=== PATIENT | male | born 1945 | race Caucasian/White ===

== ENCOUNTER 2016-07-01 12:56 | Inpatient (IN) | payer OTHER, MEDICARE ==
[2016-07-01] VITALS (10 sets, daily range): BP systolic 123–161; BP diastolic 77–101; PULSE 88–126; RESP 12–28; TEMP 97.7–98.9; O2SAT 90–98
[~2016-07-01] VITALS: Ht 188 cm; Wt 87.1 kg
[~2016-07-01 12:56] MED LIST: LORTA5 PO; MACR100C PO; Z.0.COMMODE-3:1; Z.0.CPM; Z.0.WALKERFRONT
[2016-07-01] MEDS ORDERED: ASPIRIN 81 MG CHEW TAB PO ONE (13:45)
[2016-07-01] MEDS ORDERED: PRED5TAB PO (13:51)
[2016-07-01 14:10] LABS: BASOPHIL # 0.1 TH/MM3 (0-0.2); BASOPHIL % 0.8 % (0.0-2.0); EOSINOPHIL # 0.4 TH/MM3 (0-0.4); EOSINOPHIL % 3.2 % (0.0-4.0); HEMATOCRIT 48.5 % (39.0-51.0); HEMO FLAGS DIFF FINAL; LYMPH % 9.8 % (9.0-44.0); LYMPHOCYTE # 1.4 TH/MM3 (1.0-4.8); MEAN CELL VOLUME 82.5 FL (80.0-100.0); MEAN CORPUSCULAR HEMOGLOBIN 26.3 PG (27.0-34.0); MEAN CORPUSCULAR HGB CONC 31.9 % (32.0-36.0); MONO % 7.6 % (0.0-8.0); NEUT % 78.6 % (16.0-70.0); PLATELET COUNT 235 TH/MM3 (150-450); RED BLOOD COUNT 5.87 MIL/MM3 (4.50-5.90); RED CELL DISTRIBUTION WIDTH 16.1 % (11.6-17.2)
[2016-07-01 14:21] LABS: APTT (PATIENT) 24.7 SEC (24.3-30.1); PROTHROMBIN TIME - PATIENT 11.1 SEC (9.8-11.6)
[2016-07-01 14:24] LABS: BICARBONATE 24.7 MEQ/L (21.0-32.0); MAGNESIUM 2.2 MG/DL (1.5-2.5); POTASSIUM 4.1 MEQ/L (3.5-5.1)
[2016-07-01] MEDS ORDERED: LEVOFLOXACIN 500 MG PREMIX INJ 100 ML IV ONE (14:45)
--- NOTE | 2016-07-01 14:50 | PD ---
HPI Chief Complaint: Chest Pain Time Seen by Provider: 13:39 Travel History International Travel<30 days: No Contact w/Intl Traveler<30days: No Traveled to known affect area: No History of Present Illness HPI 70-year-old male came to the emergency room brought by his with history of progressive shortness of breath and chest pressure for past 2-3 weeks. His says that he was given antibiotic for pneumonia/bronchitis couple weeks ago. However his respiratory symptoms continue along with chest tightness. Today it was the worse when she decided to bring him to the her primary care. There was an EKG done at the primary care's office and because it looked different patient was sent to the ER. Vital signs are stable otherwise. No history of past stents. Patient is on steroid. Patient has history of type 2 diabetes but is on diet control which keeps his sugar under control. FORMERLY [facility] Past Medical History Narrative Medical List of his past medical history is reviewed from the nursing note. Arthritis: Yes (R.A) Cancer: Yes (MELANOMA FACE) Cardiovascular Problems: No Diabetes: Yes (diet controlled) Patient Takes Glucophage: No Diminished Hearing: No Endocrine: No Gastrointestinal Disorders: No Genitourinary: No Hepatitis: No Hiatal Hernia: No Immune Disorder: No Musculoskeletal: Yes (RHEUMATOID ARTHRITIS) Neurologic: Yes (NEUROPATHY) Psychiatric: No Reproductive: No Respiratory: No Thyroid Disease: No Past Surgical History AICD: No Joint Replacement: Yes (R KNEE) Other Surgery: Yes (GANGLION CYST LEFT HAND, bilat great toes, melanoma removed left face) Social History Alcohol Use: Yes (mon and thur) Tobacco Use: Yes (CIGARS) Substance Use: No Allergies-Medications (Allergen,Severity, Reaction): Coded Allergies: Azithromycin (Unverified Allergy, Severe, SWELLING, 07/01/16) Comments List of his allergies reviewed from the nursing note. Reported Meds & Prescriptions Reported Meds & Active Scripts Active Reported Prednisone 5 Mg Tab 5 Mg PO DAILY Narrative Medication List of his home medications reviewed from the nursing note. Review of Systems Except as stated in HPI: all other systems reviewed are Neg Physical Exam Narrative GENERAL: Awake, alert, anxious mild distress SKIN: Warm and dry. HEAD: Atraumatic. Normocephalic. EYES: Pupils equal and round. No scleral icterus. No injection or drainage. ENT: No nasal bleeding or discharge. Mucous membranes pink and moist. NECK: Trachea midline. No JVD. CARDIOVASCULAR: Regular rate and rhythm. No murmur appreciated. RESPIRATORY: No accessory muscle use. Clear to auscultation. Breath sounds equal bilaterally. GASTROINTESTINAL: Abdomen soft, non-tender, nondistended. Hepatic and splenic margins not palpable. MUSCULOSKELETAL: No obvious deformities. No clubbing. No cyanosis. 2+ bilateral pedal edema NEUROLOGICAL: Awake and alert. No obvious cranial nerve deficits. Motor grossly within normal limits. Normal speech. PSYCHIATRIC: Appropriate mood and affect; insight and judgment normal. Data Data Last Documented VS Vital Signs Date Time Temp Pulse Resp B/P Pulse Ox O2 Delivery O2 Flow Rate FiO2 07/01/16 13:54 96 Nasal Cannula 2 07/01/16 13:45 107 20 161/101 07/01/16 12:57 97.7 Orders Electrocardiogram (07/01/16 ) Basic Metabolic Panel (Bmp) (07/01/16 13:45) B-Type Natriuretic Peptide (07/01/16 13:45) Ckmb (Isoenzyme) Profile (07/01/16 13:45) Complete Blood Count With Diff (07/01/16 13:45) Magnesium (Mg) (07/01/16 13:45) Prothrombin Time / Inr (Pt) (07/01/16 13:45) Act Partial Throm Time (Ptt) (07/01/16 13:45) Troponin I (07/01/16 13:45) Chest, Single Ap (07/01/16 13:45) Ecg Monitoring (07/01/16 13:45) Bilateral Bp Monitoring (07/01/16 13:45) Iv Access Insert/Monitor (07/01/16 13:45) Oximetry (07/01/16 13:45) Oxygen Administration (07/01/16 13:45) Aspirin Chew (Aspirin Chew) (07/01/16 13:45) Sodium Chloride 0.9% Flush (Ns Flush) (07/01/16 13:45) Blood Culture (07/01/16 14:42) Lactic Acid (07/01/16 14:42) Levofloxacin 500 Mg Premix Inj (Levaquin (07/01/16 14:45) Furosemide Inj (Lasix Inj) (07/01/16 15:00) Admit To Inpatient (07/01/16 ) Inpatient Certification (07/01/16 ) Diet Heart Healthy (07/01/16 Dinner) Echo 2d Comp W/Dopp(Routine) (07/01/16 ) Admit Order (Ed Use Only) (07/01/16 15:22) Labs Laboratory Tests Test 07/01/16 13:50 White Blood Count 14.0 TH/MM3 Red Blood Count 5.87 MIL/MM3 Hemoglobin 15.4 GM/DL Hematocrit 48.5 % Mean Corpuscular Volume 82.5 FL Mean Corpuscular Hemoglobin 26.3 PG Mean Corpuscular Hemoglobin 31.9 % Concent Red Cell Distribution Width 16.1 % Platelet Count 235 TH/MM3 Mean Platelet Volume 8.2 FL Neutrophils (%) (Auto) 78.6 % Lymphocytes (%) (Auto) 9.8 % Monocytes (%) (Auto) 7.6 % Eosinophils (%) (Auto) 3.2 % Basophils (%) (Auto) 0.8 % Neutrophils # (Auto) 11.0 TH/MM3 Lymphocytes # (Auto) 1.4 TH/MM3 Monocytes # (Auto) 1.1 TH/MM3 Eosinophils # (Auto) 0.4 TH/MM3 Basophils # (Auto) 0.1 TH/MM3 CBC Comment DIFF FINAL Differential Comment Prothrombin Time 11.1 SEC Prothromb Time International 1.0 RATIO Ratio Activated Partial 24.7 SEC Thromboplast Time Sodium Level 136 MEQ/L Potassium Level 4.1 MEQ/L Chloride Level 102 MEQ/L Carbon Dioxide Level 24.7 MEQ/L Anion Gap 9 MEQ/L Blood Urea Nitrogen 14 MG/DL Creatinine 0.82 MG/DL Estimat Glomerular Filtration 93 ML/MIN Rate Random Glucose 159 MG/DL Calcium Level 8.2 MG/DL Magnesium Level 2.2 MG/DL Total Creatine Kinase 48 U/L Troponin I 0.02 NG/ML B-Type Natriuretic Peptide 977 PG/ML MDM Medical Decision Making Medical Screen Exam Complete: Yes Emergency Medical Condition: Yes Medical Record Reviewed: Yes Interpretation(s) Twelve-lead EKG was reviewed by me. Normal sinus rhythm, left axis deviation, left bundle branch block. Heart rate of 99 bpm. Differential Diagnosis ACS, non-STEMI, CHF, pneumonia Narrative Course 2:48 PM blood test results of back and patient has leukocytosis with some left shift. However chemistry appears to be within normal limit including troponin. His BNP is almost 1000. Chest x-ray has not been officially read but I noticed a density in the right lower lobe. I have ordered blood cultures and lactic acid and given him IV Levaquin. I'll give him 40 mg of IV Lasix as well. Patient will need to be admitted. Awaiting for the hospitalist to call back. Procedures EKG Prior to Arrival: Yes Diagnosis Primary Impression: Congestive heart failure Qualified Code: I50.9 - Acute congestive heart failure, unspecified congestive heart failure type Additional Impressions: Chest pain Qualified Code: R07.9 - Chest pain, unspecified type Pneumonia Qualified Code: J18.1 - Pneumonia of right lower lobe due to infectious organism Admitting Information Admitting Physician Requests: Admit Zuleyka Franz MD Jul 01, 2016 14:50
[2016-07-01] MEDS ORDERED: FUROSEMIDE 40 MG/4 ML VIAL IV PUSH ONE (15:00)
--- NOTE | 2016-07-01 15:08 | RADRPT ---
EXAM DATE/TIME: 07/01/2016 13:55 [facility] COMPARISON: No previous studies available for comparison. INDICATIONS: Pain in middle of chest and shortness of breath for 5 to 6 weeks. MEDICAL HISTORY: None. SURGICAL HISTORY: None. ENCOUNTER: Initial ACUITY: 1 month PAIN SCORE: 8/10 LOCATION: Left chest FINDINGS: The heart size within normal limits. There is diffuse increased interstitial markings. There is fur ther increased density at the bases being worse on the right. CONCLUSION: 1. Diffuse increased interstitial markings likely representing edema. 2. Further increased density at the bases being much more prominent on the right. On the right this likely represents some degree of effusion, consolidation or atelectasis. On the left side there are some superimposed atelectasis or consolidation at the left base. Jadiel Hughes MD on July 01, 2016 at 15:04 Board Certified Radiologist. This report was verified electronically.
[2016-07-01] MEDS ORDERED: MORPHINE SULFATE 4 MG/ML INJ IV PUSH PRN (17:00)
--- NOTE | 2016-07-01 17:23 | HHI.HP ---
[facility] Service [facility] [facility] Primary Care Physician Non-Staff Admission Diagnosis shortness of breath, CHF, pneumonia, elevated troponin Diagnoses: Chief Complaint: Chest pain shortness of breath Travel History International Travel<30 Days: No Contact w/Intl Traveler <30 Da: No Traveled to Known Affected Are: No History of Present Illness Patient is a very pleasant 70-year-old male with history of rheumatoid arthritis on prednisone 5 mg daily. for the past 4 months now who has been experiencing chest pain for the past 6-8 weeks now described as "like a gorilla " to sitting in his chest lasting all day and night. Patient for the past 4 weeks now hasn't been unable to lay flat in bed and has to lay on his side. Wakes up in the middle of the night short of breath. Noted bilateral leg swelling more on the left side. Denies any fever or chills occasional dry cough. Patient baseline is very active and plays golf. He noted this change in his exercise tolerance as described above. No recent travel On evaluation the ER was noted to have heart rate of the 100s sinus with occasional PACs Patient was given 40 mg IV of Lasix with improvement of shortness of breath Review of Systems Constitutional: DENIES: Diaphoretic episodes, Fatigue, Fever, Weight gain, Weight loss, Chills, Dizziness, Change in appetite, Night Sweats Endocrine: DENIES: Heat/cold intolerance, Polydipsia, Polyuria, Polyphagia Eyes: DENIES: Blurred vision, Diplopia, Eye inflammation, Eye pain, Vision loss , Photosensitivity, Double Vision Ears, nose, mouth, throat: DENIES: Tinnitus, Hearing loss, Vertigo, Nasal discharge, Oral lesions, Throat pain, Hoarseness, Ear Pain, Running Nose, Epistaxis, Sinus Pain, Toothache, Odynophagia Respiratory: DENIES: Apneas, Cough, Snoring, Wheezing, Hemoptysis, Sputum production, Shortness of breath Cardiovascular: COMPLAINS OF: Chest pain, Dyspnea on Exertion, Lower Extremity Edema, Orthopnea, DENIES: Palpitations, Syncope, PND, Claudication Gastrointestinal: DENIES: Abdominal pain, Black stools, Bloody stools, Constipation, Diarrhea, Nausea, Vomiting, Difficulty Swallowing, Anorexia Genitourinary: DENIES: Sexual dysfunction, Urinary frequency, Urinary incontinence, Urgency, Hematuria, Dysuria, Nocturia, Penile Discharge, Testicular Pain, Testicular Swelling Musculoskeletal: COMPLAINS OF: Joint pain, DENIES: Muscle aches, Stiffness, Joint Swelling, Back pain, Neck pain Integumentary: DENIES: Abnormal pigmentation, Nail changes, Pruritus, Rash Hematologic/lymphatic: DENIES: Bruising, Lymphadenopathy Immunologic/allergic: DENIES: Eczema, Urticaria Neurologic: DENIES: Abnormal gait, Headache, Localized weakness, Paresthesias, Seizures, Speech Problems, Tremor, Poor Balance Psychiatric: DENIES: Anxiety, Confusion, Mood changes, Depression, Hallucinations, Agitation, Suicidal Ideation, Homicidal Ideation, Delusions Past Family Social History Past Medical History Rheumatoid arthritis Past Surgical History Lipoma left eye surgery Right knee surgery Bilateral foot surgery years ago Reported Medications Prednisone 5 mg daily for the past 4 months Allergies: Coded Allergies: Azithromycin (Unverified Allergy, Severe, SWELLING, 07/01/16) Family History Nonremarkable Social History Smokes 3-4 cigars per day occasionally Drinks beer occasionally Mondays Denies any substance abuse Physical Exam Vital Signs Vital Signs Date Time Temp Pulse Resp B/P Pulse Ox O2 Delivery O2 Flow Rate FiO2 07/01/16 16:14 88 22 136/97 98 Nasal Cannula 2 07/01/16 13:54 96 Nasal Cannula 2 07/01/16 13:54 96 Nasal Cannula 2 07/01/16 13:45 107 20 161/101 96 Room Air 07/01/16 13:38 22 95 Room Air 07/01/16 12:57 97.7 94 12 161/93 97 Room Air Physical Exam GENERAL: This is a well-nourished, well-developed patient, tachypneic, SKIN: No rashes, ecchymoses or lesions. Cool and dry. HEAD: Atraumatic. Normocephalic. No temporal or scalp tenderness. EYES: Pupils equal round and reactive. Extraocular motions intact. No scleral icterus. No injection or drainage. ENT: Nose without bleeding, purulent drainage or septal hematoma. Throat without erythema, tonsillar hypertrophy or exudate. Uvula midline. Airway patent. NECK: Trachea midline Positive JVD. . Supple, nontender, no meningeal signs. CARDIOVASCULAR: Regular rate and rhythm occasional PACs, no gallops, or rubs. RESPIRATORY: Clear to auscultation. Breath sounds equal bilaterally. No wheezes , rales, or rhonchi. GASTROINTESTINAL: Abdomen soft, non-tender, nondistended. No hepato-splenomegaly , or palpable masses. No guarding. MUSCULOSKELETAL: Extremities without clubbing, cyanosis, +1 pretibial and pedal edema . No calf tenderness. Negative Homans sign bilaterally. NEUROLOGICAL: Awake and alert. Cranial nerves II through XII intact. Motor and sensory grossly within normal limits. Five out of 5 muscle strength in all muscle groups. Normal speech. Laboratory Laboratory Tests Test 07/01/16 07/01/16 13:50 16:00 White Blood Count 14.0 Red Blood Count 5.87 Hemoglobin 15.4 Hematocrit 48.5 Mean Corpuscular Volume 82.5 Mean Corpuscular Hemoglobin 26.3 Mean Corpuscular Hemoglobin 31.9 Concent Red Cell Distribution Width 16.1 Platelet Count 235 Mean Platelet Volume 8.2 Neutrophils (%) (Auto) 78.6 Lymphocytes (%) (Auto) 9.8 Monocytes (%) (Auto) 7.6 Eosinophils (%) (Auto) 3.2 Basophils (%) (Auto) 0.8 Neutrophils # (Auto) 11.0 Lymphocytes # (Auto) 1.4 Monocytes # (Auto) 1.1 Eosinophils # (Auto) 0.4 Basophils # (Auto) 0.1 CBC Comment DIFF FINAL Differential Comment Prothrombin Time 11.1 Prothromb Time International 1.0 Ratio Activated Partial 24.7 Thromboplast Time Sodium Level 136 Potassium Level 4.1 Chloride Level 102 Carbon Dioxide Level 24.7 Anion Gap 9 Blood Urea Nitrogen 14 Creatinine 0.82 Estimat Glomerular Filtration 93 Rate Random Glucose 159 Calcium Level 8.2 Magnesium Level 2.2 Total Creatine Kinase 48 Troponin I 0.02 B-Type Natriuretic Peptide 977 Lactic Acid Level 1.9 Date/Time Procedure Status Source Growth 07/01/16 16:00 Aerobic Blood Culture Received Blood Peripheral Pending 07/01/16 16:00 Anaerobic Blood Culture Received Blood Peripheral Pending Result Diagram: 07/01/16 1350 07/01/16 1350 Assessment and Plan Assessment and Plan 70-year-old male presenting with increasing shortness of breath, orthopnea, leg swelling for the past 4-6 weeks Acute new onset congestive heart failure r/o ischemia in etio Unstable Angina - r/o underlying CAD/ischemia Tachycardia- frequent PACs vs intermittent a fib Accelerated hypertension EKG LAD. LAHB and nonspecific STTW flattening - LVH strain vs ischemia pattern Lasix 40 mg IV every 12. start BB Lopressor 25 mg by mouth every 8 for heart rate control and for chest pain Nitrol paste 1 inch anterior chest wall.q 6 ASA daily. Start Lovenox 1 mg/kg subcutaneous every 12 eventually start JAYESH if confirms low EF and or for additional BP control Check second set troponin. Check lipid panel. Get a 2-D echo check D dimer- if + get CTA R/O PE. check TSH 02 2 L/NC Cardiology consult will defer if they would proceed with cardiac catheterization versus non invasive stress testing to rule out CAD/ischemia for new onset CHF Left base consolidation Start on Levaquin History of rheumatoid arthritis will continue on maintenance prednisone 5 mg daily Leukocytosis= secondary to consolidation + chronic steroids Hyperglycemia- patient on chronic steroids. check hemoglobin a1C tobacco abuse- counselled "quitting" discussed with patient at length Physician Certification 2 Midnight Certification Type: Admission for Inpatient Services Order for Inpatient Services The services are ordered in accordance with Medicare regulations or non- Medicare payer requirements, as applicable. In the case of services not specified as inpatient-only, they are appropriately provided as inpatient services in accordance with the 2-midnight benchmark. Estimated LOS (days): 3 days is the estimated time the patient will need to remain in the hospital, assuming treatment plan goals are met and no additional complications. Post-Hospital Plan: Not yet determined Zoey Fung MD Jul 01, 2016 17:23 Blayne Watson MD Jul 01, 2016 22:39
[2016-07-01] MEDS: METOPROLOL TARTRATE 25 MG TAB PO SCH ×2 (17:24→22:37)
[2016-07-01] MEDS: NITROGLYCERIN 2% OINT 1 GM PACKET TOPICAL SCH ×3 (17:25→23:00)
[2016-07-01] MEDS: ENOXAPARIN SODIUM 100 MG/ML SYRINGE SQ SCH (17:25)
[2016-07-01] MEDS ORDERED: FUROSEMIDE 40 MG/4 ML VIAL IV PUSH SCH (18:00)
[2016-07-01] MEDS: FUROSEMIDE 40 MG/4 ML VIAL IV PUSH SCH (22:43)
[2016-07-02] VITALS (28 sets, daily range): BP systolic 120–140; BP diastolic 65–82; PULSE 81–144; RESP 18–22; TEMP 97.8–98; O2SAT 90–96
[2016-07-02] MEDS ORDERED: diphenhydrAMINE HCL 25 MG CAP PO ONE (01:30)
[2016-07-02] MEDS ORDERED: DILTIAZEM HCL 25 MG/5 ML VIAL IV ONE ×2 (04:45→09:45)
[2016-07-02] MEDS: NITROGLYCERIN 2% OINT 1 GM PACKET TOPICAL SCH ×3 (05:03→17:35)
[2016-07-02] MEDS: METOPROLOL TARTRATE 25 MG TAB PO SCH ×3 (05:03→21:04)
[2016-07-02] MEDS: ENOXAPARIN SODIUM 100 MG/ML SYRINGE SQ SCH ×2 (05:04→17:35)
[2016-07-02 06:56] LABS: ALT (GPT) 19 U/L (12-78); ANION GAP 12 MEQ/L (5-15); AST (GOT) 7 U/L (15-37); BICARBONATE 26.6 MEQ/L (21.0-32.0); BLOOD UREA NITROGEN 14 MG/DL (7-18); CHLORIDE 101 MEQ/L (98-107); GLOMERULAR FILTRATION RATE 106 ML/MIN (>89); POTASSIUM 3.4 MEQ/L (3.5-5.1); SODIUM (NA) 140 MEQ/L (136-145)
[2016-07-02 07:06] LABS: ALKALINE PHOSPHATASE 50 U/L (45-117); HDL CHOLESTEROL 61.5 MG/DL (40.0-60.0); LDL CHOLESTEROL 67 MG/DL (0-99); TOTAL BILIRUBIN ADULT 1.9 MG/DL (0.2-1.0)
[2016-07-02] MEDS: LEVOFLOXACIN 500 MG TAB PO SCH (08:27)
[2016-07-02] MEDS: ASPIRIN 325 MG TAB PO SCH (08:27)
[2016-07-02] MEDS: predniSONE 5 MG TAB PO SCH (08:27)
[2016-07-02] MEDS: FUROSEMIDE 40 MG/4 ML VIAL IV PUSH SCH (08:27)
[2016-07-02] MEDS ORDERED: DILTIAZEM INJ 125 MG in SODIUM CHLORIDE 0.9% INJ 100 ML IV SCH (09:45)
[2016-07-02] MEDS: POTASSIUM CHLORIDE 10 MEQ CONTROLLED RELEASE TAB PO SCH (10:00)
--- NOTE | 2016-07-02 12:15 | HHI.PR ---
Subjective Remarks chest pain minimal breathing much better leg swelling improved telemetry - in a. fib - rate 120s- 150s Objective Vitals Vital Signs Date Time Temp Pulse Resp B/P Pulse Ox O2 Delivery O2 Flow Rate FiO2 07/02/16 11:24 94 07/02/16 10:24 98.0 130 18 128/78 96 07/02/16 10:00 136 07/02/16 09:30 98.0 144 20 140/70 96 07/02/16 09:18 144 07/02/16 08:02 81 07/02/16 06:00 97 07/02/16 05:00 131 07/02/16 04:00 129 07/02/16 03:00 97.8 100 22 120/65 90 07/02/16 03:00 96 07/02/16 02:00 118 07/02/16 01:00 90 07/02/16 00:00 90 07/01/16 23:00 117 07/01/16 23:00 98.4 126 22 123/77 90 07/01/16 22:00 90 07/01/16 21:00 98.5 91 22 134/96 92 07/01/16 21:00 126 07/01/16 20:09 97 07/01/16 19:49 98.9 92 16 144/79 94 07/01/16 17:00 109 28 150/95 98 Nasal Cannula 2 07/01/16 16:14 88 22 136/97 98 Nasal Cannula 2 07/01/16 13:54 96 Nasal Cannula 2 07/01/16 13:54 96 Nasal Cannula 2 07/01/16 13:45 107 20 161/101 96 Room Air 07/01/16 13:38 22 95 Room Air 07/01/16 12:57 97.7 94 12 161/93 97 Room Air I/O 07/01/16 07/01/16 07/01/16 07/02/16 07/02/16 07/02/16 07:00 15:00 23:00 07:00 15:00 23:00 Intake Total 240 ml 0 ml Output Total 975 ml Balance -735 ml 0 ml Intake Oral 240 ml IV Total 0 ml Output Urine Total 975 ml Result Diagram: 07/01/16 1350 07/02/16 0515 Imaging Last Impressions Chest X-Ray 07/01/16 1345 Signed Impressions: Service Date/Time: Friday, July 01, 2016 13:55 - CONCLUSION: 1. Diffuse increased interstitial markings likely representing edema. 2. Further increased density at the bases being much more prominent on the right. On the right this likely represents some degree of effusion, consolidation or atelectasis. On the left side there are some superimposed atelectasis or consolidation at the left base. Jadiel Hughes MD Objective Remarks GENERAL: awake and alert, oriented x 3 SKIN: Warm and dry. HEAD: Normocephalic. EYES: No scleral icterus. No injection or drainage. NECK: Supple, trachea midline. No JVD or lymphadenopathy. CARDIOVASCULAR: irregular rhythm RESPIRATORY: Breath sounds equal bilaterally. No accessory muscle use. GASTROINTESTINAL: Abdomen soft, non-tender, nondistended. MUSCULOSKELETAL: No cyanosis, or edema. BACK: Nontender without obvious deformity. No CVA tenderness. A/P Assessment and Plan 70-year-old male presenting with increasing shortness of breath, orthopnea, leg swelling for the past 4-6 weeks Acute new onset congestive heart failure r/o ischemia in etio Unstable Angina - r/o underlying CAD/ischemia Accelerated hypertension EKG unremarkable except for LAD. LAHB and nonspecific STTW flattening - LVH strain vs ischemia pattern Lasix 20 mg IV q 12 BB Lopressor 25 mg by mouth every 8 Nitrol paste 1 inch anterior chest wall.q 6 ASA daily. Lovenox 1 mg/kg subcutaneous every 12 eventually start JAYESH if confirms low EF troponins negative. Get a 2-D echo 02 2 L/NC Cardiology consult will defer if they would proceed with cardiac catheter versus non invasive stress testing to rule out CAD/ischemia for new onset CHF Recurrent A. fib - now in RVR Cardizem bolus and start drip at 5 mg/hr- titrate to keep HR less than 100 continue on Lopressor Left base consolidation Levaquin History of rheumatoid arthritis will continue on maintenance prednisone 5 mg daily Hyperglycemia- patient on chronic steroids A1C pending. Leukocytosis- secondary to consolidation + chronic steroids tobacco abuse- counselled "quitting" discussed with patient at length Zoey Fung MD Jul 02, 2016 12:15
[2016-07-02 15:45] LABS: HEMOGLOBIN A1a 1.2 %; HEMOGLOBIN A1b 1.8 %; HEMOGLOBIN Ao 82.1 %; HEMOGLOBIN LA1C 2.7 %; HEMOGLOBIN P3 4.5 %
[2016-07-02] MEDS: FUROSEMIDE 20 MG/2 ML VIAL IV PUSH SCH (17:35)
--- NOTE | 2016-07-02 20:41 | EKG ---
Date Performed: 07/01/2016 Time Performed: 13:42:35 PTAGE: 70 years EKG: Sinus rhythm WITH OCCASIONAL SUPRAVENTRICULAR PREMATURE COMPLEXES MARKED LEFT AXIS DEVIATION LEFT VENTRICULAR HYP ERTROPHY AND ST-T CHANGE ABNORMAL ECG Compared to the PREVIOUS TRACING , rate slower DOCTOR: Antoine Gonsales Interpretating Date/Time 07/02/2016 20:40:28
[2016-07-02] MEDS: SODIUM CHLORIDE 0.9% FLUSH 5 ML FLUSH IVF PRN (21:05)
[2016-07-03] VITALS (16 sets, daily range): BP systolic 115–145; BP diastolic 76–89; PULSE 80–108; RESP 18; TEMP 97.7–98.6; O2SAT 93–96
[2016-07-03] MEDS: NITROGLYCERIN 2% OINT 1 GM PACKET TOPICAL SCH ×5 (00:24→23:50)
[2016-07-03] MEDS: METOPROLOL TARTRATE 25 MG TAB PO SCH ×3 (05:38→17:35)
[2016-07-03] MEDS: ENOXAPARIN SODIUM 100 MG/ML SYRINGE SQ SCH ×2 (05:38→17:27)
[2016-07-03 06:50] LABS: AUTOMATED NEUTROPHIL # 6.5 TH/MM3 (1.8-7.7); BASOPHIL % 0.4 % (0.0-2.0); EOSINOPHIL # 0.3 TH/MM3 (0-0.4); EOSINOPHIL % 3.4 % (0.0-4.0); HEMATOCRIT 41.4 % (39.0-51.0); HEMO FLAGS DIFF FINAL; LYMPH % 15.8 % (9.0-44.0); LYMPHOCYTE # 1.4 TH/MM3 (1.0-4.8); MEAN CORPUSCULAR HEMOGLOBIN 26.8 PG (27.0-34.0); MEAN CORPUSCULAR HGB CONC 32.7 % (32.0-36.0); MONO % 8.3 % (0.0-8.0); NEUT % 72.1 % (16.0-70.0); PLATELET COUNT 178 TH/MM3 (150-450); RED BLOOD COUNT 5.05 MIL/MM3 (4.50-5.90); RED CELL DISTRIBUTION WIDTH 16.5 % (11.6-17.2); WHITE BLOOD COUNT 9.1 TH/MM3 (4.0-11.0)
[2016-07-03 07:13] LABS: ANION GAP 11 MEQ/L (5-15); AST (GOT) 5 U/L (15-37); BICARBONATE 27.2 MEQ/L (21.0-32.0); BLOOD UREA NITROGEN 15 MG/DL (7-18); CHLORIDE 101 MEQ/L (98-107); GLOMERULAR FILTRATION RATE 133 ML/MIN (>89); POTASSIUM 3.8 MEQ/L (3.5-5.1); SODIUM (NA) 139 MEQ/L (136-145)
[2016-07-03 07:16] LABS: ALKALINE PHOSPHATASE 44 U/L (45-117); ALT (GPT) 13 U/L (12-78); TOTAL BILIRUBIN ADULT 1.2 MG/DL (0.2-1.0)
[2016-07-03] MEDS: ASPIRIN 325 MG TAB PO SCH (09:00)
--- NOTE | 2016-07-03 09:26 | HHI.PR ---
Subjective Remarks patient feeling better, no chest pain able to lay flat telemetry- rate controlled on BB + cardizem drip at 5 mg/hr Objective Vitals Vital Signs Date Time Temp Pulse Resp B/P Pulse Ox O2 Delivery O2 Flow Rate FiO2 07/03/16 06:00 83 07/03/16 05:00 86 07/03/16 04:00 93 07/03/16 04:00 Room Air 07/03/16 04:00 98.5 96 18 121/80 94 07/03/16 03:00 86 07/03/16 02:00 82 07/03/16 01:00 87 07/03/16 00:00 Room Air 07/03/16 00:00 87 07/03/16 00:00 97.8 88 18 115/76 93 07/02/16 23:00 83 07/02/16 22:00 81 07/02/16 21:00 88 07/02/16 20:00 Room Air 07/02/16 20:00 98.0 102 18 120/82 96 07/02/16 20:00 87 07/02/16 19:00 98 07/02/16 18:26 90 07/02/16 17:18 84 07/02/16 16:27 98.0 84 18 96 07/02/16 16:27 84 07/02/16 15:09 98 07/02/16 15:08 95 07/02/16 15:06 108 07/02/16 14:53 108 07/02/16 13:25 108 07/02/16 12:41 98.0 110 18 128/74 96 07/02/16 12:34 118 07/02/16 11:24 94 07/02/16 10:24 98.0 130 18 128/78 96 07/02/16 10:00 136 07/02/16 09:30 98.0 144 20 140/70 96 I/O 07/02/16 07/02/16 07/02/16 07/03/16 07/03/16 07/03/16 07:00 15:00 23:00 07:00 15:00 23:00 Intake Total 240 ml 0 ml 635 ml 300 ml Output Total 975 ml 3 ml Balance -735 ml 0 ml 635 ml 297 ml Intake Oral 240 ml 600 ml 300 ml IV Total 0 ml 35 ml Output Urine Total 975 ml 3 ml # Voids 3 # Bowel Movements 1 Result Diagram: 07/03/16 0450 07/03/16 0450 Imaging Last Impressions Chest X-Ray 07/01/16 1345 Signed Impressions: Service Date/Time: Friday, July 01, 2016 13:55 - CONCLUSION: 1. Diffuse increased interstitial markings likely representing edema. 2. Further increased density at the bases being much more prominent on the right. On the right this likely represents some degree of effusion, consolidation or atelectasis. On the left side there are some superimposed atelectasis or consolidation at the left base. Jadiel Hughes MD Objective Remarks GENERAL: awake and alert, oriented x 3 SKIN: Warm and dry. HEAD: Normocephalic. EYES: No scleral icterus. No injection or drainage. NECK: Supple, trachea midline. No JVD or lymphadenopathy. CARDIOVASCULAR: irregular rhythm RESPIRATORY: Breath sounds equal bilaterally. No accessory muscle use., no rales or wheezes GASTROINTESTINAL: Abdomen soft, non-tender, nondistended. MUSCULOSKELETAL: No cyanosis, or edema. left leg-/calf slight calf swelling, superfical wound left lateral aspect of the lower leg - BACK: Nontender without obvious deformity. No CVA tenderness. A/P Assessment and Plan 70-year-old male presenting with increasing shortness of breath, orthopnea, leg swelling for the past 4-6 weeks Cardiomyopathy - Acute new onset congestive heart failure r/o ischemia in etio Unstable Angina - r/o underlying CAD/ischemia Accelerated hypertension- better readings EKG unremarkable except for LAD. LAHB and nonspecific STTW flattening - LVH strain vs ischemia pattern Lasix 20 mg IV q 12 BB Lopressor 25 mg by mouth every 8 Nitrol paste 1 inch anterior chest wall.q 6 ASA daily. Lovenox 1 mg/kg subcutaneous every 12 eventually start JAYESH - Echo with low EF- ff official report troponins negative. 02 NC. good lipid panel Cardiology will take him to cath today. Recurrent A. fib - rate controlled continue Cardizem drip at 5 mg/hr- titrate to keep HR less than 100 continue on Lopressor Left base consolidation Levaquin History of rheumatoid arthritis will continue on maintenance prednisone 5 mg daily DM- type 2 - steroid induced A1C 7.2,. ADA diet. dietitian counselling Leukocytosis- secondary to consolidation + chronic steroids tobacco abuse- counselled "quitting" discussed with patient at length Zoey Fung MD Jul 03, 2016 09:26
[2016-07-03] MEDS: FUROSEMIDE 20 MG/2 ML VIAL IV PUSH SCH ×2 (10:05→17:27)
[2016-07-03] MEDS: predniSONE 5 MG TAB PO SCH (10:06)
[2016-07-03] MEDS: LEVOFLOXACIN 500 MG TAB PO SCH (10:06)
[2016-07-03] MEDS: POTASSIUM CHLORIDE 10 MEQ CONTROLLED RELEASE TAB PO SCH (10:06)
--- NOTE | 2016-07-03 10:25 | EC ---
Study Study Date:07/03/2016 STUDY CONCLUSIONS SUMMARY - Procedure narrative: Transthoracic echocardiography. Image quality was fair. Scanning was performed from the parasternal, apical, and subcostal acoustic windows. - Left ventricle: The cavity size was mildly dilated. Wall thickness was normal. Systolic function was severely reduced. The estimated ejection fraction 20%. Diffuse hypokinesis. - Mitral valve: Moderately calcified annulus. Mild regurgitation. - Tricuspid valve: Trace regurgitation. - Pulmonary arteries: PA peak pressure: 47mm Hg (S). If LV function is below 40, please consider prescribing an ACEI or ARB or document rationale for non-use. PROCEDURE DATA STUDY STATUS: Elective. Procedure: Transthoracic echocardiography. Image quality was fair. Scanning was performed from the parasternal, apical, and subcostal acoustic windows. Study completion: The patient tolerated the procedure well. Transthoracic echocardiography. M-mode, complete 2D, complete spectral Doppler, and color Doppler. Patient status: Inpatient. CARDIAC ANATOMY LEFT VENTRICLE: The cavity size was mildly dilated. Wall thickness was normal. Systolic function was severely reduced. The estimated ejection fraction 20%. Diffuse hypokinesis. AORTIC VALVE: Trileaflet; normal thickness leaflets. Doppler: Transvalvular velocity was within the normal range. There was no stenosis. No regurgitation. AORTA: Aortic root: The aortic root was normal in size. MITRAL VALVE: Moderately calcified annulus. Doppler: Transvalvular velocity was within the normal range. There was no evidence for stenosis. Mild regurgitation. Peak gradient: 4mm Hg (D). LEFT ATRIUM: The atrium was normal in size. RIGHT VENTRICLE: The cavity size was normal. Wall thickness was normal. PULMONIC VALVE: Doppler: Transvalvular velocity was within the normal range. There was no evidence for stenosis. No regurgitation. TRICUSPID VALVE: Structurally normal valve. Doppler: Transvalvular velocity was within the normal range. Trace regurgitation. PULMONARY ARTERY: The main pulmonary artery was normal-sized. Systolic pressure was within the normal range. RIGHT ATRIUM: The atrium was normal in size. PERICARDIUM: There was no pericardial effusion. SYSTEMIC VEINS: Inferior vena cava: The vessel was normal in size. BASIC MEASUREMENTS ADULT Normal Left ventricle LV internal dimension, ED, chordal level, *56.6 mm 43-52 PLAX LV internal dimension, ES, chordal level, *51 mm 23-38 PLAX Fractional shortening, chordal level, PLAX *10 % >29 LV posterior wall thickness, ED 8.9 mm IVS/LVPW ratio, ED 1.12 <1.3 Ventricular septum Septal thickness, ED 10 mm Aortic valve Leaflet separation 20 mm 15-26 Left atrium Anterior-posterior dimension 33 mm Right ventricle RV internal dimension, ED, PLAX 24.8 mm 19-38 BASIC MEASUREMENTS ADULT Normal Aortic valve Leaflet separation 20 mm 15-26 Aorta Root diameter, ED *39 mm 20-37 DOPPLER MEASUREMENTS ADULT Normal Main pulmonary artery Pressure, S *47 mm Hg =30 Mitral valve Peak E-wave velocity 104 cm/s Peak gradient, D 4 mm Hg Tricuspid valve Regurgitant peak velocity 304 cm/s Peak RV-RA gradient, S 37 mm Hg Maximal regurgitant velocity 304 cm/s Systemic veins Estimated CVP 10 mm Hg Right ventricle RV pressure, S *47 mm Hg <30 LEGEND: Mean values are shown as u=mean value. Asterisk (*) avendano values outside specified normal range. Prepared and signed by Juan M Penny [id number]
--- NOTE | 2016-07-03 10:53 | RADRPT ---
EXAM DATE/TIME: 07/03/2016 10:01 [place] COMPARISON: No previous studies available for comparison. INDICATIONS : Left leg swelling. MEDICAL HISTORY : Neuropathy. Diabetes. Melanoma. SURGICAL HISTORY : Total knee replacement, right. Ganglion cyst removal. ENCOUNTER: Initial ACUITY: 1 day PAIN SCORE: 1/10 LOCATION: Left leg. TECHNIQUE: Venous ultrasound of the leg was performed from the inguinal ligament to the proximal calf. Real-elvira e, color Doppler and spectral tracing, compression and augmentation techniques were used. FINDINGS: There is normal compressibility of the deep venous system from the inguinal region to the proximal ca lf. No echogenic clot is seen in the lumen of the common femoral, femoral, popliteal, and posterior tibial veins. There is a normal response of the venous system to proximal and distal augmentation an d respiration. CONCLUSION: Negative study with no evidence of deep venous thrombosis. Bryce Elam MD on July 03, 2016 at 10:51 Board Certified Radiologist. This report was verified electronically.
--- NOTE | 2016-07-03 11:05 | MB ---
cc: BECKA ANSARI DATE OF CONSULTATION 07/03/2016 DATE OF 1945 REASON FOR CONSULTATION Chest pain HISTORY OF PRESENT ILLNESS 70-year-old male smoker with past medical history significant for rheumatoid arthritis, and right total knee replacement who presented to the emergency department with complaint of chest pressure all day yesterday and during today during the night. He reports that for the last four months, he has been experiencing this on and off pressure sensation in the chest that is described like a "gorilla sitting on my chest". This was associated with orthopnea, PND and the leg swelling. He denies chest trauma, fevers, chills, nausea, vomiting , diarrhea recent travel, bleeding, dizziness, light headedness, palpitations or syncope. He did note some fatigue while playing golf and energy loss. In the emergency department, he was found to be in atrial fibrillation with RVR which was successfully rate controlled with IV Cardizem. Cardiology has been consulted for further evaluation and management of chest pressure. REVIEW OF SYSTEMS Negative except for what is mentioned in the HPI. PAST MEDICAL HISTORY Rheumatoid arthritis. PAST SURGICAL HISTORY 1. Lipoma 2. Left eye surgery 3. Right knee surgery 4. Bilateral foot surgery HOME MEDICATIONS Prednisone 5 mg p.o. daily ALLERGIES AZITHROMYCIN FAMILY HISTORY Noncontributory SOCIAL HISTORY He is a smoker. Social drinker and denies illicit drug use. PHYSICAL EXAM VITAL SIGNS: Temperature 98.5, respiratory rate 18, heart rate 83, blood pressure 121/80, O2 sats 94% on room air. GENERAL: He is awake, alert, and oriented x3 in no acute distress lying in bed , at bedside. NECK: No JVD, no carotid bruits. HEART: Irregularly irregularly, no murmurs, rubs or gallops appreciated. LUNGS: Clear to auscultation bilaterally. No wheezes, rhonchi so rales. ABDOMEN: Soft, nontender, nondistended with positive bowel sounds. EXTREMITIES: No cyanosis or edema and pulses throughout. LABORATORY DATA CBC hemoglobin 13, hematocrit 41, platelet count of 178, INR 1. Electrolytes sodium 139, potassium 3.8, chloride 101, BUN 15, creatinine 0.6, hemoglobin A1c 7.2. BNP 977, troponin 0.02 and 0.04, cholesterol 147, LDL 67, HDL 61, TSH 1.5. Chest x-ray shows edema. EKG shows normal sinus rhythm with interventricular conduction delay, LVH and non-specific ST changes. Echocardiogram done at bedside, the preliminary read shows depressed LV systolic function with an estimated ejection fraction of about 30-35% which with diffuse hypokineses. ASSESSMENT/PLAN This is a 70-year-old male with a past medical history as mentioned presenting with Unstable Angina. Troponins are unremarkable, however risk factors include tobacco abuse and age. Atrial fibrillation has been successfully controlled with medications, however there is new LV systolic dysfunction seen in Echo. At this time, I think that a cardiac ischemic workup is warranted for new-onset LV dysfunction. Thus, we should pursue a left heart catheterization to better assess his CAD. The risks and benefits of left heart cath/intervention including , but not limited to infection, bleeding, renal failure, neurovascular trauma, RI, emergent CABG, stroke and have been explained to the patient and he is willing to proceed. 1. Schedule the left heart cath for this morning. 2. Keep NPO 3. Continue aggressive medical management for CAD, as well as heart failure. Further therapy to be determined. MD TODD Evans/LOULOU /10:09 AM /10:46 AM MISAEL
[2016-07-03] MEDS ORDERED: MIDAZOLAM HCL 2 MG/2 ML VIAL ONE ×2 (13:04→13:25)
[2016-07-03] MEDS ORDERED: HEPARIN-NS/PF INJ 500 ML ONE ×2 (13:04→13:16)
[2016-07-03] MEDS ORDERED: HEPARIN SODIUM - IV 10,000 UNITS/10 ML VIAL ONE (13:08)
[2016-07-03] MEDS ORDERED: VERAPAMIL HCL 5 MG/2 ML VIAL ONE (13:08)
[2016-07-03] MEDS ORDERED: NITROGLYCERIN INJ 5 ML ONE (13:08)
[2016-07-03] MEDS ORDERED: PRASUGREL 10 MG TAB ONE (14:03)
[2016-07-03] MEDS ORDERED: IOHEXOL 350 MG/ML 100 ML BTL (for Cath Lab) OTHER ONE (16:28)
[2016-07-03] MEDS ORDERED: IOHEXOL 350 MG/ML 50 ML BTL (for Cath Lab) OTHER ONE (16:28)
[2016-07-03] MEDS ORDERED: TEMAZEPAM 15 MG CAP PO PRN (17:45)
[2016-07-03] MEDS ORDERED: DEXTROSE 50% IN WATER 50 ML VIAL(D50) IV PUSH PRN (18:00)
[2016-07-03] MEDS ORDERED: ACETAMINOPHEN/HYDROcodone 325 MG/5 MG TAB PO PRN (18:00)
[2016-07-03] MEDS ORDERED: GLUCAGON 1 MG/ML VIAL OTHER PRN (18:00)
[2016-07-03] MEDS: INSULIN ASPART SUPPLEMENTAL SCALE SQ SCH (20:25)
[2016-07-03] MEDS ORDERED: ATORVASTATIN 10 MG TAB PO SCH (21:00)
[2016-07-04] VITALS (26 sets, daily range): BP systolic 118–147; BP diastolic 78–95; PULSE 86–124; RESP 18; TEMP 97.4–98; O2SAT 94–98
[2016-07-04] MEDS: METOPROLOL TARTRATE 25 MG TAB PO SCH ×3 (05:10→21:11)
[2016-07-04] MEDS: NITROGLYCERIN 2% OINT 1 GM PACKET TOPICAL SCH (05:10)
[2016-07-04] MEDS: INSULIN ASPART SUPPLEMENTAL SCALE SQ SCH ×4 (06:00→21:00)
[2016-07-04 07:19] LABS: BICARBONATE 29.5 MEQ/L (21.0-32.0)
[2016-07-04] MEDS ORDERED: DIGOXIN 0.5 MG/2 ML VIAL IV PUSH ONE (07:45)
--- NOTE | 2016-07-04 07:59 | HHI.PR ---
Subjective Remarks patient no further chest pains, no leg swelling, shortness of breath improved telemetry- in a fib rhythm- rates 90s to low 110s Objective Vitals Vital Signs Date Time Temp Pulse Resp B/P Pulse Ox O2 Delivery O2 Flow Rate FiO2 07/04/16 06:05 94 07/04/16 05:58 106 07/04/16 04:16 99 07/04/16 03:45 97.4 94 18 118/78 94 07/04/16 03:25 98 07/04/16 01:22 88 07/04/16 00:06 86 07/03/16 23:06 91 07/03/16 23:06 98.4 86 18 135/79 96 07/03/16 22:49 86 07/03/16 22:40 86 07/03/16 22:40 98.4 86 18 135/79 96 07/03/16 21:45 18 07/03/16 21:01 85 07/03/16 20:01 96 Room Air 07/03/16 20:01 104 07/03/16 20:01 98.6 108 18 133/79 96 07/03/16 18:00 88 07/03/16 15:00 97.7 92 18 145/89 95 07/03/16 11:00 98.0 80 18 120/80 95 I/O 07/03/16 07/03/16 07/03/16 07/04/16 07/04/16 07/04/16 07:00 15:00 23:00 07:00 15:00 23:00 Intake Total 300 ml 979 ml 120 ml Output Total 3 ml 1050 ml 400 ml Balance 297 ml -71 ml -280 ml Intake Oral 300 ml 240 ml 120 ml IV Total 739 ml Output Urine Total 3 ml 1050 ml 400 ml # Voids 2 # Bowel Movements 1 0 Result Diagram: 07/03/16 0450 07/04/16 0642 Imaging Last Impressions Lower Extremity Ultrasound 07/03/16 0000 Signed Impressions: Service Date/Time: June 10:01 - CONCLUSION: Negative study with no evidence of deep venous thrombosis. Bryce Elam MD Chest X-Ray 07/01/16 1345 Signed Impressions: Service Date/Time: Friday, July 01, 2016 13:55 - CONCLUSION: 1. Diffuse increased interstitial markings likely representing edema. 2. Further increased density at the bases being much more prominent on the right. On the right this likely represents some degree of effusion, consolidation or atelectasis. On the left side there are some superimposed atelectasis or consolidation at the left base. Jadiel Hughes MD Objective Remarks GENERAL: awake and alert, oriented x 3 SKIN: Warm and dry. HEAD: Normocephalic. EYES: No scleral icterus. No injection or drainage. NECK: Supple, trachea midline. No JVD or lymphadenopathy. CARDIOVASCULAR: irregular rhythm HR 102 RESPIRATORY: Breath sounds equal bilaterally. No accessory muscle use., no rales or wheezes GASTROINTESTINAL: Abdomen soft, non-tender, nondistended. MUSCULOSKELETAL: no edema, no calf swelling,, superfical wound left lateral aspect of the lower leg - BACK: Nontender without obvious deformity. No CVA tenderness. Procedures cardiac cath- 07/03- cadiac catheterization A/P Assessment and Plan 70-year-old male presenting with increasing shortness of breath, orthopnea, leg swelling for the past 4-6 weeks Ischemic Cardiomyopathy - ACS -Unstable Angina - S/P cath - stent 07/03 Accelerated hypertension- better readings ? AICD candidate Lasix 20 mg IV q 12- change to po q12 BB Lopressor 25 mg by mouth every 8 Nitrol paste 1 inch anterior chest wall.q 6-- change to po Imdur 30 mg daily- ASA daily. + Effiant. start JAYESH - Enalapril 2.5 mg po daily- adjust as BP tolerates statins Cardiology ff Recurrent A. fib - rate variable 90-110s continue on Lopressor. off Cardizem drip Give IV 0.25 mg IV q 4 x 3. start Digoxin 0.125 mg po. daily.. ? 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 ADA diet. dietitian counselling ff readings Leukocytosis- secondary to consolidation + chronic steroids tobacco abuse- counselled "quitting" discussed with patient at length Zoey Fung MD Jul 04, 2016 07:58 Zoey Fung MD Jul 04, 2016 07:58
[2016-07-04] MEDS: APIXABAN 5 MG TABLET PO SCH ×2 (09:10→21:11)
[2016-07-04] MEDS: FUROSEMIDE 20 MG TAB PO SCH ×2 (09:11→17:58)
[2016-07-04] MEDS: DIGOXIN 0.125 MG TAB PO SCH (09:11)
[2016-07-04] MEDS: ASPIRIN 325 MG TAB PO SCH (09:11)
[2016-07-04] MEDS: predniSONE 5 MG TAB PO SCH (09:12)
[2016-07-04] MEDS: POTASSIUM CHLORIDE 10 MEQ CONTROLLED RELEASE TAB PO SCH (09:12)
[2016-07-04] MEDS: LEVOFLOXACIN 500 MG TAB PO SCH (09:12)
[2016-07-04] MEDS: ISOSORBIDE MONONITRATE 30 MG TAB PO SCH (09:12)
--- NOTE | 2016-07-04 10:17 | PD.CARD.PN ---
Subjective Subjective Remarks no overnight events no complaints afib in the low 100's s/p PCI/KIKE to RAMUS Objective Medications Current Medications Medications (Trade) Dose Ordered Sig/Gus Route Start Time Stop Time Status Last Admin (NS Flush) 2 ml UNSCH PRN IVF 07/01/16 13:45 07/02/16 21:05 (Lopressor) 25 mg Q8HR PO 07/01/16 17:00 07/04/16 05:10 (Aspirin) 325 mg DAILY PO 07/02/16 09:00 07/04/16 09:11 (Morphine Inj) 2 mg Q6HR PRN IV PUSH 07/01/16 17:00 (Deltasone) 5 mg DAILY PO 07/02/16 09:00 07/04/16 09:12 Levofloxacin 500 mg 500 mg DAILY PO 07/02/16 09:00 07/04/16 09:12 (Cardizem Inj/NS Inj) 125 ml @ 0 mls/hr TITRATE IV 07/02/16 09:45 (KCl) 30 meq DAILY PO 07/02/16 10:00 07/04/16 09:12 (Lipitor) 10 mg HS PO 07/03/16 21:00 07/03/16 20:25 (Restoril) 15 mg HS PRN PO 07/03/16 17:45 (D50w (Vial) Inj) 25 ml UNSCH PRN IV PUSH 07/03/16 18:00 (Glucagon Inj) 1 mg UNSCH PRN OTHER 07/03/16 18:00 ([place] 5-325 Mg) 1 tab Q6H PRN PO 07/03/16 18:00 07/03/16 20:26 (Lasix) 20 mg BID@09,18 PO 07/04/16 09:00 07/04/16 09:11 (Lanoxin) 0.125 mg DAILY PO 07/04/16 09:00 07/04/16 09:11 (Eliquis) 5 mg BID PO 07/04/16 09:00 07/04/16 09:10 (Imdur) 30 mg DAILY PO 07/04/16 09:00 07/04/16 09:12 (Vasotec) 2.5 mg DAILY PO 07/04/16 09:00 Vital Signs / I&O Vital Signs Date Time Temp Pulse Resp B/P Pulse Ox O2 Delivery O2 Flow Rate FiO2 07/04/16 06:05 94 07/04/16 05:58 106 07/04/16 04:16 99 07/04/16 03:45 97.4 94 18 118/78 94 07/04/16 03:25 98 07/04/16 01:22 88 07/04/16 00:06 86 07/03/16 23:06 91 07/03/16 23:06 98.4 86 18 135/79 96 07/03/16 22:49 86 07/03/16 22:40 86 07/03/16 22:40 98.4 86 18 135/79 96 07/03/16 21:45 18 07/03/16 21:01 85 07/03/16 20:01 96 Room Air 07/03/16 20:01 104 07/03/16 20:01 98.6 108 18 133/79 96 07/03/16 18:00 88 07/03/16 15:00 97.7 92 18 145/89 95 07/03/16 11:00 98.0 80 18 120/80 95 I/O 07/03/16 07/03/16 07/03/16 07/04/16 07/04/16 07/04/16 07:00 15:00 23:00 07:00 15:00 23:00 Intake Total 300 ml 979 ml 120 ml Output Total 3 ml 1050 ml 400 ml Balance 297 ml -71 ml -280 ml Intake Oral 300 ml 240 ml 120 ml IV Total 739 ml Output Urine Total 3 ml 1050 ml 400 ml # Voids 2 # Bowel Movements 1 0 Physical Exam GENERAL: Well-nourished, well-developed patient. SKIN: Warm and dry. HEAD: Normocephalic. EYES: No scleral icterus. No injection or drainage. NECK: Supple, trachea midline. No JVD or lymphadenopathy. CARDIOVASCULAR: Irr Irr without murmurs, gallops, or rubs. RESPIRATORY: Breath sounds equal bilaterally. No accessory muscle use. GASTROINTESTINAL: Abdomen soft, non-tender, nondistended. EXTREMITIES: No cyanosis, or edema. NEUROLOGICAL: Awake, alert, and oriented x 3. Non-focal. Laboratory Laboratory Tests Test 07/04/16 06:42 Sodium Level 138 MEQ/L Potassium Level 4.0 MEQ/L Chloride Level 101 MEQ/L Carbon Dioxide Level 29.5 MEQ/L Anion Gap 8 MEQ/L Blood Urea Nitrogen 16 MG/DL Creatinine 0.77 MG/DL Estimat Glomerular Filtration 100 ML/MIN Rate Random Glucose 121 MG/DL Calcium Level 8.3 MG/DL Assessment and Plan Problem List: (1) Chest pain Assessment and Plan: s/p PCI/KIKE to Ramus Chest pain free In afib Cont DAPT with ASA and Effient Cont OAC for Afib Cont aggressive medical management for CAD/HF including BB, ACEi, Statin and nitrates Life Vest upon d/c (2) Congestive heart failure (3) HBP (high blood pressure) (4) Supraventricular tachycardia Problem Qualifiers (1) Chest pain: Qualified Code: R07.9 - Chest pain, unspecified type (2) Congestive heart failure: Qualified Code: I50.9 - Acute congestive heart failure, unspecified congestive heart failure type Amol Sheppard MD Jul 04, 2016 10:17
[2016-07-04] MEDS ORDERED: ENALAPRIL MALEATE 2.5 MG TAB PO ONE (10:30)
[2016-07-04] MEDS: ENALAPRIL MALEATE 2.5 MG TAB PO SCH (12:02)
[2016-07-04] MEDS: ATORVASTATIN 40 MG TAB PO SCH (12:05)
[2016-07-04] MEDS ORDERED: DIGOXIN 0.5 MG/2 ML VIAL IV PUSH PRN (15:00)
[2016-07-05] VITALS (18 sets, daily range): BP systolic 118–122; BP diastolic 68–88; PULSE 81–103; RESP 18; TEMP 97–98; O2SAT 96–97
[2016-07-05] MEDS: METOPROLOL TARTRATE 25 MG TAB PO SCH ×2 (05:47→13:28)
[2016-07-05] MEDS: INSULIN ASPART SUPPLEMENTAL SCALE SQ SCH ×2 (05:48→11:34)
[2016-07-05] MEDS ORDERED: ISOSORBIDE MONONITRATE 30 MG TAB PO SCH ×2 (07:00→09:00)
[2016-07-05] MEDS: ISOSORBIDE MONONITRATE 30 MG TAB PO SCH (08:57)
[2016-07-05] MEDS: LEVOFLOXACIN 500 MG TAB PO SCH (08:57)
[2016-07-05] MEDS: DIGOXIN 0.125 MG TAB PO SCH (08:58)
[2016-07-05] MEDS: APIXABAN 5 MG TABLET PO SCH (08:58)
[2016-07-05] MEDS: ENALAPRIL MALEATE 2.5 MG TAB PO SCH (08:58)
[2016-07-05] MEDS: predniSONE 5 MG TAB PO SCH (08:59)
[2016-07-05] MEDS: SODIUM CHLORIDE 0.9% FLUSH 5 ML FLUSH IVF PRN (08:59)
[2016-07-05] MEDS: POTASSIUM CHLORIDE 10 MEQ CONTROLLED RELEASE TAB PO SCH (08:59)
[2016-07-05] MEDS: ATORVASTATIN 40 MG TAB PO SCH (08:59)
[2016-07-05] MEDS: FUROSEMIDE 20 MG TAB PO SCH (09:00)
[2016-07-05] MEDS ORDERED: PRASUGREL 10 MG TAB PO SCH (09:00)
[2016-07-05] MEDS ORDERED: ASPIRIN EC 81 MG TABEC PO SCH (09:00)
--- NOTE | 2016-07-05 10:28 | PD.CARD.PN ---
Subjective Subjective Remarks No chest pain, no shortness of breath Objective Medications Current Medications Medications (Trade) Dose Ordered Sig/Gus Route Start Time Stop Time Status Last Admin (Lopressor) 25 mg Q8HR PO 07/01/16 17:00 07/05/16 05:47 (Morphine Inj) 2 mg Q6HR PRN IV PUSH 07/01/16 17:00 (Deltasone) 5 mg DAILY PO 07/02/16 09:00 07/05/16 08:59 Levofloxacin 500 mg 500 mg DAILY PO 07/02/16 09:00 07/05/16 08:57 (Cardizem Inj/NS Inj) 125 ml @ 0 mls/hr TITRATE IV 07/02/16 09:45 (KCl) 30 meq DAILY PO 07/02/16 10:00 07/05/16 08:59 (Restoril) 15 mg HS PRN PO 07/03/16 17:45 (D50w (Vial) Inj) 25 ml UNSCH PRN IV PUSH 07/03/16 18:00 (Glucagon Inj) 1 mg UNSCH PRN OTHER 07/03/16 18:00 ([place] 5-325 Mg) 1 tab Q6H PRN PO 07/03/16 18:00 07/03/16 20:26 (Lasix) 20 mg BID@09,18 PO 07/04/16 09:00 07/04/16 17:58 (Lanoxin) 0.125 mg DAILY PO 07/04/16 09:00 07/05/16 08:58 (Eliquis) 5 mg BID PO 07/04/16 09:00 07/05/16 08:58 (Imdur) 30 mg DAILY PO 07/04/16 09:00 07/05/16 08:57 (Vasotec) 2.5 mg DAILY PO 07/04/16 09:00 07/05/16 08:58 (Effient) 10 mg DAILY PO 07/05/16 09:00 07/05/16 08:58 (Ecotrin Ec) 81 mg DAILY PO 07/05/16 09:00 07/05/16 08:58 (Lipitor) 40 mg DAILY PO 07/04/16 11:00 07/05/16 08:59 Vital Signs / I&O Vital Signs Date Time Temp Pulse Resp B/P Pulse Ox O2 Delivery O2 Flow Rate FiO2 07/05/16 10:05 92 07/05/16 09:34 97.0 81 18 122/78 96 07/05/16 09:32 85 07/05/16 07:40 89 07/05/16 07:40 Room Air 07/05/16 06:00 94 07/05/16 05:00 94 07/05/16 04:00 103 07/05/16 03:15 93 18 119/88 97 07/05/16 03:00 93 07/05/16 02:00 94 07/05/16 01:00 92 07/05/16 00:00 91 07/04/16 23:30 94 18 132/85 98 07/04/16 23:00 92 07/04/16 22:38 95 Room Air 07/04/16 22:00 91 07/04/16 21:00 94 07/04/16 20:00 96 07/04/16 19:44 97.7 98 18 147/95 97 07/04/16 19:00 91 07/04/16 18:00 95 07/04/16 17:00 93 07/04/16 16:00 92 07/04/16 15:00 103 07/04/16 15:00 97.8 98 18 134/92 95 07/04/16 14:00 100 07/04/16 13:00 106 07/04/16 12:00 102 07/04/16 11:00 124 07/04/16 11:00 98.0 102 18 124/78 96 I/O 07/04/16 07/04/16 07/04/16 07/05/16 07/05/16 07/05/16 07:00 15:00 23:00 07:00 15:00 23:00 Intake Total 120 ml 600 ml 240 ml Output Total 400 ml 600 ml 1100 ml Balance -280 ml 0 ml -860 ml Intake Oral 120 ml 600 ml 240 ml Output Urine Total 400 ml 600 ml 1100 ml # Bowel Movements 2 0 Physical Exam GENERAL: NAD SKIN: Warm and dry. HEAD: Atraumatic. Normocephalic. EYES: Pupils equal and round. No scleral icterus. No injection or drainage. ENT: No nasal bleeding or discharge. Mucous membranes pink and moist. NECK: Trachea midline. No JVD. CARDIOVASCULAR: Regular rate and rhythm. RESPIRATORY: Decreased breath sounds bilaterally GASTROINTESTINAL: Abdomen soft, non-tender, nondistended. Hepatic and splenic margins not palpable. MUSCULOSKELETAL: Extremities without clubbing, cyanosis, or edema. No obvious deformities. NEUROLOGICAL: Awake and alert. No obvious cranial nerve deficits. Motor grossly within normal limits. Five out of 5 muscle strength in the arms and legs. Normal speech. PSYCHIATRIC: Appropriate mood and affect; insight and judgment normal. Assessment and Plan Problem List: (1) Chest pain (2) Congestive heart failure (3) HBP (high blood pressure) (4) Supraventricular tachycardia Assessment and Plan 1) ASA/Effient/BB/Statin/JAYESH-I 2) Con't Apixaban per Dr. Greer 3) Follow up with Dr. Greer on discharge 4) LifeVest hopefully fit today due to Cardiomyopathy, EF 20% Problem Qualifiers (1) Chest pain: Qualified Code: R07.9 - Chest pain, unspecified type (2) Congestive heart failure: Qualified Code: I50.9 - Acute congestive heart failure, unspecified congestive heart failure type Gregory Arce DO Jul 05, 2016 10:28
--- NOTE | 2016-07-05 12:05 | HHI.PR ---
Subjective Remarks no complains up and ambulating no chest pains or shortness of breath no leg swelling HR ranging from 90s- low 100s telemetry reviewed - a fib rhythm, rate variable Objective Vitals Vital Signs Date Time Temp Pulse Resp B/P Pulse Ox O2 Delivery O2 Flow Rate FiO2 07/05/16 11:44 97.0 87 18 122/68 97 07/05/16 11:08 81 07/05/16 10:05 92 07/05/16 09:34 97.0 81 18 122/78 96 07/05/16 09:32 85 07/05/16 07:40 89 07/05/16 07:40 Room Air 07/05/16 06:00 94 07/05/16 05:00 94 07/05/16 04:00 103 07/05/16 03:15 93 18 119/88 97 07/05/16 03:00 93 07/05/16 02:00 94 07/05/16 01:00 92 07/05/16 00:00 91 07/04/16 23:30 94 18 132/85 98 07/04/16 23:00 92 07/04/16 22:38 95 Room Air 07/04/16 22:00 91 07/04/16 21:00 94 07/04/16 20:00 96 07/04/16 19:44 97.7 98 18 147/95 97 07/04/16 19:00 91 07/04/16 18:00 95 07/04/16 17:00 93 07/04/16 16:00 92 07/04/16 15:00 103 07/04/16 15:00 97.8 98 18 134/92 95 07/04/16 14:00 100 07/04/16 13:00 106 I/O 07/04/16 07/04/16 07/04/16 07/05/16 07/05/16 07/05/16 07:00 15:00 23:00 07:00 15:00 23:00 Intake Total 120 ml 600 ml 240 ml Output Total 400 ml 600 ml 1100 ml Balance -280 ml 0 ml -860 ml Intake Oral 120 ml 600 ml 240 ml Output Urine Total 400 ml 600 ml 1100 ml # Bowel Movements 2 0 Result Diagram: 07/03/16 0450 07/04/16 0642 Imaging Last Impressions Lower Extremity Ultrasound 07/03/16 0000 Signed Impressions: Service Date/Time: June 10:01 - CONCLUSION: Negative study with no evidence of deep venous thrombosis. Bryce Elam MD Chest X-Ray 07/01/16 1345 Signed Impressions: Service Date/Time: Friday, July 01, 2016 13:55 - CONCLUSION: 1. Diffuse increased interstitial markings likely representing edema. 2. Further increased density at the bases being much more prominent on the right. On the right this likely represents some degree of effusion, consolidation or atelectasis. On the left side there are some superimposed atelectasis or consolidation at the left base. Jadiel Hughes MD Objective Remarks GENERAL: awake and alert, oriented x 3 SKIN: Warm and dry. HEAD: Normocephalic. EYES: No scleral icterus. No injection or drainage. NECK: Supple, trachea midline. No JVD or lymphadenopathy. CARDIOVASCULAR: irregular rhythm HR 102 RESPIRATORY: Breath sounds equal bilaterally. No accessory muscle use., no rales or wheezes GASTROINTESTINAL: Abdomen soft, non-tender, nondistended. MUSCULOSKELETAL: no edema, no calf swelling,, superficial wound left lateral aspect of the lower leg - BACK: Nontender without obvious deformity. No CVA tenderness. Procedures cardiac cath- 07/03- cadia catheterization A/P Assessment and Plan 70-year-old male presenting with increasing shortness of breath, orthopnea, leg swelling for the past 4-6 weeks Ischemic Cardiomyopathy - ACS -Unstable Angina - S/P cath - stent 07/03 Accelerated hypertension- Improved Lasix 20 mg po daily BB Lopressor 25 mg by mouth every 8 Imdur 30 mg daily- ASA daily. + Effiant. Enalapril 2.5 mg po daily- adjust as BP tolerates statins Cardiology ff- OP ff up with Dr. Zoey Carmichael fib - rate controlled continue on Lopressor. digoxin po daily- 0.25 mg daily Eliquis Left base consolidation Levaquin History of rheumatoid arthritis will continue on maintenance prednisone 5 mg daily DM- type 2 - steroid induced A1C 7.2,. ADA diet. dietitian counselling ff readings- good readings in am- pm readings elevated due to steroid ff up with PCP- start Actos 15 mg po daily. instruct patient to monitor BS bid and record. instructions on hypoglcyemic symptoms Leukocytosis- secondary to consolidation + chronic steroids tobacco abuse- counselled "quitting" discussed with patient at length Zoey Fung MD Jul 05, 2016 12:05
[2016-07-05] MEDS ORDERED: LIPI40TA PO (12:26)
[2016-07-05] MEDS ORDERED: FURO20TA PO (12:26)
[2016-07-05] MEDS ORDERED: METO25TA3 PO (12:26)
[2016-07-05] MEDS ORDERED: ISOS30TA3 PO (12:26)
[2016-07-05] MEDS ORDERED: ASPI81TA11 PO (12:26)
[2016-07-05] MEDS ORDERED: DIGO0.12 PO (12:26)
[2016-07-05] MEDS ORDERED: ENAL2.5T PO (12:26)
[2016-07-05] MEDS ORDERED: APIX5TAB PO (12:26)
[2016-07-05] MEDS ORDERED: ACTO15TA11 PO (12:26)
[2016-07-05] MEDS ORDERED: POTA-243 PO (12:28)
--- NOTE | 2016-07-05 12:34 | HHI.DS ---
Discharge Summary Admission Date Jul 01, 2016 at 15:23 Discharge Date: Jul 05, 2016 Admitting Diagnosis shortness of breath, CHF, pneumonia, elevated troponin (1) ischemic CMP Diagnosis: Principal (2) Afib ICD Code: I48.91 Diagnosis: Principal (3) DM type 2 (diabetes mellitus, type 2) ICD Code: E11.9 Diagnosis: Secondary Procedures cardiac cath- 07/03- cadiac catheterization Brief History - From Admission Patient is a very pleasant 70-year-old male with history of rheumatoid arthritis on prednisone 5 mg daily. for the past 4 months now who has been experiencing chest pain for the past 6-8 weeks now described as "like a gorilla " to sitting in his chest lasting all day and night. Patient for the past 4 weeks now hasn't been unable to lay flat in bed and has to lay on his side. Wakes up in the middle of the night short of breath. Noted bilateral leg swelling more on the left side. Denies any fever or chills occasional dry cough. Patient baseline is very active and plays golf. He noted this change in his exercise tolerance as described above. No recent travel On evaluation the ER was noted to have heart rate of the 100s sinus with occasional PACs Patient was given 40 mg IV of Lasix with improvement of shortness of breath CBC/BMP: 07/03/16 0450 07/04/16 0642 Significant Findings Laboratory Tests Test 07/03/16 07/04/16 04:50 06:42 Mean Corpuscular Hemoglobin 26.8 PG (27.0-34.0) Neutrophils (%) (Auto) 72.1 % (16.0-70.0) Monocytes (%) (Auto) 8.3 % (0.0-8.0) Random Glucose 145 MG/DL 121 MG/DL (74-106) (74-106) Calcium Level 8.1 MG/DL 8.3 MG/DL (8.5-10.1) (8.5-10.1) Total Bilirubin 1.2 MG/DL (0.2-1.0) Aspartate Amino Transf 5 U/L (15-37) (AST/SGOT) Alkaline Phosphatase 44 U/L (45-117) Total Protein 6.2 GM/DL (6.4-8.2) Albumin 2.7 GM/DL (3.4-5.0) Imaging Last Impressions Lower Extremity Ultrasound 07/03/16 0000 Signed Impressions: Service Date/Time: June 10:01 - CONCLUSION: Negative study with no evidence of deep venous thrombosis. Bryce Elam MD Chest X-Ray 07/01/16 1345 Signed Impressions: Service Date/Time: Friday, July 01, 2016 13:55 - CONCLUSION: 1. Diffuse increased interstitial markings likely representing edema. 2. Further increased density at the bases being much more prominent on the right. On the right this likely represents some degree of effusion, consolidation or atelectasis. On the left side there are some superimposed atelectasis or consolidation at the left base. Jadiel Hughes MD PE at Discharge GENERAL: awake and alert, oriented x 3 SKIN: Warm and dry. HEAD: Normocephalic. EYES: No scleral icterus. No injection or drainage. NECK: Supple, trachea midline. No JVD or lymphadenopathy. CARDIOVASCULAR: irregular rhythm HR 102 RESPIRATORY: Breath sounds equal bilaterally. No accessory muscle use., no rales or wheezes GASTROINTESTINAL: Abdomen soft, non-tender, nondistended. MUSCULOSKELETAL: no edema, no calf swelling,, superficial wound left lateral aspect of the lower leg - BACK: Nontender without obvious deformity. No CVA tenderness. Pt update on day of discharge afebrile no rales, no leg swelling telemetry- a fib- rate 80s Hospital Course 70-year-old male presenting with increasing shortness of breath, orthopnea, leg swelling for the past 4-6 weeks Ischemic Cardiomyopathy - ACS -Unstable Angina - S/P cath - stent 07/03 Accelerated hypertension- Improved Lasix 20 mg po daily BB Lopressor 25 mg by mouth every 8 Imdur 30 mg daily- ASA daily. + Effiant. Enalapril 2.5 mg po daily- adjust as BP tolerates statins Cardiology ff- OP ff up with Dr. Zoey Cruz. fib - rate controlled continue on Lopressor. digoxin po daily start Eliquis Left base consolidation Levaquin History of rheumatoid arthritis will continue on maintenance prednisone 5 mg daily DM- type 2 - steroid induced A1C 7.2,. ADA diet. dietitian counselling ff readings- good readings in am- pm readings elevated due to steroid ff up with PCP- start Actos 15 mg po daily. instruct patient to monitor BS bid and record. instructions on hypoglcyemic symptoms Leukocytosis- secondary to consolidation + chronic steroids tobacco abuse- counselled "quitting" discussed with patient at length DC today- awaiting life vest to be delivered Pt Condition on Discharge: Stable Discharge Disposition: Discharge Home Discharge Time: <= 30 minutes Discharge Instructions DIET: Follow Instructions for: Heart Healthy Diet, Diabetic Diet Speech Therapy-Diet Recommends: Regular Activities you can perform: Weight Bearing as Mikki Activities to Avoid: Contact Sports, Lifting/Bending, Prolonged Standing, Strenuous Activity Follow up Referrals: Cardiology - 07/14/16 with COTY give patient office # to call for appt PCP Follow-up - 07/07/16 with PCP New Orders: BASIC METABOLIC PROF - 07/08/16 New Medications: Apixaban (Eliquis) 5 Mg Tab 5 MG PO BID OAC Days [address] (Aspirin EC) 81 Mg Tabdr 81 MG PO DAILY CAD Days 30 TAB Atorvastatin (Lipitor) 40 Mg Tab 40 MG PO DAILY CAD Days 30 TAB Digoxin (Digoxin) 0.125 Mg Tab 0.125 MG PO DAILY AFIB Days 30 TAB Enalapril (Enalapril) 2.5 Mg Tab 2.5 MG PO DAILY CMP Days 30 TAB Furosemide (Furosemide) 20 Mg Tab 20 MG PO DAILY CMP Days 30 TAB Isosorbide Mononitrate ER (Isosorbide Mononitrate ER) 30 Mg Nilda 30 MG PO DAILY CAD Days 30 TAB Metoprolol Tartrate (Metoprolol Tartrate) 25 Mg Tab 25 MG PO Q8HR CAD/FIB Days 30 TAB Pioglitazone (Actos) 15 Mg Tab 15 MG PO DAILYAC DM Days 30 TAB Potassium Chloride ER (Klor-Con 10) 10 Meq Tab 20 MEQ PO DAILY elec Days 5 TAB Continued Medications: Prednisone (Prednisone) 5 Mg Tab 5 MG PO DAILY Ref 0 TAB Zoey Fung MD Jul 05, 2016 12:34
[2016-07-05] MEDS ORDERED: POTA1TAB4 PO (12:37)
[2016-07-05] MEDS ORDERED: DIGO0.25 PO (12:40)
[2016-07-05] MEDS ORDERED: LEVA500T PO (12:49)
[2016-07-05] MEDS ORDERED: PIOGLITAZONE HCL 15 MG TAB PO SCH (13:00)
[2016-07-05] MEDS ORDERED: DIGOXIN 0.125 MG TAB PO ONE (13:00)
[2016-07-05] MEDS ORDERED: PRAS10TA PO (13:56)
[2016-07-06] MEDS ORDERED: DIGOXIN 0.25 MG TAB PO SCH (09:00)
[2016-07-06] MEDS ORDERED: FUROSEMIDE 20 MG TAB PO SCH (09:00)
--- NOTE | 2016-07-07 16:57 | MA ---
cc: BECKA ANSARI DATE 07/03/2016 Cardiology procedure The previous dictation apparently was erased or incomplete. DATE OF 1945 PROCEDURE PERFORMED Left heart catheterization, selective right and left coronary angiography. Successful PCI to ramus x2. INDICATION Unstable angina. Newly diagnosed severe LV systolic dysfunction. APPROACH Right transradial. DESCRIPTION Consent signed. The patient was brought into the cardiac laboratory animal caretaker in fasting state. The right wrist was prepped and draped in sterile fashion. Using 1% lidocaine for local anesthesia and a micropuncture kit a 6-Yi sheath was inserted into the right radial artery. Antispasmodic cocktail given. Then selective right and left coronary angiography was performed with a JR-4 and a JL -4. We identified a significant ramus vessel which bifurcates that has two severe lesions and BERTA II flow. Thus we proceeded to intervene in this lesion. For this the left main was engaged for an EBU 3.5 guide. Heparin IV was given for anticoagulation. The ramus vessels were wired separately with two BMW wires. The lower branch was predilated further with a 2.0 balloon followed by insertion and deployment of a 2.25 x 22 drug-eluting stent. The lesion in the top branch of the ramus was direct stented with 2.25 x 15 drug-eluting stent. Post dilation of both vessels were done simultaneously with two 2.25 x 8 noncompliant balloon inflated to high atmospheres. Final angiographic views revealed good stent apposition and expansion with BERTA III flow. The patient tolerated the procedure well without complications. Estimated blood loss less than 50 mL. The right radial access site was closed with a TR band. The patient was loaded with Effient after the procedure. ANGIOGRAPHIC RESULTS 1. The right coronary artery is a dominant vessel giving off the PDA as well as two PLB branches, posterior lateral branches. The right coronary artery also has a mid segment 40% lesion. 2. The left main is patent. 3. The LAD is a transapical vessel with minimal luminal irregularities. There is a mid 30% lesion. D1, D2, D3 are patent with minimal luminal irregularities. 4. The left circumflex artery is patent with nonobstructive CAD. OM-1 and OM-2 are patent. The ramus vessel is a big ramus that bifurcates right after takeoff. The lower branch has a 99% long lesion and has BERTA I flow. The upper branch has a concentric 80% lesion and has BERTA III flow. CONCLUSION Successful PCI / KIKE to the ramus vessel. RECOMMENDATIONS Continue dual antiplatelet therapy with aspirin and Effient, as well as aggressive medical management for CAD including beta-blockers, JAYESH inhibitors, statins. Also rate control for afib and OAC is recommended. The patient should be fitted with a vest before discharge. Post cath care and post cath IV hydration. MD TODD Evans/KK /12:12 PM /4:34 PM MTDAnh
== END 2016-07-05 16:27 | disposition home or self-care (01) | DRG 246 ==
LOC: NEPA 12:56 → NEDA 15:23 → HCIS 20:02
PROVIDERS: ADMIT Internal Medicine; ATTEND Internal Medicine
PROC: 4A023N7 Measurement of Cardiac Sampling and Pressure, Left Heart, Percutaneous Approach (ICD-10-PCS; 2016-07-03)
PROC: B2111ZZ Fluoroscopy of Multiple Coronary Arteries using Low Osmolar Contrast (ICD-10-PCS; 2016-07-03)
PROC: 3E073GC Introduction of Other Therapeutic Substance into Coronary Artery, Percutaneous Approach (ICD-10-PCS; 2016-07-03)
PROC: 027135Z Dilation of Coronary Artery, Two Arteries with Two Drug-eluting Intraluminal Devices, Percutaneous Approach (ICD-10-PCS; principal; 2016-07-03 11:15)
DX: I50.9 Heart failure, unspecified (principal); J18.1 Lobar pneumonia, unspecified organism; G62.9 Polyneuropathy, unspecified; E09.9 Drug or chemical induced diabetes mellitus without complications; I48.91 Unspecified atrial fibrillation; I25.5 Ischemic cardiomyopathy; I25.110 Atherosclerotic heart disease of native coronary artery with unstable angina pectoris; I47.1 Supraventricular tachycardia; F17.290 Nicotine dependence, other tobacco product, uncomplicated; I10 Essential (primary) hypertension; I44.7 Left bundle-branch block, unspecified; M06.9 Rheumatoid arthritis, unspecified; Z85.820 Personal history of malignant melanoma of skin; R74.8 Abnormal levels of other serum enzymes; Z96.651 Presence of right artificial knee joint; T38.0X5A Adverse effect of glucocorticoids and synthetic analogues, initial encounter; Z79.52 Long term (current) use of systemic steroids
CPT/HCPCS: 71010; 80048; 80053; 80061; 82550; 82948; 83036; 83605; 83735; 83880; 84443; 84484; 85025; 85379; 85610; 85730; 87040; 92928; 93005; 93306; 93454; 93971; C1725; C1769; C1874; C1887; C1893; J1160; J1644; J1650; J1815; J1940; J1956; J2250; J3010; J7512; Q9967

== ENCOUNTER 2016-07-10 10:38 | Emergency (ER) | payer MEDICARE, OTHER ==
[~2016-07-10] VITALS: Ht 188 cm; Wt 85.0 kg
[~2016-07-10 10:38] MED LIST changes: +ACTO15TA11 PO; +APIX5TAB PO; +ASPI81TA11 PO; +DIGO0.25 PO; +ENAL2.5T PO; +FURO20TA PO; +ISOS30TA3 PO; +LEVA500T PO; +LIPI40TA PO; -LORTA5 PO; -MACR100C PO; +METO25TA3 PO; +POTA1TAB4 PO; +PRAS10TA PO; +PRED5TAB PO; -Z.0.COMMODE-3:1; -Z.0.CPM; -Z.0.WALKERFRONT
[2016-07-10 10:41] VITALS: BP 118/58; PULSE 70; RESP 12; TEMP 98.4; O2SAT 94
[2016-07-10] MEDS ORDERED: ACETAMINOPHEN 325 MG TAB PO ONE (12:15)
--- NOTE | 2016-07-10 12:34 | PD ---
HPI . Myalgias Chief Complaint: Pain: Acute or Chronic Time Seen by Provider: 12:05 Travel History International Travel<30 days: No Contact w/Intl Traveler<30days: No Traveled to known affect area: No History of Present Illness HPI Patient presents with diffuse myalgias which awakened him from sleep at about 1: 30 AM. He has no other associated symptoms. Specifically, no fever, no upper respiratory symptoms, no cough or difficulty breathing, no GI symptoms, no symptoms and no rash. He has not taken anything for the pain. Pain is exacerbated by movement and relieved by being still. PFSH Past Medical History Hx Anticoagulant Therapy: Yes Arthritis: Yes (R.A) Cancer: Yes (MELANOMA FACE) Cardiovascular Problems: Yes Congestive Heart Failure: Yes Diabetes: Yes (diet controlled) Patient Takes Glucophage: No Diminished Hearing: No Endocrine: No Gastrointestinal Disorders: No Genitourinary: No Hepatitis: No Hiatal Hernia: No Immune Disorder: No Medical other: Yes (external defibrillator) Musculoskeletal: Yes (RHEUMATOID ARTHRITIS) Neurologic: Yes (NEUROPATHY) Psychiatric: No Reproductive: No Respiratory: Yes Thyroid Disease: No Past Surgical History AICD: No Joint Replacement: Yes (R KNEE) Other Surgery: Yes (GANGLION CYST LEFT HAND, bilat great toes, melanoma removed left face) Social History Alcohol Use: Yes (mon and thur) Tobacco Use: Yes (CIGARS) Substance Use: No Allergies-Medications (Allergen,Severity, Reaction): Coded Allergies: Azithromycin (Unverified Allergy, Severe, SWELLING, 07/10/16) Reported Meds & Prescriptions Reported Meds & Active Scripts Active Effient (Prasugrel) 10 Mg Tab 10 Mg PO DAILY Metoprolol Tartrate 25 Mg Tab 25 Mg PO Q8HR 30 Days Isosorbide Mononitrate ER (Isosorbide Mononitrate) 30 Mg Nilda 30 Mg PO DAILY 30 Days Enalapril (Enalapril Maleate) 2.5 Mg Tab 2.5 Mg PO DAILY 30 Days Aspirin EC (Aspirin) 81 Mg Tabdr 81 Mg PO DAILY 30 Days Reported Prednisone 5 Mg Tab 5 Mg PO DAILY Review of Systems Except as stated in HPI: all other systems reviewed are Neg General / Constitutional: Positive: Other (fatigue), No: Fever, Chills HENT: No: Sore Throat, Rhinitis, Rhinorrhea, Congestion Cardiovascular: No: Chest Pain or Discomfort Respiratory: No: Cough, Shortness of Breath Gastrointestinal: No: Nausea, Vomiting, Diarrhea, Abdominal Pain Genitourinary: No: Urgency, Frequency, Dysuria Musculoskeletal: Positive: Myalgias, Arthralgias, Limited ROM Hematologic/Lymphatic: Positive: Easy Bruising Physical Exam Narrative GENERAL: Healthy-appearing older gentleman who is in no acute distress. SKIN: Warm and dry. He does have multiple lower extremity bruises. HEAD: Atraumatic. Normocephalic. EYES: Pupils equal and round. ENT: No nasal bleeding or discharge. Mucous membranes pink and moist. NECK: Trachea midline. Neck is supple. CARDIOVASCULAR: Regular rate and rhythm. Heart sounds are normal. RESPIRATORY: No accessory muscle use. Lungs are clear with full air movement throughout. GASTROINTESTINAL: Abdomen soft, non-tender, nondistended. MUSCULOSKELETAL: No obvious deformities. No edema. Diffuse muscular tenderness. NEUROLOGICAL: Awake and alert. No obvious cranial nerve deficits. Motor grossly within normal limits. Normal speech. PSYCHIATRIC: Appropriate mood and affect; insight and judgment normal. Data Data Last Documented VS Vital Signs Date Time Temp Pulse Resp B/P Pulse Ox O2 Delivery O2 Flow Rate FiO2 07/10/16 10:41 98.4 70 12 118/58 94 Room Air Orders Electrocardiogram (07/10/16 10:45) Complete Blood Count With Diff (07/10/16 12:14) Comprehensive Metabolic Panel (07/10/16 12:14) Lactic Acid Sepsis Protocol (07/10/16 12:14) Urinalysis - C+S If Indicated (07/10/16 12:14) Influenzae A/B Antigen (07/10/16 12:14) Blood Culture (07/10/16 12:14) Chest, Single Ap (07/10/16 12:14) Blood Glucose (07/10/16 12:14) Ecg Monitoring (07/10/16 12:14) Iv Access Insert/Monitor (07/10/16 12:14) Oximetry (07/10/16 12:14) Oxygen Administration (07/10/16 12:14) Acetaminophen (Tylenol) (07/10/16 12:15) Creatine Kinase (Cpk) (07/10/16 12:26) Ast (Sgot) (07/10/16 15:22) Alt (Sgpt) (07/10/16 15:22) Labs Laboratory Tests Test 07/10/16 07/10/16 12:50 13:30 White Blood Count 10.3 TH/MM3 Red Blood Count 5.53 MIL/MM3 Hemoglobin 14.8 GM/DL Hematocrit 46.1 % Mean Corpuscular Volume 83.5 FL Mean Corpuscular Hemoglobin 26.8 PG Mean Corpuscular Hemoglobin 32.1 % Concent Red Cell Distribution Width 16.4 % Platelet Count 208 TH/MM3 Mean Platelet Volume 8.3 FL Neutrophils (%) (Auto) 83.5 % Lymphocytes (%) (Auto) 7.7 % Monocytes (%) (Auto) 6.7 % Eosinophils (%) (Auto) 1.5 % Basophils (%) (Auto) 0.6 % Neutrophils # (Auto) 8.6 TH/MM3 Lymphocytes # (Auto) 0.8 TH/MM3 Monocytes # (Auto) 0.7 TH/MM3 Eosinophils # (Auto) 0.2 TH/MM3 Basophils # (Auto) 0.1 TH/MM3 CBC Comment DIFF FINAL Differential Comment Sodium Level 137 MEQ/L Potassium Level 4.7 MEQ/L Chloride Level 101 MEQ/L Carbon Dioxide Level 28.9 MEQ/L Anion Gap 7 MEQ/L Blood Urea Nitrogen 10 MG/DL Creatinine 0.72 MG/DL Estimat Glomerular Filtration 108 ML/MIN Rate Random Glucose 137 MG/DL Lactic Acid Level 1.0 mmol/L Calcium Level 9.0 MG/DL Total Bilirubin 1.6 MG/DL Aspartate Amino Transf 16 U/L (AST/SGOT) Alanine Aminotransferase 24 U/L (ALT/SGPT) Alkaline Phosphatase 48 U/L Total Creatine Kinase 28 U/L Total Protein 7.8 GM/DL Albumin 3.6 GM/DL Urine Color YELLOW Urine Turbidity CLEAR Urine pH 5.5 Urine Specific [place] 1.018 Urine Protein NEG mg/dL Urine Glucose (UA) TRACE mg/dL Urine Ketones NEG mg/dL Urine Occult Blood NEG Urine Nitrite NEG Urine Bilirubin NEG Urine Urobilinogen LESS THAN 2.0 MG/DL Urine Leukocyte Esterase NEG Urine RBC LESS THAN 1 /hpf Urine WBC LESS THAN 1 /hpf Urine Squamous Epithelial 1 /hpf Cells Urine Mucus FEW /lpf Microscopic Urinalysis Comment CATH-CULT NOT IND MDM Medical Decision Making Medical Screen Exam Complete: Yes Emergency Medical Condition: Yes Medical Record Reviewed: Yes (patient had a recent hospitalization for CHF. He underwent a PTCA with stent placement. He also was diagnosed with a left lower lobe pneumonia treated with Levaquin.) Interpretation(s) EKG shows a sinus rhythm with LVH and lateral T-wave inversion. EKG is unchanged from previous. Differential Diagnosis Differential diagnosis includes but is not limited to viral syndrome, rhabdomyolysis, sepsis, overuse syndrome Narrative Course Patient presents for evaluation and treatment of myalgias. My initial impression was that he had rhabdomyolysis secondary to statin. His consult from the pan cleaner during his recent hospitalization suggested a statin. However, there is no statin on his medication list. CBC is normal. Chemistries are also normal. Total CK is 28. UA is negative. Flu screen is neg. CXR report: CONCLUSION: 1. Small right bibasilar opacity representing pleural effusion with associated volume loss and/or airspace consolidation. 2. Left lower lobe/retrocardiac opacity could represent atelectasis, consolidation, or effusion. The chest x-ray was independently viewed by me. Patient continues to have significant myalgias although they are improved. He is very concerned that he is having a reaction to one or all of his new medications. I will consult with his pan cleaner, Dr. Greer. 3:23 PM I spoke with Dr. Greer. The patient is supposed to be on a statin but listed it as a discontinued medication today. He reported that he took the medication last today. So, his myalgias are more than likely related to his statin. Dr. Greer requested that I check an AST and ALT. He would like for the patient to simply decrease his dose of Lipitor but not discontinue it if at all possible. 3:58 PM It seems that the patient has already had an AST and ALT and they are normal. Therefore, I will discharge the patient with instructions to halve his dose of Lipitor, continue other medications. See Dr. Greer for any further problems. Physician Communication Physician Communication Dr. Greer asked that the patient continue current meds but halve the dose of Lipitor. Diagnosis Primary Impression: Myalgia Additional Instructions: Halve your dose of Lipitor. See Dr. Greer for any further questions or concerns. Disposition: 01 DISCHARGE HOME Condition: Stable Shelby Horn MD Jul 10, 2016 12:34
--- NOTE | 2016-07-10 12:55 | RADRPT ---
EXAM DATE/TIME: 07/10/2016 12:33 [facility] COMPARISON: CHEST SINGLE AP, July 01, 2016, 13:55. INDICATIONS : Cough. MEDICAL HISTORY : Diabetes mellitus type II. Congestive heart failure. SURGICAL HISTORY : Carotid stent. ENCOUNTER: Initial ACUITY: 3 days PAIN SCORE: 0/10 LOCATION: Bilateral chest FINDINGS: Portable AP view of the chest demonstrates cardiac silhouette size at the upper limits for normal. Zoey ngs are underinflated. There is a stable small right basilar pleural-parenchymal opacity. Left hemidi aphragm is partially obscured medially and there is retrocardiac opacity. No pneumothorax is visualiz ed. Bones and soft tissues demonstrate no acute finding. Multiple lines and devices overlie the patie nt. CONCLUSION: 1. Small right bibasilar opacity representing pleural effusion with associated volume loss and/or air space consolidation. 2. Left lower lobe/retrocardiac opacity could represent atelectasis, consolidation, or effusion. Jadiel Donohue MD on July 10, 2016 at 12:50 Board Certified Radiologist. This report was verified electronically.
[2016-07-10 13:10] LABS: AUTOMATED NEUTROPHIL # 8.6 TH/MM3 (1.8-7.7); BASOPHIL # 0.1 TH/MM3 (0-0.2); BASOPHIL % 0.6 % (0.0-2.0); EOSINOPHIL # 0.2 TH/MM3 (0-0.4); EOSINOPHIL % 1.5 % (0.0-4.0); HEMATOCRIT 46.1 % (39.0-51.0); HEMO FLAGS DIFF FINAL; LYMPH % 7.7 % (9.0-44.0); LYMPHOCYTE # 0.8 TH/MM3 (1.0-4.8); MEAN CELL VOLUME 83.5 FL (80.0-100.0); MEAN CORPUSCULAR HEMOGLOBIN 26.8 PG (27.0-34.0); MEAN CORPUSCULAR HGB CONC 32.1 % (32.0-36.0); MONO % 6.7 % (0.0-8.0); NEUT % 83.5 % (16.0-70.0); PLATELET COUNT 208 TH/MM3 (150-450); RED BLOOD COUNT 5.53 MIL/MM3 (4.50-5.90); RED CELL DISTRIBUTION WIDTH 16.4 % (11.6-17.2); WHITE BLOOD COUNT 10.3 TH/MM3 (4.0-11.0)
[2016-07-10 13:34] LABS: ALT (GPT) 24 U/L (12-78); ANION GAP 7 MEQ/L (5-15); AST (GOT) 16 U/L (15-37); BICARBONATE 28.9 MEQ/L (21.0-32.0); BLOOD UREA NITROGEN 10 MG/DL (7-18); CHLORIDE 101 MEQ/L (98-107); GLOMERULAR FILTRATION RATE 108 ML/MIN (>89); POTASSIUM 4.7 MEQ/L (3.5-5.1); SODIUM (NA) 137 MEQ/L (136-145)
[2016-07-10 13:37] LABS: ALKALINE PHOSPHATASE 48 U/L (45-117); TOTAL BILIRUBIN ADULT 1.6 MG/DL (0.2-1.0)
[2016-07-10 13:51] LABS: BLOOD, URINE NEG (NEG); COMMENT (UR) CATH-CULT NOT IND; CULTURE IF INDICATED CATH CULTURE NOT IND; GLUCOSE,URINE TRACE mg/dL (NEG); KETONE, URINE NEG (NEG); MUCUS URINE FEW /lpf (OCC); NITRITE,URINE NEG (NEG); PH, URINE 5.5 (5.0-8.5); SQUAMOUS EPITHELIAL CELL URINE 1 /hpf (0-5); URINE COLOR YELLOW (YELLW/STRAW)
--- NOTE | 2016-07-10 16:18 | EKG ---
Date Performed: 07/10/2016 Time Performed: 11:00:39 PTAGE: 70 years EKG: Sinus rhythm LEFT ANTERIOR FASCICULAR BLOCK LEFT VENTRICULAR HYPERTROPHY AND ST-T CHANGE Compared to prior tracin g no significant change ABNORMAL ECG PREVIOUS TRACING : 07/01/2016 13.42 DOCTOR: Boni Blanco Interpretating Date/Time 07/10/2016 16:17:10
== END 2016-07-10 16:56 | disposition home or self-care (01) ==
LOC: NEPA 10:38
DX: M79.1 Myalgia (principal); R94.31 Abnormal electrocardiogram [ECG] [EKG]; E11.9 Type 2 diabetes mellitus without complications; Z79.01 Long term (current) use of anticoagulants; Z72.0 Tobacco use; Z87.39 Personal history of other diseases of the musculoskeletal system and connective tissue; Z85.828 Personal history of other malignant neoplasm of skin; Z86.79 Personal history of other diseases of the circulatory system; Z86.69 Personal history of other diseases of the nervous system and sense organs; Z87.09 Personal history of other diseases of the respiratory system
CPT/HCPCS: 71010; 80053; 81001; 82550; 83605; 85025; 87040; 87804; 93005

== ENCOUNTER 2016-07-18 10:00 | Inpatient (IN) | payer OTHER, MEDICARE ==
[2016-07-18] VITALS (7 sets, daily range): BP systolic 127–142; BP diastolic 86–89; PULSE 104–120; RESP 16–18; TEMP 97.6–98.3; O2SAT 97–99
[~2016-07-18 10:00] MED LIST changes: -ACTO15TA11 PO; -APIX5TAB PO; -DIGO0.25 PO; -FURO20TA PO; -LEVA500T PO; -LIPI40TA PO; -POTA1TAB4 PO
[2016-07-18] MEDS ORDERED: METO50TA PO (15:34)
[2016-07-18 20:45] LABS: HEMATOCRIT 37.6 % (39.0-51.0); MEAN CELL VOLUME 81.7 FL (80.0-100.0); MEAN CORPUSCULAR HEMOGLOBIN 27.2 PG (27.0-34.0); MEAN CORPUSCULAR HGB CONC 33.3 % (32.0-36.0); PLATELET COUNT 193 TH/MM3 (150-450); RED BLOOD COUNT 4.61 MIL/MM3 (4.50-5.90); REVIEW FLAG FINAL; WHITE BLOOD COUNT 6.8 TH/MM3 (4.0-11.0)
[2016-07-18] MEDS: METOPROLOL TARTRATE 50 MG TAB PO SCH (20:52)
[2016-07-18 21:07] LABS: BICARBONATE 27.3 MEQ/L (21.0-32.0)
[2016-07-18 21:17] LABS: THYROXINE (T4) 7.3 MCG/DL (4.5-12.1)
[2016-07-19] VITALS (24 sets, daily range): BP systolic 113–146; BP diastolic 67–96; PULSE 86–124; RESP 16–20; TEMP 97.9–98.5; O2SAT 95–96
[2016-07-19] MEDS ORDERED: OXYC-392 PO (00:10)
[2016-07-19 05:18] LABS: BLOOD, URINE NEG (NEG); COMMENT (UR) CULT NOT INDICATED; CULTURE IF INDICATED CULT NOT INDICATED; GLUCOSE,URINE TRACE mg/dL (NEG); HYALINE CAST, URINE 1 /lpf (RARE); KETONE, URINE NEG (NEG); MUCUS URINE FEW /lpf (OCC); NITRITE,URINE NEG (NEG); SQUAMOUS EPITHELIAL CELL URINE <1 /hpf (0-5); URINE COLOR YELLOW (YELLW/STRAW)
[2016-07-19] MEDS: METOPROLOL TARTRATE 50 MG TAB PO SCH ×2 (07:52→21:00)
[2016-07-19] MEDS: DIGOXIN 0.125 MG TAB PO SCH (08:00)
[2016-07-19] MEDS: predniSONE 5 MG TAB PO SCH (08:00)
[2016-07-19] MEDS: LEFLUNOMIDE 20 MG TAB PO SCH (09:44)
[2016-07-19] MEDS: PRASUGREL 10 MG TAB PO SCH (11:46)
[2016-07-19] MEDS: ASPIRIN EC 81 MG TABEC PO SCH (11:47)
--- NOTE | 2016-07-19 11:55 | PD.CARD.PN ---
Subjective Subjective Remarks I have reviewed outside and hospital records. Dr. Greer's note is in the chart. The patient is unpleasant clearly being noncompliant and cursing a fair amount. He does not want to take blood thinners, cholesterol medication or other medications. He denies any cardiac symptoms, bleeding or GI symptoms. Telemetry reveals mildly rapid atrial fibrillation. Objective Medications Reviewed Vital Signs / I&O Vital Signs Date Time Temp Pulse Resp B/P Pulse Ox O2 Delivery O2 Flow Rate FiO2 07/19/16 11:00 114 07/19/16 11:00 98.2 103 18 113/67 95 07/19/16 10:00 102 07/19/16 09:00 124 07/19/16 08:00 111 07/19/16 07:30 98.4 119 18 125/84 95 07/19/16 07:00 109 07/19/16 06:00 124 07/19/16 05:00 120 07/19/16 04:00 97.9 120 18 126/87 96 07/19/16 04:00 120 07/19/16 03:00 122 07/19/16 02:00 118 07/19/16 01:00 124 07/19/16 00:00 98.1 110 16 143/96 95 07/19/16 00:00 110 07/18/16 23:00 114 07/18/16 22:00 104 07/18/16 21:00 120 07/18/16 20:00 98.3 115 16 142/89 97 07/18/16 20:00 115 07/18/16 15:08 97.6 118 18 127/86 99 07/18/16 15:06 118 07/18/16 14:50 108 I/O 07/18/16 07/18/16 07/18/16 07/19/16 07/19/16 07/19/16 07:00 15:00 23:00 07:00 15:00 23:00 Intake Total 360 ml 240 ml Output Total 400 ml Balance -40 ml 240 ml Intake Oral 360 ml 240 ml Output Urine Total 400 ml # Voids 2 # Bowel Movements 0 Physical Exam GENERAL: Well-nourished, well-developed patient in no apparent distress. SKIN: Warm and dry. NECK: JVD normal - less than or equal to 5 cm H20. CARDIOVASCULAR: Irregular rate and rhythm without murmurs, gallops, or rubs. RESPIRATORY: Normal breath sounds - equal bilaterally. No accessory muscle use. No wheezes, rales or rubs. PERIPHERY: No cyanosis, or edema. Laboratory Laboratory Tests Test 07/18/16 07/19/16 19:59 04:45 White Blood Count 6.8 TH/MM3 Red Blood Count 4.61 MIL/MM3 Hemoglobin 12.5 GM/DL Hematocrit 37.6 % Mean Corpuscular Volume 81.7 FL Mean Corpuscular Hemoglobin 27.2 PG Mean Corpuscular Hemoglobin 33.3 % Concent Red Cell Distribution Width 16.0 % Platelet Count 193 TH/MM3 Mean Platelet Volume 8.0 FL Sodium Level 140 MEQ/L Potassium Level 4.0 MEQ/L Chloride Level 105 MEQ/L Carbon Dioxide Level 27.3 MEQ/L Anion Gap 8 MEQ/L Blood Urea Nitrogen 14 MG/DL Creatinine 0.77 MG/DL Estimat Glomerular Filtration 100 ML/MIN Rate Random Glucose 153 MG/DL Calcium Level 8.3 MG/DL Thyroxine (T4) 7.3 MCG/DL Total Triiodothyronine 116 NG/DL Thyroid Stimulating Hormone 1.490 uIU/ML 3rd Gen Urine Color YELLOW Urine Turbidity CLEAR Urine pH 5.0 Urine Specific [place] 1.022 Urine Protein NEG mg/dL Urine Glucose (UA) TRACE mg/dL Urine Ketones NEG mg/dL Urine Occult Blood NEG Urine Nitrite NEG Urine Bilirubin NEG Urine Urobilinogen LESS THAN 2.0 MG/DL Urine Leukocyte Esterase NEG Urine RBC 1 /hpf Urine WBC 1 /hpf Urine Squamous Epithelial <1 /hpf Cells Urine Hyaline Casts 1 /lpf Urine Mucus FEW /lpf Microscopic Urinalysis Comment CULT NOT INDICATED Assessment and Plan Assessment and Plan Problems: Atrial fibrillation with rapid response PCI of the intermediate ramus last month with significant left ventricular dysfunction Hypertension Major noncompliance and aggressive behavior Recommendations: Continue baby aspirin and Effient given his prior stent. He understands the need to take these to prevent stent thrombosis and heart attack. Ideally should be on statin therapy and JAYESH inhibitor along with beta-blockade. We will concentrate on rate control. I will avoid adding anticoagulants given his noncompliance. He does does not want any further blood thinners because of risk of bleeding and understands the risk of stroke. Aurelio Canela MD Jul 19, 2016 11:55
[2016-07-19] MEDS: ATORVASTATIN 20 MG TAB PO SCH (12:00)
--- NOTE | 2016-07-19 14:30 | HHI.HP ---
[facility] Primary Care Physician Dejan Tony MD Admission Diagnosis Diagnoses: Chief Complaint: Atrial fibrillation with RVR Travel History International Travel<30 Days: No Contact w/Intl Traveler <30 Da: No Traveled to Known Affected Are: No History of Present Illness This is a 70-year-old male with history of hypertension, and diabetes mellitus, with recently diagnosed coronary artery disease with cardiomyopathy and atrial fibrillation. He was in the hospital July 01- for unstable angina, status post cardiac catheterization with stenting in July 03. He was discharged on Lopressor, Lasix, Imdur, aspirin and statins. 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 Lopressor was continued, Cardizem was titrated and digoxin was continued. Presently, patient is doing fine, no chest pain, palpitation or shortness of breath. Patient was also treated back in for pneumonia which improved. Review of Systems ROS Limitations: Other (All other pertinent systems were reviewed and are negative.) Past Family Social History Past Medical History Rheumatoid arthritis Ischemic cardiomyopathy Unstable angina Hypertension Atrial fibrillation Diabetes mellitus Tobacco abuse Past Surgical History Lipoma left eye surgery Right knee surgery Bilateral foot surgery years ago Reported Medications Effient (Prasugrel) 10 Mg Tab 10 Mg PO DAILY Isosorbide Mononitrate ER (Isosorbide Mononitrate) 30 Mg Nilda 30 Mg PO DAILY 30 Days Enalapril (Enalapril Maleate) 2.5 Mg Tab 2.5 Mg PO DAILY 30 Days Aspirin EC (Aspirin) 81 Mg Tabdr 81 Mg PO DAILY 30 Days Oxycodone (Oxycodone HCl) 5 Mg Tab 5 Mg PO Q6H PRN Metoprolol Tartrate 50 Mg Tab 50 Mg PO BID Prednisone 5 Mg Tab 5 Mg PO DAILY Allergies: Coded Allergies: Azithromycin (Unverified Allergy, Severe, SWELLING, 07/18/16) Family History No cardiac history in the family Social History Smokes 3-4 cigars per day occasionally Drinks beer occasionally Mondays Thursdays Denies any substance abuse Physical Exam Vital Signs Vital Signs Date Time Temp Pulse Resp B/P Pulse Ox O2 Delivery O2 Flow Rate FiO2 07/19/16 12:00 106 07/19/16 11:00 114 07/19/16 11:00 98.2 103 18 113/67 95 07/19/16 10:00 102 07/19/16 09:00 124 07/19/16 08:00 111 07/19/16 07:30 98.4 119 18 125/84 95 07/19/16 07:00 109 07/19/16 06:00 124 07/19/16 05:00 120 07/19/16 04:00 97.9 120 18 126/87 96 07/19/16 04:00 120 07/19/16 03:00 122 07/19/16 02:00 118 07/19/16 01:00 124 07/19/16 00:00 98.1 110 16 143/96 95 07/19/16 00:00 110 07/18/16 23:00 114 07/18/16 22:00 104 07/18/16 21:00 120 07/18/16 20:00 98.3 115 16 142/89 97 07/18/16 20:00 115 07/18/16 15:08 97.6 118 18 127/86 99 07/18/16 15:06 118 07/18/16 14:50 108 Physical Exam GENERAL: Not in acute distress, well-nourished. HEAD: Atraumatic. Normocephalic. No temporal or scalp tenderness. EYES: PERRL, full EOMs, no jaundice, nonicteric, pink conjunctivae without injection, moist mucosa ENT: Nose without bleeding, purulent drainage. Throat without erythema, tonsillar hypertrophy or exudate. Uvula midline. Airway patent. NECK: Trachea midline, no mass, no obvious thyromegaly. No JVD or lymphadenopathy. CARDIOVASCULAR: Regular rate and irregular rhythm without murmurs, gallops, or rubs. RESPIRATORY: Clear to auscultation with normal respiratory effort. Breath sounds equal bilaterally. No use of accessory muscles of respiration. GASTROINTESTINAL: Abdomen soft, normal bowel sounds, non-tender, nondistended. No hepato-splenomegaly or palpable mass. No guarding. DYLAN and exam deferred. MUSCULOSKELETAL: Extremities without clubbing, cyanosis, or edema. No joint tendernes. No calf tenderness. Distal pulses intact, 2+ bilaterally. INTEGUMENTARY: Warm and dry, no rash of generalized distribution. NEUROLOGICAL: Awake, alert, oriented 3. No obvious cranial nerve deficits. Moves all 4 extremities, muscle strength testing 5 over 5. Motor and sensory grossly within normal limits. .Supple neck, no meningeal signs. Grossly negative cerebellar examination. No focal neurologic deficits. PSYCHIATRIC: Normal mood, appropriate affect. Laboratory Laboratory Tests Test 07/18/16 07/19/16 19:59 04:45 White Blood Count 6.8 Red Blood Count 4.61 Hemoglobin 12.5 Hematocrit 37.6 Mean Corpuscular Volume 81.7 Mean Corpuscular Hemoglobin 27.2 Mean Corpuscular Hemoglobin 33.3 Concent Red Cell Distribution Width 16.0 Platelet Count 193 Mean Platelet Volume 8.0 Sodium Level 140 Potassium Level 4.0 Chloride Level 105 Carbon Dioxide Level 27.3 Anion Gap 8 Blood Urea Nitrogen 14 Creatinine 0.77 Estimat Glomerular Filtration 100 Rate Random Glucose 153 Calcium Level 8.3 Thyroxine (T4) 7.3 Total Triiodothyronine 116 Thyroid Stimulating Hormone 1.490 3rd Gen Urine Color YELLOW Urine Turbidity CLEAR Urine pH 5.0 Urine Specific [place] 1.022 Urine Protein NEG Urine Glucose (UA) TRACE Urine Ketones NEG Urine Occult Blood NEG Urine Nitrite NEG Urine Bilirubin NEG Urine Urobilinogen LESS THAN 2.0 Urine Leukocyte Esterase NEG Urine RBC 1 Urine WBC 1 Urine Squamous Epithelial <1 Cells Urine Hyaline Casts 1 Urine Mucus FEW Microscopic Urinalysis Comment CULT NOT INDICATED Result Diagram: 07/18/16195807/18/161958 Assessment and Plan Assessment and Plan This is a 70-year-old male with history of hypertension, recently diagnosed coronary artery disease with ischemic cardiomyopathy and atrial fibrillation Atrial fibrillation, RVR-continue metoprolol at a higher dose, continue digoxin , check levels tomorrow. Restart eliquis. Cardiology consulted. Coronary artery disease-continue aspirin and statin, patient noncompliant with statin though. Ischemic cardiomyopathy-continue cardiac meds including metoprolol, Effient. History of rheumatoid arthritis-continue prednisone DVT prophylaxis: On eliquis. Physician Certification 2 Midnight Certification Type: Admission for Inpatient Services Order for Inpatient Services The services are ordered in accordance with Medicare regulations or non- Medicare payer requirements, as applicable. In the case of services not specified as inpatient-only, they are appropriately provided as inpatient services in accordance with the 2-midnight benchmark. Estimated LOS (days): 2 days is the estimated time the patient will need to remain in the hospital, assuming treatment plan goals are met and no additional complications. Post-Hospital Plan: Home Nu Conti MD Jul 19, 2016 14:30
[2016-07-20] VITALS (26 sets, daily range): BP systolic 118–143; BP diastolic 77–106; PULSE 83–146; RESP 16–20; TEMP 97.9–99.1; O2SAT 94–96
[2016-07-20 05:44] LABS: BICARBONATE 25.1 MEQ/L (21.0-32.0); POTASSIUM 3.9 MEQ/L (3.5-5.1)
[2016-07-20 05:59] LABS: DIGOXIN 0.3 NG/ML (0.8-2.0)
[2016-07-20] MEDS: ASPIRIN EC 81 MG TABEC PO SCH (08:15)
[2016-07-20] MEDS: METOPROLOL TARTRATE 50 MG TAB PO SCH ×2 (08:16→21:57)
[2016-07-20] MEDS: PRASUGREL 10 MG TAB PO SCH (08:16)
[2016-07-20] MEDS: predniSONE 5 MG TAB PO SCH (08:16)
[2016-07-20] MEDS: LEFLUNOMIDE 20 MG TAB PO SCH (08:17)
[2016-07-20] MEDS: DIGOXIN 0.125 MG TAB PO SCH (08:17)
[2016-07-20] MEDS: ATORVASTATIN 20 MG TAB PO SCH (08:17)
[2016-07-20] MEDS ORDERED: DILTIAZEM HCL 30 MG TAB PO SCH (09:00)
--- NOTE | 2016-07-20 09:23 | PD.CARD.PN ---
Subjective Subjective Remarks The patient denies chest pain, shortness of breath, palpitations or GI symptoms. He has had no bleeding. He does complaint of joint aches which I will leave to the hospitalist service. Telemetry reveals rapid atrial fibrillation. Objective Medications Reviewed Vital Signs / I&O Vital Signs Date Time Temp Pulse Resp B/P Pulse Ox O2 Delivery O2 Flow Rate FiO2 07/20/16 07:00 126 07/20/16 06:00 122 07/20/16 05:00 124 07/20/16 04:00 98.4 119 20 118/83 96 07/20/16 04:00 114 07/20/16 03:00 114 07/20/16 02:00 110 07/20/16 01:00 134 07/20/16 00:00 97.9 107 20 125/82 95 07/20/16 00:00 108 07/19/16 23:00 108 07/19/16 22:00 104 07/19/16 21:00 100 07/19/16 20:00 102 07/19/16 20:00 97.9 86 20 146/76 96 07/19/16 18:01 90 07/19/16 17:10 101 07/19/16 16:00 106 07/19/16 15:00 101 07/19/16 15:00 98.5 99 17 129/82 95 07/19/16 14:00 102 07/19/16 13:00 98 07/19/16 12:00 106 07/19/16 11:00 114 07/19/16 11:00 98.2 103 18 113/67 95 07/19/16 10:00 102 I/O 07/19/16 07/19/16 07/19/16 07/20/16 07/20/16 07/20/16 07:00 15:00 23:00 07:00 15:00 23:00 Intake Total 240 ml 480 ml Output Total 500 ml 550 ml Balance 240 ml -500 ml -70 ml Intake Oral 240 ml 480 ml Output Urine Total 500 ml 550 ml # Voids 2 # Bowel Movements 0 Physical Exam GENERAL: Well-nourished, well-developed patient in no apparent distress. SKIN: Warm and dry. NECK: JVD normal - less than or equal to 5 cm H20. CARDIOVASCULAR: Irregular rate and rhythm without murmurs, gallops, or rubs. RESPIRATORY: Normal breath sounds - equal bilaterally. No accessory muscle use. No wheezes, rales or rubs. PERIPHERY: No cyanosis, or edema. Laboratory Laboratory Tests Test 07/20/16 04:27 Sodium Level 137 MEQ/L Potassium Level 3.9 MEQ/L Chloride Level 102 MEQ/L Carbon Dioxide Level 25.1 MEQ/L Anion Gap 10 MEQ/L Blood Urea Nitrogen 14 MG/DL Creatinine 0.63 MG/DL Estimat Glomerular Filtration 126 ML/MIN Rate Random Glucose 110 MG/DL Calcium Level 8.2 MG/DL Digoxin Level 0.3 NG/ML Assessment and Plan Assessment and Plan Problems: Atrial fibrillation with rapid response PCI of the intermediate ramus last month with significant left ventricular dysfunction Hypertension Major noncompliance and aggressive behavior Recommendations: Continue baby aspirin and Effient given his prior stent. He understands the need to take these to prevent stent thrombosis and heart attack. Ideally should be on statin therapy and JAYESH inhibitor along with beta-blockade. Statins have been started but we will hold JAYESH inhibitors until we see how his blood pressure response to adding diltiazem for rate control. We will concentrate on rate control. I will avoid adding anticoagulants given his noncompliance. He does does not want any further blood thinners because of risk of bleeding and understands the risk of stroke. Dr. Greer to return tomorrow. All questions answered. The patient does want to go home but I have recommended he stay till at least tomorrow. Aurelio Canela MD Jul 20, 2016 09:22
[2016-07-20] MEDS ORDERED: DIGO0.12 PO (10:52)
[2016-07-20] MEDS ORDERED: CARD120C4 PO (10:52)
[2016-07-20] MEDS ORDERED: LIPI20TA PO (10:52)
--- NOTE | 2016-07-20 11:00 | HHI.PR ---
Subjective Remarks Follow-up for atrial fibrillation Patient still in A. fib, RVR, no palpitations or shortness of breath. No chest pain. Agreed with increasing Cardizem and being on Effient and statin. Complaining of joint pains all over, oxycodone is not working. Objective Vitals Vital Signs Date Time Temp Pulse Resp B/P Pulse Ox O2 Delivery O2 Flow Rate FiO2 07/20/16 07:00 98.3 140 16 143/106 94 07/20/16 07:00 126 07/20/16 06:00 122 07/20/16 05:00 124 07/20/16 04:00 98.4 119 20 118/83 96 07/20/16 04:00 114 07/20/16 03:00 114 07/20/16 02:00 110 07/20/16 01:00 134 07/20/16 00:00 97.9 107 20 125/82 95 07/20/16 00:00 108 07/19/16 23:00 108 07/19/16 22:00 104 07/19/16 21:00 100 07/19/16 20:00 102 07/19/16 20:00 97.9 86 20 146/76 96 07/19/16 18:01 90 07/19/16 17:10 101 07/19/16 16:00 106 07/19/16 15:00 101 07/19/16 15:00 98.5 99 17 129/82 95 07/19/16 14:00 102 07/19/16 13:00 98 07/19/16 12:00 106 07/19/16 11:00 114 07/19/16 11:00 98.2 103 18 113/67 95 I/O 07/19/16 07/19/16 07/19/16 07/20/16 07/20/16 07/20/16 07:00 15:00 23:00 07:00 15:00 23:00 Intake Total 240 ml 480 ml Output Total 500 ml 550 ml Balance 240 ml -500 ml -70 ml Intake Oral 240 ml 480 ml Output Urine Total 500 ml 550 ml # Voids 2 # Bowel Movements 0 Result Diagram: 07/18/16195807/20/16 0427 Objective Remarks Not in distress, well-nourished, looks stated age PERRL, pink conjunctiva without injection, anicteric Nose without bleeding, airway patent, oropharynx clear Supple neck, no masses or thyromegaly, trachea midline Tachycardic, irregular rhythm, no murmurs. Clear to auscultation and symmetric bilaterally, normal respiratory effort. Normal bowel sounds, soft, non-tender, nondistended, no guarding. Extremities without clubbing, cyanosis, or edema. No rash of generalized distribution. Skin is warm and dry. AAO x3, no cranial nerve deficits, moves all 4 extremities, no focal neurologic deficits Normal mood, appropriate affect A/P Assessment and Plan This is a 70-year-old male with history of hypertension, recently diagnosed coronary artery disease with ischemic cardiomyopathy and atrial fibrillation Atrial fibrillation, RVR- still not controlled, continue metoprolol, continue digoxin, start Cardizem, switch to oral long-acting. Continue eliquis. Patient agrees. Coronary artery disease-continue aspirin and statin, patient now agrees with statins. Ischemic cardiomyopathy-continue cardiac meds including metoprolol, Effient. History of rheumatoid arthritis-continue prednisone, increase oxycodone to every 4 hours as needed. DVT prophylaxis: On eliquis. Discharge Planning Discharge tomorrow after cleared by cardiology. Nu Conti MD Jul 20, 2016 11:00
[2016-07-20] MEDS: DILTIAZEM-CD 120 MG CAP ER PO SCH (12:45)
[2016-07-21] VITALS (14 sets, daily range): BP systolic 119–135; BP diastolic 57–91; PULSE 79–112; RESP 16–20; TEMP 97–98.7; O2SAT 94–97
[2016-07-21] MEDS: LEFLUNOMIDE 20 MG TAB PO SCH (09:00)
[2016-07-21] MEDS: PRASUGREL 10 MG TAB PO SCH (09:13)
[2016-07-21] MEDS: METOPROLOL TARTRATE 50 MG TAB PO SCH (09:13)
[2016-07-21] MEDS: ATORVASTATIN 20 MG TAB PO SCH (09:14)
[2016-07-21] MEDS: ASPIRIN EC 81 MG TABEC PO SCH (09:14)
[2016-07-21] MEDS: DILTIAZEM-CD 120 MG CAP ER PO SCH (09:14)
[2016-07-21] MEDS: DIGOXIN 0.125 MG TAB PO SCH (09:14)
[2016-07-21] MEDS: predniSONE 5 MG TAB PO SCH (09:15)
[2016-07-21] MEDS ORDERED: APIXABAN 5 MG TABLET PO SCH (11:00)
--- NOTE | 2016-07-21 11:00 | PD.CARD.PN ---
Subjective Subjective Remarks over the weekend events noted Telemetry afib low 100's at rest asymptomatic Objective Medications Current Medications Medications (Trade) Dose Ordered Sig/Gus Route Start Time Stop Time Status Last Admin (Ecotrin Ec) 81 mg DAILY PO 07/19/16 09:00 07/21/16 09:14 (Effient) 10 mg DAILY PO 07/19/16 09:00 07/21/16 09:13 (Lopressor) 50 mg BID PO 07/18/16 21:00 07/21/16 09:13 (Deltasone) 5 mg DAILY PO 07/19/16 09:00 07/21/16 09:15 (Lanoxin) 0.125 mg DAILY PO 07/19/16 09:00 07/21/16 09:14 (Arava) 20 mg DAILY PO 07/19/16 09:00 07/21/16 09:00 (Lipitor) 20 mg DAILY PO 07/19/16 12:00 07/21/16 09:14 (Cardizem Cd) 120 mg DAILY PO 07/20/16 13:00 07/21/16 09:14 (Roxicodone) 10 mg Q4H PRN PO 07/20/16 14:30 07/21/16 09:57 Vital Signs / I&O Vital Signs Date Time Temp Pulse Resp B/P Pulse Ox O2 Delivery O2 Flow Rate FiO2 07/21/16 10:00 110 07/21/16 09:00 92 07/21/16 08:00 92 07/21/16 07:00 100 07/21/16 07:00 97.0 112 18 119/57 96 07/21/16 06:00 80 07/21/16 05:00 82 07/21/16 04:00 98.7 87 16 123/91 97 07/21/16 04:00 79 07/21/16 03:00 82 07/21/16 02:00 92 07/21/16 01:00 88 07/21/16 00:00 92 07/21/16 00:00 98.6 88 16 135/80 97 07/20/16 23:00 96 07/20/16 22:00 96 07/20/16 21:00 88 07/20/16 20:00 98.7 91 16 135/84 95 07/20/16 20:00 90 07/20/16 19:00 92 07/20/16 18:04 96 07/20/16 17:14 111 07/20/16 16:33 106 07/20/16 15:40 99.1 108 120/79 95 07/20/16 15:00 103 07/20/16 14:00 96 07/20/16 13:00 98 07/20/16 12:00 108 07/20/16 11:45 98.3 83 17 133/77 95 07/20/16 11:00 126 I/O 07/20/16 07/20/16 07/20/16 07/21/16 07/21/16 07/21/16 07:00 15:00 23:00 07:00 15:00 23:00 Intake Total 480 ml 800 ml 240 ml Output Total 550 ml 450 ml 300 ml Balance -70 ml 350 ml -60 ml Intake Oral 480 ml 800 ml 240 ml Output Urine Total 550 ml 450 ml 300 ml Physical Exam GENERAL: Well-nourished, well-developed patient. SKIN: Warm and dry. HEAD: Normocephalic. EYES: No scleral icterus. No injection or drainage. NECK: Supple, trachea midline. No JVD or lymphadenopathy. CARDIOVASCULAR: Regular rate and rhythm without murmurs, gallops, or rubs. RESPIRATORY: Breath sounds equal bilaterally. No accessory muscle use. GASTROINTESTINAL: Abdomen soft, non-tender, nondistended. EXTREMITIES: No cyanosis, or edema. NEUROLOGICAL: Awake, alert, and oriented x 3. Non-focal. Assessment and Plan Problem List: (1) Afib Assessment and Plan: Continue rate control OAC with Eliquis (2) ischemic CMP Problem Qualifiers (1) Afib: Qualified Code: I48.2 - Chronic atrial fibrillation Amol Sheppard MD Jul 21, 2016 10:59
[2016-07-21] MEDS ORDERED: PERC7.5T13 PO (13:24)
[2016-07-21] MEDS ORDERED: CARD180C5 PO (13:24)
[2016-07-21] MEDS ORDERED: APIX5TAB PO (13:24)
--- NOTE | 2016-07-21 13:27 | HHI.DS ---
Discharge Summary Admission Date Jul 18, 2016 at 10:00 am Discharge Date: Jul 21, 2016 Admitting Diagnosis Atrial fibrillation (1) Afib ICD Code: I48.91 Diagnosis: Principal (2) ischemic CMP Procedures None. Brief History - From Admission This is a 70-year-old male with history of hypertension, and diabetes mellitus, with recently diagnosed coronary artery disease with cardiomyopathy and atrial fibrillation. He was in the hospital July 01- for unstable angina, status post cardiac catheterization with stenting in July 03. He was discharged on Lopressor, Lasix, Imdur, aspirin and statins. 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 Lopressor was continued, Cardizem was titrated and digoxin was continued. Presently, patient is doing fine, no chest pain, palpitation or shortness of breath. Patient was also treated back in for pneumonia which improved. CBC/BMP: 07/18/16195807/20/16 0427 Significant Findings Laboratory Tests Test 07/18/16 07/19/16 07/20/16 19:59 04:45 04:27 Hemoglobin 12.5 GM/DL (13.0-17.0) Hematocrit 37.6 % (39.0-51.0) Random Glucose 153 MG/DL 110 MG/DL (74-106) (74-106) Calcium Level 8.3 MG/DL 8.2 MG/DL (8.5-10.1) (8.5-10.1) Urine Mucus FEW /lpf (OCC) Digoxin Level 0.3 NG/ML (0.8-2.0) PE at Discharge Not in distress, well-nourished, looks stated age PERRL, pink conjunctiva without injection, anicteric Nose without bleeding, airway patent, oropharynx clear Supple neck, no masses or thyromegaly, trachea midline Tachycardic, irregular rhythm, no murmurs. Clear to auscultation and symmetric bilaterally, normal respiratory effort. Normal bowel sounds, soft, non-tender, nondistended, no guarding. Extremities without clubbing, cyanosis, or edema. No rash of generalized distribution. Skin is warm and dry. AAO x3, no cranial nerve deficits, moves all 4 extremities, no focal neurologic deficits Normal mood, appropriate affect Pt update on day of discharge Mr. Hines is doing well. No CP, SOB, fever, chills. HR is well controlled. Cardiology adjusted meds and started on Apixaban for Afib anticoagulation. Patient is advised to wear Lifevest. Hospital Course Mr. Hines is a pleasant 70 year old male with a history of hypertension, and diabetes mellitus, with recently diagnosed coronary artery disease with cardiomyopathy and atrial fibrillation on 07/19/2016. Patient underwent a stent placement on 07/03/2016 after being evaluated for unstable angina. Cardiology followed this patient closely. Rate control medications were adjusted. Patient was continued on aspirin and Effient. Cardiology also started patient on Apixaban for Afib anti-coagulation. Patient was subsequently discharged home. I encouraged patient and to discuss with his cardiology regarding Enalapril. If patient's blood pressure tolerates it, he should be on JAYESH inhibitor which will prevent cardiac remodeling. Patient and his plan to discuss this on his outpatient cardiology appointment. Pt Condition on Discharge: Good Discharge Disposition: Discharge Home Discharge Time: > 30 minutes Discharge Instructions DIET: Follow Instructions for: Heart Healthy Diet Activities you can perform: Regular-No Restrictions Follow up Referrals: Cardiology - 2 Weeks with Amol Sheppard MD PCP Follow-up - 1 Week New Medications: Oxycodone-Acetaminophen (Percocet) 7.5-325 mg Tab 1 TAB PO Q6H PRN PAIN #28 Ref 0 TAB Apixaban (Eliquis) 5 Mg Tab 5 MG PO BID Atrial fibrillation #30 Ref 2 TAB Atorvastatin (Lipitor) 20 Mg Tab 20 MG PO DAILY CAD #30 TAB Digoxin (Digoxin) 0.125 Mg Tab 0.125 MG PO DAILY afib #30 TAB Diltiazem CD 24 HR (Cardizem CD 24 HR) 180 Mg Caper 180 MG PO DAILY Atrial fibrillation #30 Ref 2 CAP Continued Medications: Aspirin DR (Aspirin EC) 81 Mg Tabdr 81 MG PO DAILY CAD Days 30 TAB Isosorbide Mononitrate ER (Isosorbide Mononitrate ER) 30 Mg Nilda 30 MG PO DAILY CAD Days 30 TAB Metoprolol Tartrate (Metoprolol Tartrate) 50 Mg Tab 50 MG PO BID #60 Ref 0 TAB Prasugrel (Effient) 10 Mg Tab 10 MG PO DAILY CAD #30 TAB Prednisone (Prednisone) 5 Mg Tab 5 MG PO DAILY Ref 0 TAB Discontinued Medications: Enalapril (Enalapril) 2.5 Mg Tab 2.5 MG PO DAILY CMP Days 30 TAB Oxycodone (Oxycodone) 5 Mg Tab 5 MG PO Q6H PRN PAIN Ref 0 TAB Sosa Mckinney DO Jul 21, 2016 13:27
[2016-07-22] MEDS ORDERED: DILTIAZEM-CD 180 MG CAP ER PO SCH (09:00)
== END 2016-07-21 14:20 | disposition home or self-care (01) | DRG 310 ==
LOC: HCIN 10:00
PROVIDERS: ADMIT Hospitalist; ATTEND Hospitalist
DX: I48.91 Unspecified atrial fibrillation (principal); E11.9 Type 2 diabetes mellitus without complications; I25.5 Ischemic cardiomyopathy; M06.9 Rheumatoid arthritis, unspecified; I25.10 Atherosclerotic heart disease of native coronary artery without angina pectoris; Z95.5 Presence of coronary angioplasty implant and graft; I10 Essential (primary) hypertension; Z79.02 Long term (current) use of antithrombotics/antiplatelets; Z79.82 Long term (current) use of aspirin; Z79.52 Long term (current) use of systemic steroids; Z91.14 Patient's other noncompliance with medication regimen; Z91.19 Patient's noncompliance with other medical treatment and regimen; F17.290 Nicotine dependence, other tobacco product, uncomplicated; Z87.01 Personal history of pneumonia (recurrent)
CPT/HCPCS: 80048; 80162; 81001; 84436; 84443; 84480; 85027; J7512

== ENCOUNTER 2016-08-22 12:43 | Emergency (ER) | payer MEDICARE, OTHER ==
[~2016-08-22] VITALS: Ht 188 cm; Wt 81.0 kg
[~2016-08-22 12:43] MED LIST changes: +APIX5TAB PO; +CARD180C5 PO; +DIGO0.12 PO; -ENAL2.5T PO; +LIPI20TA PO; -METO25TA3 PO; +METO50TA PO; +PERC7.5T13 PO
[2016-08-22 13:01] VITALS: BP 158/90; PULSE 104; RESP 16; TEMP 97.9; O2SAT 97
[2016-08-22 13:53] LABS: BLOOD, URINE NEG (NEG); GLUCOSE,URINE NEG (NEG); KETONE, URINE TRACE mg/dL (NEG)
[2016-08-22 13:55] LABS: METHOD OF COLLECTION CLEAN CATCH; NITRITE,URINE POS (NEG); URINE COLOR YELLOW (YELLW/STRAW)
[2016-08-22 13:57] LABS: MUCUS URINE MOD /lpf (OCC); RBC, URINE 0-3 /hpf (0-3); SQUAMOUS EPITHELIAL CELL URINE 0-5 /hpf (0-5)
[2016-08-22 13:58] LABS: BACTERIA, URINE MANY /hpf; COMMENT (UR) CULTURE INDICATED; CULTURE IF INDICATED CULTURE INDICATED
[2016-08-22] MEDS ORDERED: LEFL1TAB3 PO (14:16)
[2016-08-22] MEDS ORDERED: METO25TA3 PO (14:16)
[2016-08-22] MEDS ORDERED: SODIUM CHLOR 0.9% 1000 ML INJ 1,000 ML IV SCH (14:24)
[2016-08-22] MEDS ORDERED: LEVOFLOXACIN 750 MG PREMIX INJ 150 ML IV ONE (14:30)
[2016-08-22] MEDS ORDERED: SODIUM CHLORIDE 0.9% FLUSH 5 ML FLUSH IVF PRN (14:30)
[2016-08-22] MEDS ORDERED: ONDANSETRON HCL 4 MG/2 ML VIAL IVP ONE (14:30)
[2016-08-22] MEDS ORDERED: MORPHINE SULFATE 4 MG/ML INJ IV PUSH ONE (14:30)
--- NOTE | 2016-08-22 14:33 | PD ---
HPI Chief Complaint: Complaint Time Seen by Provider: 14:18 Travel History International Travel<30 days: No Contact w/Intl Traveler<30days: No Traveled to known affect area: No History of Present Illness HPI Patient is a 70-year-old male who presents to emergency room for evaluation of left-sided flank pain, urinary urgency frequency and dysuria. Patient reports that he woke up this morning and had not comfortable feeling to his left side of his back and abdomen. Patient reports that he has been noticing increased dysuria as well as urinary frequency with this symptoms, denies hematuria. Reports that pain to his left flank has been constant in nature, intermittent. Denies history of kidney stones in the past. He reports that the pain does radiate from his back to his abdomen to his left leg. Patient with no fevers or chills, no nausea or vomiting at this time. Denies any diarrhea or constipation PFSH Past Medical History Hx Anticoagulant Therapy: Yes Arthritis: Yes (R.A) Atrial Fibrillation: Yes Cancer: Yes (MELANOMA FACE) Cardiac Catheterization: Yes Cardiovascular Problems: Yes (htn on meds, stents x 2 placed ) High Cholesterol: Yes Congestive Heart Failure: Yes Coronary Artery Disease: Yes Diabetes: Yes (diet controlled) Patient Takes Glucophage: No Diminished Hearing: No Endocrine: No Gastrointestinal Disorders: No Genitourinary: No Hepatitis: No Hiatal Hernia: No Hypertension: Yes Immune Disorder: No Musculoskeletal: Yes (RHEUMATOID ARTHRITIS) Neurologic: Yes (NEUROPATHY) Psychiatric: No Reproductive: No Respiratory: Yes Thyroid Disease: No Tetanus Vaccination: > 5 Years Influenza Vaccination: No Past Surgical History AICD: No Joint Replacement: Yes (R KNEE) Other Surgery: Yes (GANGLION CYST LEFT HAND, bilat great toes, melanoma removed left face) Social History Alcohol Use: Yes (thu and ) Tobacco Use: Yes (3 DAILY CIGARS) Substance Use: No Allergies-Medications (Allergen,Severity, Reaction): Coded Allergies: Azithromycin (Unverified Allergy, Severe, SWELLING, 08/22/16) Reported Meds & Prescriptions Reported Meds & Active Scripts Active Tylenol-Codeine #3 (Acetaminophen-Codeine) 300-30 mg Tab 1 Tab PO Q4H PRN Levaquin (Levofloxacin) 750 Mg Tab 750 Mg PO DAILY 7 Days Percocet (Oxycodone-Acetaminophen) 7.5-325 mg Tab 1 Tab PO Q6H PRN Cardizem CD 24 HR (Diltiazem CD 24 HR) 180 Mg Caper 180 Mg PO DAILY Eliquis (Apixaban) 5 Mg Tab 5 Mg PO BID Digoxin 0.125 Mg Tab 0.125 Mg PO DAILY Effient (Prasugrel) 10 Mg Tab 10 Mg PO DAILY Reported Metoprolol Tartrate 25 Mg Tab 25 Mg PO Q8HR Leflunomide 20 Mg Tab 20 Mg PO DAILY Prednisone 5 Mg Tab 5 Mg PO DAILY Review of Systems General / Constitutional: No: Fever Eyes: No: Visual changes HENT: No: Headaches Cardiovascular: No: Chest Pain or Discomfort Respiratory: No: Shortness of Breath Gastrointestinal: Positive: Nausea, Abdominal Pain, No: Diarrhea Genitourinary: Positive: Urgency, Dysuria, No: Hematuria Musculoskeletal: No: Pain Skin: No Rash Neurologic: No: Weakness Psychiatric: No: Depression Endocrine: No: Polydipsia Hematologic/Lymphatic: No: Easy Bruising Physical Exam Narrative GENERAL: No acute distress, nontoxic SKIN: Warm and dry. HEAD: Atraumatic. Normocephalic. EYES: Pupils equal and round. No scleral icterus. No injection or drainage. ENT: No nasal bleeding or discharge. Mucous membranes pink and moist. NECK: Trachea midline. No JVD. CARDIOVASCULAR: Regular rate and rhythm. No murmur appreciated. RESPIRATORY: No accessory muscle use. Clear to auscultation. Breath sounds equal bilaterally. GASTROINTESTINAL: Abdomen soft, non-tender, nondistended. Patient with left- sided flank pain. MUSCULOSKELETAL: No obvious deformities. No clubbing. No cyanosis. No edema. No calf tenderness, no knee swelling NEUROLOGICAL: Awake and alert. No obvious cranial nerve deficits. Motor grossly within normal limits. Normal speech. PSYCHIATRIC: Appropriate mood and affect; insight and judgment normal. Data Data Last Documented VS Vital Signs Date Time Temp Pulse Resp B/P Pulse Ox O2 Delivery O2 Flow Rate FiO2 08/22/16 13:01 97.9 104 16 158/90 97 Orders Urinalysis - C+S If Indicated (08/22/16 13:32) Urine Culture (08/22/16 13:35) Complete Blood Count With Diff (08/22/16 14:24) Comprehensive Metabolic Panel (08/22/16 14:24) Lipase (08/22/16 14:24) Prothrombin Time / Inr (Pt) (08/22/16 14:24) Act Partial Throm Time (Ptt) (08/22/16 14:24) Ct Abd/Pel W/O Iv Contrast (08/22/16 14:24) Iv Access Insert/Monitor (08/22/16 14:24) Morphine Inj (Morphine Inj) (08/22/16 14:30) Ondansetron Inj (Zofran Inj) (08/22/16 14:30) Sodium Chlor 0.9% 1000 Ml Inj (Ns 1000 M (08/22/16 14:24) Sodium Chloride 0.9% Flush (Ns Flush) (08/22/16 14:30) Levofloxacin 750 Mg Premix Inj (Levaquin (08/22/16 14:30) Labs Laboratory Tests Test 08/22/16 08/22/16 13:35 14:50 Urine Collection Type CLEAN CATCH Urine Color YELLOW Urine Turbidity SLIGHTY CLOUDY Urine pH 6.0 Urine Specific [place] 1.020 Urine Protein TRACE mg/dL Urine Glucose (UA) NEG mg/dL Urine Ketones TRACE mg/dL Urine Occult Blood NEG Urine Nitrite POS Urine Bilirubin NEG Urine Leukocyte Esterase NEG Urine RBC 0-3 /hpf Urine WBC 9-14 /hpf Urine Squamous Epithelial 0-5 /hpf Cells Urine Bacteria MANY /hpf Urine Mucus MOD /lpf Microscopic Urinalysis Comment CULTURE INDICATED White Blood Count 8.4 TH/MM3 Red Blood Count 5.20 MIL/MM3 Hemoglobin 13.5 GM/DL Hematocrit 41.0 % Mean Corpuscular Volume 78.9 FL Mean Corpuscular Hemoglobin 25.9 PG Mean Corpuscular Hemoglobin 32.8 % Concent Red Cell Distribution Width 15.2 % Platelet Count 235 TH/MM3 Mean Platelet Volume 7.1 FL Neutrophils (%) (Auto) 79.9 % Lymphocytes (%) (Auto) 10.8 % Monocytes (%) (Auto) 7.3 % Eosinophils (%) (Auto) 0.5 % Basophils (%) (Auto) 1.5 % Neutrophils # (Auto) 6.8 TH/MM3 Lymphocytes # (Auto) 0.9 TH/MM3 Monocytes # (Auto) 0.6 TH/MM3 Eosinophils # (Auto) 0.0 TH/MM3 Basophils # (Auto) 0.1 TH/MM3 CBC Comment DIFF FINAL Differential Comment Prothrombin Time 11.4 SEC Prothromb Time International 1.0 RATIO Ratio Activated Partial 27.7 SEC Thromboplast Time Sodium Level 136 MEQ/L Potassium Level 4.2 MEQ/L Chloride Level 100 MEQ/L Carbon Dioxide Level 26.0 MEQ/L Anion Gap 10 MEQ/L Blood Urea Nitrogen 11 MG/DL Creatinine 0.73 MG/DL Estimat Glomerular Filtration 106 ML/MIN Rate Random Glucose 168 MG/DL Calcium Level 8.6 MG/DL Total Bilirubin 1.0 MG/DL Aspartate Amino Transf 14 U/L (AST/SGOT) Alanine Aminotransferase 21 U/L (ALT/SGPT) Alkaline Phosphatase 53 U/L Total Protein 7.7 GM/DL Albumin 3.1 GM/DL Lipase 55 U/L MDM Medical Decision Making Medical Screen Exam Complete: Yes Emergency Medical Condition: Yes Interpretation(s) Vital Signs Date Time Temp Pulse Resp B/P Pulse Ox O2 Delivery O2 Flow Rate FiO2 08/22/16 13:01 97.9 104 16 158/90 97 Differential Diagnosis Pyelonephritis, kidney stone, cystitis, muscle strain Narrative Course Patient is a 70-year-old male who presents to emergency room with complaints of pains to his left flank which radiates to his lower abdomen and left lower extremity, reports that symptoms began this morning when he woke up. Patient reports increased concerns as he had noticed dysuria with urinary urgency and frequency this morning. Reports no hematuria, denies any history of kidney stones in the past, reports that he can handle a lot of pain, but today pain is unbearable. Vital signs stable at this time. UA was obtained while in triage, patient does appear to have a urinary tract infection. UA with trace ketones, 9-14 white blood cells, many bacteria, positive nitrites , urine culture sent. Labs obtained to evaluate for infection and kidney function. CAT scan of abdomen and pelvis ordered to evaluate for possible kidney stone cbc; wbc: 8.4 hgb: 13.5 hct: 41.0 platelets: 235 sodium 136 chloride 100 potassium 4.2 carbon dioxide 26 bun 11 cr 0.73 I reviewed CAT scan report with patient in detail. A all incidental findings were reviewed with patient. A copy of patient's CAT scan report was given to him. Will start patient on antibiotics, will have him follow-up with his primary care doctor and return to emergency room as needed. Signs and symptoms of when to return to emergency room was reviewed with patient in detail. Discussed concerns for sclerosis of his right femoral heads just of avascular necrosis as well. Patient will follow-up with his primary care doctor as well as orthopedic surgery for this. Patient with no right-sided hip this time, patient will follow-up as outpatient. Diagnosis Primary Impression: Pyelonephritis Patient Instructions: General Instructions, Narcotic given in the ED Additional Instructions: Please provide patient with a copy of his lab work and studies at discharge Please follow-up with your primary care doctor in 2-3 days Return to the emergency room if symptoms progress or worsen or if you develop any fevers or chills Please follow-up with all cultures today Med/Other Pt SpecificInfo: Prescription(s) given Scripts Acetaminophen-Codeine (Tylenol-Codeine #3)300-30 mg Tab1 Tab PO Q4H PRN (PAIN) # 10 TAB Ref 0 Prov:Iliana Beckman DO 08/22/16 Levofloxacin (Levaquin)750 Mg Pym974 Mg PO DAILY 7 Days Ref 0 Prov:Iliana Beckman DO 08/22/16 Disposition: 01 DISCHARGE HOME Condition: Stable Iliana Beckman DO Aug 22, 2016 14:32
[2016-08-22 15:04] LABS: AUTOMATED NEUTROPHIL # 6.8 TH/MM3 (1.8-7.7); BASOPHIL # 0.1 TH/MM3 (0-0.2); BASOPHIL % 1.5 % (0.0-2.0); EOSINOPHIL % 0.5 % (0.0-4.0); LYMPH % 10.8 % (9.0-44.0); LYMPHOCYTE # 0.9 TH/MM3 (1.0-4.8); MEAN CELL VOLUME 78.9 FL (80.0-100.0); MEAN CORPUSCULAR HEMOGLOBIN 25.9 PG (27.0-34.0); MEAN CORPUSCULAR HGB CONC 32.8 % (32.0-36.0); MONO % 7.3 % (0.0-8.0); NEUT % 79.9 % (16.0-70.0); PLATELET COUNT 235 TH/MM3 (150-450); RED CELL DISTRIBUTION WIDTH 15.2 % (11.6-17.2); WHITE BLOOD COUNT 8.4 TH/MM3 (4.0-11.0)
[2016-08-22 15:05] LABS: HEMO FLAGS DIFF FINAL
[2016-08-22 15:08] LABS: CHLORIDE 100 MEQ/L (98-107); POTASSIUM 4.2 MEQ/L (3.5-5.1); SODIUM (NA) 136 MEQ/L (136-145)
[2016-08-22 15:12] LABS: ANION GAP 10 MEQ/L (5-15); APTT (PATIENT) 27.7 SEC (24.3-30.1); PROTHROMBIN TIME - PATIENT 11.4 SEC (9.8-11.6)
[2016-08-22 15:13] LABS: BLOOD UREA NITROGEN 11 MG/DL (7-18)
[2016-08-22 15:15] LABS: ALT (GPT) 21 U/L (12-78); AST (GOT) 14 U/L (15-37)
[2016-08-22 15:16] LABS: GLOMERULAR FILTRATION RATE 106 ML/MIN (>89)
[2016-08-22 15:18] LABS: ALKALINE PHOSPHATASE 53 U/L (45-117)
[2016-08-22] MEDS ORDERED: TYLETAB34 PO (15:25)
[2016-08-22] MEDS ORDERED: LEVA750T PO (15:25)
--- NOTE | 2016-08-22 15:49 | RADHPO ---
EXAM DATE/TIME: 08/22/2016 15:15 [facility] COMPARISON: No previous studies available for comparison. INDICATIONS : Left lower back pain with painful urination. ORAL CONTRAST: No oral contrast ingested. RADIATION DOSE: 16.2 CTDIvol (mGy) MEDICAL HISTORY : Hypertension. Congestive heart failure. SURGICAL HISTORY : Coronary artery stent. ENCOUNTER: Initial ACUITY: 1 day PAIN SCALE: 9/10 LOCATION: Left lower back. TECHNIQUE: Volumetric scanning of the abdomen and pelvis was performed. Using automated exposure control and ad justment of the mA and/or kV according to patient size, radiation dose was kept as low as reasonably achievable to obtain optimal diagnostic quality images. FINDINGS: LOWER LUNGS: The visualized lower lungs are clear. LIVER: Homogeneous density without lesion. There is no dilation of the biliary tree. There are calcified s tones layering within the gallbladder. No gallbladder wall thickening or inflammatory change is prese nt. SPLEEN: Mildly enlarged measuring 14.4 cm in length. No focal lesion is seen. PANCREAS: Within normal limits. KIDNEYS: Normal in size and shape. There is no mass, stone, or hydronephrosis. ADRENAL GLANDS: Within normal limits. VASCULAR: There is no aortic aneurysm. There is mild atherosclerotic disease. BOWEL/MESENTERY: The stomach, small bowel, and colon demonstrate no acute abnormality. There is no free intraperitone al air or fluid. There is severe sigmoid diverticulosis. A small hiatal hernia is present. ABDOMINAL WALL: There is a fat-containing umbilical hernia. RETROPERITONEUM: There is no lymphadenopathy. BLADDER: There is a diverticulum along the left lateral bladder wall. REPRODUCTIVE: Prostate gland is enlarged and impresses upon the urinary bladder base. INGUINAL: There is no lymphadenopathy or hernia. MUSCULOSKELETAL: There are degenerative changes of the lumbar spine. Bilateral hip joints demonstrate moderate degener ative change. There is sclerosis in the right femoral head suggestive of avascular necrosis. CONCLUSION: 1. No acute finding is identified to explain the clinical symptoms. No renal stones or signs of urina ry obstruction are present. 2. There is severe sigmoid diverticulosis but no inflammatory changes are seen. 3. Nonacute findings include cholelithiasis, small hiatal hernia, prostatomegaly, mild splenomegaly, and small fat-containing umbilical hernia. Jadiel Donoheu MD on August 22, 2016 at 15:42 Board Certified Radiologist. This report was verified electronically.
[2016-08-22 16:46] VITALS: BP 133/83; PULSE 93; RESP 17; O2SAT 98
== END 2016-08-22 17:07 | disposition home or self-care (01) ==
LOC: PHED 12:43 → PHEFT 17:07
DX: N12 Tubulo-interstitial nephritis, not specified as acute or chronic (principal); I48.91 Unspecified atrial fibrillation; I10 Essential (primary) hypertension; E78.00 Pure hypercholesterolemia, unspecified; I50.9 Heart failure, unspecified; I25.10 Atherosclerotic heart disease of native coronary artery without angina pectoris; E11.9 Type 2 diabetes mellitus without complications; Z72.0 Tobacco use; B95.2 Enterococcus as the cause of diseases classified elsewhere
CPT/HCPCS: 74176; 80053; 81001; 83690; 85025; 85610; 85730; 86403; 87077; 87086; 87186; 96365; 96366; 96375; 99284; J1956; J2270; J2405; J7030

== ENCOUNTER 2016-10-15 11:20 | Inpatient (IN) | payer OTHER, MEDICARE ==
[2016-10-15] VITALS (14 sets, daily range): BP systolic 95–143; BP diastolic 66–90; PULSE 92–142; RESP 15–26; TEMP 97.7–98; O2SAT 92–98
[~2016-10-15] VITALS: Ht 188 cm; Wt 80.1 kg
[~2016-10-15 11:20] MED LIST changes: -ASPI81TA11 PO; -ISOS30TA3 PO; +LEFL1TAB3 PO; +LEVA750T PO; -LIPI20TA PO; +METO25TA3 PO; -METO50TA PO; +TYLETAB34 PO
[2016-10-15] MEDS ORDERED: TAMS0.4C4 PO (11:37)
[2016-10-15] MEDS ORDERED: OXYC1TAB63 PO (11:37)
[2016-10-15] MEDS ORDERED: SULF500T3 PO (11:37)
[2016-10-15] MEDS ORDERED: FURO40TA PO (11:38)
[2016-10-15] MEDS ORDERED: DILTIAZEM HCL 25 MG/5 ML VIAL IV ONE (12:00)
[2016-10-15] MEDS ORDERED: FUROSEMIDE 40 MG/4 ML VIAL IVP ONE (12:00)
--- NOTE | 2016-10-15 12:15 | PD ---
HPI Chief Complaint: Respiratory Symptoms Time Seen by Provider: 11:26 Travel History International Travel<30 days: No Contact w/Intl Traveler<30days: No Traveled to known affect area: No History of Present Illness HPI The patient is a 70-year-old male who presents to the emergency department for shortness of breath. The patient notes a one-week history of increasing shortness of breath with orthopnea, paroxysmal nocturnal dyspnea, and exertional shortness of breath. The patient also notes increased lower extremity edema, is unsure of exact total weight gain over the last week. The patient does have a history congestive heart failure and previous CAD with stent placement. The patient had a stent placed in June 2016, is currently on Effient. The patient does have a history of atrial fibrillation with RVR, however, was taken off of his medications during his last hospitalization and has not been taking his diltiazem, metoprolol, or digitoxin. The patient was followed by a aquatics lifeguard, Dr. Greer, but recently changed aquatics lifeguard Dr. Obrien. The patient's primary physician is Dr. Jadiel Tony. The patient does complain of mild chest pressure with shortness of breath as well as elevated heart rate. The patient denies any fever, chills, sweats, nausea, vomiting, diarrhea, or abdominal pain. PFSH Past Medical History Hx Anticoagulant Therapy: Yes Arthritis: Yes (R.A) Atrial Fibrillation: Yes Cancer: Yes (MELANOMA FACE) Cardiac Catheterization: Yes Cardiovascular Problems: Yes (htn on meds, stents x 2 placed ) High Cholesterol: Yes Congestive Heart Failure: Yes Cerebrovascular Accident: Yes (CHF) Coronary Artery Disease: Yes Diabetes: Yes (diet controlled) Patient Takes Glucophage: Yes Diminished Hearing: No Endocrine: No Gastrointestinal Disorders: No Genitourinary: No Hepatitis: No Hiatal Hernia: No Hypertension: Yes Immune Disorder: No Musculoskeletal: Yes (RHEUMATOID ARTHRITIS) Neurologic: Yes (NEUROPATHY) Psychiatric: No Reproductive: No Respiratory: Yes Thyroid Disease: No Past Surgical History AICD: No Joint Replacement: Yes (R KNEE) Other Surgery: Yes (GANGLION CYST LEFT HAND, bilat great toes, melanoma removed left face) Social History Alcohol Use: Yes (mon and thur) Tobacco Use: Yes (3 DAILY CIGARS) Substance Use: No Allergies-Medications (Allergen,Severity, Reaction): Coded Allergies: Azithromycin (Unverified Allergy, Severe, SWELLING, 3/10/17) Reported Meds & Prescriptions Reported Meds & Active Scripts Active Effient (Prasugrel) 10 Mg Tab 10 Mg PO DAILY Reported Furosemide 40 Mg Tab 40 Mg PO BID Oxycodone-Acetaminophen 5-325 mg Tab 1 Tab PO Q4H PRN Tamsulosin (Tamsulosin HCl) 0.4 Mg Cap 0.4 Mg PO HS Sulfasalazine 500 Mg Tab 500 Mg PO BID Leflunomide 20 Mg Tab 20 Mg PO DAILY Review of Systems Except as stated in HPI: all other systems reviewed are Neg General / Constitutional: No: Fever Cardiovascular: Positive: Chest Pain or Discomfort, Palpitations, Irregular Rhythm, Tachycardia, Dyspnea on exertion Respiratory: Positive: Shortness of Breath, Orthopnea Gastrointestinal: No: Nausea, Vomiting, Abdominal Pain Musculoskeletal: Positive: Weakness, Edema Neurologic: Positive: Weakness Physical Exam Narrative GENERAL: Awake, alert, pleasant 70-year-old male who appears his stated age and is in mild respiratory distress. SKIN: Focused skin assessment warm/dry. HEAD: Atraumatic. Normocephalic. EYES: Pupils equal and round. No scleral icterus. No injection or drainage. ENT: No nasal bleeding or discharge. Mucous membranes pink and moist. NECK: Trachea midline. No JVD. CARDIOVASCULAR: Irregularly irregular, tachycardic with a heart rate of 150. RESPIRATORY: No accessory muscle use, diminished breath sounds in the bases bilateral with rhonchi and Rales. GASTROINTESTINAL: Abdomen soft, non-tender, nondistended. Small, reducible umbilical hernia. MUSCULOSKELETAL: No obvious deformities. No clubbing. No cyanosis. Bilateral lower extremity pitting edema. NEUROLOGICAL: Awake and alert. No obvious cranial nerve deficits. Motor grossly within normal limits. Normal speech. PSYCHIATRIC: Appropriate mood and affect; insight and judgment normal. Data Data Last Documented VS Vital Signs Date Time Temp Pulse Resp B/P Pulse Ox O2 Delivery O2 Flow Rate FiO2 10/15/16 13:00 138 26 95/75 92 Room Air 10/15/16 11:24 97.9 Orders Electrocardiogram (10/15/16 ) Complete Blood Count With Diff (10/15/16 11:55) Comprehensive Metabolic Panel (10/15/16 11:55) B-Type Natriuretic Peptide (10/15/16 11:55) Act Partial Throm Time (Ptt) (10/15/16 11:55) Prothrombin Time / Inr (Pt) (10/15/16 11:55) Magnesium (Mg) (10/15/16 11:55) Ckmb (Isoenzyme) Profile (10/15/16 11:55) Troponin I (10/15/16 11:55) Iv Access Insert/Monitor (10/15/16 11:55) Ecg Monitoring (10/15/16 11:55) Oximetry (10/15/16 11:55) Oxygen Administration (10/15/16 11:55) Chest, Single Ap (10/15/16 11:55) Furosemide Inj (Lasix Inj) (10/15/16 12:00) Diltiazem Inj (Cardizem Inj) (10/15/16 12:00) Diltiazem Inj (Cardizem Inj) (10/15/16 12:00) Digoxin Inj (Lanoxin Inj) (10/15/16 13:30) Admit Order (Ed Use Only) (10/15/16 13:23) Labs Laboratory Tests Test 10/15/16 12:00 White Blood Count 7.5 TH/MM3 Red Blood Count 5.09 MIL/MM3 Hemoglobin 13.5 GM/DL Hematocrit 41.4 % Mean Corpuscular Volume 81.4 FL Mean Corpuscular Hemoglobin 26.6 PG Mean Corpuscular Hemoglobin 32.7 % Concent Red Cell Distribution Width 18.7 % Platelet Count 248 TH/MM3 Mean Platelet Volume 8.5 FL Neutrophils (%) (Auto) 80.0 % Lymphocytes (%) (Auto) 11.9 % Monocytes (%) (Auto) 5.8 % Eosinophils (%) (Auto) 1.5 % Basophils (%) (Auto) 0.8 % Neutrophils # (Auto) 6.0 TH/MM3 Lymphocytes # (Auto) 0.9 TH/MM3 Monocytes # (Auto) 0.4 TH/MM3 Eosinophils # (Auto) 0.1 TH/MM3 Basophils # (Auto) 0.1 TH/MM3 CBC Comment DIFF FINAL Differential Comment Erythrocyte Sedimentation Rate 29 mm/hr Prothrombin Time 12.4 SEC Prothromb Time International 1.1 RATIO Ratio Activated Partial 26.1 SEC Thromboplast Time Sodium Level 137 MEQ/L Potassium Level 3.3 MEQ/L Chloride Level 102 MEQ/L Carbon Dioxide Level 23.6 MEQ/L Anion Gap 11 MEQ/L Blood Urea Nitrogen 12 MG/DL Creatinine 0.87 MG/DL Estimat Glomerular Filtration 87 ML/MIN Rate Random Glucose 230 MG/DL Calcium Level 8.4 MG/DL Magnesium Level 2.0 MG/DL Total Bilirubin 0.8 MG/DL Aspartate Amino Transf 14 U/L (AST/SGOT) Alanine Aminotransferase 15 U/L (ALT/SGPT) Alkaline Phosphatase 80 U/L Total Creatine Kinase 31 U/L Troponin I 0.02 NG/ML B-Type Natriuretic Peptide 1472 PG/ML Total Protein 7.2 GM/DL Albumin 2.8 GM/DL Digoxin Level 0.1 NG/ML MDM Medical Decision Making Medical Screen Exam Complete: Yes Emergency Medical Condition: Yes Medical Record Reviewed: Yes Interpretation(s) EKG reveals atrial fibrillation with a rate of 142. Left anterior fascicular block. Nonspecific T wave changes. Last Impressions Chest X-Ray 10/15/16 9595 Signed Impressions: Service Date/Time: Saturday, October 15, 2016 12:46 - CONCLUSION: 1. Bilateral effusions and interstitial prominence suggesting mild CHF. Ross Clemente MD Laboratory Tests Test 10/15/16 12:00 White Blood Count 7.5 TH/MM3 Red Blood Count 5.09 MIL/MM3 Hemoglobin 13.5 GM/DL Hematocrit 41.4 % Mean Corpuscular Volume 81.4 FL Mean Corpuscular Hemoglobin 26.6 PG Mean Corpuscular Hemoglobin 32.7 % Concent Red Cell Distribution Width 18.7 % Platelet Count 248 TH/MM3 Mean Platelet Volume 8.5 FL Neutrophils (%) (Auto) 80.0 % Lymphocytes (%) (Auto) 11.9 % Monocytes (%) (Auto) 5.8 % Eosinophils (%) (Auto) 1.5 % Basophils (%) (Auto) 0.8 % Neutrophils # (Auto) 6.0 TH/MM3 Lymphocytes # (Auto) 0.9 TH/MM3 Monocytes # (Auto) 0.4 TH/MM3 Eosinophils # (Auto) 0.1 TH/MM3 Basophils # (Auto) 0.1 TH/MM3 CBC Comment DIFF FINAL Differential Comment Erythrocyte Sedimentation Rate 29 mm/hr Prothrombin Time 12.4 SEC Prothromb Time International 1.1 RATIO Ratio Activated Partial 26.1 SEC Thromboplast Time Sodium Level 137 MEQ/L Potassium Level 3.3 MEQ/L Chloride Level 102 MEQ/L Carbon Dioxide Level 23.6 MEQ/L Anion Gap 11 MEQ/L Blood Urea Nitrogen 12 MG/DL Creatinine 0.87 MG/DL Estimat Glomerular Filtration 87 ML/MIN Rate Random Glucose 230 MG/DL Calcium Level 8.4 MG/DL Magnesium Level 2.0 MG/DL Total Bilirubin 0.8 MG/DL Aspartate Amino Transf 14 U/L (AST/SGOT) Alanine Aminotransferase 15 U/L (ALT/SGPT) Alkaline Phosphatase 80 U/L Total Creatine Kinase 31 U/L Troponin I 0.02 NG/ML B-Type Natriuretic Peptide 1472 PG/ML Total Protein 7.2 GM/DL Albumin 2.8 GM/DL Digoxin Level 0.1 NG/ML Differential Diagnosis Differential diagnosis includes congestive heart failure, myocardial infarction , pleural effusion, cardiomyopathy, atrial fibrillation with RVR, volume overload, pulmonary edema. Narrative Course IV was established, labs are drawn and sent, and the patient was placed on cardiac telemetry monitoring and continuous pulse oximetry monitoring. EKG was ordered and interpreted. The patient was administered Lasix 40 mg intravenously and Cardizem 15 g intravenously. The patient was then placed on a Cardizem drip. Chest x-ray was obtained. The patient was administered aspirin 162 mg orally. X-ray reveals pulmonary edema. BNP was elevated, troponin was normal. The patient continued be tachycardic on a Cardizem drip, therefore, was administered digoxin 0.5 mg intravenously which brought his heart rate down to 100. I discussed the patient with the on-call hospitalist who agrees with admission to [facility]. Critical Care Narrative Aggregate critical care time was 40 minutes. Time to perform other separately billable procedures was not included in the critical care time. My time did not include minutes spent treating any other patients simultaneously or on activities that did not directly contribute to the patient's treatment. The services I provided to this patient were to treat and/or prevent clinically significant deterioration that could result in: Anoxia, hypoxia, arrhythmia, pulmonary edema, cardiopulmonary arrest, . I provided critical care services requiring my management, as noted below: Chart data review, documentation time, medication orders and management, vital sign assessments/reviewing monitor data, ordering and reviewing lab tests, ordering and interpreting/reviewing x-rays and diagnostic studies, care of the patient and discussion of the patient with the admitting physicians. Physician Communication Physician Communication I discussed the patient with Dr. Roque who agrees with admission. Diagnosis Primary Impression: Acute exacerbation of CHF (congestive heart failure) Qualified Code: I50.23 - Acute on chronic systolic congestive heart failure Additional Impression: Atrial fibrillation with RVR Admitting Information Admitting Physician Requests: Admit Condition: Stable Feliciano Delgado MD October 15, 2016 12:15
[2016-10-15 12:16] LABS: BASOPHIL # 0.1 TH/MM3 (0-0.2); BASOPHIL % 0.8 % (0.0-2.0); EOSINOPHIL # 0.1 TH/MM3 (0-0.4); EOSINOPHIL % 1.5 % (0.0-4.0); HEMATOCRIT 41.4 % (39.0-51.0); HEMO FLAGS DIFF FINAL; LYMPH % 11.9 % (9.0-44.0); LYMPHOCYTE # 0.9 TH/MM3 (1.0-4.8); MEAN CELL VOLUME 81.4 FL (80.0-100.0); MEAN CORPUSCULAR HEMOGLOBIN 26.6 PG (27.0-34.0); MEAN CORPUSCULAR HGB CONC 32.7 % (32.0-36.0); MONO % 5.8 % (0.0-8.0); PLATELET COUNT 248 TH/MM3 (150-450); RED BLOOD COUNT 5.09 MIL/MM3 (4.50-5.90); RED CELL DISTRIBUTION WIDTH 18.7 % (11.6-17.2); WHITE BLOOD COUNT 7.5 TH/MM3 (4.0-11.0)
[2016-10-15] MEDS: DILTIAZEM INJ 125 MG in SODIUM CHLORIDE 0.9% INJ 100 ML IV SCH ×2 (12:16→20:32)
[2016-10-15 12:26] LABS: APTT (PATIENT) 26.1 SEC (24.3-30.1); INTERNATIONAL NORMALIZED RATIO 1.1 RATIO; PROTHROMBIN TIME - PATIENT 12.4 SEC (9.8-11.6)
[2016-10-15 12:40] LABS: ALKALINE PHOSPHATASE 80 U/L (45-117); ALT (GPT) 15 U/L (12-78); ANION GAP 11 MEQ/L (5-15); AST (GOT) 14 U/L (15-37); BICARBONATE 23.6 MEQ/L (21.0-32.0); BLOOD UREA NITROGEN 12 MG/DL (7-18); CHLORIDE 102 MEQ/L (98-107); GLOMERULAR FILTRATION RATE 87 ML/MIN (>89); POTASSIUM 3.3 MEQ/L (3.5-5.1); SODIUM (NA) 137 MEQ/L (136-145); TOTAL BILIRUBIN ADULT 0.8 MG/DL (0.2-1.0)
[2016-10-15 12:41] LABS: CREATINE KINASE 31 U/L (39-308)
[2016-10-15] MEDS ORDERED: DIGOXIN 0.5 MG/2 ML VIAL IV PUSH ONE (13:30)
--- NOTE | 2016-10-15 13:34 | RADRPT ---
EXAM DATE/TIME: 10/15/2016 12:46 [facility] COMPARISON: CHEST SINGLE AP, July 10, 2016, 12:33. INDICATIONS : Short of breath and lower extremity swelling for a few weeks. MEDICAL HISTORY : Congestive heart failure. Atrial fibrillation. SURGICAL HISTORY : Coronary artery stent. ENCOUNTER: Initial ACUITY: 2 weeks PAIN SCORE: 0/10 LOCATION: Bilateral chest FINDINGS: There are small bilateral pleural effusions and atelectatic changes bilaterally. This is more signifi cant on the right than the left. There is mild interstitial prominence suggesting mild congestive renan lure. The heart is mildly enlarged. The bony structures are intact. CONCLUSION: 1. Bilateral effusions and interstitial prominence suggesting mild CHF. Ross Clemente MD on October 15, 2016 at 13:31 Board Certified Radiologist. This report was verified electronically.
[2016-10-15] MEDS ORDERED: MAGNESIUM HYDROXIDE SUSP 30 ML CUP PO PRN (14:00)
[2016-10-15] MEDS ORDERED: SODIUM CHLORIDE 0.9% FLUSH 10 ML FLUSH IV FLUSH PRN (14:00)
[2016-10-15] MEDS ORDERED: oxyCODONE/ACETAMINOPHEN 5 MG/325 MG TAB PO PRN (14:00)
[2016-10-15] MEDS ORDERED: NALOXONE HCL 0.4 MG/ML AMP IV PRN (14:00)
[2016-10-15] MEDS ORDERED: BISACODYL 10 MG SUPP RECTAL PRN (14:00)
[2016-10-15] MEDS ORDERED: POTASSIUM CHLORIDE 10 MEQ CONTROLLED RELEASE TAB PO ONE (14:15)
--- NOTE | 2016-10-15 14:26 | HHI.HP ---
[facility] Dejan Tony MD Admission Diagnosis atrial fibrillation with RVR, congestive heart failure, pulmonary ed Diagnoses: Chief Complaint: shortness of breath, fatigue, leg swelling Travel History International Travel<30 Days: No Contact w/Intl Traveler <30 Da: No Traveled to Known Affected Are: No History of Present Illness 70 y/o male with a history of RA, Ischemic cardiomyopathy, Unstable angina, Hypertension, Atrial fibrillation, Diabetes mellitus (diet controlled) ,Tobacco abuse and CHF (EF 20%) presented to the ED with complaints of increased fatigue , chest pressure, shortness of breath and leg swelling for the last 1 week. He states 1 week ago he noticed his Lasix was not working, and his legs were swelling and he was having sob. SOB was worse with laying down. He states today he felt increase pressure in his chest as if he had a heavy object on top of him. He has not been on his heart medications (Dig) for at least 3 weeks because he has not felt well enough to take them. He states he has not felt himself since June of this year. He denies any fever, chills, nausea or vomiting. He also stopped his prednisone 5mg daily 3 weeks ago, and was changed to sulfasalazine for his RA. Other new medications include Terazosin for his enlarged prostate. He complains of chronic RA pain in his shoulders, DIP, MCV and PIP joints, and his elbows. He sees Dr Mcknight for Knee arthritis, and gets cortisone injections, last injection was 2 months ago. He was seen by Dr. Greer last admission, and was going to switch to Dr. Obrien but has not as of yet. Review of Systems Constitutional: COMPLAINS OF: Fatigue, DENIES: Fever, Chills Respiratory: COMPLAINS OF: Cough, Shortness of breath Cardiovascular: COMPLAINS OF: Chest pain, Dyspnea on Exertion, Lower Extremity Edema Gastrointestinal: DENIES: Constipation, Diarrhea, Nausea, Vomiting Genitourinary: DENIES: Hematuria, Dysuria Musculoskeletal: COMPLAINS OF: Joint pain, Muscle aches, Joint Swelling, DENIES: Back pain, Neck pain Integumentary: DENIES: Rash Hematologic/lymphatic: DENIES: Lymphadenopathy Neurologic: COMPLAINS OF: Localized weakness Past Family Social History Past Medical History Rheumatoid arthritis Ischemic cardiomyopathy Unstable angina Hypertension Atrial fibrillation Diabetes mellitus Tobacco abuse CHF, Echo 06/2016 EF 20% Past Surgical History Stent placement 06/2016 [place] left eye surgery Right knee surgery Bilateral foot surgery years ago Reported Medications Reported Meds & Active Scripts Active Effient (Prasugrel) 10 Mg Tab 10 Mg PO DAILY Reported Furosemide 40 Mg Tab 40 Mg PO BID Oxycodone-Acetaminophen 5-325 mg Tab 1 Tab PO Q4H PRN Tamsulosin (Tamsulosin HCl) 0.4 Mg Cap 0.4 Mg PO HS Sulfasalazine 500 Mg Tab 500 Mg PO BID Leflunomide 20 Mg Tab 20 Mg PO DAILY Allergies: Coded Allergies: Azithromycin (Unverified Allergy, Severe, SWELLING, 08/22/16) Active Ordered Medications Current Medications Medications (Trade) Dose Ordered Sig/Gus Route Start Time Stop Time Status Last Admin (Cardizem Inj/NS Inj) 125 ml @ 0 mls/hr TITRATE IV 10/15/16 12:00 10/15/16 12:16 (NS Flush) 2 ml UNSCH PRN IV FLUSH 10/15/16 14:00 (NS Flush) 2 ml BID IV FLUSH 10/15/16 21:00 (Dulcolax Supp) 10 mg DAILY PRN RECTAL 10/15/16 14:00 (Milk Of Magnesia Liq) 30 ml Q12H PRN PO 10/15/16 14:00 (Heparin Inj) 5,000 units Q12H SQ 10/15/16 15:00 (Narcan Inj) 0.4 mg UNSCH PRN IV 10/15/16 14:00 (Lasix) 40 mg BID PO 10/15/16 21:00 (Percocet 5-325 Mg) 1 tab Q4H PRN PO 10/15/16 14:00 (Effient) 10 mg DAILY PO 10/16/16 09:00 (Azulfidine) 500 mg BID PO 10/15/16 21:00 (Flomax) 0.4 mg HS PO 10/15/16 21:00 (Arava) 20 mg DAILY PO 10/16/16 09:00 (Lanoxin Inj) 0.25 mg Q6H IVS 10/15/16 20:15 10/16/16 02:16 UNV (Lanoxin) 0.125 mg DAILY PO 10/16/16 09:00 (D50w (Vial) Inj) 25 ml UNSCH PRN IV PUSH 10/15/16 14:30 UNV (Glucagon Inj) 1 mg UNSCH PRN OTHER 10/15/16 14:30 UNV Family History Dad: etoh abuse Mom: osteoarthritis Brother and sister: diabetes Social History Tobacco use: Cigars, quit 2 weeks ago Alcohol use: Quit many years ago, heavy drinker prior Illicit drug use: Denies Physical Exam Vital Signs Vital Signs Date Time Temp Pulse Resp B/P Pulse Ox O2 Delivery O2 Flow Rate FiO2 10/15/16 13:00 138 26 95/75 92 Room Air 10/15/16 12:29 132 25 105/78 92 Room Air 10/15/16 12:14 126 15 121/66 92 Room Air 10/15/16 11:30 97 Room Air 10/15/16 11:30 97 Room Air 10/15/16 11:30 17 Room Air 10/15/16 11:24 97.9 126 17 142/84 98 Physical Exam GENERAL: This is a well-nourished, well-developed patient, in no apparent distress. SKIN: Ulcer on ball of right foot with no erythema, pale wound bed, with decreased sensation. HEAD: Atraumatic. Normocephalic. No temporal or scalp tenderness. EYES: Pupils equal round and reactive. Extraocular motions intact. No scleral icterus. No injection or drainage. ENT: Nose without bleeding, purulent drainage or septal hematoma. Throat without erythema, tonsillar hypertrophy or exudate. Airway patent. NECK: Trachea midline. No JVD. CARDIOVASCULAR: Afib and Tachycardia, HR 115-122, No murmurs, gallops, or rubs. RESPIRATORY: Bilateral crackles at bases. No accessory muscle use. GASTROINTESTINAL: Abdomen soft, non-tender, nondistended. No hepato-splenomegaly , or palpable masses. No guarding. MUSCULOSKELETAL: Bilateral lower extremity +2 edema, Joint tenderness in bilateral hands, shoulders and elbows. No calf tenderness. NEUROLOGICAL: Awake and alert. Motor and sensory grossly within normal limits.Normal speech. Laboratory Laboratory Tests Test 10/15/16 12:00 White Blood Count 7.5 Red Blood Count 5.09 Hemoglobin 13.5 Hematocrit 41.4 Mean Corpuscular Volume 81.4 Mean Corpuscular Hemoglobin 26.6 Mean Corpuscular Hemoglobin 32.7 Concent Red Cell Distribution Width 18.7 Platelet Count 248 Mean Platelet Volume 8.5 Neutrophils (%) (Auto) 80.0 Lymphocytes (%) (Auto) 11.9 Monocytes (%) (Auto) 5.8 Eosinophils (%) (Auto) 1.5 Basophils (%) (Auto) 0.8 Neutrophils # (Auto) 6.0 Lymphocytes # (Auto) 0.9 Monocytes # (Auto) 0.4 Eosinophils # (Auto) 0.1 Basophils # (Auto) 0.1 CBC Comment DIFF FINAL Differential Comment Prothrombin Time 12.4 Prothromb Time International 1.1 Ratio Activated Partial 26.1 Thromboplast Time Sodium Level 137 Potassium Level 3.3 Chloride Level 102 Carbon Dioxide Level 23.6 Anion Gap 11 Blood Urea Nitrogen 12 Creatinine 0.87 Estimat Glomerular Filtration 87 Rate Random Glucose 230 Calcium Level 8.4 Magnesium Level 2.0 Total Bilirubin 0.8 Aspartate Amino Transf 14 (AST/SGOT) Alanine Aminotransferase 15 (ALT/SGPT) Alkaline Phosphatase 80 Total Creatine Kinase 31 Troponin I 0.02 B-Type Natriuretic Peptide 1472 Total Protein 7.2 Albumin 2.8 Result Diagram: 10/15/16 1200 10/15/16 1200 Imaging Last Impressions Chest X-Ray 10/15/16 1155 Signed Impressions: Service Date/Time: Saturday, October 15, 2016 12:46 - CONCLUSION: 1. Bilateral effusions and interstitial prominence suggesting mild CHF. Ross Clemente MD Assessment and Plan Problem List: (1) Acute exacerbation of CHF (congestive heart failure) ICD Code: I50.9 Status: Acute (2) Atrial fibrillation with RVR ICD Code: I48.91 Status: Acute (3) Adrenal insufficiency ICD Code: E27.40 Status: Acute (4) Diabetic foot ulcer ICD Code: E11.621 Status: Acute (5) Hypokalemia ICD Code: E87.6 Status: Acute (6) Rheumatoid arthritis ICD Code: M06.9 Status: Chronic (7) DM (diabetes mellitus) ICD Code: E11.9 Status: Chronic (8) CAD (coronary artery disease) ICD Code: I25.10 Status: Chronic Assessment and Plan 70 y/o male with a history of RA, Ischemic cardiomyopathy, Unstable angina, Hypertension, Atrial fibrillation, Diabetes mellitus (diet controlled) ,Tobacco abuse and CHF (EF 20%) presented to the ED with complaints of increased lethargy , chest pressure, shortness of breath and leg swelling for the last 1 week. He states 1 week ago he noticed his Lasix was not working, and his legs were swelling and he was having sob. SOB was worse with laying down. He states today he felt increase pressure in his chest as if he had a heavy object on top of him. He has not been on his heart medications for at least 3 weeks because he has not felt well enough to take them. He states he has not felt himself since June of this year. Acute Exacerbation of CHF, Chronic systolic CHF, EF 20% Images: Chest xray shows bilateral effusions and interstitial prominence suggesting CHF Labs: BNP 1472 -Lasix 40mg IV given in ED, then BID -Fluid restriction -BNP in AM -Strict I & Os Afib RVR EKG shows HR 142 Afib rvr Labs: Troponin .02 -Cardizem IV, due to hypotension wean off when digoxin takes effect and HR< 110 -Digoxin loading dose given, then .125 daily -Consult cardiology, patient know to DR Greer -Dig level pending: patient was on dig 3 weeks ago -Will admit to [facility] for closer monitoring -Continuous telemetry Adrenal insufficiency,patient with hypotension, possible due to discontinuation of prednisone 3 weeks ago -Prednisone 10mg x1 given -Monitor BP Foot ulcer, likely diabetic ulcer -Consult wound care -Keep dry, cover with gauze until wound care recommendations Hypokalemia, K 3.3, mag 2.2 -30 meq given -BMP in AM DM, chronic, patient states diet controlled BG 230 -Accu checks ACHS with SSI -A1C ordered Rheumatoid arthritis, chronic -Cont home medications sulfasalazine -Sed rate pending CAD, Chronic -Reorder home medication Effient -Heart healthy diet DVT prophylaxis: SCDs Written by SHAWNA Armstrong acting as scribe for [Jude] on 10/15/16 at 14: 10. This note was transcribed by scribe [SHAWNA Armstrong]. I, Dr. Nico Roque personally performed the history, physical exam, and medical decision making; and confirmed the accuracy of the information in the transcribed note. Authenticated by Dr. Nico Roque on 10/15/16 at 21:51. Code Status Full Discussed Condition With Patient, RN and ED physician Physician Certification 2 Midnight Certification Type: Admission for Inpatient Services Order for Inpatient Services The services are ordered in accordance with Medicare regulations or non- Medicare payer requirements, as applicable. In the case of services not specified as inpatient-only, they are appropriately provided as inpatient services in accordance with the 2-midnight benchmark. Estimated LOS (days): 3 days is the estimated time the patient will need to remain in the hospital, assuming treatment plan goals are met and no additional complications. Post-Hospital Plan: Home Problem Qualifiers (1) Acute exacerbation of CHF (congestive heart failure): Qualified Code: I50.23 - Acute on chronic systolic congestive heart failure (2) Diabetic foot ulcer: Qualified Code: E11.621 - Diabetic ulcer of other part of right foot associated with type 2 diabetes mellitus, with fat layer exposed (3) Rheumatoid arthritis: Qualified Code: M06.9 - Rheumatoid arthritis involving multiple sites, unspecified rheumatoid factor presence (4) DM (diabetes mellitus): Qualified Code: E11.9 - Type 2 diabetes mellitus without complication, without long-term current use of insulin (5) CAD (coronary artery disease): Qualified Code: I25.10 - Coronary artery disease due to lipid rich plaque Xochitl Carpenter October 15, 2016 14:26 Nico Roque MD October 15, 2016 21:50
[2016-10-15] MEDS ORDERED: GLUCAGON 1 MG/ML VIAL OTHER PRN (14:30)
[2016-10-15] MEDS ORDERED: predniSONE 10 MG TAB PO ONE (14:30)
[2016-10-15] MEDS ORDERED: DEXTROSE 50% IN WATER 50 ML VIAL(D50) IV PUSH PRN (14:30)
[2016-10-15] MEDS ORDERED: HEPARIN SODIUM - SQ 10,000 UNITS/ML VIAL SQ SCH (15:00)
[2016-10-15] MEDS: INSULIN ASPART SUPPLEMENTAL SCALE SQ SCH ×2 (16:21→21:21)
[2016-10-15 17:36] LABS: HEMOGLOBIN A1a 1.2 %; HEMOGLOBIN A1b 1.8 %; HEMOGLOBIN Ao 82.4 %; HEMOGLOBIN LA1C 2.9 %; HEMOGLOBIN P3 5.7 %
[2016-10-15] MEDS ORDERED: FUROSEMIDE 40 MG/4 ML VIAL IV PUSH SCH (18:00)
--- NOTE | 2016-10-15 18:42 | MB ---
cc: BRITTANY MARTIN MD, GLENN H. M.D. DATE OF CONSULTATION 10/15/16 REASON FOR CONSULTATION Congestive heart failure, atrial fibrillation. HISTORY OF PRESENT ILLNESS The patient is a 70-year-old white male, to be followed in the future in our office by Dr. Brittany Martin, with a history of multiple medical problems including coronary artery disease, severe dilated cardiomyopathy, paroxysmal atrial fibrillation, paroxysmal supraventricular tachycardia who presented to the hospital with a two week history of increasing dyspnea. Over the past 2 weeks his shortness of breath has worsened to the point where he is barely able to walk 50 yards without fairly severe shortness of breath. In addition, he has had paroxysmal nocturnal dyspnea, orthopnea, pedal edema over the last week. During the past few days he has had a constant substernal chest heaviness which is present most of the day and is relieved by sitting up or standing up. He denies syncope, near-syncope, palpitations. He reports compliance with a no added salt diet, although he has not been taking any medications except for Effient. Since coming into the hospital his dyspnea has markedly improved. PAST MEDICAL HISTORY 1. Rheumatoid arthritis. 2. Coronary artery disease status post stent x 2 of the ramus intermedius 07/03/[address] Amol Greer. At that time cardiac catheterization showed normal left main, 40% mid-right coronary stenosis, 30% mid LAD lesion, mild left circumflex disease, 99% and 80% lesions in two ramus intermedius branches which were stented with 2.25 mm drug-eluting stents. 3. Diabetes. 4. Hyperlipidemia. 5. Hypertension 6. Paroxysmal atrial fibrillation. 7. Possible paroxysmal supraventricular tachycardia September 2014. 8. Severe dilated cardiomyopathy with ejection fraction of 20% by echo 07/03/16 PAST SURGICAL HISTORY 1. Left wrist tenosynovectomy of the third and fourth compartments 2001. 2. Right total knee arthroplasty 10/04/2014. MEDICATIONS His cardiac medications at home: 1. Effient. ALLERGIES AZITHROMYCIN. FAMILY HISTORY Noncontributory. SOCIAL HISTORY The patient smokes about three cigars a day. He quit smoking cigarettes more than 20 years ago. He denies alcohol abuse. REVIEW OF SYSTEMS As in the history of present illness, otherwise, negative or noncontributory. He also denies headache, abdominal pain, melena, dyspepsia, fevers, bright red blood per rectum. PHYSICAL EXAMINATION VITAL SIGNS: On physical examination his blood pressure 143/90 with a pulse of 114, respirations 16. GENERAL: In general he is a well-developed, well-nourished white male in no acute distress HEENT: On examination jugular venous pressure is normal. Carotid pulses are 2+ bilaterally and without bruits. CHEST: Examination of the chest reveals clear lung beltran. CARDIAC EXAMINATION: He has an irregularly irregular rhythm without S3 or murmur. ABDOMEN: On abdominal examination he has a soft, nontender abdomen. Bowel sounds are present. There is no definite hepatosplenomegaly. EXTREMITIES: Examination of the extremities reveals no clubbing or cyanosis. There is 1 to 2+ pretibial edema bilaterally. LABORATORY DATA Laboratory data includes WBC 7.5, hemoglobin 13.5, platelets 248, potassium 3.3, BUN 12, creatinine 0.87, CK 31. Troponin 0.02. Brain nitrate peptide level 1472, INR 1.1. IMAGING STUDIES Chest x-ray shows small bilateral pleural effusions, right greater than left, mild interstitial prominence. CARDIOLOGY STUDIES EKG shows atrial fibrillation with a rapid ventricular response, nonspecific intraventricular conduction delay. IMPRESSION Congestive heart failure, recurrent atrial fibrillation with a rapid ventricular response in this 70-year-old white male with a history of coronary disease, diabetes, hypertension, rheumatoid arthritis, possible supraventricular tachycardia, severe dilated cardiomyopathy with ejection fraction of 20%. At this time he is symptomatically much improved after being given intravenous Lasix here in the emergency department and with control of his heart rate. Overall, there is no evidence for acute coronary syndrome. His constant chest heaviness for the past several days is likely due to the congestive heart failure. Cardiac enzymes are negative for myocardial infarction. The precipitating factor for his congestive heart failure also includes medication noncompliance. The only drug he has been taking lately is Effient. With respect to his atrial fibrillation, his heart rate is now under control. His thromboembolic risk is very high with his severe cardiomyopathy, diabetes, hypertension, age. RECOMMENDATIONS 1. Continued diuresis. 2. I would overall recommend treating him with both Effient and Eliquis. 3. Beta eduin and AJYESH inhibitor therapy; I have stressed to the patient the utter importance of taking medications for his cardiac conditions. 4. Should he demonstrate at least 90 days of compliance with maximal medical therapy and his ejection fraction remains less than 35% then he could be considered for AICD implantation. MD JOSE Acosta/MARK /5:06 PM /6:26 PM MISAEL
[2016-10-15] MEDS: DIGOXIN 0.5 MG/2 ML VIAL IVS SCH (20:29)
[2016-10-15] MEDS: ENALAPRIL MALEATE 5 MG TAB PO SCH (20:30)
[2016-10-15] MEDS: TAMSULOSIN HCL 0.4 MG CAP PO SCH (20:31)
[2016-10-15] MEDS: SODIUM CHLORIDE 0.9% FLUSH 10 ML FLUSH IV FLUSH SCH (20:32)
--- NOTE | 2016-10-15 20:45 | RADRPT ---
EXAM DATE/TIME: 10/15/2016 19:57 [facility] COMPARISON: No previous studies available for comparison. INDICATIONS : Right plantar sore. MEDICAL HISTORY : Hypertension. Congestive heart failure. SURGICAL HISTORY : Coronary artery stent. ENCOUNTER: Initial ACUITY: 2 weeks PAIN SCORE: 4/10 LOCATION: Right plantar foot. FINDINGS: AP, lateral and oblique views of the right foot were obtained and demonstrate extensive degenerative change involving the first metatarsal phalangeal joint with joint space loss, sclerosis and hypertrop hic change. There is no acute fracture or destructive change. There are mild degenerative changes in the metatarsal tarsal joints and intertarsal joints. There is mild soft tissue prominence over the do rsum of the foot. There is a small spur off the inferior calcaneus. No radiopaque foreign bodies iden tified. CONCLUSION: 1. Osteoarthritic change greatest involving the first metatarsal-phalangeal joint. 2. Mild soft tissue prominence with no destructive change. 3. No radiopaque foreign body. Bryce Elam MD on October 15, 2016 at 20:42 Board Certified Radiologist. This report was verified electronically.
[2016-10-15] MEDS ORDERED: FUROSEMIDE 40 MG TAB PO SCH (21:00)
[2016-10-15] MEDS ORDERED: CARVEDILOL 6.25 MG TAB PO SCH (21:00)
[2016-10-15] MEDS ORDERED: APIXABAN 5 MG TABLET PO SCH (21:00)
[2016-10-15] MEDS: sulfaSALAzine 500 MG TAB PO SCH (21:20)
[2016-10-16] VITALS (29 sets, daily range): BP systolic 112–131; BP diastolic 51–88; PULSE 66–102; RESP 18–20; TEMP 97.3–97.9; O2SAT 95–97
[2016-10-16] MEDS: DIGOXIN 0.5 MG/2 ML VIAL IVS SCH (02:36)
[2016-10-16 06:23] LABS: AUTOMATED NEUTROPHIL # 5.3 TH/MM3 (1.8-7.7); BASOPHIL % 0.4 % (0.0-2.0); EOSINOPHIL # 0.1 TH/MM3 (0-0.4); EOSINOPHIL % 1.3 % (0.0-4.0); HEMATOCRIT 38.3 % (39.0-51.0); HEMO FLAGS DIFF FINAL; LYMPH % 13.8 % (9.0-44.0); LYMPHOCYTE # 0.9 TH/MM3 (1.0-4.8); MEAN CELL VOLUME 80.1 FL (80.0-100.0); MEAN CORPUSCULAR HEMOGLOBIN 26.6 PG (27.0-34.0); MEAN CORPUSCULAR HGB CONC 33.2 % (32.0-36.0); MONO % 7.7 % (0.0-8.0); NEUT % 76.8 % (16.0-70.0); PLATELET COUNT 225 TH/MM3 (150-450); RED BLOOD COUNT 4.78 MIL/MM3 (4.50-5.90); RED CELL DISTRIBUTION WIDTH 18.3 % (11.6-17.2); WHITE BLOOD COUNT 6.9 TH/MM3 (4.0-11.0)
[2016-10-16] MEDS: INSULIN ASPART SUPPLEMENTAL SCALE SQ SCH ×4 (06:41→20:15)
[2016-10-16 06:55] LABS: BICARBONATE 26.8 MEQ/L (21.0-32.0); MAGNESIUM 1.9 MG/DL (1.5-2.5); POTASSIUM 3.2 MEQ/L (3.5-5.1)
--- NOTE | 2016-10-16 08:37 | PD.CARD.PN ---
Subjective Subjective Remarks Denies dyspnea, CP, palpitations, dizziness. Slept poorly. Objective Medications Item Value Date Time Prasugrel 10 mg 10/16/16 0900 (Effient) DAILY/PO Digoxin 0.125 mg 10/16/16 0900 (Lanoxin) DAILY/PO Apixaban 5 mg 10/15/162099 (Eliquis) BID/PO 10/15/162029 Carvedilol 6.25 mg 10/15/162099 (Coreg) Q12HR/PO 10/15/162029 Enalapril Maleate 5 mg 10/15/162099 (Vasotec) BID/PO 10/15/162029 Furosemide 40 mg 10/15/16 1800 (Lasix Inj) BID@09,18/IV PUSH 10/15/16 174 Diltiazem HCl 125 125 ml @ 0 mls/hr 10/15/16 1200 mg/Sodium Chloride TITRATE/IV 10/15/162031 Vital Signs / I&O Vital Signs Date Time Temp Pulse Resp B/P Pulse Ox O2 Delivery O2 Flow Rate FiO2 10/16/16 06:35 76 10/16/16 05:36 66 10/16/16 04:06 68 10/16/16 04:04 91 10/16/16 03:00 97.9 94 18 121/76 95 10/16/16 03:00 91 10/16/16 02:00 80 10/16/16 01:02 75 10/16/16 00:00 78 10/15/16 23:43 97.7 94 18 122/83 94 10/15/16 23:00 111 10/15/16 22:00 114 10/15/16 21:00 92 10/15/16 20:00 97.8 105 18 105/74 93 10/15/16 20:00 96 10/15/16 19:00 111 10/15/16 18:00 116 10/15/16 18:00 98.0 97 20 130/84 94 10/15/16 15:00 114 16 143/90 94 Room Air 10/15/16 14:00 142 16 104/76 92 Room Air 10/15/16 13:00 138 26 95/75 92 Room Air 10/15/16 12:29 132 25 105/78 92 Room Air 10/15/16 12:14 126 15 121/66 92 Room Air 10/15/16 11:30 97 Room Air 10/15/16 11:30 97 Room Air 10/15/16 11:30 17 Room Air 10/15/16 11:24 97.9 126 17 142/84 98 I/O 10/15/16 10/15/16 10/15/16 10/16/16 10/16/16 10/16/16 07:00 15:00 23:00 07:00 15:00 23:00 Intake Total 242 ml Output Total 4275 ml Balance -4033 ml Intake Oral 120 ml IV Total 122 ml Output Urine Total 4275 ml Physical Exam GENERAL: Well developed, well nourished. No acute distress. HEENT: Jugular venous pressure is normal. CHEST: Lungs clear to auscultation bilaterally. Unlabored respiratory effort. CARDIAC: Irregular rate and rhythm without S3, S4, or murmur. ABDOMEN: Soft, nontender, no hepatosplenomegaly. Bowel sounds present. EXTREMITIES: No clubbing, cyanosis. Trace edema. Laboratory Laboratory Tests Test 10/15/16 10/16/16 12:00 05:45 White Blood Count 7.5 TH/MM3 6.9 TH/MM3 Red Blood Count 5.09 MIL/MM3 4.78 MIL/MM3 Hemoglobin 13.5 GM/DL 12.7 GM/DL Hematocrit 41.4 % 38.3 % Mean Corpuscular Volume 81.4 FL 80.1 FL Mean Corpuscular Hemoglobin 26.6 PG 26.6 PG Mean Corpuscular Hemoglobin 32.7 % 33.2 % Concent Red Cell Distribution Width 18.7 % 18.3 % Platelet Count 248 TH/MM3 225 TH/MM3 Mean Platelet Volume 8.5 FL 8.2 FL Neutrophils (%) (Auto) 80.0 % 76.8 % Lymphocytes (%) (Auto) 11.9 % 13.8 % Monocytes (%) (Auto) 5.8 % 7.7 % Eosinophils (%) (Auto) 1.5 % 1.3 % Basophils (%) (Auto) 0.8 % 0.4 % Neutrophils # (Auto) 6.0 TH/MM3 5.3 TH/MM3 Lymphocytes # (Auto) 0.9 TH/MM3 0.9 TH/MM3 Monocytes # (Auto) 0.4 TH/MM3 0.5 TH/MM3 Eosinophils # (Auto) 0.1 TH/MM3 0.1 TH/MM3 Basophils # (Auto) 0.1 TH/MM3 0.0 TH/MM3 CBC Comment DIFF FINAL DIFF FINAL Differential Comment Erythrocyte Sedimentation Rate 29 mm/hr Prothrombin Time 12.4 SEC Prothromb Time International 1.1 RATIO Ratio Activated Partial 26.1 SEC Thromboplast Time Sodium Level 137 MEQ/L 140 MEQ/L Potassium Level 3.3 MEQ/L 3.2 MEQ/L Chloride Level 102 MEQ/L 104 MEQ/L Carbon Dioxide Level 23.6 MEQ/L 26.8 MEQ/L Anion Gap 11 MEQ/L 9 MEQ/L Blood Urea Nitrogen 12 MG/DL 10 MG/DL Creatinine 0.87 MG/DL 0.60 MG/DL Estimat Glomerular Filtration 87 ML/MIN 133 ML/MIN Rate Random Glucose 230 MG/DL 86 MG/DL Hemoglobin A1c 7.1 % Calcium Level 8.4 MG/DL 8.0 MG/DL Magnesium Level 2.0 MG/DL 1.9 MG/DL Total Bilirubin 0.8 MG/DL Aspartate Amino Transf 14 U/L (AST/SGOT) Alanine Aminotransferase 15 U/L (ALT/SGPT) Alkaline Phosphatase 80 U/L Total Creatine Kinase 31 U/L Troponin I 0.02 NG/ML B-Type Natriuretic Peptide 1472 PG/ML 2080 PG/ML Total Protein 7.2 GM/DL Albumin 2.8 GM/DL Digoxin Level 0.1 NG/ML Imaging Last 48 hours Impressions Chest X-Ray 10/15/16 1155 Signed Impressions: Service Date/Time: Saturday, October 15, 2016 12:46 - CONCLUSION: 1. Bilateral effusions and interstitial prominence suggesting mild CHF. Ross Clemente MD Foot X-Ray 10/15/16 0000 Signed Impressions: Service Date/Time: Saturday, October 15, 2016 19:57 - CONCLUSION: 1. Osteoarthritic change greatest involving the first metatarsal-phalangeal joint. 2. Mild soft tissue prominence with no destructive change. 3. No radiopaque foreign body. Bryce Elam MD Assessment and Plan Problem List: (1) Congestive heart failure (CHF) Assessment and Plan: Symptomatically much improved after vigorous diuresis since admission. Lungs clear, pedal edema nearly resolved. Suspect precipitating factor for CHF combination of medical noncompliance, recurrent atrial fib with rapid rates. (2) Paroxysmal atrial fibrillation Assessment and Plan: Remains in atrial fib. HR's better. Rec increase beta eduin dosing, stop Cardizem drip. Continue Eliquis. (3) Wide QRS ventricular tachycardia Assessment and Plan: Three very brief runs of wide complex tachycardia, morphology suggestive of aberrantly conducted atrial fibrillation. Rec increase beta eduin dosing. (4) CAD (coronary artery disease) Assessment and Plan: Stable. No definite recurrent angina. Suspect constant chest pressure few days prior to admission more related to orthopnea, CHF. Rec continue Effient. (5) Hypertension Assessment and Plan: Stable. Normotensive. Code Status full code Discussed Condition With patient Problem Qualifiers (1) Congestive heart failure (CHF): Qualified Code: I50.21 - Acute systolic congestive heart failure (2) CAD (coronary artery disease): Qualified Code: I25.10 - Coronary artery disease involving robinson coronary artery of robinson heart without angina pectoris (3) Hypertension: Qualified Code: I10 - Essential hypertension Juan M Penny MD October 16, 2016 08:37
[2016-10-16] MEDS: SODIUM CHLORIDE 0.9% FLUSH 10 ML FLUSH IV FLUSH SCH ×2 (09:00→21:00)
[2016-10-16] MEDS ORDERED: POTASSIUM CHLORIDE 10 MEQ CONTROLLED RELEASE TAB PO ONE (09:15)
[2016-10-16] MEDS: sulfaSALAzine 500 MG TAB PO SCH ×2 (09:31→20:16)
[2016-10-16] MEDS: ENALAPRIL MALEATE 5 MG TAB PO SCH ×2 (09:31→20:16)
[2016-10-16] MEDS: APIXABAN 5 MG TABLET PO SCH ×2 (09:32→20:16)
[2016-10-16] MEDS: LEFLUNOMIDE 20 MG TAB PO SCH (09:33)
[2016-10-16] MEDS: CARVEDILOL 12.5 MG TAB PO SCH ×2 (09:34→20:16)
[2016-10-16] MEDS: FUROSEMIDE 40 MG TAB PO SCH ×2 (09:34→18:00)
[2016-10-16] MEDS: DIGOXIN 0.125 MG TAB PO SCH (09:34)
[2016-10-16] MEDS: PRASUGREL 10 MG TAB PO SCH (09:39)
--- NOTE | 2016-10-16 10:29 | RADRPT ---
EXAM DATE/TIME: 10/16/2016 09:52 [place] COMPARISON: CHEST SINGLE AP, October 15, 2016, 12:46. INDICATIONS : Chest tightness. MEDICAL HISTORY : Hypertension. Diabetes mellitus type II. Coronary artery disease. Afib. Melanoma on face. SURGICAL HISTORY : Cardiac cath. ENCOUNTER: Initial ACUITY: 1 day PAIN SCORE: 0/10 LOCATION: Bilateral chest FINDINGS: Portable AP views of the chest demonstrate a normal-sized cardiac silhouette. Lungs are underinflated . There is mild airspace opacity left lung base and there is a stable small right basilar pleural-par enchymal opacity. No pneumothorax is visualized. The bones demonstrate no acute finding. CONCLUSION: 1. Underinflation with stable right basilar opacity that likely represents pleural effusion with asso ciated volume loss and/or airspace consolidation. 2. Stable left basilar opacity representing either atelectasis or consolidation. Jadiel Donohue MD on October 16, 2016 at 10:26 Board Certified Radiologist. This report was verified electronically.
--- NOTE | 2016-10-16 12:13 | ECHLIM ---
Study Study Date:10/16/2016 STUDY CONCLUSIONS SUMMARY - Left ventricle: The cavity size was dilated. Wall thickness was normal. Systolic function was severely reduced by visual assessment. The estimated ejection fraction was in the range of 20% to 25%. Diffuse hypokinesis. - Mitral valve: Moderate regurgitation. - Left atrium: The atrium was mildly dilated. - Tricuspid valve: Mild regurgitation. - Pulmonary arteries: PA peak pressure: 40mm Hg (S). - Pericardium, extracardiac: There was a left pleural effusion. If LV function is below 40, please consider prescribing an ACEI or ARB or document rationale for non-use. PROCEDURE DATA STUDY STATUS: Elective. Procedure: Transthoracic echocardiography. Image quality was good. Scanning was performed from the parasternal, apical, and subcostal acoustic windows. Study completion: The patient tolerated the procedure well. Transthoracic echocardiography. M-mode, complete 2D, complete spectral Doppler, and color Doppler. Height: Height: 74in. Weight: Weight: 175.6lb. Body mass index: BMI: 22.6kg/m^2. Body surface area: BSA: 2.06m^2. Patient status: Inpatient. CARDIAC ANATOMY LEFT VENTRICLE: The cavity size was dilated. Wall thickness was normal. Systolic function was severely reduced by visual assessment. The estimated ejection fraction was in the range of 20% to 25%. Diffuse hypokinesis. AORTIC VALVE: Trileaflet; normal thickness leaflets. Doppler: Transvalvular velocity was within the normal range. There was no stenosis. No regurgitation. AORTA: Aortic root: The aortic root was normal in size. MITRAL VALVE: Structurally normal valve. Doppler: Transvalvular velocity was within the normal range. There was no evidence for stenosis. Moderate regurgitation. Peak gradient: 4mm Hg (D). LEFT ATRIUM: The atrium was mildly dilated. RIGHT VENTRICLE: The cavity size was normal. Wall thickness was normal. PULMONIC VALVE: Doppler: Transvalvular velocity was within the normal range. There was no evidence for stenosis. No regurgitation. TRICUSPID VALVE: Structurally normal valve. Doppler: Transvalvular velocity was within the normal range. Mild regurgitation. PULMONARY ARTERY: The main pulmonary artery was normal-sized. Systolic pressure was within the normal range. RIGHT ATRIUM: The atrium was normal in size. PERICARDIUM: There was no pericardial effusion. SYSTEMIC VEINS: Inferior vena cava: The vessel was normal in size. Pleura: There was a left pleural effusion. Patient weight: 175.6lb _Ejection fraction:_ 65-75% _Fractional shortening:_ 32% up to 5Kg 5-11.5Kg 11.6-22.9Kg 23-45Kg 45-57Kg Aortic Root 7-13 <17 13-22 17-27 17-27 LA diam 6-13 <23 24-38 33-47 37-40 RVID 10-17 7-15 7-15 7-18 8-17 LVIDd 12-22 <32 24-38 33-47 37-40 LVPW 2-4 3-6 5-7 6-8 7-8 IVS 2-4 3-6 5-7 6-8 7-8 BASIC MEASUREMENTS ADULT Normal Left ventricle LV internal dimension, ED, chordal level, *60.2 mm 43-52 PLAX LV internal dimension, ES, chordal level, *53.8 mm 23-38 PLAX Fractional shortening, chordal level, PLAX *11 % >29 LV posterior wall thickness, ED 9.88 mm IVS/LVPW ratio, ED 0.96 <1.3 Ventricular septum Septal thickness, ED 9.44 mm Aortic valve Leaflet separation 20 mm 15-26 Aorta Root diameter, ED 27 mm Left atrium Anterior-posterior dimension 38 mm Anterior-posterior dimension index 1.84 cm/m^2 <2.2 BASIC MEASUREMENTS ADULT Normal Aortic valve Leaflet separation 20 mm 15-26 DOPPLER MEASUREMENTS ADULT Normal Main pulmonary artery Pressure, S *40 mm Hg =30 Mitral valve Peak E-wave velocity 98.7 cm/s Peak A-wave velocity 59.2 cm/s Deceleration time *148 ms 150-230 Peak gradient, D 4 mm Hg Peak E/A ratio 1.7 Tricuspid valve Regurgitant peak velocity 285 cm/s Peak RV-RA gradient, S 32 mm Hg Maximal regurgitant velocity 285 cm/s Systemic veins Estimated CVP 10 mm Hg Right ventricle RV pressure, S *42 mm Hg <30 Pulmonic valve Peak velocity, S 63.9 cm/s LEGEND: Mean values are shown as u=mean value. Asterisk (*) avendano values outside specified normal range. Prepared and signed by Gilberto Saldivar [id number]
--- NOTE | 2016-10-16 17:09 | PD.POD.CON ---
Patient Intake Chief Complaint Diabetic ulceration plantar right foot Consult Requested by Dr. Roque Reason for Consult Treatment of ulceration right foot Primary Care Physician Dejan Tony MD History of Present Illness Patient is a 70-year-old male with diet-controlled diabetes and rheumatoid arthritis. During the course of this operation was noted that he has an ulceration on the plantar aspect of the second toe right foot. I was consulted for treatment and evaluation Coded Allergies: Azithromycin (Unverified Allergy, Severe, SWELLING, 08/22/16) Preferred Language to Discuss: Romanian Barriers to Learning: None Teaching Method: Discussion Vital Signs Date Time Temp Pulse Resp B/P Pulse Ox O2 Delivery O2 Flow Rate FiO2 10/16/16 17:01 90 10/16/16 16:58 81 10/16/16 15:25 97.9 79 19 114/63 96 10/16/16 15:00 91 10/16/16 14:00 74 10/16/16 13:00 70 10/16/16 12:35 69 10/16/16 12:00 80 10/16/16 11:40 97.3 77 19 112/73 97 10/16/16 11:00 91 10/16/16 10:00 78 10/16/16 09:00 90 10/16/16 08:00 78 10/16/16 07:00 97 10/16/16 07:00 97.7 78 20 118/74 95 10/16/16 06:35 76 10/16/16 05:36 66 10/16/16 04:06 68 10/16/16 04:04 91 10/16/16 03:00 97.9 94 18 121/76 95 10/16/16 03:00 91 10/16/16 02:00 80 10/16/16 01:02 75 10/16/16 00:00 78 10/15/16 23:43 97.7 94 18 122/83 94 10/15/16 23:00 111 10/15/16 22:00 114 10/15/16 21:00 92 10/15/16 20:00 97.8 105 18 105/74 93 10/15/16 20:00 96 10/15/16 19:00 111 10/15/16 18:00 116 10/15/16 18:00 98.0 97 20 130/84 94 Pain scale used: 0-10 numeric scale Pain score: 1 Medications Current Medications Furosemide 40 mg 40 mg ONCE ONCE IVP Last administered on 10/15/16 12:11; Start 10/15/16 at 12:00; Stop 10/15/16 at 12:01; Status DC Diltiazem HCl/ Sodium Chloride (Cardizem Inj/NS Inj) 125 ml @ 0 mls/hr TITRATE IV Last administered on 10/15/16 20:32; Start 10/15/16 at 12:00; Stop 10/16/16 at 08:39; Status DC Diltiazem HCl (Cardizem Inj) 15 mg ONCE ONCE IV Last administered on 10/15/16 12:10; Start 10/15/16 at 12:00; Stop 10/15/16 at 12:01; Status DC Digoxin (Lanoxin Inj) 0.5 mg ONCE ONCE IV PUSH Last administered on 10/15/16 14:10; Start 10/15/16 at 13:30; Stop 10/15/16 at 13:40; Status DC Sodium Chloride (NS Flush) 2 ml UNSCH PRN IV FLUSH FLUSH AFTER USING IV ACCESS ; Start 10/15/16 at 14:00 Sodium Chloride (NS Flush) 2 ml BID IV FLUSH Last administered on 10/16/16 09: 00; Start 10/15/16 at 21:00 Bisacodyl (Dulcolax Supp) 10 mg DAILY PRN RECTAL CONSTIPATION; Start 10/15/16 at 14:00 Magnesium Hydroxide (Milk Of Magnesia Liq) 30 ml Q12H PRN PO CONSTIPATION; Start 10/15/16 at 14:00 Heparin Sodium (Porcine) (Heparin Inj) 5,000 units Q12H SQ ; Start 10/15/16 at 15 :00; Stop 10/15/16 at 15:00; Status DC Naloxone HCl (Narcan Inj) 0.4 mg UNSCH PRN IV SEE LABEL COMMENTS; Start at 14:00 Furosemide (Lasix) 40 mg BID PO ; Start 10/15/16 at 21:00; Stop 10/15/16 at 21:00 ; Status DC Oxycodone/ Acetaminophen (Percocet 5-325 Mg) 1 tab Q4H PRN PO PAIN SCALE 1 TO 10; Start 10/15/16 at 14:00 Prasugrel (Effient) 10 mg DAILY PO Last administered on 10/16/16 09:39; Start 10/16/16 at 09:00 Sulfasalazine (Azulfidine) 500 mg BID PO Last administered on 10/16/16 09:31; Start 10/15/16 at 21:00 Tamsulosin HCl (Flomax) 0.4 mg HS PO Last administered on 10/15/16 20:31; Start 10/15/16 at 21:00 Leflunomide (Arava) 20 mg DAILY PO Last administered on 10/16/16 09:33; Start 10/16/16 at 09:00 Potassium Chloride (KCl) 30 meq ONCE ONCE PO Last administered on 10/15/16 14: 49; Start 10/15/16 at 14:15; Stop 10/15/16 at 14:27; Status DC Digoxin (Lanoxin Inj) 0.25 mg Q6H IVS Last administered on 10/16/16 02:36; Start 10/15/16 at 20:15; Stop 10/16/16 at 02:16; Status DC Digoxin (Lanoxin) 0.125 mg DAILY PO Last administered on 10/16/16 09:34; Start 10/16/16 at 09:00 Prednisone (Deltasone) 10 mg ONCE ONCE PO Last administered on 10/15/16 14:49 ; Start 10/15/16 at 14:30; Stop 10/15/16 at 14:31; Status DC Dextrose (D50w (Vial) Inj) 25 ml UNSCH PRN IV PUSH HYPOGLYCEMIA-SEE COMMENTS; Start 10/15/16 at 14:30 Glucagon (Glucagon Inj) 1 mg UNSCH PRN OTHER HYPOGLYCEMIA-SEE COMMENTS; Start 10/15/16 at 14:30 Insulin Aspart (NovoLOG SUPPLEMENTAL SCALE) 1 ACHS SLIDING SCALE SQ Last administered on 10/16/16 11:00; Start 10/15/16 at 16:00 Apixaban (Eliquis) 5 mg BID PO Last administered on 10/15/16 20:30; Start at 21:00; Stop 10/16/16 at 08:40; Status DC Carvedilol (Coreg) 6.25 mg Q12HR PO Last administered on 10/15/16 20:30; Start 10/15/16 at 21:00; Stop 10/16/16 at 08:40; Status DC Enalapril Maleate (Vasotec) 5 mg BID PO Last administered on 10/16/16 09:31; Start 10/15/16 at 21:00 Furosemide (Lasix Inj) 40 mg BID@09,18 IV PUSH Last administered on 10/15/16 17 :49; Start 10/15/16 at 18:00; Stop 10/16/16 at 08:40; Status DC Apixaban (Eliquis) 2.5 mg BID PO Last administered on 10/16/16 09:32; Start 10/16/16 at 09:00 Carvedilol (Coreg) 12.5 mg Q12HR PO Last administered on 10/16/16 09:34; Start 10/16/16 at 09:00 Furosemide (Lasix) 40 mg BID@09,18 PO Last administered on 10/16/16 09:34; Start 10/16/16 at 09:00 Potassium Chloride (KCl) 30 meq ONCE ONCE PO Last administered on 10/16/16 09: 39; Start 10/16/16 at 09:15; Stop 10/16/16 at 09:16; Status DC Past, Family & Social History Past Medical History Endocrine: REPORTS HX OF: Diabetes mellitus Cardiovascular: REPORTS HX OF: Angina, Atrial fibrillation, Coronary artery disease, Heart failure, Hypertension Musculoskeletal: REPORTS HX OF: Rheumatoid arthritis Past Surgical History Cardiovascular: REPORTS HX OF: Coronary stent Musculoskeletal: REPORTS HX OF: Other musculoskeletal srg Review of Systems Neurological: COMPLAINS OF: Numbness/tingling, Changes in sensation Exam-Podiatry Constitutional General appearance: comfortable Nutritional status: normal Orientation: alert and oriented x3 Dermatological Exam Skin Temp - Right: Within Normal Limits Skin Texture - Right: Within Normal Limits Skin Elasticity - Right: Within Normal Limits Skin Tugor - Right: Within Normal Limits Hair Growth - Right: Within Normal Limits Pigmentation - Right: Within Normal Limits Skin Temp - Left: Within Normal Limits Skin Texture - Left: Within Normal Limits Skin Elasticity - Left: Within Normal Limits Skin Tugor - Left: Within Normal Limits Hair Growth - Left: Within Normal Limits Pigmentation - Left: Within Normal Limits Ulcers: Location/Measurements Ulceration subsecond metatarsal head right foot with surrounding hyperkeratotic tissue. Full thickness ulceration without signs of infection or purulence. Minimal fibrin formation. Right granulation tissue present Vascular/Lymphatic Exam R Dorsails Pedis: Palpable L Dorsails Pedis: Palpable R Posterior Tibial: Palpable L Posterior Tibial: Palpable Neurologic Exam Present on right: Tingling, Paraesthesia Present on left: Tingling, Paraesthesia Muscle Strength Dorsiflexion (Right): Normal Plantarflexion (Right): Normal Inversion (Right): Normal Eversion (Right): Normal Digital (Right): Normal Dorsiflexion (Left): Normal Plantarflexion (Left): Normal Inversion (Left): Normal Eversion (Left): Normal Digital (Left): Normal Foot Range of Motion Dorsiflexion (Right): Normal Plantarflexion (Right): Normal Inversion (Right): Normal Eversion (Right): Normal Digital (Right): Normal Dorsiflexion (Left): Normal Plantarflexion (Left): Normal Inversion (Left): Normal Eversion (Left): Normal Digital (Left): Normal Joint Instability Hammer Toe: Toe #2 (R) Lab and Radiology Results Laboratory Laboratory Tests Test 10/15/16 10/16/16 12:00 05:45 White Blood Count 7.5 TH/MM3 6.9 TH/MM3 Red Blood Count 5.09 MIL/MM3 4.78 MIL/MM3 Hemoglobin 13.5 GM/DL 12.7 GM/DL Hematocrit 41.4 % 38.3 % Mean Corpuscular Volume 81.4 FL 80.1 FL Mean Corpuscular Hemoglobin 26.6 PG 26.6 PG Mean Corpuscular Hemoglobin 32.7 % 33.2 % Concent Red Cell Distribution Width 18.7 % 18.3 % Platelet Count 248 TH/MM3 225 TH/MM3 Mean Platelet Volume 8.5 FL 8.2 FL Neutrophils (%) (Auto) 80.0 % 76.8 % Lymphocytes (%) (Auto) 11.9 % 13.8 % Monocytes (%) (Auto) 5.8 % 7.7 % Eosinophils (%) (Auto) 1.5 % 1.3 % Basophils (%) (Auto) 0.8 % 0.4 % Neutrophils # (Auto) 6.0 TH/MM3 5.3 TH/MM3 Lymphocytes # (Auto) 0.9 TH/MM3 0.9 TH/MM3 Monocytes # (Auto) 0.4 TH/MM3 0.5 TH/MM3 Eosinophils # (Auto) 0.1 TH/MM3 0.1 TH/MM3 Basophils # (Auto) 0.1 TH/MM3 0.0 TH/MM3 CBC Comment DIFF FINAL DIFF FINAL Differential Comment Erythrocyte Sedimentation Rate 29 mm/hr Laboratory Tests Test 10/15/16 10/16/16 12:00 05:45 Sodium Level 137 MEQ/L 140 MEQ/L Potassium Level 3.3 MEQ/L 3.2 MEQ/L Chloride Level 102 MEQ/L 104 MEQ/L Carbon Dioxide Level 23.6 MEQ/L 26.8 MEQ/L Anion Gap 11 MEQ/L 9 MEQ/L Blood Urea Nitrogen 12 MG/DL 10 MG/DL Creatinine 0.87 MG/DL 0.60 MG/DL Estimat Glomerular Filtration 87 ML/MIN 133 ML/MIN Rate Random Glucose 230 MG/DL 86 MG/DL Hemoglobin A1c 7.1 % Calcium Level 8.4 MG/DL 8.0 MG/DL Magnesium Level 2.0 MG/DL 1.9 MG/DL Total Bilirubin 0.8 MG/DL Aspartate Amino Transf 14 U/L (AST/SGOT) Alanine Aminotransferase 15 U/L (ALT/SGPT) Alkaline Phosphatase 80 U/L Total Creatine Kinase 31 U/L Troponin I 0.02 NG/ML B-Type Natriuretic Peptide 1472 PG/ML 2080 PG/ML Total Protein 7.2 GM/DL Albumin 2.8 GM/DL Radiology Last Impressions Chest X-Ray 10/16/16 0000 Signed Impressions: Service Date/Time: October 09:52 - CONCLUSION: 1. Underinflation with stable right basilar opacity that likely represents pleural effusion with associated volume loss and/or airspace consolidation. 2. Stable left basilar opacity representing either atelectasis or consolidation. Jadiel Donohue MD Foot X-Ray 10/15/16 0000 Signed Impressions: Service Date/Time: Saturday, October 15, 2016 19:57 - CONCLUSION: 1. Osteoarthritic change greatest involving the first metatarsal-phalangeal joint. 2. Mild soft tissue prominence with no destructive change. 3. No radiopaque foreign body. Bryce Elam MD Assessment/Plan Problem List: (1) Diabetic foot ulcer Status: Acute (2) Hammertoe of right foot Status: Chronic (3) Diabetes mellitus with peripheral autonomic neuropathy Status: Chronic Additional Plans & Procedures PLAN: Ordered Maxorb AG dressings to the right foot wound. Postop shoe for offloading. Follow up with me in the wound center after discharge. Discussed that the patient needs to get his blood sugars under good control. Problem Qualifiers (1) Diabetic foot ulcer: Qualified Code: E11.621 - Diabetic ulcer of other part of right foot associated with type 2 diabetes mellitus, with fat layer exposed (2) Diabetes mellitus with peripheral autonomic neuropathy: Qualified Code: E11.43 - Type 2 diabetes mellitus with diabetic autonomic neuropathy, without long-term current use of insulin Urbano Castanon DPM October 16, 2016 17:09
--- NOTE | 2016-10-16 18:24 | EKG ---
Date Performed: 10/15/2016 Time Performed: 11:44:44 PTAGE: 70 years EKG: ATRIAL FIBRILLATION WITH RAPID VENTRICULAR RESPONSE LEFT ANTERIOR FASCICULAR BLOCK POSSIBLE ANTERIOR MYOCARDIAL INFARCTION MODERATE T-WAVE ABNORMALITY, CONSIDER LATERAL ISCHEMIA ABNORMAL ECG C ompared to prior tracing no significant change PREVIOUS TRACING on 07/10/2016 DOCTOR: Jose Cornell Interpretating Date/Time 10/16/2016 18:22:25
[2016-10-16] MEDS: TAMSULOSIN HCL 0.4 MG CAP PO SCH (20:16)
--- NOTE | 2016-10-16 23:49 | HHI.PR ---
Subjective Remarks patient seen this morning during echocardiogram. Says he is feeling better. He says he feels that he might be able to go home tomorrow. Denies any chest pain. Denies any shortness of breath while sitting in bed Objective Vital Signs Date Time Temp Pulse Resp B/P Pulse Ox O2 Delivery O2 Flow Rate FiO2 10/16/16 22:00 87 10/16/16 21:00 87 10/16/16 20:00 97.7 76 20 131/88 97 10/16/16 20:00 80 10/16/16 19:00 76 10/16/16 18:04 83 10/16/16 17:01 90 10/16/16 16:58 81 10/16/16 15:25 97.9 79 19 114/63 96 10/16/16 15:00 91 10/16/16 14:00 74 10/16/16 13:00 70 10/16/16 12:35 69 10/16/16 12:00 80 10/16/16 11:40 97.3 77 19 112/73 97 10/16/16 11:00 91 10/16/16 10:00 78 10/16/16 09:00 90 10/16/16 08:00 78 10/16/16 07:00 97 10/16/16 07:00 97.7 78 20 118/74 95 10/16/16 06:35 76 10/16/16 05:36 66 10/16/16 04:06 68 10/16/16 04:04 91 10/16/16 03:00 97.9 94 18 121/76 95 10/16/16 03:00 91 10/16/16 02:00 80 10/16/16 01:02 75 10/16/16 00:00 78 I/O 10/15/16 10/15/16 10/15/16 10/16/16 10/16/16 10/16/16 07:00 15:00 23:00 07:00 15:00 23:00 Intake Total 242 ml 740 ml Output Total 4275 ml 525 ml Balance -4033 ml 215 ml Intake Oral 120 ml 720 ml IV Total 122 ml 20 ml Output Urine Total 4275 ml 525 ml # Voids 4 # Bowel Movements 4 Result Diagram: 10/16/16 0545 10/16/16 0545 Objective Remarks GENERAL: patient sitting up in bed. Appears comfortable. SKIN: Warm and dry. HEAD: Normocephalic. EYES: No scleral icterus. No injection or drainage. NECK: Supple, trachea midline. No JVD . CARDIOVASCULAR: Regular rate and rhythm without murmurs, gallops, or rubs. RESPIRATORY: Breath sounds equal bilaterally. No accessory muscle use. GASTROINTESTINAL: Abdomen soft, non-tender, nondistended. MUSCULOSKELETAL: No cyanosis, or edema. BACK: Nontender without obvious deformity. No CVA tenderness. A/P Assessment and Plan 70 y/o male with a history of RA, Ischemic cardiomyopathy, Unstable angina, Hypertension, Atrial fibrillation, Diabetes mellitus (diet controlled) ,Tobacco abuse and CHF (EF 20%) presented to the ED with complaints of increased lethargy , chest pressure, shortness of breath and leg swelling for the last 1 week. He states 1 week ago he noticed his Lasix was not working, and his legs were swelling and he was having sob. SOB was worse with laying down. He states today he felt increase pressure in his chest as if he had a heavy object on top of him. He has not been on his heart medications for at least 3 weeks because he has not felt well enough to take them. He states he has not felt himself since June of this year. //Acute Exacerbation of CHF, Chronic systolic CHF, EF 20% Images: Chest xray shows bilateral effusions and interstitial prominence suggesting CHF Labs: BNP 1472 -Continue Lasix, beta eduin. -Strict I & Os -Appreciate cardiology assistance. //Afib RVR EKG shows HR 142 Afib rvr Labs: Troponin .02 -Cardizem IV, due to hypotension wean off when digoxin takes effect and HR< 110 -Digoxin loading dose given, then .125 daily -Consult cardiology, patient know to DR Greer -Dig level low on admit: patient was on dig 3 weeks ago -Continuous telemetry = Heart rate improved on digoxin. Continue //Adrenal insufficiency,patient with hypotension, possible due to discontinuation of prednisone 3 weeks ago -Prednisone 10mg x1 given -Monitor BP //Foot ulcer, likely diabetic ulcer -Appreciate podiatry assistance. -Continue wound care, follow-up with wound care as outpatient. //Hypokalemia, -5/. Potassium low. Replaced //DM, chronic, patient states diet controlled BG 230 -Accu checks ACHS with SSI -A1C ordered 7.1 //Rheumatoid arthritis, chronic -Sed rate reviewed 29. -Cont home medications sulfasalazine //CAD, Chronic -cont home medication Effient -Heart healthy diet -Cardiology following. Appreciate assistance. DVT prophylaxis: Nico Pearce MD October 16, 2016 23:49
[2016-10-17] VITALS (21 sets, daily range): BP systolic 94–138; BP diastolic 49–84; PULSE 57–113; RESP 18; TEMP 97.5–98; O2SAT 95–100
[2016-10-17] MEDS: INSULIN ASPART SUPPLEMENTAL SCALE SQ SCH ×3 (05:29→16:00)
--- NOTE | 2016-10-17 08:29 | PD.CARD.PN ---
Subjective Subjective Remarks No dyspnea, CP, dizziness, palpitations. Slept poorly. Complains of diarrhea, onset weeks ago. Objective Medications Item Value Date Time Carvedilol 25 mg 10/17/16 0900 (Coreg) Q12HR/PO Prasugrel 10 mg 10/16/16 0900 (Effient) DAILY/PO 10/16/16 0939 Digoxin 0.125 mg 10/16/16 0900 (Lanoxin) DAILY/PO 10/16/16 0934 Apixaban 2.5 mg 10/16/16 0900 (Eliquis) BID/PO 10/16/162015 Furosemide 40 mg 10/16/16 0900 (Lasix) BID@,18/PO 10/16/16 1800 Enalapril Maleate 5 mg 10/15/162099 (Vasotec) BID/PO 10/16/162015 Vital Signs / I&O Vital Signs Date Time Temp Pulse Resp B/P Pulse Ox O2 Delivery O2 Flow Rate FiO2 10/17/16 07:00 70 10/17/16 06:00 110 10/17/16 05:00 87 10/17/16 04:30 98.0 77 18 125/84 97 10/17/16 04:00 100 10/17/16 03:09 86 10/17/16 02:00 95 10/17/16 01:00 103 10/17/16 00:00 101 10/16/16 23:59 97.9 85 20 113/51 97 10/16/16 23:00 102 10/16/16 22:00 87 10/16/16 21:00 87 10/16/16 20:00 97.7 76 20 131/88 97 10/16/16 20:00 80 10/16/16 19:00 76 10/16/16 18:04 83 10/16/16 17:01 90 10/16/16 16:58 81 10/16/16 15:25 97.9 79 19 114/63 96 10/16/16 15:00 91 10/16/16 14:00 74 10/16/16 13:00 70 10/16/16 12:35 69 10/16/16 12:00 80 10/16/16 11:40 97.3 77 19 112/73 97 10/16/16 11:00 91 10/16/16 10:00 78 10/16/16 09:00 90 I/O 10/16/16 10/16/16 10/16/16 10/17/16 10/17/16 10/17/16 07:00 15:00 23:00 07:00 15:00 23:00 Intake Total 242 ml 740 ml 240 ml Output Total 4275 ml 525 ml 400 ml Balance -4033 ml 215 ml -160 ml Intake Oral 120 ml 720 ml 240 ml IV Total 122 ml 20 ml Output Urine Total 4275 ml 525 ml 400 ml # Voids 4 # Bowel Movements 4 3 Physical Exam GENERAL: Well developed, well nourished. No acute distress. HEENT: Jugular venous pressure is normal. CHEST: Lungs clear to auscultation bilaterally. Unlabored respiratory effort. CARDIAC: Irregular rate and rhythm without S3, S4, or murmur. ABDOMEN: Soft, nontender, no hepatosplenomegaly. Bowel sounds present. EXTREMITIES: No clubbing, cyanosis. Trace edema. Assessment and Plan Problem List: (1) Congestive heart failure (CHF) Assessment and Plan: Stable overnight. Lungs clear, pedal edema nearly resolved. Suspect precipitating factor for CHF combination of medical noncompliance, recurrent atrial fib with rapid rates. Rec OK for discharge from a cardiac standpoint on present medications, f/u with Dr. Obrien. Recheck BMP before discharge. (2) Paroxysmal atrial fibrillation Assessment and Plan: Remains in atrial fib. HR's better. Rec further increase beta eduin dosing. Continue Eliquis, reduced dose while also on Effient. (3) Wide QRS ventricular tachycardia Assessment and Plan: Three very brief runs of wide complex tachycardia two days ago, morphology suggestive of aberrantly conducted atrial fibrillation. Rec increase beta eduin dosing further. (4) CAD (coronary artery disease) Assessment and Plan: Stable. No definite recurrent angina. Suspect constant chest pressure few days prior to admission more related to orthopnea, CHF. Rec continue Effient. (5) Hypertension Assessment and Plan: Stable. Normotensive. Code Status full code Discussed Condition With patient Problem Qualifiers (1) Congestive heart failure (CHF): Qualified Code: I50.21 - Acute systolic congestive heart failure (2) CAD (coronary artery disease): Qualified Code: I25.10 - Coronary artery disease involving [place] coronary artery of [place] heart without angina pectoris (3) Hypertension: Qualified Code: I10 - Essential hypertension Juan M Penny MD October 17, 2016 08:29
[2016-10-17] MEDS ORDERED: CARVEDILOL 12.5 MG TAB PO SCH (09:00)
[2016-10-17] MEDS: sulfaSALAzine 500 MG TAB PO SCH (09:16)
[2016-10-17] MEDS: DIGOXIN 0.125 MG TAB PO SCH (09:16)
[2016-10-17] MEDS: LEFLUNOMIDE 20 MG TAB PO SCH (09:16)
[2016-10-17] MEDS: APIXABAN 5 MG TABLET PO SCH (09:17)
[2016-10-17] MEDS: PRASUGREL 10 MG TAB PO SCH (09:17)
[2016-10-17] MEDS: FUROSEMIDE 40 MG TAB PO SCH ×2 (09:17→18:20)
[2016-10-17] MEDS: ENALAPRIL MALEATE 5 MG TAB PO SCH (09:18)
[2016-10-17] MEDS: SODIUM CHLORIDE 0.9% FLUSH 10 ML FLUSH IV FLUSH SCH (09:18)
[2016-10-17 11:59] LABS: AUTOMATED NEUTROPHIL # 4.6 TH/MM3 (1.8-7.7); BASOPHIL % 0.5 % (0.0-2.0); EOSINOPHIL # 0.1 TH/MM3 (0-0.4); HEMATOCRIT 42.8 % (39.0-51.0); HEMO FLAGS DIFF FINAL; LYMPH % 13.1 % (9.0-44.0); LYMPHOCYTE # 0.8 TH/MM3 (1.0-4.8); MEAN CELL VOLUME 80.2 FL (80.0-100.0); MEAN CORPUSCULAR HEMOGLOBIN 26.2 PG (27.0-34.0); MEAN CORPUSCULAR HGB CONC 32.6 % (32.0-36.0); MONO % 5.5 % (0.0-8.0); NEUT % 78.9 % (16.0-70.0); PLATELET COUNT 212 TH/MM3 (150-450); RED BLOOD COUNT 5.34 MIL/MM3 (4.50-5.90); RED CELL DISTRIBUTION WIDTH 18.5 % (11.6-17.2); WHITE BLOOD COUNT 5.8 TH/MM3 (4.0-11.0)
[2016-10-17] MEDS ORDERED: TAMSULOSIN HCL 0.4 MG CAP PO ONE (12:00)
[2016-10-17 12:22] LABS: BICARBONATE 28.1 MEQ/L (21.0-32.0)
[2016-10-17] MEDS ORDERED: POTASSIUM CHLORIDE 20 MEQ CONTROLLED RELEASE TAB PO ONE (12:45)
[2016-10-17 15:06] LABS: MAGNESIUM 1.9 MG/DL (1.5-2.5)
--- NOTE | 2016-10-17 18:02 | HHI.PR ---
Subjective Remarks Patient seen this morning. He reports difficulty urinating this morning. He says that he takes tamsulosin twice daily. He reports shortness of breath is better, denies any chest pain. He does report multiple bouts of loose nonbloody diarrhea, says he was up all night diarrhea. He denies any abdominal pain. Patient reports that diarrhea started overnight. Denies any issue with this before. Objective Vital Signs Date Time Temp Pulse Resp B/P Pulse Ox O2 Delivery O2 Flow Rate FiO2 10/17/16 17:00 82 10/17/16 16:00 80 10/17/16 15:00 97.5 57 18 138/68 95 10/17/16 15:00 80 10/17/16 14:00 96 10/17/16 13:00 68 10/17/16 12:00 70 10/17/16 11:00 97.5 74 18 94/49 95 10/17/16 11:00 66 10/17/16 10:00 105 10/17/16 09:00 113 10/17/16 08:18 84 10/17/16 08:18 97.6 84 18 127/69 95 10/17/16 07:00 70 10/17/16 06:00 110 10/17/16 05:00 87 10/17/16 04:30 98.0 77 18 125/84 97 10/17/16 04:00 100 10/17/16 03:09 86 10/17/16 02:00 95 10/17/16 01:00 103 10/17/16 00:00 101 10/16/16 23:59 97.9 85 20 113/51 97 10/16/16 23:00 102 10/16/16 22:00 87 10/16/16 21:00 87 10/16/16 20:00 97.7 76 20 131/88 97 10/16/16 20:00 80 10/16/16 19:00 76 10/16/16 18:04 83 I/O 10/16/16 10/16/16 10/16/16 10/17/16 10/17/16 10/17/16 07:00 15:00 23:00 07:00 15:00 23:00 Intake Total 242 ml 740 ml 240 ml 560 ml Output Total 4275 ml 525 ml 400 ml Balance -4033 ml 215 ml -160 ml 560 ml Intake Oral 120 ml 720 ml 240 ml 560 ml IV Total 122 ml 20 ml Output Urine Total 4275 ml 525 ml 400 ml # Voids 4 6 # Bowel Movements 4 3 0 Result Diagram: 10/17/16 1102 10/17/16 1102 Objective Remarks GENERAL: patient sitting up in bed. Appears comfortable. SKIN: Warm and dry. HEAD: Normocephalic. EYES: No scleral icterus. No injection or drainage. NECK: Supple, trachea midline. No JVD . CARDIOVASCULAR: irregular rhythm without murmurs, gallops, or rubs.rate controlled. RESPIRATORY: Breath sounds equal bilaterally. No accessory muscle use. GASTROINTESTINAL: Abdomen soft, non-tender, nondistended. no rebound or guarding. MUSCULOSKELETAL: No cyanosis, or edema. BACK: Nontender without obvious deformity. No CVA tenderness. A/P Assessment and Plan 70 y/o male with a history of RA, Ischemic cardiomyopathy, Unstable angina, Hypertension, Atrial fibrillation, Diabetes mellitus (diet controlled) ,Tobacco abuse and CHF (EF 20%) presented to the ED with complaints of increased lethargy , chest pressure, shortness of breath and leg swelling for the last 1 week. He states 1 week ago he noticed his Lasix was not working, and his legs were swelling and he was having sob. SOB was worse with laying down. He states today he felt increase pressure in his chest as if he had a heavy object on top of him. He has not been on his heart medications for at least 3 weeks because he has not felt well enough to take them. He states he has not felt himself since June of this year. //Acute Exacerbation of CHF, Chronic systolic CHF, EF 20% Images: Chest xray shows bilateral effusions and interstitial prominence suggesting CHF Labs: BNP 1472 -Continue IV Lasix, beta eduin. -Continue Strict I & Os -Improved, however chest x-ray still with bilateral airspace disease. Reviewed current imaging, as well as reviewed past CT pulmonary antigram from 2015 which shows similar process. -Appreciate cardiology assistance. //bilateral pulmonary airspace disease. Reviewed past CT angiogram for 2015, and appears to be similar process currently. This is chronic. He'll need follow-up with primary care, may need pulmonology consultation as outpatient. //Diarrhea. Acute. 7 episodes overnight. Abdomen benign. Order C. difficile. //Urinary retention. Worsened overnight. Place patient back on home dose of Flomax. Monitor //Afib RVR EKG shows HR 142 Afib rvr Labs: Troponin .02 -Cardizem IV, due to hypotension wean off when digoxin takes effect and HR< 110 -Digoxin loading dose given, then .125 daily -Consult cardiology, patient know to DR Greer -Dig level low on admit: patient was on dig 3 weeks ago -Continuous telemetry = Heart rate improved on digoxin. Continue //Adrenal insufficiency,patient with hypotension, possible due to discontinuation of prednisone 3 weeks ago -Prednisone 10mg x1 given -Monitor BP //Foot ulcer, likely diabetic ulcer -Appreciate podiatry assistance. -Continue wound care, follow-up with wound care as outpatient. //Hypokalemia, -10/17. Potassium again low. 3.0. Replaced //DM, chronic, patient states diet controlled BG 230 -Accu checks ACHS with SSI -A1C 7.1 -Blood sugars acceptable. Patient can benefit from metformin. //Rheumatoid arthritis, chronic -Sed rate reviewed 29. -Cont home medications sulfasalazine //CAD, Chronic -cont home medication Effient -Heart healthy diet -Cardiology following. Appreciate assistance. DVT prophylaxis: SCDs Nico Roque MD October 17, 2016 18:02
[2016-10-17] MEDS ORDERED: TAMS0.4C4 PO (18:07)
[2016-10-17] MEDS ORDERED: PRAS10TA PO (18:07)
[2016-10-17] MEDS ORDERED: DIGO0.12 PO (18:07)
[2016-10-17] MEDS ORDERED: POTA-163 PO (18:07)
[2016-10-17] MEDS ORDERED: CARV12.5 PO (18:07)
[2016-10-17] MEDS ORDERED: ENAL5TAB PO (18:07)
[2016-10-17] MEDS ORDERED: APIX5TAB PO (18:07)
[2016-10-17] MEDS ORDERED: FURO40TA PO (18:07)
[2016-10-17] MEDS ORDERED: TAMSULOSIN HCL 0.4 MG CAP PO SCH (21:00)
--- NOTE | 2016-10-22 10:14 | HHI.DS ---
Discharge Summary Admission Date October 15, 2016 at 13:24 Discharge Date: October 17, 2016 Admitting Diagnosis atrial fibrillation with RVR, congestive heart failure, pulmonary ed (1) Acute exacerbation of CHF (congestive heart failure) ICD Code: I50.9 (2) Atrial fibrillation with RVR ICD Code: I48.91 (3) Adrenal insufficiency ICD Code: E27.40 (4) Diabetic foot ulcer ICD Code: E11.621 (5) Hypokalemia ICD Code: E87.6 (6) Rheumatoid arthritis ICD Code: M06.9 (7) DM (diabetes mellitus) ICD Code: E11.9 (8) CAD (coronary artery disease) ICD Code: I25.10 Procedures no invasive procedures performed. Echocardiogram performed. Please see report. Brief History - From Admission 70 y/o male with a history of RA, Ischemic cardiomyopathy, Unstable angina, Hypertension, Atrial fibrillation, Diabetes mellitus (diet controlled) ,Tobacco abuse and CHF (EF 20%) presented to the ED with complaints of increased fatigue , chest pressure, shortness of breath and leg swelling for the last 1 week. He states 1 week ago he noticed his Lasix was not working, and his legs were swelling and he was having sob. SOB was worse with laying down. He states today he felt increase pressure in his chest as if he had a heavy object on top of him. He has not been on his heart medications (Dig) for at least 3 weeks because he has not felt well enough to take them. He states he has not felt himself since June of this year. He denies any fever, chills, nausea or vomiting. He also stopped his prednisone 5mg daily 3 weeks ago, and was changed to sulfasalazine for his RA. Other new medications include Terazosin for his enlarged prostate. He complains of chronic RA pain in his shoulders, DIP, MCV and PIP joints, and his elbows. He sees Dr Mcknight for Knee arthritis, and gets cortisone injections, last injection was 2 months ago. He was seen by Dr. Greer last admission, and was going to switch to Dr. Obrien but has not as of yet. Imaging Last Impressions Chest X-Ray 10/16/16 0000 Signed Impressions: Service Date/Time: October 09:52 - CONCLUSION: 1. Underinflation with stable right basilar opacity that likely represents pleural effusion with associated volume loss and/or airspace consolidation. 2. Stable left basilar opacity representing either atelectasis or consolidation. Jadiel Donohue MD Foot X-Ray 10/15/16 0000 Signed Impressions: Service Date/Time: Saturday, October 15, 2016 19:57 - CONCLUSION: 1. Osteoarthritic change greatest involving the first metatarsal-phalangeal joint. 2. Mild soft tissue prominence with no destructive change. 3. No radiopaque foreign body. Bryce Elam MD Hospital Course Patient's atrial fibrillation with RVR managed with Coreg, digoxin. Chest x- ray stable from previously. Medications were adjusted. Cardiology was consult to during admission, and patient will need to follow-up with reserve officer as outpatient. For problem-based summary from most recent progress note, please see below. 70 y/o male with a history of RA, Ischemic cardiomyopathy, Unstable angina, Hypertension, Atrial fibrillation, Diabetes mellitus (diet controlled) ,Tobacco abuse and CHF (EF 20%) presented to the ED with complaints of increased lethargy , chest pressure, shortness of breath and leg swelling for the last 1 week. He states 1 week ago he noticed his Lasix was not working, and his legs were swelling and he was having sob. SOB was worse with laying down. He states today he felt increase pressure in his chest as if he had a heavy object on top of him. He has not been on his heart medications for at least 3 weeks because he has not felt well enough to take them. He states he has not felt himself since June of this year. //Acute Exacerbation of CHF, Chronic systolic CHF, EF 20% Images: Chest xray shows bilateral effusions and interstitial prominence suggesting CHF Labs: BNP 1472 -Continue IV Lasix, beta eduin. -Continue Strict I & Os -Improved, however chest x-ray still with bilateral airspace disease. Reviewed current imaging, as well as reviewed past CT pulmonary antigram from 2014 which shows similar process. -Appreciate cardiology assistance. //bilateral pulmonary airspace disease. Reviewed past CT angiogram for 2015, and appears to be similar process currently. This is chronic. He'll need follow-up with primary care, may need pulmonology consultation as outpatient. //Diarrhea. Acute. 7 episodes overnight. Abdomen benign. Order C. difficile. //Urinary retention. Worsened overnight. Place patient back on home dose of Flomax. Monitor //Afib RVR EKG shows HR 142 Afib rvr Labs: Troponin .02 -Cardizem IV, due to hypotension wean off when digoxin takes effect and HR< 110 -Digoxin loading dose given, then .125 daily -Consult cardiology, patient know to DR Greer -Dig level low on admit: patient was on dig 3 weeks ago -Continuous telemetry = Heart rate improved on digoxin. Continue //Adrenal insufficiency,patient with hypotension, possible due to discontinuation of prednisone 3 weeks ago -Prednisone 10mg x1 given -Monitor BP //Foot ulcer, likely diabetic ulcer -Appreciate podiatry assistance. -Continue wound care, follow-up with wound care as outpatient. //Hypokalemia, -5/5. Potassium again low. 3.0. Replaced //DM, chronic, patient states diet controlled BG 230 -Accu checks ACHS with SSI -A1C 7.1 -Blood sugars acceptable. Patient can benefit from metformin. //Rheumatoid arthritis, chronic -Sed rate reviewed 29. -Cont home medications sulfasalazine //CAD, Chronic -cont home medication Effient -Heart healthy diet -Cardiology following. Appreciate assistance. DVT prophylaxis: SCDs Pt Condition on Discharge: Good Discharge Disposition: Discharge Home Discharge Time: <= 30 minutes Discharge Instructions DIET: Follow Instructions for: Diabetic Diet, Low Sodium Diet Activities you can perform: Regular-No Restrictions Follow up Referrals: Cardiology - 1 Week with Juan M Penny MD PCP Follow-up - 1 Week with Dejan Tony [facility] - 1 Week with Urbano Castanon DPM New Orders: BASIC METABOLIC PROF - 3-5 Days New Medications: Potassium Chloride ER (Potassium Chloride ER) 20 Meq Tab 20 MEQ PO BID Electrolyte Replacement #60 Ref 0 TAB Apixaban (Eliquis) 5 Mg Tab 2.5 MG PO BID prevent stroke #60 TAB Carvedilol (Coreg) 12.5 Mg Tab 25 MG PO Q12HR heart #60 TAB Digoxin (Digoxin) 0.125 Mg Tab 0.125 MG PO DAILY heart #30 TAB Enalapril (Enalapril) 5 Mg Tab 5 MG PO BID heart #60 TAB Changed Medications: Tamsulosin (Tamsulosin) 0.4 Mg Cap 0.4 MG PO BID Manage Prostate Problems #30 Ref 0 CAP (Changed from: HS) Continued Medications: Furosemide (Furosemide) 40 Mg Tab 40 MG PO BID heart #60 Ref 0 TAB (This prescription has been renewed) Leflunomide (Leflunomide) 20 Mg Tab 20 MG PO DAILY TAB Oxycodone-Acetaminophen (Oxycodone-Acetaminophen) 5-325 mg Tab 1 TAB PO Q4H PRN PAIN Ref 0 TAB Prasugrel (Effient) 10 Mg Tab 10 MG PO DAILY CAD #30 TAB (This prescription has been renewed) Sulfasalazine (Sulfasalazine) 500 Mg Tab 500 MG PO BID #90 Ref 0 TAB Nico Roque MD October 22, 2016 10:14
== END 2016-10-17 18:57 | disposition home or self-care (01) | DRG 292 ==
LOC: NEPE 11:20 → NEDA 13:24 → HCIN 17:19
PROVIDERS: ADMIT Family Medicine; ATTEND Family Medicine
DX: I50.23 Acute on chronic systolic (congestive) heart failure (principal); E27.40 Unspecified adrenocortical insufficiency; I47.2 Ventricular tachycardia; E11.621 Type 2 diabetes mellitus with foot ulcer; I48.0 Paroxysmal atrial fibrillation; G62.9 Polyneuropathy, unspecified; I42.0 Dilated cardiomyopathy; L97.519 Non-pressure chronic ulcer of other part of right foot with unspecified severity; I10 Essential (primary) hypertension; E78.00 Pure hypercholesterolemia, unspecified; E87.6 Hypokalemia; I25.5 Ischemic cardiomyopathy; I25.10 Atherosclerotic heart disease of native coronary artery without angina pectoris; I44.4 Left anterior fascicular block; K42.9 Umbilical hernia without obstruction or gangrene; Z85.820 Personal history of malignant melanoma of skin; M06.9 Rheumatoid arthritis, unspecified; Z96.651 Presence of right artificial knee joint; Z95.5 Presence of coronary angioplasty implant and graft; Z88.1 Allergy status to other antibiotic agents; E78.5 Hyperlipidemia, unspecified; F17.290 Nicotine dependence, other tobacco product, uncomplicated; Z91.14 Patient's other noncompliance with medication regimen; R19.7 Diarrhea, unspecified; R33.9 Retention of urine, unspecified; E11.43 Type 2 diabetes mellitus with diabetic autonomic (poly)neuropathy
CPT/HCPCS: 71010; 73630; 80048; 80053; 80162; 82040; 82550; 82948; 83036; 83735; 83880; 84100; 84484; 85025; 85610; 85652; 85730; 93005; 93308; 96365; 96375; 96376; J1160; J1815; J1940; J7512; L3260

== ENCOUNTER 2017-02-16 11:07 | Emergency (ER) | payer MEDICARE, OTHER ==
[~2017-02-16] VITALS: Ht 188 cm; Wt 78.4 kg
[~2017-02-16 11:07] MED LIST changes: -CARD180C5 PO; +CARV12.5 PO; +ENAL5TAB PO; +FURO40TA PO; -LEVA750T PO; -METO25TA3 PO; +OXYC1TAB63 PO; -PERC7.5T13 PO; +POTA-163 PO; -PRED5TAB PO; +SULF500T3 PO; +TAMS0.4C4 PO; -TYLETAB34 PO
[2017-02-16 11:11] VITALS: BP 149/87; PULSE 99; RESP 16; TEMP 98.5; O2SAT 99
[2017-02-16] MEDS ORDERED: AUGM875T3 PO (12:09)
[2017-02-16] MEDS ORDERED: PLAV75TA29 PO (12:09)
--- NOTE | 2017-02-16 12:13 | PD ---
HPI Chief Complaint: Nosebleed Time Seen by Provider: 12:10 Travel History International Travel<30 days: No Contact w/Intl Traveler<30days: No Traveled to known affect area: No History of Present Illness HPI 71-year-old male patient currently on Plavix for cardiac issues, presents to the ER today for several days history of intermittent left-sided epistaxis. He states it is happening with every time he urinates or has a bowel movement. He states it does stop on his own but there is quite a bit of bleeding according to him and his daughter. He states he is feeling tired of this whole thing. He denies any chest pains, shortness of breath, or any other symptoms. He denies any blood in the stools or urine. Modifying Factors: None Associated Signs & Symptoms: Epistaxis intermittently Risk Factors: On Plavix PFSH Past Medical History Hx Anticoagulant Therapy: Yes (plavix) Arthritis: Yes (R.A) Atrial Fibrillation: Yes Heart Rhythm Problems: Yes Cancer: Yes (MELANOMA FACE) Cardiac Catheterization: Yes Cardiovascular Problems: Yes (htn on meds, stents x 2 placed ) High Cholesterol: Yes Chest Pain: No Congestive Heart Failure: Yes Cerebrovascular Accident: Yes (CHF) Coronary Artery Disease: Yes Diabetes: Yes (diet controlled) Diminished Hearing: No Endocrine: No Gastrointestinal Disorders: No Genitourinary: No Hepatitis: No Hiatal Hernia: No Hypertension: Yes Immune Disorder: No Musculoskeletal: Yes (RHEUMATOID ARTHRITIS) Neurologic: No Psychiatric: No Reproductive: No Respiratory: Yes Thyroid Disease: No Past Surgical History AICD: No Joint Replacement: Yes (R KNEE) Other Surgery: Yes (GANGLION CYST LEFT HAND, bilat great toes, melanoma removed left face) Social History Alcohol Use: Yes (thu and ) Tobacco Use: Yes (3 DAILY CIGARS) Substance Use: No Allergies-Medications (Allergen,Severity, Reaction): Coded Allergies: atorvastatin (Verified Allergy, Severe, 02/16/17) azithromycin (Unverified Allergy, Severe, SWELLING, 01/27/17) levofloxacin (Verified Allergy, Severe, 02/16/17) Reported Meds & Prescriptions Reported Meds & Active Scripts Active Potassium Chloride ER (Potassium Chloride) 20 Meq Tab 20 Meq PO BID Furosemide 40 Mg Tab 40 Mg PO BID Tamsulosin (Tamsulosin HCl) 0.4 Mg Cap 0.4 Mg PO BID Reported Plavix (Clopidogrel Bisulfate) 75 Mg Tab 75 Mg PO DAILY Augmentin (Amoxicillin-Clavulanate) 875-125 Mg Tab 1 Tab PO BID Leflunomide 20 Mg Tab 20 Mg PO DAILY Review of Systems Except as stated in HPI: all other systems reviewed are Neg Physical Exam Narrative GENERAL: Well-developed elderly white male patient currently in mild distress. Awake and oriented 3. SKIN: Focused skin assessment warm/dry. HEAD: Atraumatic. Normocephalic. EYES: Pupils equal and round. No scleral icterus. No injection or drainage. ENT: Small amount of dried blood in the left nostril without active bleeding, I see a area of flesh-colored growth to the left medial nostril which is currently not bleeding. Mucous membranes pink and moist. NECK: Trachea midline. No JVD. CARDIOVASCULAR: Regular rate and rhythm. No murmur appreciated. RESPIRATORY: No accessory muscle use. Clear to auscultation. Breath sounds equal bilaterally. GASTROINTESTINAL: Abdomen soft, non-tender, nondistended. Hepatic and splenic margins not palpable. MUSCULOSKELETAL: No obvious deformities. No clubbing. No cyanosis. No edema. NEUROLOGICAL: Awake and alert. No obvious cranial nerve deficits. Motor grossly within normal limits. Normal speech. PSYCHIATRIC: Appropriate mood and affect; insight and judgment normal. Data Data Last Documented VS Vital Signs Date Time Temp Pulse Resp B/P (MAP) Pulse Ox O2 Delivery O2 Flow Rate FiO2 02/16/17 11:11 98.5 99 16 149/87 (107) 99 Orders Orders Complete Blood Count With Diff (02/16/17 12:10) Type And Screen (02/16/17 12:10) Benzocaine 20% Oral Spr (Hurricaine 20% (02/16/17 12:15) Labs Laboratory Tests Test 02/16/17 12:35 White Blood Count 8.1 TH/MM3 Red Blood Count 4.83 MIL/MM3 Hemoglobin 13.9 GM/DL Hematocrit 42.4 % Mean Corpuscular Volume 87.8 FL Mean Corpuscular Hemoglobin 28.8 PG Mean Corpuscular Hemoglobin Concent 32.8 % Red Cell Distribution Width 14.9 % Platelet Count 170 TH/MM3 Mean Platelet Volume 8.5 FL Neutrophils (%) (Auto) 77.5 % Lymphocytes (%) (Auto) 12.6 % Monocytes (%) (Auto) 6.3 % Eosinophils (%) (Auto) 2.5 % Basophils (%) (Auto) 1.1 % Neutrophils # (Auto) 6.3 TH/MM3 Lymphocytes # (Auto) 1.0 TH/MM3 Monocytes # (Auto) 0.5 TH/MM3 Eosinophils # (Auto) 0.2 TH/MM3 Basophils # (Auto) 0.1 TH/MM3 CBC Comment DIFF FINAL Differential Comment MDM Medical Decision Making Medical Screen Exam Complete: Yes Emergency Medical Condition: Yes Medical Record Reviewed: Yes Differential Diagnosis Epistaxis Narrative Course Blood count is normal. There is a area of growth to the left nostril which I can see but I do not see any active bleeding right now. Patient states he thinks the bleeding comes in the area. According to patient and his daughter, this abdomen area has been there for a long time. At this point, I have offered to do a Rhino Rocket but the patient is deferring at this time. My plan would be to release him with follow-up to ENT regarding this issue. Return for any new issues as needed. The plan has been discussed with him and he states understanding. Diagnosis Primary Impression: Epistaxis Additional Impression: Nasal cavity mass Disposition: 01 DISCHARGE HOME Condition: Stable Shaun Gibbs MD Feb 16, 2017 12:13
[2017-02-16] MEDS ORDERED: BENZOCAINE 20% ORAL SPR 60 ML CAN OTHER ONE (12:15)
[2017-02-16 12:50] LABS: AUTOMATED NEUTROPHIL # 6.3 TH/MM3 (1.8-7.7); BASOPHIL # 0.1 TH/MM3 (0-0.2); BASOPHIL % 1.1 % (0.0-2.0); EOSINOPHIL # 0.2 TH/MM3 (0-0.4); EOSINOPHIL % 2.5 % (0.0-4.0); HEMATOCRIT 42.4 % (39.0-51.0); HEMO FLAGS DIFF FINAL; LYMPH % 12.6 % (9.0-44.0); MEAN CELL VOLUME 87.8 FL (80.0-100.0); MEAN CORPUSCULAR HEMOGLOBIN 28.8 PG (27.0-34.0); MEAN CORPUSCULAR HGB CONC 32.8 % (32.0-36.0); MONO % 6.3 % (0.0-8.0); NEUT % 77.5 % (16.0-70.0); PLATELET COUNT 170 TH/MM3 (150-450); RED BLOOD COUNT 4.83 MIL/MM3 (4.50-5.90); RED CELL DISTRIBUTION WIDTH 14.9 % (11.6-17.2); WHITE BLOOD COUNT 8.1 TH/MM3 (4.0-11.0)
== END 2017-02-16 13:16 | disposition home or self-care (01) ==
LOC: PHED 11:07
DX: R04.0 Epistaxis (principal); R22.0 Localized swelling, mass and lump, head; E11.9 Type 2 diabetes mellitus without complications; I10 Essential (primary) hypertension; E78.00 Pure hypercholesterolemia, unspecified; Z72.0 Tobacco use; Z79.01 Long term (current) use of anticoagulants; Z87.39 Personal history of other diseases of the musculoskeletal system and connective tissue; Z86.79 Personal history of other diseases of the circulatory system; Z85.828 Personal history of other malignant neoplasm of skin
CPT/HCPCS: 85025; 86850; 86900; 86901; 99283

== ENCOUNTER 2017-03-25 08:39 | Day surgery (SDC) | payer OTHER ==
--- NOTE | 2017-03-23 08:32 | MB ---
cc: AUGUSTO SOSA M.D., R. STEVEN DATE OF CONSULTATION: 03/17/2017 REASON FOR CONSULTATION Mr. Hines is a 71-year-old white male referred for a large right pleural effusion. He is being scheduled for an outpatient diagnostic and therapeutic thoracentesis. HISTORY OF PRESENT ILLNESS He has a history of ischemic cardiomyopathy. He had two stents placed at [facility] in July 10, 2016 at which time he was in congestive heart failure and rapid atrial fibrillation. He has been followed by Dr. Obrien but he admits that he does not take his cardiac medicines regularly, says he has to take too much medicine. He has had persistent chronic lower extremity edema. He is currently taking 40 mg of Lasix twice a day along with potassium and he is also on Plavix since the stents were placed. I do not have a complete list of medicines he is not taking. His primary complaint is lethargy, weakness and shortness of breath with exertion. He used to play golf two days a week but has not done that since his hospitalization in June. His edema has improved considerably but it is persistent. He smoked cigars his entire adult life, currently smokes five a day, used to smoke more. Never smoked cigarettes. Never been diagnosed specifically with a pulmonary disease. PAST MEDICAL HISTORY He also has a longstanding history of rheumatoid arthritis. He had a total knee replacement last September and since then has really been in decline. He had a melanoma removed from his face in the . His sugars are up and down but he has not required consistent oral therapy for insulin. No history of stroke, pneumonia or thromboembolism. No known liver disease or chronic kidney disease. ALLERGIES 1. Z-ANDRZEJ. 2. LEVAQUIN. 3. STATINS. 4. METFORMIN. MEDICATIONS 1. Ventolin inhaler as needed. 2. Lasix. 3. Leflunomide. 4. Plavix. 5. Potassium. 6. Tamsulosin. FAMILY HISTORY Father unknown. Mother of natural causes in her 90s. Two children, a daughter with thyroid cancer. SOCIAL HISTORY and living with his of 42 years. Originally from [place]. 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 He has been retired since his 50s due to the rheumatoid disease. Smokes cigars as noted above. Drinks 6-8 beers on average twice a week. Two dogs at home. REVIEW OF SYSTEMS Weight is down 50 pounds over the last year and a half. No visual complaints. No current anginal chest pain. Chronic edema. No hemoptysis or chest pain. No GI complaints. Rheumatoid arthritis. PHYSICAL EXAMINATION VITAL SIGNS: Blood pressure 114/60, pulse 60, temperature 97, respiratory rate 18, sat 90% room air. HEENT: Sclera pale, anicteric. Pharynx is clear. NECK: Neck veins are flat. CHEST: Dullness to percussion and decreased breath sounds in the right base. No wheezes or congestion. No rales. HEART: Irregular rhythm. Soft systolic murmur. No audible S3. ABDOMEN: Soft. EXTREMITIES: 2+ peripheral pretibial edema. No cyanosis or clubbing. IMAGING Screening CT March 04 of this year: Moderate right pleural effusion, small left effusion, with nothing suspicious for malignancy such as masses or nodules. ASSESSMENT Mr. Hines presents with bilateral effusions, right greater than left, and a history of an ischemic cardiomyopathy with stents placed in the past and heart failure. He is also apparently noncompliant with his cardiac drugs, although he is taking his diuretics. He also has a longstanding smoking history and increased risk of malignancy. Rheumatoid arthritis can also cause effusions so there are multiple potential causes here. PLAN/RECOMMENDATIONS I have recommended proceeding with a diagnostic and therapeutic thoracentesis with radiology at [facility]. He is agreeable. They will contact him and he will also need to stop his Plavix prior to that when he is given those instructions. I will see him back with those results to see what further diagnostic and/or therapeutic interventions are appropriate. R. MD GUNNER Brody/RADHA /12:22 PM /8:27 AM
[~2017-03-25 08:39] MED LIST changes: -APIX5TAB PO; +AUGM875T3 PO; -CARV12.5 PO; -DIGO0.12 PO; -ENAL5TAB PO; -OXYC1TAB63 PO; +PLAV75TA29 PO; -PRAS10TA PO; -SULF500T3 PO
[2017-03-25 10:15] VITALS: BP 109/65; PULSE 68; RESP 18; TEMP 97.8; O2SAT 96
[2017-03-25] MEDS ORDERED: LIDOCAINE HCL 1% 20 ML VIAL ONE (10:54)
[2017-03-25 11:10] VITALS: BP 99/79; PULSE 52; RESP 20; TEMP 97.8; O2SAT 97
--- NOTE | 2017-03-25 11:21 | RADRPT ---
EXAM DATE/TIME: 03/25/2017 10:52 [facility] COMPARISON: CHEST SINGLE AP, October 16, 2016, 9:52. INDICATIONS : Post right side thoracentesis. MEDICAL HISTORY : Hypertension. Congestive heart failure SURGICAL HISTORY : Coronary artery stent. ENCOUNTER: Initial ACUITY: 1 day PAIN SCORE: 0/10 LOCATION: Right chest FINDINGS: A single portable frontal view the chest shows no pneumothorax following right thoracentesis. Left lo wer lobe consolidation. No residual effusions. Heart is at the upper limits of normal in terms of siz e. Bony structures are unremarkable. CONCLUSION: 1. No pneumothorax following thoracentesis. 2. Left lower lobe consolidation. This is unchanged from the prior exam. Mal Smith Jr., MD on March 25, 2017 at 11:18 Board Certified Radiologist. This report was verified electronically.
[2017-03-25 11:25] VITALS: BP 118/83; PULSE 65; RESP 20; O2SAT 96
--- NOTE | 2017-03-25 11:40 | RADRPT ---
EXAM DATE/TIME: 03/25/2017 10:25 [facility] COMPARISON: No previous studies available for comparison. EXTERNAL COMPARISON: [facility], XR CHEST PA & LAT , Jun 05 2016, September 05, 2014. INDICATIONS : Right pleural effusion. MEDICAL HISTORY : Congestive heart failure. Hypercholesterolemia. Rheumatoid arthritis. CVA. Angina. Coronary artery di sease. Afib. HTN. Diabetes. Melanoma. Anticoagulant therapy, Plavix. SURGICAL HISTORY : Coronary artery stent. Total knee replacement, right. Cardiac cath. Bilateral feet surgeries for fra ctures. Ganglion cyst left hand removed. Melanoma removed left face. ENCOUNTER: Initial ACUITY: 1 day PAIN SCORE: 0/10 LOCATION: Right chest FLUID: Total volume of 1800 cc of clear, yellow fluid was removed. Fluid was sent to lab for ordered studies. TECHNIQUE: 1. Ultrasound guidance for thoracentesis. 2. Thoracentesis. The risks, benefits, and alternatives to ultrasound guided thoracentesis were explained to the patien t in lay simple terms, including the risk of bleeding and infection. Written and verbal informed con sent was obtained. Appropriate area for thoracentesis was marked under ultrasound guidance with the patient in the uprig ht position. Overlying skin was prepped and draped in the usual sterile fashion and with local anest hetic, a dermatotomy was made with an 11 blade scalpel. A 6 Ukrainian thoracentesis catheter was placed in the pleural space and fluid was removed. Catheter was then removed and a sterile dressing applie d. There were no immediate complications. The patient tolerated the procedure well and the left the ultrasound suite in stable condition. Chest radiograph is to be obtained. CONCLUSION: Uncomplicated ultrasound guided right thoracentesis. Mal Smith Jr., MD on March 25, 2017 at 11:39 Board Certified Radiologist. This report was verified electronically.
[2017-03-25 13:08] LABS: PLEURAL FLUID LYMPHS 42 %
== END 2017-03-25 11:51 | disposition home or self-care (01) ==
LOC: HRAD 08:39 → HRIP 08:39 → HRAD 11:51
PROVIDERS: ATTEND Internal Medicine
DX: J90 Pleural effusion, not elsewhere classified (principal); I50.9 Heart failure, unspecified; E11.9 Type 2 diabetes mellitus without complications; I10 Essential (primary) hypertension; I48.91 Unspecified atrial fibrillation; I25.119 Atherosclerotic heart disease of native coronary artery with unspecified angina pectoris; E78.00 Pure hypercholesterolemia, unspecified; M06.9 Rheumatoid arthritis, unspecified; Z79.01 Long term (current) use of anticoagulants; Z95.5 Presence of coronary angioplasty implant and graft; Z96.651 Presence of right artificial knee joint
CPT/HCPCS: 32555; 36415; 71010; 82945; 82947; 83615; 84155; 84157; 87015; 87070; 87102; 87116; 87205; 87206; 89051; C1729; 88112; 88305

== ENCOUNTER 2017-05-03 14:13 | Inpatient (IN) | payer OTHER, MEDICARE ==
[~2017-05-03] VITALS: Ht 188 cm; Wt 83.2 kg
[2017-05-03] VITALS (11 sets, daily range): BP systolic 66–106; BP diastolic 39–77; PULSE 114–132; RESP 17–28; TEMP 98.2–98.6; O2SAT 8–99
[~2017-05-03 14:13] MED LIST changes: +DIGOXIN 0.5 MG/2 ML VIAL IV PUSH SCH
[2017-05-03] MEDS ORDERED: CARV3.125 PO (14:30)
[2017-05-03] MEDS ORDERED: LISI-519 PO (14:30)
[2017-05-03] MEDS ORDERED: SODIUM CHLORIDE 0.9% FLUSH 10 ML FLUSH IV FLUSH PRN ×2 (15:15→22:45)
[2017-05-03] MEDS ORDERED: ONDANSETRON HCL 4 MG/2 ML VIAL IVP ONE (15:15)
[2017-05-03] MEDS ORDERED: HYDROmorphone HCL PF 2 MG/ML VIAL IV ONE (15:15)
--- NOTE | 2017-05-03 15:18 | PD ---
HPI Chief Complaint: Abdominal Pain Time Seen by Provider: 15:09 Travel History International Travel<30 days: No Contact w/Intl Traveler<30days: No Traveled to known affect area: No History of Present Illness HPI Patient presents with acute severe abdominal pain associated with anterior wall hernia. Awoke from his nap this afternoon with severe pain. Reports chronic diarrhea with previous workup. Scheduled for GI for colonoscopy and endoscopy. Significant Bowel movement after arrival to the ER. Denies any nausea or vomiting. Previous workup negative. reports chronic stool incontinence. Last meal at noon. PFSH Past Medical History Hx Anticoagulant Therapy: Yes (plavix) Arthritis: Yes (R.A) Atrial Fibrillation: Yes Heart Rhythm Problems: Yes Cancer: Yes (MELANOMA FACE) Cardiac Catheterization: Yes Cardiovascular Problems: Yes (htn on meds, stents x 2 placed ) High Cholesterol: Yes Chest Pain: No Congestive Heart Failure: Yes Cerebrovascular Accident: Yes (CHF) Coronary Artery Disease: Yes Diabetes: Yes (diet controlled) Patient Takes Glucophage: No Diminished Hearing: No Endocrine: No Gastrointestinal Disorders: No Genitourinary: No Hepatitis: No Hiatal Hernia: No Hypertension: Yes Immune Disorder: No Musculoskeletal: Yes (RHEUMATOID ARTHRITIS) Neurologic: No Psychiatric: No Reproductive: No Respiratory: Yes Thyroid Disease: No Influenza Vaccination: No Past Surgical History AICD: No Joint Replacement: Yes (R KNEE) Other Surgery: Yes (GANGLION CYST LEFT HAND, bilat great toes, melanoma removed left face) Social History Alcohol Use: Yes (thu and ) Tobacco Use: Yes (3 DAILY CIGARS) Substance Use: No Allergies-Medications (Allergen,Severity, Reaction): Coded Allergies: atorvastatin (Verified Allergy, Severe, 05/03/17) azithromycin (Unverified Allergy, Severe, SWELLING, 05/03/17) levofloxacin (Verified Allergy, Severe, 05/03/17) Reported Meds & Prescriptions Reported Meds & Active Scripts Active Potassium Chloride ER (Potassium Chloride) 20 Meq Tab 20 Meq PO BID Furosemide 40 Mg Tab 40 Mg PO BID Tamsulosin (Tamsulosin HCl) 0.4 Mg Cap 0.4 Mg PO BID Reported Lisinopril 5 Mg Tab 5 Mg PO DAILY Coreg (Carvedilol) 3.125 Mg Tab 3.125 Mg PO BID Plavix (Clopidogrel Bisulfate) 75 Mg Tab 75 Mg PO DAILY Leflunomide 20 Mg Tab 20 Mg PO DAILY Review of Systems General / Constitutional: No: Fever Eyes: No: Visual changes HENT: No: Headaches Cardiovascular: No: Chest Pain or Discomfort Respiratory: No: Shortness of Breath Gastrointestinal: Positive: Diarrhea, Abdominal Pain Genitourinary: No: Dysuria Musculoskeletal: No: Pain Skin: No Rash Neurologic: No: Weakness Psychiatric: No: Depression Endocrine: No: Polydipsia Hematologic/Lymphatic: No: Easy Bruising Physical Exam Narrative GENERAL: Well-nourished, well-developed patient. SKIN: Focused skin assessment warm/dry. HEAD: Normocephalic. EYES: No scleral icterus. No injection or drainage. NECK: Supple, trachea midline. No JVD or lymphadenopathy. CARDIOVASCULAR: Regular rate and rhythm without murmurs, gallops, or rubs. RESPIRATORY: Breath sounds equal bilaterally. No accessory muscle use. GASTROINTESTINAL: Abdomen soft, abdominal wall hernia noted just above the umbilicus. This is reducible, nondistended. MUSCULOSKELETAL: No cyanosis, or edema. BACK: Nontender without obvious deformity. No CVA tenderness. Data Data Last Documented VS Vital Signs Date Time Temp Pulse Resp B/P (MAP) Pulse Ox O2 Delivery O2 Flow Rate FiO2 05/03/17 17:00 132 17 106/77 (87) 93 Room Air 05/03/17 14:26 98.2 Orders Orders Complete Blood Count With Diff (05/03/17 15:09) Comprehensive Metabolic Panel (05/03/17 15:09) Lactic Acid (05/03/17 15:09) Ct Abd/Pel W Iv Contrast(Rout) (05/03/17 15:09) Iv Access Insert/Monitor (05/03/17 15:09) Ecg Monitoring (05/03/17 15:09) Oximetry (05/03/17 15:09) Ondansetron Inj (Zofran Inj) (05/03/17 15:15) Sodium Chloride 0.9% Flush (Ns Flush) (05/03/17 15:15) Hydromorphone Pf Inj (Dilaudid Pf Inj) (05/03/17 15:15) Oral Contrast - Adult (05/03/17 15:19) Sodium Chlorid 0.9% 500 Ml Inj (Ns 500 M (05/03/17 15:30) Diatrizoate Liq ( Gastroview Liq) (05/03/17 15:35) Iohexol 350 Inj (Omnipaque 350 Inj) (05/03/17 16:53) Prothrombin Time / Inr (Pt) (05/03/17 17:19) Act Partial Throm Time (Ptt) (05/03/17 17:19) Lactic Acid (05/03/17 17:22) Hydromorphone Pf Inj (Dilaudid Pf Inj) (05/03/17 17:45) Consult General Surgery (05/03/17 ) Admit Order (Ed Use Only) (05/03/17 ) Vital Signs (Adult) Q4H (05/03/17 18:18) Diet Npo (05/03/17 Dinner) Activity Oob With Assistance (05/03/17 18:18) Notify Dr: Other (05/03/17 18:18) Labs Laboratory Tests Test 05/03/17 15:24 05/03/17 17:31 White Blood Count 5.0 TH/MM3 Red Blood Count 4.91 MIL/MM3 Hemoglobin 13.3 GM/DL Hematocrit 41.2 % Mean Corpuscular Volume 83.9 FL Mean Corpuscular Hemoglobin 27.0 PG Mean Corpuscular Hemoglobin Concent 32.2 % Red Cell Distribution Width 18.1 % Platelet Count 259 TH/MM3 Mean Platelet Volume 7.8 FL Neutrophils (%) (Auto) 72.2 % Lymphocytes (%) (Auto) 22.0 % Monocytes (%) (Auto) 3.6 % Eosinophils (%) (Auto) 0.6 % Basophils (%) (Auto) 1.6 % Neutrophils # (Auto) 3.6 TH/MM3 Lymphocytes # (Auto) 1.1 TH/MM3 Monocytes # (Auto) 0.2 TH/MM3 Eosinophils # (Auto) 0.0 TH/MM3 Basophils # (Auto) 0.1 TH/MM3 CBC Comment DIFF FINAL Differential Comment Blood Urea Nitrogen 12 MG/DL Creatinine 0.94 MG/DL Random Glucose 163 MG/DL Total Protein 7.1 GM/DL Albumin 2.7 GM/DL Calcium Level 8.3 MG/DL Alkaline Phosphatase 101 U/L Aspartate Amino Transf (AST/SGOT) 17 U/L Alanine Aminotransferase (ALT/SGPT) 11 U/L Total Bilirubin 2.4 MG/DL Sodium Level 135 MEQ/L Potassium Level 4.4 MEQ/L Chloride Level 101 MEQ/L Carbon Dioxide Level 23.0 MEQ/L Anion Gap 11 MEQ/L Estimat Glomerular Filtration Rate 79 ML/MIN Lactic Acid Level 5.5 mmol/L 3.0 mmol/L Prothrombin Time 13.3 SEC Prothromb Time International Ratio 1.2 RATIO Activated Partial Thromboplast Time 24.6 SEC MDM Medical Decision Making Medical Screen Exam Complete: Yes Emergency Medical Condition: Yes Differential Diagnosis Falls, bowel incarceration, ischemic bowel, SBO, bowel perforation Narrative Course Assessment and plan discussed with patient and at bedside. Elevated lactic acid. Last 72 hours Impressions Abdomen/Pelvis CT 05/03/17 1509 Signed Impressions: Service Date/Time: Wednesday, May 03, 2017 16:40 - CONCLUSION: 1. Abnormal inflamed sigmoid colon with severe diverticulosis and pericolonic stranding with 2 foci air/fluid collections measuring up to 2.9 cm consistent with perforation and abscess formation. There are a few tiny locules of free air seen anterior to this, moderate ascites and peritoneal enhancement which can be seen with peritonitis. 2. 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 3. Body wall edema, bilateral pleural effusions right greater than left, and right lower lobe partial atelectasis and consolidation Thai Leung MD Physician Communication Physician Communication Spoke with Dr. Jackson who was in agreement will admit to ICU asset card clerk Spoke with Dr. Zarco who is in agreement will admit Diagnosis Primary Impression: Perforation of sigmoid colon Marvin Cuellar MD May 03, 2017 15:18
[2017-05-03] MEDS ORDERED: SODIUM CHLORID 0.9% 500 ML INJ 500 ML IV ONE ×2 (15:30→19:15)
[2017-05-03 15:32] LABS: AUTOMATED NEUTROPHIL # 3.6 TH/MM3 (1.8-7.7); BASOPHIL # 0.1 TH/MM3 (0-0.2); BASOPHIL % 1.6 % (0.0-2.0); EOSINOPHIL % 0.6 % (0.0-4.0); HEMATOCRIT 41.2 % (39.0-51.0); HEMO FLAGS DIFF FINAL; LYMPHOCYTE # 1.1 TH/MM3 (1.0-4.8); MEAN CELL VOLUME 83.9 FL (80.0-100.0); MEAN CORPUSCULAR HGB CONC 32.2 % (32.0-36.0); MONO % 3.6 % (0.0-8.0); NEUT % 72.2 % (16.0-70.0); PLATELET COUNT 259 TH/MM3 (150-450); RED BLOOD COUNT 4.91 MIL/MM3 (4.50-5.90); RED CELL DISTRIBUTION WIDTH 18.1 % (11.6-17.2)
[2017-05-03] MEDS ORDERED: DIATRIZOATE MEGLUM/DIATRIZOATE SOD 9 ML CUP ONE (15:35)
[2017-05-03 15:43] LABS: CHLORIDE 101 MEQ/L (98-107); POTASSIUM 4.4 MEQ/L (3.5-5.1); SODIUM (NA) 135 MEQ/L (136-145)
[2017-05-03 15:46] LABS: ANION GAP 11 MEQ/L (5-15); BLOOD UREA NITROGEN 12 MG/DL (7-18)
[2017-05-03 15:49] LABS: ALT (GPT) 11 U/L (12-78); AST (GOT) 17 U/L (15-37); GLOMERULAR FILTRATION RATE 79 ML/MIN (>89)
[2017-05-03 15:51] LABS: TOTAL BILIRUBIN ADULT 2.4 MG/DL (0.2-1.0)
[2017-05-03 15:52] LABS: ALKALINE PHOSPHATASE 101 U/L (45-117)
[2017-05-03] MEDS ORDERED: IOHEXOL 350 MG/ML 10 ML VIAL (for RAD DIAG) IVCONTRAST ONE (16:53)
--- NOTE | 2017-05-03 17:07 | RADRPT ---
EXAM DATE/TIME: 05/03/2017 16:40 [facility] COMPARISON: CT ABDOMEN & PELVIS W/O CONTRAST, August 22, 2016, 15:15. INDICATIONS : Diffuse abdominal pain. IV CONTRAST: 95 cc Omnipaque 350 (iohexol) IV ORAL CONTRAST: Partial prescribed oral contrast ingested. RADIATION DOSE: 13.46 CTDIvol (mGy) MEDICAL HISTORY : Hypertension. Cardiovascular disease Melanoma. Anticoagulant therapy. SURGICAL HISTORY : Coronary artery stent. ENCOUNTER: Initial ACUITY: 1 day PAIN SCALE: 7/10 LOCATION: Bilateral abdomen TECHNIQUE: Volumetric scanning of the abdomen and pelvis was performed. Using automated exposure control and ad justment of the mA and/or kV according to patient size, radiation dose was kept as low as reasonably achievable to obtain optimal diagnostic quality images. DICOM format image data is available electro nically for review and comparison. FINDINGS: There are large bilateral effusions right greater than left. There is associated atelectasis at the b ases with partial collapse of the right lower lobe. There is a large amount of ascites within the abd omen and pelvis. Body wall edema is noted. Urinary bladder is thick walled and there is a diverticulu m seen on the left measuring 2.6 cm in maximal dimension. The prostate gland is enlarged. It measures 5 x 6.3 cm in AP and transverse dimension. There is diverticulosis of the sigmoid colon and descendi ng colon. Diverticuli are also seen in the transverse colon. There is abnormal circumferential bowel wall thickening involving the sigmoid colon, and this is concerning for diverticulitis. There is a fo param air and fluid collection along the sigmoid colon measuring 2.9 x 2.6 cm in AP and transverse dime nsion on axial image 72. A small diverticular abscess is suspected. Are there is also identified on c oronal image 47 and axial image 67 a small focus of air lucency and fluid along the anterior wall of the sigmoid colon possibly a small developing abscess or focal perforation. There is mild peritoneal enhancement. A fat containing umbilical hernia is identified. No adenopathy or aneurysm. Spleen, panc reas, adrenals, kidneys, liver unremarkable. Cholelithiasis is noted. Degenerative changes of the spi ne are seen, and patchy sclerosis and lucency of the femoral heads suspect for avascular necrosis wit h severe osteoarthritis. Atherosclerotic calcifications of the aorta and iliac vessels. CONCLUSION: 1. Abnormal inflamed sigmoid colon with severe diverticulosis and pericolonic stranding with 2 foci a ir/fluid collections measuring up to 2.9 cm consistent with perforation and abscess formation. There are a few tiny locules of free air seen anterior to this, moderate ascites and peritoneal enhancement which can be seen with peritonitis. 2. 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 3. Body wall edema, bilateral pleural effusions right greater than left, and right lower lobe partial atelectasis and consolidation Thai Leung MD on May 03, 2017 at 16:58 Board Certified Radiologist. This report was verified electronically.
[2017-05-03] MEDS ORDERED: HYDROmorphone HCL PF 0.5 MG/0.5 ML SYRINGE IV PUSH ONE (17:45)
[2017-05-03 17:50] LABS: APTT (PATIENT) 24.6 SEC (24.3-30.1); INTERNATIONAL NORMALIZED RATIO 1.2 RATIO; PROTHROMBIN TIME - PATIENT 13.3 SEC (9.8-11.6)
[2017-05-03] MEDS: SODIUM CHLOR 0.9% 1000 ML INJ 1,000 ML IV SCH (18:40)
[2017-05-03 18:42] LABS: BLOOD, URINE SMALL (NEG); GLUCOSE,URINE NEG (NEG); KETONE, URINE NEG (NEG); NITRITE,URINE NEG (NEG)
[2017-05-03] MEDS ORDERED: ONDANSETRON HCL 4 MG/2 ML VIAL IV PUSH PRN ×2 (18:45→22:45)
[2017-05-03 18:48] LABS: URINE COLOR AMBER (YELLW/STRAW)
[2017-05-03 18:49] LABS: RBC, URINE 0-3 /hpf (0-3); SQUAMOUS EPITHELIAL CELL URINE 0-5 /hpf (0-5); WBC, URINE 100-200 /hpf (0-5)
[2017-05-03 18:50] LABS: BACTERIA, URINE OCC /hpf; COMMENT (UR) CATH-CULTURE IND; CULTURE IF INDICATED CATH CULTURE IND
[2017-05-03] MEDS ORDERED: ACETAMINOPHEN 325 MG TAB PO PRN (19:00)
[2017-05-03] MEDS ORDERED: SODIUM CHLORID 0.9% 500 ML INJ 500 ML IV SCH (19:15)
[2017-05-03] MEDS ORDERED: TERBUTALINE INJ 1 MG/ML AMP SQ PRN (19:15)
[2017-05-03] MEDS ORDERED: HYDROmorphone HCL PF 0.5 MG/0.5 ML SYRINGE IV PUSH PRN (19:30)
[2017-05-03] MEDS: PHENYLEPHRINE INJ 40 MG in DEXTROSE 5% IN WATE 500 ML INJ 496 ML IV PRN ×2 (19:41)
[2017-05-03] MEDS ORDERED: PIPERACIL-TAZO 3.375 GM PREMIX 50 ML IV SCH (20:00)
[2017-05-03] MEDS: PIPERACIL-TAZO 4.5 GM PREMIX 100 ML IV SCH (20:03)
[2017-05-03 20:33] LABS: MAGNESIUM 2.4 MG/DL (1.5-2.5)
--- NOTE | 2017-05-03 20:45 | HHI.HP ---
HPI Service Critical Care Medicine Primary Care Physician Dejan Tony MD Admission Diagnosis Bowel perf Diagnosis: Travel History International Travel<30 Days: No Contact w/Intl Traveler <30 Da: No Traveled to Known Affected Are: No History of Present Illness 71-year-old male with past medical history of dilated cardiomyopathy with ejection fraction 20%, paroxysmal atrial fibrillation, hypercholesterolemia , coronary artery disease with KIKE 06/2016, prior stroke, hypertension, diabetes with diabetic foot ulcers, rheumatoid arthritis on disease modifying therapy with leflunomide, BPH who presented to [facility] with 2 days of abdominal pain. He states when he awoke from a nap this afternoon the pain was much more severe, 10/10 primary in right lower abdomen but also LLQ. Worse with cough or movement. No nausea or vomiting. No fever. He has been having chronic diarrhea and fecal incontinence. No BRBPR or melena. CT abd/ pelvis demonstrates inflamed sigmoid colon with diverticulitis. There are 2 foci of air fluid collections consistent with perforation and abscess formation. There is moderate ascites, peritoneal enhancement, bilateral pleural effusions right greater than left. WBC is 5. The ED physician consulted general surgery, Dr. Fox, who recommended transfer to [facility] and therefore administrator health care facility consult was placed. He is in septic shock with lactic acid 5.5. He is in A fib RVR in the 130s and initially normotensive with blood pressure 95/73 with map of 80. He received NS 500 bolus , Zofran 4 g IV, Dilaudid 0.2 mg IV in the emergency department. He became hypotensive with blood pressure 66/39 with mean arterial pressure of 48. I administered additional 1500 and 0.9 NaCL bolus and initiated Jayden-Synephrine to maintain MAP >65. I obtained blood and urine cultures and initiated Zosyn. Past Family Social History Allergies: Coded Allergies: atorvastatin (Verified Allergy, Severe, 05/03/17) azithromycin (Unverified Allergy, Severe, SWELLING, 05/03/17) levofloxacin (Verified Allergy, Severe, 05/03/17) Past Medical History His primary care physician is Dr. Jadiel Tony. Reportedly he was supposed to be referred to gastroenterology but no appointment had been set up yet. His vocational adviser is Frank burch He has seen Collin Burch before for his hernia His stove tender is Leah Obrien Dilated cardiomyopathy Paroxysmal atrial fibrillation - he is not chronically anticoagulated. He states he was previously on Eliquis but this was discontinued because he had multiple episodes of skin bleeding and epistaxis. Moderate mitral regurg Diabetes Hypercholesterolemia Coronary artery disease with prior stents Prior stroke Diabetes mellitus Diabetic foot ulcer Anterior abdominal wall hernia Melanoma Rheumatoid arthritis on disease modifying therapy with the fluid on my BPH Recurrent right pleural effusion Past Surgical History Removal of ganglion cyst from left hand Melanoma removal from left face ORIF bilateral feet Total right knee replacement Coronary artery disease with drug-eluting stents [address] Greer Right thoracentesis 03/25/17 with removal of 1800 cc of fluid Reported Medications Tamsulosin 0.4 mg by mouth twice a day Plavix 75 mill grams by mouth daily Coreg 3.125 mill grams by mouth twice a day Lisinopril 5 mill grams by mouth daily Potassium chloride 20 mEq by mouth twice a day Lasix 40 mg by mouth twice a day Leflunomide 20 mill grams by mouth daily Active Ordered Medications Current Medications Medications (Trade) Dose Ordered Sig/Gus Route Start Time Stop Time Status Last Admin (NS Flush) 2 ml UNSCH PRN IV FLUSH 05/03/17 15:15 05/03/17 17:40 Sodium Chloride 1,000 ml @ 84 mls/hr [id number] IV 05/03/17 18:30 05/03/17 18:40 Piperacillin Sod/ Tazobactam Sod 100 ml @ 200 mls/hr Q6H IV 05/03/17 20:00 05/03/17 20:03 (Zofran Inj) 4 mg Q6HR PRN IV PUSH 05/03/17 18:45 (Dilaudid Pf Inj) 0.2 mg Q4H PRN IV PUSH 05/03/17 19:30 (Dilaudid Pf Inj) 0.5 mg Q4H PRN IV PUSH 05/03/17 19:00 (Tylenol) 650 mg Q4H PRN PO 05/03/17 19:00 Phenylephrine HCl 40 mg/Dextrose 500 ml @ 30 mls/hr TITRATE PRN IV 05/03/17 19:15 05/03/17 19:41 (Brethine Inj) 1 mg UNSCH PRN SQ 05/03/17 19:15 Sodium Chloride 500 ml @ 50 mls/hr Q10H IV 05/03/17 19:15 05/04/17 05:14 05/03/17 20:04 Family History He was unable to provide any significant family medical history. All he stated was that his siblings have arthritis Social History He smokes cigarettes for 40 years. He quit "a long time ago" He he still smokes cigars He drinks 4-5 beers on night and Thursday night. Denies daily drinking. Physical Exam Vital Signs Vital Signs Date Time Temp Pulse Resp B/P (MAP) Pulse Ox O2 Delivery O2 Flow Rate FiO2 05/03/17 20:13 115 105/76 (86) 99 Nasal Cannula 2.00 05/03/17 20:02 82/56 (65) 05/03/17 19:50 73/55 (61) 05/03/17 19:41 114 72/50 05/03/17 19:30 72/45 (54) 05/03/17 19:00 125 18 66/39 (48) 97 Nasal Cannula 2.00 84/56 (65) 05/03/17 17:00 132 17 106/77 (87) 93 Room Air 05/03/17 15:58 128 17 103/68 (80) 92 Room Air 05/03/17 15:37 93 Room Air 05/03/17 14:26 98.2 114 18 95/73 (80) 91 Physical Exam GENERAL: Elderly male who is sitting up in ISC bed. SKIN: Warm and dry. HEAD: Atraumatic. Normocephalic. EYES: Pupils equal and round. No scleral icterus. No injection or drainage. ENT: No nasal bleeding or discharge. Mucous membranes dry. NECK: Trachea midline. CARDIOVASCULAR: irregularly irregular, 3/6 systolic murmur at apex. No S3 RESPIRATORY: Tachypneic with no accessory muscle use. There are Rales in the left base. Diminished by basilar. No wheeze GASTROINTESTINAL: MUSCULOSKELETAL: Extremities without clubbing, cyanosis. 2+ pitting edema bilateral lower extremities below the knee. NEUROLOGICAL: Awake and alert. No obvious cranial nerve deficits. Motor grossly within normal limits. Normal speech. He is oriented to hospital, year but he is confused, intermittently agitated, uncooperative. Laboratory Laboratory Tests Test 05/03/17 15:24 05/03/17 17:31 05/03/17 18:30 White Blood Count 5.0 Red Blood Count 4.91 Hemoglobin 13.3 Hematocrit 41.2 Mean Corpuscular Volume 83.9 Mean Corpuscular Hemoglobin 27.0 Mean Corpuscular Hemoglobin Concent 32.2 Red Cell Distribution Width 18.1 Platelet Count 259 Mean Platelet Volume 7.8 Neutrophils (%) (Auto) 72.2 Lymphocytes (%) (Auto) 22.0 Monocytes (%) (Auto) 3.6 Eosinophils (%) (Auto) 0.6 Basophils (%) (Auto) 1.6 Neutrophils # (Auto) 3.6 Lymphocytes # (Auto) 1.1 Monocytes # (Auto) 0.2 Eosinophils # (Auto) 0.0 Basophils # (Auto) 0.1 CBC Comment DIFF FINAL Differential Comment Blood Urea Nitrogen 12 Creatinine 0.94 Random Glucose 163 Total Protein 7.1 Albumin 2.7 Calcium Level 8.3 Alkaline Phosphatase 101 Aspartate Amino Transf (AST/SGOT) 17 Alanine Aminotransferase (ALT/SGPT) 11 Total Bilirubin 2.4 Sodium Level 135 Potassium Level 4.4 Chloride Level 101 Carbon Dioxide Level 23.0 Anion Gap 11 Estimat Glomerular Filtration Rate 79 Lactic Acid Level 5.5 3.0 Phosphorus Level 3.3 Magnesium Level 2.4 Lipase 46 Prothrombin Time 13.3 Prothromb Time International Ratio 1.2 Activated Partial Thromboplast Time 24.6 Urine Color DOMINICK Urine Turbidity CLOUDY Urine pH 5.0 Urine Specific Ruby 1.025 Urine Protein NEG Urine Glucose (UA) NEG Urine Ketones NEG Urine Occult Blood SMALL Urine Nitrite NEG Urine Bilirubin NEG Urine Leukocyte Esterase MOD Urine RBC 0-3 Urine WBC 100-200 Urine Squamous Epithelial Cells 0-5 Urine Amorphous Sediment SMALL Urine Bacteria OCC Microscopic Urinalysis Comment CATH-CULTURE IND Date/Time Source Procedure Growth Status 05/03/17 18:45 Blood Peripheral Aerobic Blood Culture Pending Received 05/03/17 18:45 Blood Peripheral Anaerobic Blood Culture Pending Received 05/03/17 18:30 Urine Catheterized Urine Urine Culture Pending Received Result Diagram: 05/03/17 1524 05/03/17 1524 Septic Shock Reassessment Heart: Irregular Lungs: Crackles Peripheral Pulses: Weak Right Radial Weak Left Radial Weak Right Dorsalis Pedis Weak Left Dorsalis Pedis Weak Left Posterior Tibial Capillary Refill: Sluggish Caprini VTE Risk Assessment Caprini VTE Risk Assessment: Mod/High Risk (score >= 2) Caprini Risk Assessment Model Point Value = 1 Point Value = 2 Point Value = 3 Point Value = 5 Age 41-60 Minor surgery BMI > 25 kg/m2 Swollen legs Varicose veins or History of unexplained or recurrent spontaneous Oral contraceptives or hormone replacement Sepsis (< 1 month) Serious lung disease, including pneumonia (< 1 month) Abnormal pulmonary function Acute myocardial infarction Congestive heart failure (< 1 month) History of inflammatory bowel disease Medical patient at bed rest Age 61-74 Arthroscopic surgery Major open surgery (> 45 min) Laparoscopic surgery (> 45 min) Malignancy Confined to bed (> 72 hours) Immobilizing plaster cast Central venous access Age >= 75 History of VTE Family history of VTE Factor V Leiden Prothrombin [id number] Lupus anticoagulant Anticardiolipin antibodies Elevated serum homocysteine Heparin-induced thrombocytopenia Other congenital or acquired thrombophilia Stroke (< 1 month) Elective arthroplasty Hip, pelvis, or leg fracture Acute spinal cord injury (< 1 month) Prophylaxis Regimen Total Risk Factor Score Risk Level Prophylaxis Regimen 0-1 Low Early ambulation 2 Moderate Order ONE of the following: *Sequential Compression Device (SCD) *Heparin 5000 units SQ BID 3-4 Higher Order ONE of the following medications: *Heparin 5000 units SQ TID *Enoxaparin/Lovenox 40 mg SQ daily (WT < 150 kg, CrCl > 30 mL/min) *Enoxaparin/Lovenox 30 mg SQ daily (WT < 150 kg, CrCl > 10-29 mL/min) *Enoxaparin/Lovenox 30 mg SQ BID (WT < 150 kg, CrCl > 30 mL/min) AND/OR *Sequential Compression Device (SCD) 5 or more Highest Order ONE of the following medications: *Heparin 5000 units SQ TID (Preferred with Epidurals) *Enoxaparin/Lovenox 40 mg SQ daily (WT < 150 kg, CrCl > 30 mL/min) *Enoxaparin/Lovenox 30 mg SQ daily (WT < 150 kg, CrCl > 10-29 mL/min) *Enoxaparin/Lovenox 30 mg SQ BID (WT < 150 kg, CrCl > 30 mL/min) AND *Sequential Compression Device (SCD) Assessment and Plan Assessment and Plan NEURO: Prior stroke Pain Tylenol as needed for mild pain or fever Dilaudid 0.2 - 0.5 mg IV every 4 hours as needed for pain. RESP: Right pleural effusion Nasal cannula to maintain sats greater than 92% Incentive spirometry every hour awake Has previously had right thoracentesis 03/25/17 with 1800 removed, pleural fluid studies c/w transudative. Cytology negative for malignant cells Will likely need R thoracentesis but it is not currently necessary. He is presently very uncooperative and has been on Plavix so will defer. Patient known to Dr. Frank Burch. CV: Dilated cardiomyopathy Moderate mitral regurgitation Paroxysmal atrial fibrillation, RVR Hypertension Hyperlipidemia Coronary artery disease with prior stents Septic shock Lactic acidemia Neosynephrine started initially maintain MAP greater than 65 in setting of A fib RVR in 130s. Rate control achieved with Digoxin. Will transition to Levophed for septic shock. If needed, will add vasopressin and stress dose steroids. Received total of 1500 fluid bolus. On 0.9 NaCl at 84 ml/hr. Trending serial lactic acid. Obtain VBG. CVP monitoring - 10 Hold home Coreg 3.125 mill grams by mouth twice a day due to hypotension. Hold lisinopril 5 mill grams by mouth daily due to hypotension. Hold Plavix GI: Diverticulitis with perforation and abscess x2 Nothing by mouth General surgery consult with recommendations to follow. Dr. Manuel shell will discuss with IR for possible perc drainage. FEN/RENAL: Hyponatremia BPH Insert Jackson to monitor intake and output as marker of organ perfusion in the setting of septic shock. Monitor electrolytes and replace as clinically indicated. Check magnesium and phos now. Hold tamsulosin due to hypotension. Hold home Lasix and supplemental potassium currently due to septic shock. ID: Septic shock Perforated diverticulitis with abscess Immunocompromised state Rheumatoid arthritis (on disease modifying therapy with Leflunomide) ?UTI Send blood cultures now. Send urinalysis and urine culture, sputum culture. Zosyn 4.5 g IV every 6 hours due to complicated diverticulitis. Hold leflunomide due to sepsis. (Long elimination half life of 19 days) He reports intolerance to statin, azithromycin and levaquin which have severely exacerbated his RA in the past requiring admission. HEME: Monitor CBC ENDO: Diabetes mellitus Monitor bedside glucose every 6 hours and administer low-dose insulin sliding scale as indicated. SKIN: Melanoma, removed from left face MSK: Avascular necrosis bilateral hips Osteoarthritis bilateral hips Status post right hip replacement PROPH: SCDs for DVT prophylaxis. Hold on pharmacologic DVT prophylaxis pending procedural decision. Famotidine 20 mg IV every 12 hours for stress ulcer prophylaxis. ACCESS: Right IJ CVL placed 05/03 #1 Patient is critically ill and hypotensive requiring initiation of pressors and assessed sedation with fluids. Required initiation of antibiotics for sepsis. He is at high risk for further decompensation with worsening shock or respiratory failure requiring intubation. He will need to remain in ISC Patient and updated at bedside. Full code Critical care time 55 minutes exclusive of separately billable procedures. Rubi Mccoy MD May 03, 2017 20:45
[2017-05-03] MEDS ORDERED: POTASSIUM PHOSPHATE MONOBASIC 500 MG TAB PO PRN (21:30)
[2017-05-03] MEDS ORDERED: POTASSIUM CHLORIDE 25 MEQ EFFERVESCENT TAB PO PRN (21:30)
[2017-05-03] MEDS ORDERED: MAGNESIUM OXIDE 400 MG TAB PO PRN (21:30)
[2017-05-03] MEDS ORDERED: POTASSIUM PHOSPHATE INJ 30 MMOL in SODIUM CHLOR 0.9% 250 ML INJ 250 ML IV PRN (21:30)
[2017-05-03] MEDS: INSULIN ASPART SUPPLEMENTAL SCALE SQ SCH (21:30)
[2017-05-03] MEDS ORDERED: POTASSIUM PHOSPHATE MONOBASIC 500 MG TAB PO/TUBE PRN (21:30)
[2017-05-03] MEDS ORDERED: POTASSIUM CHLOR 40 MEQ PREMIX 100 ML IV PRN (21:30)
[2017-05-03] MEDS ORDERED: GLUCAGON 1 MG/ML VIAL OTHER PRN (21:30)
[2017-05-03] MEDS ORDERED: MAGNESIUM SULFATE INJ 2 GM in SODIUM CHLORIDE 0.9% INJ 96 ML IV PRN (21:30)
[2017-05-03] MEDS ORDERED: POTASSIUM CHLOR 20 MEQ PREMIX 100 ML IV PRN ×2 (21:30)
[2017-05-03] MEDS ORDERED: MAGNESIUM SULFATE INJ 4 GM in SODIUM CHLORIDE 0.9% INJ 92 ML IV PRN (21:30)
[2017-05-03] MEDS ORDERED: SODIUM PHOSPHATE INJ 30 MMOL in SODIUM CHLOR 0.9% 250 ML INJ 240 ML IV PRN (21:30)
[2017-05-03] MEDS ORDERED: DEXTROSE 50% IN WATER 50 ML VIAL(D50) IV PUSH PRN (21:30)
--- NOTE | 2017-05-03 22:23 | PD.PROCEDR ---
Central Line Procedure DATE: 05/03/17 CENTRAL LINE PLACEMENT: Right internal jugular vein. INDICATION: Central venous access CONSENT Patient was Confused and not capacitated for medical decision-making. Informed consent for procedure was obtained from patient's after discussion of risks , benefits, alternatives. DESCRIPTION OF THE PROCEDURE The patient was placed in supine position, Trendelenburg. The skin was cleansed with Chloraprep 4. Additional barrier precautions included large sterile drape, sterile gloves, sterile gown, face mask, and hat. 1 % lidocaine was used for local anesthesia. Under direct ultrasound guidance and on single attempt, the vein was accessed with an introducer needle. The guide wire was advanced and the tract was dilated. Using Seldinger technique a 7 Bulgarian 20 cm antimicrobial coated triple-lumen catheter was advanced to a depth of 18 centimeters. The guide wire was removed. All ports had good return of dark venous blood and flushed easily with saline. The central line was secured with 2.0 silk. A sterile dressing with antibiotic disc was applied. ESTIMATED BLOOD LOSS: Minimal COMPLICATIONS: No apparent complications. STAT chest x-ray is pending Rubi Mccoy MD May 03, 2017 22:23
[2017-05-03] MEDS: HYDROmorphone HCL PF 0.5 MG/0.5 ML SYRINGE IV PUSH PRN (22:26)
[2017-05-03] MEDS ORDERED: DIGOXIN 0.5 MG/2 ML VIAL IV PUSH ONE (22:30)
[2017-05-03] MEDS ORDERED: SENNOSIDES 8.6 MG TAB PO PRN (22:45)
[2017-05-03] MEDS ORDERED: BISACODYL 10 MG SUPP RECTAL PRN (22:45)
[2017-05-03] MEDS ORDERED: MISCELLANEOUS NURSING INFORMATION XX SCH (22:45)
[2017-05-03] MEDS ORDERED: LACTULOSE SYRUP 20 GM/30 ML CUP PO PRN (22:45)
[2017-05-03] MEDS ORDERED: MAGNESIUM HYDROXIDE SUSP 30 ML CUP PO PRN (22:45)
[2017-05-03] MEDS ORDERED: RESP: ALBUTEROL 2.5 MG/3 ML NEB (PRN) INH (22:45)
[2017-05-03] MEDS ORDERED: CHLORHEXIDINE GLUCONATE 2 % 1 PACK (2 CLOTHS) TOP PRN (22:45)
--- NOTE | 2017-05-03 22:46 | RADRPT ---
EXAM DATE/TIME: 05/03/2017 22:26 [place] COMPARISON: CHEST EXPIRATION ONLY, March 25, 2017, 10:52. CHEST SINGLE AP, October 16, 2016, 9:52. INDICATIONS : Evaluate central line placement MEDICAL HISTORY : Hypertension. Cardiovascular disease Melanoma. Anticoagulant therapy. SURGICAL HISTORY : Coronary artery stent ENCOUNTER: Initial ACUITY: 1 day PAIN SCORE: 0/10 LOCATION: chest FINDINGS: Right-sided IJ central venous catheter is in place with the tip at cavoatrial junction. No evidence o f pneumothorax. Prominent diffuse confluent right-sided parenchymal opacity and likely moderate-sized right pleural effusion. Moderate cardiac silhouette enlargement. CONCLUSION: 1. Right IJ central venous catheter in place with tip at the cavoatrial junction. No evidence of pneu mothorax. 2. Prominent right lung consolidation and likely moderate-sized right pleural effusion. Tian Aranda MD on May 03, 2017 at 22:43 Board Certified Radiologist. This report was verified electronically.
[2017-05-03 22:50] LABS: BLOOD GAS VENOUS BASE EXCESS -0.1 mmol/L (-2-2); BLOOD GAS VENOUS HCO3 24 mmol/L (22-26); BLOOD GAS VENOUS O2 CONTENT 7.8 Vol % (9.0-17.0); BLOOD GAS VENOUS O2 HGB SAT 45 % (70-76); BLOOD GAS VENOUS PCO2 38 mmHg (44-48); BLOOD GAS VENOUS PO2 30 mmHg (35-40); BLOOD GAS VENOUS pH 7.41 (7.360-7.400); CRITICAL VALUE NO; LITER FLOW 6 L/M; OXYGEN DEVICE SM; TEMP CORR TO 98.6
[2017-05-03 22:51] LABS: DRAW SITE RN
[2017-05-03 23:30] LABS: LACTIC ACID GHOST NOT REPORTABLE
[2017-05-04] VITALS (13 sets, daily range): BP systolic 97–129; BP diastolic 58–89; PULSE 88–107; RESP 21–25; TEMP 98.4–98.8; O2SAT 95–100
[2017-05-04] MEDS: PHENYLEPHRINE INJ 40 MG in DEXTROSE 5% IN WATE 500 ML INJ 496 ML IV PRN ×4 (01:00→05:36)
[2017-05-04] MEDS: PIPERACIL-TAZO 4.5 GM PREMIX 100 ML IV SCH ×4 (01:17→19:53)
[2017-05-04] MEDS: INSULIN ASPART SUPPLEMENTAL SCALE SQ SCH ×4 (03:21→21:30)
[2017-05-04] MEDS: HYDROmorphone HCL PF 0.5 MG/0.5 ML SYRINGE IV PUSH PRN ×4 (03:24→18:20)
[2017-05-04] MEDS: CHLORHEXIDINE GLUCONATE 2 % 1 PACK (2 CLOTHS) TOP SCH (03:29)
[2017-05-04] MEDS ORDERED: TERBUTALINE INJ 1 MG/ML AMP SQ PRN (04:00)
[2017-05-04] MEDS: NOREPINEPHRINE-DEXTROSE DRIP 250 ML IV PRN ×3 (04:04→16:39)
[2017-05-04 05:15] LABS: AUTOMATED NEUTROPHIL # 9.2 TH/MM3 (1.8-7.7); BASOPHIL % 0.2 % (0.0-2.0); HEMO FLAGS DIFF FINAL; LYMPH % 7.8 % (9.0-44.0); LYMPHOCYTE # 0.8 TH/MM3 (1.0-4.8); MEAN CELL VOLUME 84.2 FL (80.0-100.0); MEAN CORPUSCULAR HGB CONC 33.3 % (32.0-36.0); PLATELET COUNT 227 TH/MM3 (150-450); RED BLOOD COUNT 4.28 MIL/MM3 (4.50-5.90); RED CELL DISTRIBUTION WIDTH 18.4 % (11.6-17.2); WHITE BLOOD COUNT 10.8 TH/MM3 (4.0-11.0)
[2017-05-04 05:28] LABS: BLOOD GAS VENOUS BASE EXCESS -0.6 mmol/L (-2-2); BLOOD GAS VENOUS HCO3 24 mmol/L (22-26); BLOOD GAS VENOUS O2 CONTENT 9.2 Vol % (9.0-17.0); BLOOD GAS VENOUS O2 HGB SAT 55 % (70-76); BLOOD GAS VENOUS PCO2 40 mmHg (44-48); BLOOD GAS VENOUS PO2 35 mmHg (35-40); TEMP CORR TO 98.6
[2017-05-04 05:29] LABS: CRITICAL VALUE NO; DRAW SITE RN; LITER FLOW 6 L/M; OXYGEN DEVICE SM
[2017-05-04 05:47] LABS: BICARBONATE 22.8 MEQ/L (21.0-32.0); CALCIUM-PROTEIN CORRECTED 8.1 MG/DL (8.5-10.1); MAGNESIUM 2.1 MG/DL (1.5-2.5); POTASSIUM 4.1 MEQ/L (3.5-5.1); TOTAL BILIRUBIN ADULT 2.9 MG/DL (0.2-1.0)
[2017-05-04] MEDS: SODIUM CHLOR 0.9% 1000 ML INJ 1,000 ML IV SCH ×2 (05:50→17:47)
[2017-05-04] MEDS: DIGOXIN 0.5 MG/2 ML VIAL IV PUSH SCH ×2 (05:50→12:09)
[2017-05-04] MEDS: DOCUSATE SODIUM 50 MG/SENNA 8.6 MG TAB PO SCH ×2 (07:55→19:54)
[2017-05-04] MEDS: FAMOTIDINE 20 MG/2 ML VIAL IV PUSH SCH ×2 (07:55→19:54)
--- NOTE | 2017-05-04 08:57 | HHI.CCPN ---
Subjective Remarks/Hospital Course Hospital Course: 71-year-old male with past medical history of dilated cardiomyopathy with ejection fraction 20%, paroxysmal atrial fibrillation, hypercholesterolemia , coronary artery disease with KIKE 06/2016, prior stroke, hypertension, diabetes with diabetic foot ulcers, rheumatoid arthritis on disease modifying therapy with leflunomide, BPH who presented to [facility] with 2 days of abdominal pain. He states when he awoke from a nap this afternoon the pain was much more severe, 10/10 primary in right lower abdomen but also LLQ. Worse with cough or movement. No nausea or vomiting. No fever. He has been having chronic diarrhea and fecal incontinence. No BRBPR or melena. CT abd/ pelvis demonstrates inflamed sigmoid colon with diverticulitis. There are 2 foci of air fluid collections consistent with perforation and abscess formation. There is moderate ascites, peritoneal enhancement, bilateral pleural effusions right greater than left. WBC is 5. The ED physician consulted general surgery, Dr. Fox, who recommended transfer to [facility] and therefore direct support worker consult was placed. He is in septic shock with lactic acid 5.5. He is in A fib RVR in the 130s and initially normotensive with blood pressure 95/73 with map of 80. He received NS 500 bolus , Zofran 4 g IV, Dilaudid 0.2 mg IV in the emergency department. He became hypotensive with blood pressure 66/39 with mean arterial pressure of 48. I administered additional 1500 and 0.9 NaCL bolus and initiated Jayden-Synephrine to maintain MAP >65. I obtained blood and urine cultures and initiated Zosyn. Subjective: 05/04: remains on levophed at 12 mcg/min. remains in shock. on facemask o2, but remarkably comfortable. cvp 8. endorses abdominal pain, otherwise ROS negative. Objective Vital Signs Date Time Temp Pulse Resp B/P (MAP) Pulse Ox O2 Delivery O2 Flow Rate FiO2 05/04/17 08:25 24 05/04/17 08:20 99 Simple Mask 6.00 05/04/17 05:36 105 102/66 05/04/17 04:00 98.7 Intake and Output 05/04/17 05/04/17 05/05/17 08:00 16:00 00:00 Intake Total 1100 ml Output Total 400 ml Balance 700 ml Result Diagram: 05/04/17 0455 05/04/17 0455 Other Results Laboratory Tests Test 05/03/17 22:36 05/04/17 05:19 Blood Gas Puncture Site RN RN Blood Gas Patient Temperature 98.6 98.6 Venous Blood pH 7.41 (7.360-7.400) 7.40 (7.360-7.400) Venous Blood Partial Pressure CO2 38 mmHg (44-48) 40 mmHg (44-48) Venous Blood Partial Pressure O2 30 mmHg (35-40) 35 mmHg (35-40) Venous Blood HCO3 24 mmol/L (22-26) 24 mmol/L (22-26) Venous Blood Oxygen Saturation 45 % (70-76) 55 % (70-76) Venous Blood Oxygen Content 7.8 Vol % (9.0-17.0) 9.2 Vol % (9.0-17.0) Venous Blood Base Excess -0.1 mmol/L (-2-2) -0.6 mmol/L (-2-2) Oxygen Delivery Device SM SM Blood Gas Liter Flow 6 L/M 6 L/M Objective Remarks GENERAL: Elderly male who is sitting up in ISC bed. SKIN: Warm and dry. HEAD: Atraumatic. Normocephalic. EYES: Pupils equal and round. No scleral icterus. No injection or drainage. ENT: No nasal bleeding or discharge. Mucous membranes dry. NECK: Trachea midline. CARDIOVASCULAR: irregularly irregular, 3/6 systolic murmur at apex. No S3 RESPIRATORY: Tachypneic with no accessory muscle use. There are Rales in the left base. Diminished by basilar. No wheeze GASTROINTESTINAL: abd mildly distended. moderately tender to palpation. + guarding. MUSCULOSKELETAL: Extremities without clubbing, cyanosis. 2+ pitting edema bilateral lower extremities below the knee. NEUROLOGICAL: Awake and alert. No obvious cranial nerve deficits. Motor grossly within normal limits. Normal speech. follows commands. A/P Assessment and Plan Assessment: 71yM with perforated diverticulitis, intra-abdominal sepsis, septic shock. unfortunately, IR not able to find drainable fluid collection. given medical comorbidities, prohibitively high risk for exploratory laparotomy. will manage conservatively unless decompensated shock. remains critically ill on vasopressors in shock. continue ivf resuscitation and levophed. close monitoring : CHF and depressed EF may compete with septic shock and may develop respiratory or cardiac failure. highly complex. NEURO: Prior stroke Abdominal Pain Tylenol as needed for mild pain or fever Dilaudid 0.2 - 0.5 mg IV every 4 hours as needed for pain. RESP: Right pleural effusion Acute hypoxemia face mask to maintain sats greater than 92% Incentive spirometry every hour awake Has previously had right thoracentesis 03/25/17 with 1800 removed, pleural fluid studies c/w transudative. Cytology negative for malignant cells Will likely need R thoracentesis but it is not currently necessary. He is presently very uncooperative and has been on Plavix so will defer. Patient known to Dr. Frank Burch. CV: Dilated cardiomyopathy Moderate mitral regurgitation Paroxysmal atrial fibrillation, RVR Hypertension Hyperlipidemia Coronary artery disease with prior stents Septic shock Lactic acidemia Levophed for map goal > 65 mmHg. continue mivf NS @ 84 cc/hr. Trending serial lactic acid. CVP monitoring Hold home Coreg 3.125 mill grams by mouth twice a day due to hypotension. Hold lisinopril 5 mill grams by mouth daily due to hypotension. Hold Plavix GI: Diverticulitis with perforation and abscess x2 Intra-abdominal sepsis Nothing by mouth General surgery consult: Dr. Manuel glass. FEN/RENAL: Hyponatremia BPH continue Jackson to monitor intake and output as marker of organ perfusion in the setting of septic shock. Monitor electrolytes and replace as clinically indicated. Check magnesium and phos now. Hold tamsulosin due to hypotension. Hold home Lasix and supplemental potassium currently due to septic shock. ID: Septic shock Perforated diverticulitis with abscess Immunocompromised state Rheumatoid arthritis (on disease modifying therapy with Leflunomide) ?UTI f/u culture data Zosyn 4.5 g IV every 6 hours due to complicated diverticulitis. Hold leflunomide due to sepsis. (Long elimination half life of 19 days) He reports intolerance to statin, azithromycin and levaquin which have severely exacerbated his RA in the past requiring admission. HEME: Monitor CBC ENDO: Diabetes mellitus Monitor bedside glucose every 6 hours and administer low-dose insulin sliding scale as indicated. SKIN: Melanoma, removed from left face MSK: Avascular necrosis bilateral hips Osteoarthritis bilateral hips Status post right hip replacement PROPH: SCDs for DVT prophylaxis. Hold on pharmacologic DVT prophylaxis pending procedural decision. Famotidine 20 mg IV every 12 hours for stress ulcer prophylaxis. ACCESS: Right IJ CVL placed 05/03 #2 Patient is critically ill and hypotensive requiring initiation of pressors. Remain in ISC. Patient and updated at bedside. Full code Critical care time 34 minutes exclusive of separately billable procedures. Ryan Rogel MD May 04, 2017 08:57
[2017-05-04] MEDS: SODIUM CHLORIDE 0.9% FLUSH 10 ML FLUSH IV FLUSH SCH ×2 (09:00→19:54)
--- NOTE | 2017-05-04 14:35 | PD.CAR.PN ---
CVT Progress Note Subjective/Hospital Course: 05/04/17 Unfortunate gentleman with multiple medical problems including low ejection fraction of about 20%. Now with acute diverticulitis with microperforation Every attempt should be made to manage this patient conservatively and avoid major surgery because risk of this is very high mortality in patient with multiple comorbidities and ejection fraction 20% range is very high as well. I discussed the care with the radiology and the small size contain microperforation of course is not amiable to any drainage Patient should be managed with antibiotics and we'll see how he does Will continue follow Objective: Vital Signs Date Time Temp Pulse Resp B/P (MAP) Pulse Ox O2 Delivery O2 Flow Rate FiO2 05/04/17 14:00 94 05/04/17 12:00 107 05/04/17 12:00 98.4 107 23 103/89 (94) 100 05/04/17 10:43 92 97/65 05/04/17 10:00 92 05/04/17 08:25 24 05/04/17 08:20 99 Simple Mask 6.00 05/04/17 08:00 96 05/04/17 08:00 98.7 96 23 113/58 (76) 100 05/04/17 07:00 100 Simple Mask 9.00 05/04/17 07:00 94 05/04/17 05:36 105 102/66 05/04/17 04:04 93 97/59 05/04/17 04:00 98.7 90 25 97/59 (72) 95 05/04/17 01:00 89 90/52 05/04/17 00:00 98.6 98 24 99/63 (75) 96 05/04/17 00:00 Simple Mask 9.00 05/03/17 23:24 97 Simple Mask 6.00 05/03/17 23:00 112 88/55 05/03/17 22:30 118 83/55 05/03/17 22:20 96 87/50 05/03/17 22:12 114 85/50 05/03/17 22:05 90 84/40 05/03/17 22:00 118 96/60 05/03/17 21:50 112 83/65 05/03/17 21:40 112 86/55 05/03/17 21:30 118 83/55 05/03/17 21:20 112 83/40 05/03/17 21:11 98.6 114 28 101/55 (70) 90 05/03/17 20:30 05/03/17 20:13 115 105/76 (86) 99 Nasal Cannula 2.00 05/03/17 20:02 82/56 (65) 05/03/17 19:50 73/55 (61) 05/03/17 19:41 114 72/50 05/03/17 19:30 72/45 (54) 05/03/17 19:00 125 18 66/39 (48) 97 Nasal Cannula 2.00 84/56 (65) 05/03/17 17:00 132 17 106/77 (87) 93 Room Air 05/03/17 15:58 128 17 103/68 (80) 92 Room Air 05/03/17 15:37 93 Room Air Labs: Laboratory Tests Test 05/04/17 04:55 05/04/17 05:19 05/04/17 07:10 05/04/17 13:10 White Blood Count 10.8 TH/MM3 (4.0-11.0) Red Blood Count 4.28 MIL/MM3 (4.50-5.90) Hemoglobin 12.0 GM/DL (13.0-17.0) Hematocrit 36.0 % (39.0-51.0) Mean Corpuscular Volume 84.2 FL (80.0-100.0) Mean Corpuscular Hemoglobin 28.0 PG (27.0-34.0) Mean Corpuscular Hemoglobin Concent 33.3 % (32.0-36.0) Red Cell Distribution Width 18.4 % (11.6-17.2) Platelet Count 227 TH/MM3 (150-450) Mean Platelet Volume 7.7 FL (7.0-11.0) Neutrophils (%) (Auto) 85.0 % (16.0-70.0) Lymphocytes (%) (Auto) 7.8 % (9.0-44.0) Monocytes (%) (Auto) 7.0 % (0.0-8.0) Eosinophils (%) (Auto) 0.0 % (0.0-4.0) Basophils (%) (Auto) 0.2 % (0.0-2.0) Neutrophils # (Auto) 9.2 TH/MM3 (1.8-7.7) Lymphocytes # (Auto) 0.8 TH/MM3 (1.0-4.8) Monocytes # (Auto) 0.8 TH/MM3 (0-0.9) Eosinophils # (Auto) 0.0 TH/MM3 (0-0.4) Basophils # (Auto) 0.0 TH/MM3 (0-0.2) CBC Comment DIFF FINAL Differential Comment Blood Urea Nitrogen 18 MG/DL (7-18) Creatinine 1.07 MG/DL (0.60-1.30) Random Glucose 162 MG/DL (74-106) Total Protein 5.8 GM/DL (6.4-8.2) Albumin 2.1 GM/DL (3.4-5.0) Calcium Level 7.4 MG/DL (8.5-10.1) Phosphorus Level 3.5 MG/DL (2.5-4.9) Magnesium Level 2.1 MG/DL (1.5-2.5) Alkaline Phosphatase 71 U/L (45-117) Aspartate Amino Transf (AST/SGOT) 11 U/L (15-37) Alanine Aminotransferase (ALT/SGPT) 13 U/L (12-78) Total Bilirubin 2.9 MG/DL (0.2-1.0) Sodium Level 134 MEQ/L (136-145) Potassium Level 4.1 MEQ/L (3.5-5.1) Chloride Level 101 MEQ/L (98-107) Carbon Dioxide Level 22.8 MEQ/L (21.0-32.0) Anion Gap 10 MEQ/L (5-15) Estimat Glomerular Filtration Rate 68 ML/MIN (>89) Lactic Acid Level 1.9 mmol/L (0.4-2.0) Protein Corrected Calcium 8.1 MG/DL (8.5-10.1) Blood Gas Puncture Site RN Blood Gas Patient Temperature 98.6 Venous Blood pH 7.40 (7.360-7.400) Venous Blood Partial Pressure CO2 40 mmHg (44-48) Venous Blood Partial Pressure O2 35 mmHg (35-40) Venous Blood HCO3 24 mmol/L (22-26) Venous Blood Oxygen Saturation 55 % (70-76) Venous Blood Oxygen Content 9.2 Vol % (9.0-17.0) Venous Blood Base Excess -0.6 mmol/L (-2-2) Oxygen Delivery Device SM Blood Gas Liter Flow 6 L/M Troponin I 0.10 NG/ML (0.02-0.05) 0.09 NG/ML (0.02-0.05) Result Diagram: 05/04/17 0455 05/04/17 0455 Geovanny Fox MD May 04, 2017 14:35
--- NOTE | 2017-05-04 14:58 | MB ---
cc: MATTHEW PITTS MD DATE OF CONSULTATION: 05/03/[address] Pitts. REASON FOR CONSULTATION Acute diverticulitis. Diverticular small abscess. Hypotension. Critical care time: 40 minutes. HISTORY OF PRESENT ILLNESS This 71-year-old male presented to [facility] with abdominal pain. The patient stated he had abdominal pain for about 2 weeks but now it became worse. No nausea or vomiting. No fever. The patient was worked up and found to have contained perforated sigmoid diverticulitis. Considering that the patient has a complex medical history I recommended he be transferred to the main hospital ICU for further care and possibly surgery in the future. The patient is currently in the ICU. PAST MEDICAL HISTORY Past medical history is very complex. 1. The patient has dilated cardiomyopathy with ejection fraction of 20%. 2. Paroxysmal atrial fibrillation with RVR which he is currently in. 3. Coronary artery disease. 4. Stroke. 5. Hypertension. 6. Diabetes mellitus with foot ulcers. 7. Rheumatoid arthritis. 8. Benign prostatic hypertrophy. PAST SURGICAL HISTORY 1. Repeated thoracentesis on the right side. 2. Knee replacement about two years ago. 3. Coronary artery angioplasty with stent placement. MEDICATION Medications can be found on the record. SOCIAL HISTORY The patient does not smoke or drink. PHYSICAL EXAMINATION GENERAL: Physical examination reveals a frail 71-year-old gentleman. HEENT: Normocephalic. No trauma to the head. Pupils equally reactive. Extraocular muscles intact. The patient is awake, alert and oriented. CHEST: Bilateral breath sounds. HEART: Irregular rhythm. The patient is in atrial fibrillation with rapid ventricular response, heart rate about 120-130. Hemodynamically he is stable. However, requiring some Jayden-Synephrine to maintain mean arterial pressure. ABDOMEN: Soft. Hypoactive bowel sounds. On palpation the patient is tender in both lower quadrants. No masses are however noted. No rebound or guarding. The patient has easily reducible umbilical hernia. Pelvis is stable. EXTREMITIES: Extremities are grossly within normal limits. The patient has palpable femoral pulses and only dopplerable dorsalis pedis, posterior tibial pulses on the right and left. Popliteal pulse is very weak on Doppler. The patient has decreased capillary refill which is obviously combination of underlying peripheral vascular disease and probably decreased ejection fraction. NEUROLOGIC EXAMINATION: The patient is awake, alert and oriented. IMPRESSION I reviewed laboratory diagnostic procedures. This is a very ill, elderly gentleman with multiple comorbidities, who was admitted to this hospital numerous times, the last time earlier this month. The patient now has diverticulitis with contained diverticular perforation. The diverticular perforated area is very tiny in mid loop area so it is not accessible to any drainage nor would it be needed with this small area. The patient should be managed with IV antibiotics and this will go either positively or this is going to resolve, blood pressure is going to normalize and the patient can be then started on diet or the patient is going to continue to linger or worsen, at which point he would require surgery. Clearly every attempt should be made to avoid surgery in this gentleman considering the ejection fraction of 20-25%, is associated with very high mortality intraoperatively and postoperatively. Pleural effusion is stable for time being and I do not think it needs to be drained right now. I will continue to follow the patient with you in the ICU. Critical care time 40 minutes. Matthew ABDULLAHI /2:34 PM /2:45 PM
[2017-05-04] MEDS: FLUCONAZOLE 100 MG PREMIX BAG 50 ML IV SCH (16:38)
--- NOTE | 2017-05-04 17:49 | EKG ---
Date Performed: 05/03/2017 Time Performed: 23:27:10 PTAGE: 71 years EKG: Probable atrial fibrillation with rapid ventricular response with PVC(s) or aberrant ventri cular conduction Left axis deviation Inferior infarct - age undetermined Possible anterior infarct - age undetermined Lateral ST-T changes may be due to myocardial ischemia Wandering artifact limits acc uracy of interpretation. Abnormal ECG PREVIOUS TRACING : 10/15/2016 11.44 DOCTOR: Trent Allison Interpretating Date/Time 05/04/2017 17:48:04
--- NOTE | 2017-05-04 17:51 | EKG ---
Date Performed: 05/04/2017 Time Performed: 04:57:16 PTAGE: 71 years EKG: Sinus tachycardia with PAC(s) Left axis deviation Poor R wave progression - cannot rule out anteroseptal infarct Lateral T wave changes are nonspecific Left anterior fasicular block. Poor R wa ve progression. Abnormal ECG PREVIOUS TRACING : 05/03/2017 23.27 DOCTOR: Trent Allison Interpretating Date/Time 05/04/2017 17:49:53
[2017-05-05] VITALS (13 sets, daily range): BP systolic 87–143; BP diastolic 55–71; PULSE 89–109; RESP 17–23; TEMP 97.8–98.5; O2SAT 92–99
[2017-05-05] MEDS: PIPERACIL-TAZO 4.5 GM PREMIX 100 ML IV SCH ×4 (02:47→20:50)
[2017-05-05] MEDS: HYDROmorphone HCL PF 0.5 MG/0.5 ML SYRINGE IV PUSH PRN (02:54)
[2017-05-05] MEDS: INSULIN ASPART SUPPLEMENTAL SCALE SQ SCH ×4 (03:30→21:30)
[2017-05-05] MEDS: CHLORHEXIDINE GLUCONATE 2 % 1 PACK (2 CLOTHS) TOP SCH (04:00)
[2017-05-05] MEDS: SODIUM CHLOR 0.9% 1000 ML INJ 1,000 ML IV SCH (07:28)
[2017-05-05] MEDS: SODIUM CHLORIDE 0.9% FLUSH 10 ML FLUSH IV FLUSH SCH ×2 (08:01→20:51)
[2017-05-05] MEDS: DIGOXIN 0.5 MG/2 ML VIAL IV PUSH SCH (08:03)
[2017-05-05] MEDS: FAMOTIDINE 20 MG/2 ML VIAL IV PUSH SCH ×2 (08:04→20:51)
[2017-05-05] MEDS: DOCUSATE SODIUM 50 MG/SENNA 8.6 MG TAB PO SCH ×2 (08:04→20:27)
[2017-05-05 15:14] LABS: BICARBONATE 22.5 MEQ/L (21.0-32.0); POTASSIUM 4.3 MEQ/L (3.5-5.1)
--- NOTE | 2017-05-05 15:18 | PD.CAR.PN ---
CVT Progress Note Subjective/Hospital Course: 05/04/17 Unfortunate gentleman with multiple medical problems including low ejection fraction of about 20%. Now with acute diverticulitis with microperforation Every attempt should be made to manage this patient conservatively and avoid major surgery because risk of this is very high mortality in patient with multiple comorbidities and ejection fraction 20% range is very high as well. I discussed the care with the radiology and the small size contain microperforation of course is not amiable to any drainage Patient should be managed with antibiotics and we'll see how he does Will continue follow 05/05/17 Patient doing better at this time Abdomen is soft active bowel sounds no rebound no guarding no masses slightly tender in the left sarthak-abdomen but certainly very minimal at this time Every effort should be made for this patient will to need surgery Agree with therapy at this time Dr. Youngblood will follow patient in my absence and take over the surgical care Objective: Vital Signs Date Time Temp Pulse Resp B/P (MAP) Pulse Ox O2 Delivery O2 Flow Rate FiO2 05/05/17 14:00 105 05/05/17 12:00 98.1 98 23 104/70 (81) 98 05/05/17 12:00 97 05/05/17 10:00 98 05/05/17 08:25 97 Nasal Cannula 3.00 05/05/17 08:00 99 05/05/17 08:00 98.0 99 23 136/58 (84) 98 05/05/17 07:00 99 Nasal Cannula 2.00 05/05/17 06:00 89 05/05/17 04:00 98.0 107 17 126/71 (89) 99 05/05/17 04:00 109 05/05/17 03:24 16 05/05/17 02:00 102 05/05/17 00:00 102 05/05/17 00:00 98.1 105 20 104/62 (76) 05/04/17 22:00 102 05/04/17 20:42 98 Nasal Cannula 3.00 05/04/17 20:00 98.5 98 21 129/76 (93) 96 05/04/17 19:04 Nasal Cannula 4.00 05/04/17 18:00 95 05/04/17 16:39 86 103/59 05/04/17 16:00 98.8 88 23 101/63 (76) 99 05/04/17 16:00 88 Labs: Laboratory Tests Test 05/05/17 05:40 05/05/17 14:04 Digoxin Level 1.0 NG/ML (0.8-2.0) Blood Urea Nitrogen 14 MG/DL (7-18) Creatinine 0.72 MG/DL (0.60-1.30) Random Glucose 62 MG/DL (74-106) Calcium Level 7.7 MG/DL (8.5-10.1) Sodium Level 134 MEQ/L (136-145) Potassium Level 4.3 MEQ/L (3.5-5.1) Chloride Level 105 MEQ/L (98-107) Carbon Dioxide Level 22.5 MEQ/L (21.0-32.0) Anion Gap 7 MEQ/L (5-15) Estimat Glomerular Filtration Rate 107 ML/MIN (>89) Result Diagram: 05/04/17 0455 05/05/17 1404 Geovanny Fox MD May 05, 2017 15:18
[2017-05-05] MEDS: FLUCONAZOLE 100 MG PREMIX BAG 50 ML IV SCH (15:50)
[2017-05-05] MEDS: NOREPINEPHRINE-DEXTROSE DRIP 250 ML IV PRN (15:53)
[2017-05-05] MEDS: DEXT 5%-NACL 0.45% 1000 ML INJ 1,000 ML IV SCH (16:00)
[2017-05-05] MEDS ORDERED: LORazepam 0.5 MG TAB PO ONE (16:00)
[2017-05-05 18:22] LABS: HEMATOCRIT 34.8 % (39.0-51.0); MEAN CELL VOLUME 83.8 FL (80.0-100.0); MEAN CORPUSCULAR HEMOGLOBIN 28.5 PG (27.0-34.0); RED BLOOD COUNT 4.15 MIL/MM3 (4.50-5.90); RED CELL DISTRIBUTION WIDTH 18.7 % (11.6-17.2); REVIEW FLAG FINAL; WHITE BLOOD COUNT 9.5 TH/MM3 (4.0-11.0)
[2017-05-05 18:53] LABS: PLATELET COUNT 120 TH/MM3 (150-450)
--- NOTE | 2017-05-05 19:23 | ECHRPT ---
Indication: EF assessment of CHF CONCLUSIONS The left ventricular systolic function is severely reduced with an estimated ejection fraction in th e range of 20-25% Mildly dilated left ventricle. The right ventricular systoilc function is mildly decreased. The right ventricle is mildly dilated. Moderate mitral valve regurgitation. There is moderate tricuspid regurgitation. A large left sided pleural effusion is noted. BP: 97 / 65 HR: 92 Rhythm: Sinus MEASUREMENTS (Male / Female) Normal Values Technical Quality:Fair 2D ECHO LV Diastolic Diameter PLAX 6.0 cm 4.2 - 5.9 / 3.9 - 5.3 cm LV Systolic Diameter PLAX 5.5 cm IVS Diastolic Thickness 0.8 cm 0.6 - 1.0 / 0.6 - 0.9 cm LVPW Diastolic Thickness 0.8 cm 0.6 - 1.0 / 0.6 - 0.9 cm LV Relative Wall Thickness 0.3 LVOT Diameter 2.5 cm Aortic Root Diameter 3.3 cm LA Systolic Diameter LX 3.8 cm 3.0 - 4.0 / 2.7 - 3.8 cm M-MODE AV Cusp Separation MM 2.1 cm DOPPLER AV Peak Velocity 123.6 cm/s AV Peak Gradient 6.1 mmHg AV Mean Gradient 3.5 mmHg AV Velocity Time Integral 14.2 cm LVOT Peak Velocity 99.3 cm/s LVOT Peak Gradient 3.9 mmHg LVOT Velocity Time Integral 14.8 cm AV Area Cont Eq vti 5.1 cm AV Area Cont Eq pk 3.9 cm Mitral E Point Velocity 102.1 cm/s Mitral A Point Velocity 80.2 cm/s Mitral E to A Ratio 1.3 LV E' Lateral Velocity 5.2 cm/s Mitral E to LV E' Lateral Ratio 19.6 LV E' Septal Velocity 5.5 cm/s Mitral E to LV E' Septal Ratio 18.6 TR Peak Velocity 334.0 cm/s TR Peak Gradient 44.6 mmHg Right Atrial Pressure 10.0 mmHg Pulmonary Artery Systolic Pressu 54.6 mmHg Right Ventricular Systolic Press 54.6 mmHg PV Peak Velocity 50.7 cm/s PV Peak Gradient 1.0 mmHg FINDINGS LEFT VENTRICLE Mildly dilated left ventricle. Wall thickness is normal. The left ventricular systolic function is severely reduced with an estimated ejection fraction in th e range of 20-25% RIGHT VENTRICLE The right ventricular systoilc function is mildly decreased. The right ventricle is mildly dilated. LEFT ATRIUM The left atrial size is moderately dilated. RIGHT ATRIUM The right atrial size is cevk-ub-hyzxilguzy dilated. ATRIAL SEPTUM Normal atrial septal thickness. AORTA The aortic root and proximal ascending aorta are normal in size on limited imaging. MITRAL VALVE Structurally normal mitral valve. No mitral valve stenosis. Moderate mitral valve regurgitation. Moderate mitral annular calcification. AORTIC VALVE Trileaflet aortic valve. No aortic valve stenosis or regurgitation. TRICUSPID VALVE Structurally normal tricuspid valve. The estimated pulmonary arterial pressure is 54.6 mmHg. There is moderate tricuspid regurgitation. PULMONARY VALVE Trivial pulmonary valve regurgitation. VESSELS The inferior vena cava is normal in size. PERICARDIUM A large left sided pleural effusion is noted. Gregory Arce DO (Electronically Signed) Final Date:05 May 2017 19:22
--- NOTE | 2017-05-05 20:19 | HHI.CCPN ---
Subjective Remarks/Hospital Course Hospital Course: 71-year-old male with past medical history of dilated cardiomyopathy with ejection fraction 20%, paroxysmal atrial fibrillation, hypercholesterolemia , coronary artery disease with KIKE 06/2016, prior stroke, hypertension, diabetes with diabetic foot ulcers, rheumatoid arthritis on disease modifying therapy with leflunomide, BPH who presented to [facility] with 2 days of abdominal pain. He states when he awoke from a nap this afternoon the pain was much more severe, 10/10 primary in right lower abdomen but also LLQ. Worse with cough or movement. No nausea or vomiting. No fever. He has been having chronic diarrhea and fecal incontinence. No BRBPR or melena. CT abd/ pelvis demonstrates inflamed sigmoid colon with diverticulitis. There are 2 foci of air fluid collections consistent with perforation and abscess formation. There is moderate ascites, peritoneal enhancement, bilateral pleural effusions right greater than left. WBC is 5. The ED physician consulted general surgery, Dr. Fox, who recommended transfer to [facility] and therefore magazine filler consult was placed. He is in septic shock with lactic acid 5.5. He is in A fib RVR in the 130s and initially normotensive with blood pressure 95/73 with map of 80. He received NS 500 bolus , Zofran 4 g IV, Dilaudid 0.2 mg IV in the emergency department. He became hypotensive with blood pressure 66/39 with mean arterial pressure of 48. I administered additional 1500 and 0.9 NaCL bolus and initiated Jayden-Synephrine to maintain MAP >65. I obtained blood and urine cultures and initiated Zosyn. Subjective: 05/04: remains on levophed at 12 mcg/min. remains in shock. on facemask o2, but remarkably comfortable. cvp 8. endorses abdominal pain, otherwise ROS negative. 05/05: clinically improving slowly. remains in shock, but on much lower vasopressor doses. levophed at 4mcg/min. now on NC o2. Objective Vital Signs Date Time Temp Pulse Resp B/P (MAP) Pulse Ox O2 Delivery O2 Flow Rate FiO2 05/05/17 19:00 22 05/05/17 18:00 104 05/05/17 16:00 98.5 143/70 (94) 94 05/05/17 08:25 Nasal Cannula 3.00 Intake and Output 05/05/17 05/05/17 05/06/17 08:00 16:00 00:00 Intake Total 100 ml 0 ml Output Total 800 ml 575 ml Balance -700 ml -575 ml Result Diagram: 05/05/17 1748 05/05/17 1404 Other Results Microbiology Date/Time Source Procedure Growth Status 05/03/17 18:30 Urine Catheterized Urine Urine Culture - Final Staphylococcus Aureus Complete Objective Remarks GENERAL: Elderly male who is sitting up in ISC bed. SKIN: Warm and dry. HEAD: Atraumatic. Normocephalic. EYES: Pupils equal and round. No scleral icterus. No injection or drainage. ENT: No nasal bleeding or discharge. Mucous membranes moist. NECK: Trachea midline. CARDIOVASCULAR: irregularly irregular, 3/6 systolic murmur at apex. No S3 RESPIRATORY: Tachypneic with no accessory muscle use. There are Rales in the left base. Diminished by basilar. No wheeze GASTROINTESTINAL: abd mildly distended. moderately tender to palpation. + guarding. MUSCULOSKELETAL: Extremities without clubbing, cyanosis. 2+ pitting edema bilateral lower extremities below the knee. NEUROLOGICAL: Awake and alert. No obvious cranial nerve deficits. Motor grossly within normal limits. Normal speech. follows commands. A/P Assessment and Plan Assessment: 71yM with perforated diverticulitis, intra-abdominal sepsis, septic shock. unfortunately, IR not able to find drainable fluid collection. given medical comorbidities, prohibitively high risk for exploratory laparotomy. will manage conservatively unless decompensated shock. remains on vasopressors. decrease ivf dose given cardiomyopathy. close monitoring: CHF and depressed EF may compete with septic shock and may develop respiratory or cardiac failure. highly complex. NEURO: Prior stroke Abdominal Pain Tylenol as needed for mild pain or fever Dilaudid 0.2 - 0.5 mg IV every 4 hours as needed for pain. RESP: Right pleural effusion Acute hypoxemia NC to maintain sats greater than 92% Incentive spirometry every hour awake Has previously had right thoracentesis 03/25/17 with 1800 removed, pleural fluid studies c/w transudative. Cytology negative for malignant cells Will likely need R thoracentesis at some point but it is not currently necessary. o2 requirement improving. will defer at this time. Patient known to Dr. Frank Burch. CV: Dilated cardiomyopathy Moderate mitral regurgitation Paroxysmal atrial fibrillation, RVR Hypertension Hyperlipidemia Coronary artery disease with prior stents Septic shock Lactic acidemia Levophed for map goal > 65 mmHg. decrease mivf NS to 42cc/hr. low threshold for forced diuresis if becomes overloaded. Trending serial lactic acid. CVP monitoring Hold home Coreg 3.125 mill grams by mouth twice a day due to hypotension. Hold lisinopril 5 mill grams by mouth daily due to hypotension. Hold Plavix GI: Diverticulitis with perforation and abscess x2 Intra-abdominal sepsis Nothing by mouth General surgery consult: Dr. Manuel glass. FEN/RENAL: Hyponatremia BPH continue Jackson to monitor intake and output as marker of organ perfusion in the setting of septic shock. Monitor electrolytes and replace as clinically indicated. Check magnesium and phos now. Hold tamsulosin due to hypotension. Hold home Lasix and supplemental potassium currently due to septic shock. ID: Septic shock Perforated diverticulitis with abscess Immunocompromised state Rheumatoid arthritis (on disease modifying therapy with Leflunomide) MSSA UTI f/u culture data Zosyn 4.5 g IV every 6 hours due to complicated diverticulitis. Hold leflunomide due to sepsis. (Long elimination half life of 19 days) He reports intolerance to statin, azithromycin and levaquin which have severely exacerbated his RA in the past requiring admission. HEME: Monitor CBC ENDO: Diabetes mellitus Monitor bedside glucose every 6 hours and administer low-dose insulin sliding scale as indicated. SKIN: Melanoma, removed from left face MSK: Avascular necrosis bilateral hips Osteoarthritis bilateral hips Status post right hip replacement PROPH: SCDs for DVT prophylaxis. start SQH. Famotidine 20 mg IV every 12 hours for stress ulcer prophylaxis. ACCESS: Right IJ CVL placed 05/03 #3 Patient is critically ill and hypotensive requiring pressors. Remain in ISC. Patient and updated at bedside. Full code Ryan Rogel MD May 05, 2017 20:19
[2017-05-05] MEDS: HEPARIN SODIUM - SQ 10,000 UNITS/ML VIAL SQ SCH (21:58)
[2017-05-06] VITALS (10 sets, daily range): BP systolic 97–136; BP diastolic 55–65; PULSE 84–115; RESP 16–24; TEMP 96.7–98; O2SAT 93–99
[2017-05-06] MEDS: CHLORHEXIDINE GLUCONATE 2 % 1 PACK (2 CLOTHS) TOP SCH (01:34)
[2017-05-06] MEDS: PIPERACIL-TAZO 4.5 GM PREMIX 100 ML IV SCH ×4 (03:10→19:55)
[2017-05-06] MEDS: INSULIN ASPART SUPPLEMENTAL SCALE SQ SCH ×4 (03:10→19:54)
[2017-05-06 04:38] LABS: AUTOMATED NEUTROPHIL # 9.6 TH/MM3 (1.8-7.7); BASOPHIL % 0.1 % (0.0-2.0); EOSINOPHIL % 0.2 % (0.0-4.0); HEMATOCRIT 34.4 % (39.0-51.0); HEMO FLAGS DIFF FINAL; LYMPH % 6.1 % (9.0-44.0); LYMPHOCYTE # 0.6 TH/MM3 (1.0-4.8); MEAN CELL VOLUME 83.9 FL (80.0-100.0); MEAN CORPUSCULAR HEMOGLOBIN 27.4 PG (27.0-34.0); MEAN CORPUSCULAR HGB CONC 32.7 % (32.0-36.0); NEUT % 90.6 % (16.0-70.0); PLATELET COUNT 150 TH/MM3 (150-450); RED CELL DISTRIBUTION WIDTH 18.3 % (11.6-17.2); WHITE BLOOD COUNT 10.6 TH/MM3 (4.0-11.0)
[2017-05-06 05:16] LABS: BICARBONATE 27.3 MEQ/L (21.0-32.0)
[2017-05-06 05:19] LABS: POTASSIUM 2.9 MEQ/L (3.5-5.1)
[2017-05-06] MEDS: POTASSIUM CHLOR 40 MEQ PREMIX 100 ML IV PRN ×2 (05:30→09:07)
[2017-05-06] MEDS: HEPARIN SODIUM - SQ 10,000 UNITS/ML VIAL SQ SCH ×3 (05:30→20:03)
[2017-05-06 05:34] LABS: CALCIUM-PROTEIN CORRECTED 8.6 MG/DL (8.5-10.1)
[2017-05-06] MEDS: DOCUSATE SODIUM 50 MG/SENNA 8.6 MG TAB PO SCH ×2 (09:00→19:55)
[2017-05-06] MEDS: FAMOTIDINE 20 MG/2 ML VIAL IV PUSH SCH ×2 (09:08→19:56)
[2017-05-06] MEDS: SODIUM CHLORIDE 0.9% FLUSH 10 ML FLUSH IV FLUSH SCH ×2 (09:08→19:56)
[2017-05-06] MEDS: DIGOXIN 0.5 MG/2 ML VIAL IV PUSH SCH (11:03)
--- NOTE | 2017-05-06 12:19 | HHI.PR ---
Subjective Subjective Notes Resting in bed ---reports pain in better today Family at bedside Objective Vitals/I&O Vital Signs Date Time Temp Pulse Resp B/P (MAP) Pulse Ox O2 Delivery O2 Flow Rate FiO2 05/06/17 08:51 95 Nasal Cannula 3.00 05/06/17 06:00 88 118/64 05/06/17 04:00 97.8 24 Labs Laboratory Tests Test 05/05/17 14:04 05/05/17 17:48 05/06/17 04:30 Blood Urea Nitrogen 14 12 Creatinine 0.72 0.59 Random Glucose 62 93 Calcium Level 7.7 7.4 Sodium Level 134 138 Potassium Level 4.3 2.9 Chloride Level 105 105 Carbon Dioxide Level 22.5 27.3 Anion Gap 7 6 Estimat Glomerular Filtration Rate 107 135 White Blood Count 9.5 10.6 Red Blood Count 4.15 4.10 Hemoglobin 11.8 11.3 Hematocrit 34.8 34.4 Mean Corpuscular Volume 83.8 83.9 Mean Corpuscular Hemoglobin 28.5 27.4 Mean Corpuscular Hemoglobin Concent 34.0 32.7 Red Cell Distribution Width 18.7 18.3 Platelet Count 120 150 Mean Platelet Volume 7.8 7.6 Hematology Comments Neutrophils (%) (Auto) 90.6 Lymphocytes (%) (Auto) 6.1 Monocytes (%) (Auto) 3.0 Eosinophils (%) (Auto) 0.2 Basophils (%) (Auto) 0.1 Neutrophils # (Auto) 9.6 Lymphocytes # (Auto) 0.6 Monocytes # (Auto) 0.3 Eosinophils # (Auto) 0.0 Basophils # (Auto) 0.0 CBC Comment DIFF FINAL Differential Comment Total Protein 4.9 Protein Corrected Calcium 8.6 Date/Time Source Procedure Growth Status 05/03/17 18:45 Blood Peripheral Aerobic Blood Culture - Preliminary NO GROWTH IN 3 DAYS Resulted 05/03/17 18:45 Blood Peripheral Anaerobic Blood Culture - Preliminary NO GROWTH IN 3 DAYS Resulted 05/03/17 18:30 Urine Catheterized Urine Urine Culture - Final Staphylococcus Aureus Complete Cardiovascular: Regular Lungs: Clear Abdomen: Non-distended, Other (minimal tenderness with palpation; umbilical hernia ) Extremities: No edema A/P Assessment and Plan 71 year old male with acute diverticulitis with microperforation; multiple medical issues -Continue antibiotics ---Zosyn and Diflucan -Levophed on standby -Gentle hydration -Best to avoid surgery in this patient with complex medical problems Nancy Smith [employer] DIRECTOR [employer] FINANCE May 06, 2017 12:19
--- NOTE | 2017-05-06 13:55 | HHI.CCPN ---
Subjective Remarks/Hospital Course Hospital Course: 71-year-old male with past medical history of dilated cardiomyopathy with ejection fraction 20%, paroxysmal atrial fibrillation, hypercholesterolemia , coronary artery disease with KIKE 06/2016, prior stroke, hypertension, diabetes with diabetic foot ulcers, rheumatoid arthritis on disease modifying therapy with leflunomide, BPH who presented to [facility] with 2 days of abdominal pain. He states when he awoke from a nap this afternoon the pain was much more severe, 10/10 primary in right lower abdomen but also LLQ. Worse with cough or movement. No nausea or vomiting. No fever. He has been having chronic diarrhea and fecal incontinence. No BRBPR or melena. CT abd/ pelvis demonstrates inflamed sigmoid colon with diverticulitis. There are 2 foci of air fluid collections consistent with perforation and abscess formation. There is moderate ascites, peritoneal enhancement, bilateral pleural effusions right greater than left. WBC is 5. The ED physician consulted general surgery, Dr. Fox, who recommended transfer to [facility] and therefore checking clerk consult was placed. He is in septic shock with lactic acid 5.5. He is in A fib RVR in the 130s and initially normotensive with blood pressure 95/73 with map of 80. He received NS 500 bolus , Zofran 4 g IV, Dilaudid 0.2 mg IV in the emergency department. He became hypotensive with blood pressure 66/39 with mean arterial pressure of 48. I administered additional 1500 and 0.9 NaCL bolus and initiated Jayden-Synephrine to maintain MAP >65. I obtained blood and urine cultures and initiated Zosyn. Subjective: 05/04: remains on levophed at 12 mcg/min. remains in shock. on facemask o2, but remarkably comfortable. cvp 8. endorses abdominal pain, otherwise ROS negative. 05/05: clinically improving slowly. remains in shock, but on much lower vasopressor doses. levophed at 4mcg/min. now on NC o2. 05/06: Was on Levophed at 3 mcg/min in am, Now off for 4 hours, maintaining map. No acute events overnight. K 2.9 getting replaced. Remains on NC Objective Vital Signs Date Time Temp Pulse Resp B/P (MAP) Pulse Ox O2 Delivery O2 Flow Rate FiO2 05/06/17 12:00 97.8 92 20 104/65 (78) 98 05/06/17 08:51 Nasal Cannula 3.00 Intake and Output 05/06/17 05/06/17 05/07/17 08:00 16:00 00:00 Intake Total 638 ml 300 ml Output Total 525 ml Balance 113 ml 300 ml Result Diagram: 05/06/17 0430 05/06/17 0430 Other Results Microbiology Date/Time Source Procedure Growth Status 05/03/17 18:30 Urine Catheterized Urine Urine Culture - Final Staphylococcus Aureus Complete Objective Remarks GENERAL: Elderly male who is lying in ISC bed. SKIN: Warm and dry. HEAD: Atraumatic. Normocephalic. EYES: Pupils equal and round. No scleral icterus. No injection or drainage. ENT: No nasal bleeding or discharge. Mucous membranes moist. NECK: Trachea midline. CARDIOVASCULAR: irregularly irregular, 3/6 systolic murmur at apex. No S3 RESPIRATORY: No accessory muscle use. mild Rales in the left base. Diminished by basilar. No wheeze GASTROINTESTINAL: Abd mildly distended. Mildly tender to palpation. + guarding. MUSCULOSKELETAL: Extremities without clubbing, cyanosis. 2+ pitting edema bilateral lower extremities below the knee. NEUROLOGICAL: Awake and alert. No obvious cranial nerve deficits. Motor grossly within normal limits. Normal speech. follows commands. A/P Assessment and Plan Assessment: 71yM with perforated diverticulitis, intra-abdominal sepsis, septic shock. unfortunately, IR not able to find drainable fluid collection. given medical comorbidities, prohibitively high risk for exploratory laparotomy. will manage conservatively, improving shock. remains on vasopressors. decrease ivf dose given cardiomyopathy. close monitoring: CHF and depressed EF may compete with septic shock and may develop respiratory or cardiac failure. highly complex. NEURO: Prior stroke Abdominal Pain Tylenol as needed for mild pain or fever Dilaudid 0.2 - 0.5 mg IV every 4 hours as needed for pain. RESP: Right pleural effusion Hypoxemia NC to maintain sats greater than 92%. Repeat CXR today Incentive spirometry every hour awake Has previously had right thoracentesis 03/25/17 with 1800 removed, pleural fluid studies c/w transudative. Cytology negative for malignant cells Will likely need R thoracentesis at some point but it is not currently necessary. o2 requirement improving. No indication for thoracentesis at this time Patient known to Dr. Frank Burch. CV: Dilated cardiomyopathy Moderate mitral regurgitation Paroxysmal atrial fibrillation, RVR Hypertension Hyperlipidemia Coronary artery disease with prior stents Septic shock-resolved Lactic acidemia Levophed for map goal > 65 mmHg. No off >4 hours MIVF NS to 42cc/hr. low threshold for forced diuresis if becomes overloaded. DC CVP monitoring Hold home Coreg 3.125 mill grams by mouth twice a day due to hypotension. Hold lisinopril 5 mill grams by mouth daily due to hypotension. Resume Plavix GI: Diverticulitis with perforation and abscess x2 Intra-abdominal sepsis Nothing by mouth General surgery Dr. Manuel glass. No surgical intervention planned at this time FEN/RENAL: Hyponatremia BPH Continue Jackson to monitor intake and output as marker of organ perfusion in the setting of septic shock. DC after initiating tamsulosin Monitor electrolytes and replace as clinically indicated. Hold home Lasix and supplemental potassium currently due to septic shock- consider restarting in 24 hours if stable ID: Septic shock Perforated diverticulitis with abscess Immunocompromised state Rheumatoid arthritis (on disease modifying therapy with Leflunomide) MSSA UTI f/u culture data Zosyn 4.5 g IV every 6 hours due to complicated diverticulitis. Continue Diflucan Hold leflunomide due to sepsis. (Long elimination half life of 19 days) He reports intolerance to statin, azithromycin and Levaquin which have severely exacerbated his RA in the past requiring admission. No surgical intervention planned at this time HEME: Monitor CBC ENDO: Diabetes mellitus Monitor bedside glucose every 6 hours and administer low-dose insulin sliding scale as indicated. SKIN: Melanoma, removed from left face MSK: Avascular necrosis bilateral hips Osteoarthritis bilateral hips Status post right hip replacement PROPH: SCDs for DVT prophylaxis. SQH. Famotidine 20 mg IV every 12 hours for stress ulcer prophylaxis. ACCESS: Right IJ CVL placed 05/03 #4- DC today Improving septic shock, Off Levophed. Transfer to Med Surg. Consult Hospitalist to assume care in am 05/07/17 Patient and updated at bedside. Full code Mariposa Duvall MD May 06, 2017 13:55
--- NOTE | 2017-05-06 14:08 | HHI.PR ---
Subjective Subjective Notes less pain Objective Vitals/I&O Vital Signs Date Time Temp Pulse Resp B/P (MAP) Pulse Ox O2 Delivery O2 Flow Rate FiO2 05/06/17 12:00 97.8 92 20 104/65 (78) 98 05/06/17 08:51 Nasal Cannula 3.00 Labs Laboratory Tests Test 05/05/17 17:48 05/06/17 04:30 White Blood Count 9.5 10.6 Red Blood Count 4.15 4.10 Hemoglobin 11.8 11.3 Hematocrit 34.8 34.4 Mean Corpuscular Volume 83.8 83.9 Mean Corpuscular Hemoglobin 28.5 27.4 Mean Corpuscular Hemoglobin Concent 34.0 32.7 Red Cell Distribution Width 18.7 18.3 Platelet Count 120 150 Mean Platelet Volume 7.8 7.6 Hematology Comments Neutrophils (%) (Auto) 90.6 Lymphocytes (%) (Auto) 6.1 Monocytes (%) (Auto) 3.0 Eosinophils (%) (Auto) 0.2 Basophils (%) (Auto) 0.1 Neutrophils # (Auto) 9.6 Lymphocytes # (Auto) 0.6 Monocytes # (Auto) 0.3 Eosinophils # (Auto) 0.0 Basophils # (Auto) 0.0 CBC Comment DIFF FINAL Differential Comment Blood Urea Nitrogen 12 Creatinine 0.59 Random Glucose 93 Total Protein 4.9 Calcium Level 7.4 Sodium Level 138 Potassium Level 2.9 Chloride Level 105 Carbon Dioxide Level 27.3 Anion Gap 6 Estimat Glomerular Filtration Rate 135 Protein Corrected Calcium 8.6 Date/Time Source Procedure Growth Status 05/03/17 18:45 Blood Peripheral Aerobic Blood Culture - Preliminary NO GROWTH IN 3 DAYS Resulted 05/03/17 18:45 Blood Peripheral Anaerobic Blood Culture - Preliminary NO GROWTH IN 3 DAYS Resulted 05/03/17 18:30 Urine Catheterized Urine Urine Culture - Final Staphylococcus Aureus Complete Abdomen: Non-distended, Non-tender A/P Assessment and Plan 71yo male with diverticulitis, stable. continues to improve clinically, no need for surgery, advance to clears, will follow Jareth Landry MD May 06, 2017 14:08
--- NOTE | 2017-05-06 15:10 | RADRPT ---
EXAM DATE/TIME: 05/06/2017 14:08 [place] COMPARISON: CHEST SINGLE AP, May 03, 2017, 22:26. INDICATIONS : Difficulty breathing. MEDICAL HISTORY : Hypertension. Cardiovascular disease Melanoma. Anticoagulant therapy. SURGICAL HISTORY : Coronary artery stent. ENCOUNTER: Subsequent ACUITY: 3 days PAIN SCORE: 0/10 LOCATION: Bilateral chest FINDINGS: Stable right IJ central line. Slightly improved aeration of the right lung with moderate right pleura l effusion and associated right lower lung zone airspace disease. Interval progression of small left pleural effusion and associated left lower lobe airspace disease. Cardiomediastinal contours are stab le. Remainder of the exam is unchanged. CONCLUSION: 1. Improved right lung aeration with residual moderate right pleural effusion and associated right lo wer lung zone airspace disease. 2. Interval progression of small left pleural effusion and associated left lower lobe airspace disegerman Young MD on May 06, 2017 at 15:06 Board Certified Radiologist. This report was verified electronically.
[2017-05-06] MEDS: DEXT 5%-NACL 0.45% 1000 ML INJ 1,000 ML IV SCH (15:39)
[2017-05-06] MEDS: FLUCONAZOLE 100 MG PREMIX BAG 50 ML IV SCH (15:39)
[2017-05-06] MEDS: TAMSULOSIN HCL 0.4 MG CAP PO SCH (19:56)
[2017-05-07] VITALS (8 sets, daily range): BP systolic 102–132; BP diastolic 55–64; PULSE 79–89; RESP 16–20; TEMP 96–96.9; O2SAT 91–94
[2017-05-07] MEDS: PIPERACIL-TAZO 4.5 GM PREMIX 100 ML IV SCH ×4 (02:31→20:55)
[2017-05-07] MEDS: CHLORHEXIDINE GLUCONATE 2 % 1 PACK (2 CLOTHS) TOP SCH (03:47)
[2017-05-07] MEDS: INSULIN ASPART SUPPLEMENTAL SCALE SQ SCH ×4 (04:25→20:56)
[2017-05-07 05:18] LABS: AUTOMATED NEUTROPHIL # 7.7 TH/MM3 (1.8-7.7); BASOPHIL # 0.1 TH/MM3 (0-0.2); BASOPHIL % 1.7 % (0.0-2.0); EOSINOPHIL % 0.4 % (0.0-4.0); HEMATOCRIT 34.4 % (39.0-51.0); LYMPH % 4.5 % (9.0-44.0); LYMPHOCYTE # 0.4 TH/MM3 (1.0-4.8); MEAN CELL VOLUME 83.7 FL (80.0-100.0); MEAN CORPUSCULAR HEMOGLOBIN 27.9 PG (27.0-34.0); MEAN CORPUSCULAR HGB CONC 33.4 % (32.0-36.0); MONO % 4.9 % (0.0-8.0); NEUT % 88.5 % (16.0-70.0); PLATELET COUNT 123 TH/MM3 (150-450); RED BLOOD COUNT 4.11 MIL/MM3 (4.50-5.90); RED CELL DISTRIBUTION WIDTH 18.1 % (11.6-17.2); WHITE BLOOD COUNT 8.7 TH/MM3 (4.0-11.0)
[2017-05-07 05:24] LABS: HEMO FLAGS AUTO DIFF
[2017-05-07 05:48] LABS: ANION GAP 8 MEQ/L (5-15); AST (GOT) 12 U/L (15-37); BICARBONATE 23.5 MEQ/L (21.0-32.0); BLOOD UREA NITROGEN 14 MG/DL (7-18); CHLORIDE 104 MEQ/L (98-107); GLOMERULAR FILTRATION RATE 123 ML/MIN (>89); MAGNESIUM 2.2 MG/DL (1.5-2.5); POTASSIUM 3.1 MEQ/L (3.5-5.1); SODIUM (NA) 135 MEQ/L (136-145)
[2017-05-07 05:50] LABS: ALT (GPT) 7 U/L (12-78)
[2017-05-07 05:56] LABS: ALKALINE PHOSPHATASE 50 U/L (45-117); TOTAL BILIRUBIN ADULT 1.8 MG/DL (0.2-1.0)
[2017-05-07] MEDS: HEPARIN SODIUM - SQ 10,000 UNITS/ML VIAL SQ SCH ×3 (05:59→20:57)
[2017-05-07 06:19] LABS: SCAN/DIFF AUTO DIFF CONFIRMED
[2017-05-07] MEDS ORDERED: HEPARIN SODIUM - SQ 10,000 UNITS/ML VIAL SQ SCH (09:00)
[2017-05-07] MEDS ORDERED: ACETAMINOPHEN/HYDROcodone 325 MG/10 MG TAB PO PRN (09:00)
[2017-05-07] MEDS ORDERED: ACETAMINOPHEN/HYDROcodone 325 MG/7.5 MG TAB PO PRN (09:00)
--- NOTE | 2017-05-07 09:00 | HHI.PR ---
Subjective Subjective Notes transferred from ICU, appears better, no fevers, diarrhea, no nausea Objective Vitals/I&O Vital Signs Date Time Temp Pulse Resp B/P (MAP) Pulse Ox O2 Delivery O2 Flow Rate FiO2 05/07/17 08:00 82 20 111/55 (73) 93 05/07/17 04:30 96.9 05/06/17 20:10 Nasal Cannula 3.00 Labs Laboratory Tests Test 05/06/17 14:00 05/07/17 04:18 Potassium Level 3.7 3.1 White Blood Count 8.7 Red Blood Count 4.11 Hemoglobin 11.5 Hematocrit 34.4 Mean Corpuscular Volume 83.7 Mean Corpuscular Hemoglobin 27.9 Mean Corpuscular Hemoglobin Concent 33.4 Red Cell Distribution Width 18.1 Platelet Count 123 Mean Platelet Volume 8.0 Neutrophils (%) (Auto) 88.5 Lymphocytes (%) (Auto) 4.5 Monocytes (%) (Auto) 4.9 Eosinophils (%) (Auto) 0.4 Basophils (%) (Auto) 1.7 Neutrophils # (Auto) 7.7 Lymphocytes # (Auto) 0.4 Monocytes # (Auto) 0.4 Eosinophils # (Auto) 0.0 Basophils # (Auto) 0.1 CBC Comment AUTO DIFF Differential Comment AUTO DIFF CONFIRMED Blood Urea Nitrogen 14 Creatinine 0.64 Random Glucose 91 Total Protein 5.1 Albumin 1.6 Calcium Level 7.7 Phosphorus Level 1.7 Magnesium Level 2.2 Alkaline Phosphatase 50 Aspartate Amino Transf (AST/SGOT) 12 Alanine Aminotransferase (ALT/SGPT) 7 Total Bilirubin 1.8 Sodium Level 135 Chloride Level 104 Carbon Dioxide Level 23.5 Anion Gap 8 Estimat Glomerular Filtration Rate 123 Date/Time Source Procedure Growth Status 05/03/17 18:45 Blood Peripheral Aerobic Blood Culture - Preliminary NO GROWTH IN 3 DAYS Resulted 05/03/17 18:45 Blood Peripheral Anaerobic Blood Culture - Preliminary NO GROWTH IN 3 DAYS Resulted 05/03/17 18:30 Urine Catheterized Urine Urine Culture - Final Staphylococcus Aureus Complete Abdomen: Non-distended, Non-tender A/P Assessment and Plan diverticulitis high surgical risk, appears improving PLAN advance to full diet encourage oob abx non op mgMaik Dove MD May 07, 2017 09:00
--- NOTE | 2017-05-07 09:12 | HHI.PR ---
Subjective Remarks Pt states that he feels very weak, hasn't eaten x 3 days. would like to eat something. no CP/SOB/N/V. Not much abdominal pain at this time. Objective Vitals Vital Signs Date Time Temp Pulse Resp B/P (MAP) Pulse Ox O2 Delivery O2 Flow Rate FiO2 05/07/17 08:00 82 20 111/55 (73) 93 05/07/17 04:30 96.9 87 16 108/64 (79) 93 05/07/17 00:40 96.0 89 16 102/56 (71) 92 05/06/17 20:10 Nasal Cannula 3.00 05/06/17 20:00 96.7 91 16 134/62 (86) 93 05/06/17 16:00 88 05/06/17 16:00 97.7 90 16 106/55 (72) 94 05/06/17 12:00 97.8 92 20 104/65 (78) 98 05/06/17 12:00 92 05/06/17 10:00 94 05/06/17 09:30 98 101/57 I/O 05/06/17 05/06/17 05/06/17 05/07/17 05/07/17 05/07/17 07:00 15:00 23:00 07:00 15:00 23:00 Intake Total 638 ml 427 ml 647 ml 100 ml Output Total 525 ml 300 ml 250 ml Balance 113 ml 427 ml 347 ml -150 ml Intake Oral 240 ml IV Total 638 ml 427 ml 407 ml 100 ml Output Urine Total 525 ml 300 ml 250 ml # Voids 0 # Bowel Movements 2 3 2 Result Diagram: 05/07/17 0418 05/07/17 0418 Imaging Last Impressions Chest X-Ray 05/06/17 0000 Signed Impressions: Service Date/Time: Saturday, May 06, 2017 14:08 - CONCLUSION: 1. Improved right lung aeration with residual moderate right pleural effusion and associated right lower lung zone airspace disease. 2. Interval progression of small left pleural effusion and associated left lower lobe airspace disease. Titus Young MD Abdomen/Pelvis CT 05/03/17 1509 Signed Impressions: Service Date/Time: Wednesday, May 03, 2017 16:40 - CONCLUSION: 1. Abnormal inflamed sigmoid colon with severe diverticulosis and pericolonic stranding with 2 foci air/fluid collections measuring up to 2.9 cm consistent with perforation and abscess formation. There are a few tiny locules of free air seen anterior to this, moderate ascites and peritoneal enhancement which can be seen with peritonitis. 2. 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 3. Body wall edema, bilateral pleural effusions right greater than left, and right lower lobe partial atelectasis and consolidation Thai Leung MD Objective Remarks GENERAL: Elderly male, laying in bed. pleasant EYES: EOMI NECK: Trachea midline. CARDIOVASCULAR: irregularly irregular, 2/6 systolic murmur at apex. RESPIRATORY: No accessory muscle use. Diminished by basilar. No wheeze GASTROINTESTINAL: Abd soft, some discomfort to deep palpation, no guarding or rebound, hernia noted. MUSCULOSKELETAL: Extremities with 2+ pitting edema bilateral lower extremities below the knee. NEUROLOGICAL: Awake and alert. No obvious cranial nerve deficits. Motor grossly within normal limits. Normal speech. follows commands. A/P Assessment and Plan 71yM with perforated diverticulitis, intra-abdominal sepsis, septic shock. unfortunately, IR not able to find drainable fluid collection. given medical comorbidities, prohibitively high risk for exploratory laparotomy. will manage conservatively, improving shock. remains on vasopressors. decrease ivf dose given cardiomyopathy. close monitoring: CHF and depressed EF may compete with septic shock and may develop respiratory or cardiac failure. highly complex. NEURO: Prior stroke Abdominal Pain Tylenol as needed for mild pain or fever I have adjusted pain meds to po norco prn w Dilaudid 0.5 mg IV every 4 hours as needed for breakthrough pain RESP: Right pleural effusion Hypoxemia NC to maintain sats greater than 92%. Repeat CXR shows improved aeration of the right lung but progression of small left pleural effusion. continue Incentive spirometry every hour awake Has previously had right thoracentesis 03/25/17 with 1800 removed, pleural fluid studies c/w transudative. Cytology negative for malignant cells Will likely need R thoracentesis at some point but it is not currently necessary. o2 requirement improving. No indication for thoracentesis at this time Patient known to Dr. Frank Burch. CV: Dilated cardiomyopathy Moderate mitral regurgitation Paroxysmal atrial fibrillation, RVR Hypertension Hyperlipidemia Coronary artery disease with prior stents Septic shock-resolved Lactic acidemia s/p Levophed Hold home Coreg 3.125 mill grams by mouth twice a day due to hypotension. Hold lisinopril 5 mill grams by mouth daily due to hypotension. on Plavix GI: Diverticulitis with perforation and abscess x2 Intra-abdominal sepsis clears General surgery following. No surgical intervention planned at this time FEN/RENAL: Hyponatremia BPH Continue Jackson to monitor intake and output as marker of organ perfusion in the setting of septic shock. DC after initiating tamsulosin Monitor electrolytes and replace as clinically indicated. Hold home Lasix and supplemental potassium currently due to septic shock- consider restarting in am if stable ID: Septic shock Perforated diverticulitis with abscess Immunocompromised state Rheumatoid arthritis (on disease modifying therapy with Leflunomide) MSSA UTI f/u culture data Zosyn 4.5 g IV every 6 hours due to complicated diverticulitis. Continue Diflucan Hold leflunomide due to sepsis. (Long elimination half life of 19 days) He reports intolerance to statin, azithromycin and Levaquin which have severely exacerbated his RA in the past requiring admission. No surgical intervention planned at this time consider getting ID input. HEME: Monitor CBC ENDO: Diabetes mellitus Monitor bedside glucose every 6 hours and administer low-dose insulin sliding scale as indicated. SKIN: Melanoma, removed from left face MSK: Avascular necrosis bilateral hips Osteoarthritis bilateral hips Status post right hip replacement PROPH: SCDs/heparin for DVT prophylaxis. Discharge Planning on clears per GS. continue aggressive PT IS q1hr while awake. Try to resume lasix in AM Adriane Egan MD May 07, 2017 09:12
[2017-05-07] MEDS ORDERED: POTASSIUM CHLORIDE 20 MEQ CONTROLLED RELEASE TAB PO ONE (09:15)
[2017-05-07] MEDS: SODIUM CHLORIDE 0.9% FLUSH 10 ML FLUSH IV FLUSH SCH ×2 (12:39→20:55)
[2017-05-07] MEDS: TAMSULOSIN HCL 0.4 MG CAP PO SCH ×2 (12:40→20:56)
[2017-05-07] MEDS: FAMOTIDINE 20 MG/2 ML VIAL IV PUSH SCH ×2 (12:40→20:55)
[2017-05-07] MEDS: DOCUSATE SODIUM 50 MG/SENNA 8.6 MG TAB PO SCH ×2 (12:40→20:56)
[2017-05-07] MEDS: DIGOXIN 0.5 MG/2 ML VIAL IV PUSH SCH (12:40)
[2017-05-07] MEDS: CLOPIDOGREL 75 MG TAB PO SCH (12:41)
[2017-05-07] MEDS: FLUCONAZOLE 100 MG PREMIX BAG 50 ML IV SCH (17:43)
[2017-05-07] MEDS: DEXT 5%-NACL 0.45% 1000 ML INJ 1,000 ML IV SCH (17:43)
[2017-05-08] VITALS (7 sets, daily range): BP systolic 120–130; BP diastolic 58–91; PULSE 76–96; RESP 17–18; TEMP 96.3–98.2; O2SAT 92–95
[2017-05-08] MEDS: PIPERACIL-TAZO 4.5 GM PREMIX 100 ML IV SCH ×4 (03:02→19:52)
[2017-05-08] MEDS: INSULIN ASPART SUPPLEMENTAL SCALE SQ SCH ×4 (03:04→20:13)
[2017-05-08] MEDS: CHLORHEXIDINE GLUCONATE 2 % 1 PACK (2 CLOTHS) TOP SCH (03:19)
[2017-05-08 05:12] LABS: AUTOMATED NEUTROPHIL # 5.2 TH/MM3 (1.8-7.7); BASOPHIL % 0.3 % (0.0-2.0); EOSINOPHIL # 0.1 TH/MM3 (0-0.4); EOSINOPHIL % 1.2 % (0.0-4.0); HEMATOCRIT 36.6 % (39.0-51.0); LYMPH % 9.5 % (9.0-44.0); LYMPHOCYTE # 0.6 TH/MM3 (1.0-4.8); MEAN CELL VOLUME 84.2 FL (80.0-100.0); MEAN CORPUSCULAR HEMOGLOBIN 27.7 PG (27.0-34.0); MEAN CORPUSCULAR HGB CONC 32.9 % (32.0-36.0); MONO % 6.9 % (0.0-8.0); NEUT % 82.1 % (16.0-70.0); PLATELET COUNT 132 TH/MM3 (150-450); RED BLOOD COUNT 4.35 MIL/MM3 (4.50-5.90); RED CELL DISTRIBUTION WIDTH 18.5 % (11.6-17.2); WHITE BLOOD COUNT 6.4 TH/MM3 (4.0-11.0)
[2017-05-08 05:23] LABS: HEMO FLAGS AUTO DIFF
[2017-05-08 05:37] LABS: BICARBONATE 24.2 MEQ/L (21.0-32.0); POTASSIUM 3.2 MEQ/L (3.5-5.1)
[2017-05-08 05:57] LABS: BANDS 14 % (0-6); EOSINOPHILS 2 % (0-4); NEUTROPHIL # MANUAL DIFF 5.3 TH/MM3 (1.8-7.7); POLYS (SEG NEUTROPHILS) 69 % (16-70); WBC DIFF SAMPLE 100
[2017-05-08 05:58] LABS: SCAN/DIFF FINAL DIFF MANUAL
[2017-05-08] MEDS: HEPARIN SODIUM - SQ 10,000 UNITS/ML VIAL SQ SCH ×3 (06:00→23:05)
[2017-05-08 06:04] LABS: PLATELET ESTIMATE SMEAR LOW (NORMAL); PLATELET MORPHOLOGY NORMAL (NORMAL)
[2017-05-08 06:06] LABS: ACANTHOCYTES 1+ (NORMAL); OVALOCYTES 1+ (NORMAL); TOXIC VACUOLATION PRESENT (NONE SEEN)
[2017-05-08] MEDS: FAMOTIDINE 20 MG/2 ML VIAL IV PUSH SCH ×2 (09:00→19:53)
--- NOTE | 2017-05-08 09:00 | HHI.PR ---
cc: Jareth Landry MD Subjective Subjective Notes Resting in bed "When will I be able to go home?" Objective Vitals/I&O Vital Signs Date Time Temp Pulse Resp B/P (MAP) Pulse Ox O2 Delivery O2 Flow Rate FiO2 05/08/17 04:00 98.2 76 17 126/65 (85) 95 05/07/17 08:44 21 05/07/17 08:15 Room Air 05/06/17 20:10 3.00 Labs Laboratory Tests Test 05/08/17 04:55 White Blood Count 6.4 Red Blood Count 4.35 Hemoglobin 12.1 Hematocrit 36.6 Mean Corpuscular Volume 84.2 Mean Corpuscular Hemoglobin 27.7 Mean Corpuscular Hemoglobin Concent 32.9 Red Cell Distribution Width 18.5 Platelet Count 132 Mean Platelet Volume 7.8 Neutrophils (%) (Auto) 82.1 Lymphocytes (%) (Auto) 9.5 Monocytes (%) (Auto) 6.9 Eosinophils (%) (Auto) 1.2 Basophils (%) (Auto) 0.3 Neutrophils # (Auto) 5.2 Lymphocytes # (Auto) 0.6 Monocytes # (Auto) 0.4 Eosinophils # (Auto) 0.1 Basophils # (Auto) 0.0 CBC Comment AUTO DIFF Differential Total Cells Counted 100 Neutrophils % (Manual) 69 Band Neutrophils % 14 Lymphocytes % 11 Monocytes % 4 Eosinophils % 2 Neutrophils # (Manual) 5.3 Differential Comment FINAL DIFF MANUAL Toxic Vacuolation PRESENT Platelet Estimate LOW Platelet Morphology Comment NORMAL Ovalocytes 1+ Acanthocytes 1+ Blood Urea Nitrogen 11 Creatinine 0.71 Random Glucose 110 Calcium Level 7.8 Magnesium Level 2.0 Sodium Level 137 Potassium Level 3.2 Chloride Level 105 Carbon Dioxide Level 24.2 Anion Gap 8 Estimat Glomerular Filtration Rate 109 Date/Time Source Procedure Growth Status 05/03/17 18:45 Blood Peripheral Aerobic Blood Culture - Preliminary NO GROWTH IN 4 DAYS Resulted 05/03/17 18:45 Blood Peripheral Anaerobic Blood Culture - Preliminary NO GROWTH IN 4 DAYS Resulted 05/03/17 18:30 Urine Catheterized Urine Urine Culture - Final Staphylococcus Aureus Complete Cardiovascular: Regular Lungs: Clear Abdomen: Other (very minimal tenderness with palpation in RLQ ) Extremities: No edema A/P Assessment and Plan 71 year old male with acute diverticulitis with microperforation; multiple medical issues -Continue antibiotics ---Zosyn and Diflucan -VSS; afebrile -Advance diet as tolerated -Gentle hydration -Best to avoid surgery in this patient with complex medical problems Nancy Smith May 08, 2017 09:00
[2017-05-08] MEDS: POTASSIUM CHLORIDE 20 MEQ CONTROLLED RELEASE TAB PO ONE ×2 (09:30→11:23)
[2017-05-08] MEDS: SODIUM CHLORIDE 0.9% FLUSH 10 ML FLUSH IV FLUSH SCH ×2 (10:35→19:55)
[2017-05-08] MEDS: CLOPIDOGREL 75 MG TAB PO SCH (10:35)
[2017-05-08] MEDS: TAMSULOSIN HCL 0.4 MG CAP PO SCH ×2 (10:35→19:54)
[2017-05-08] MEDS: DOCUSATE SODIUM 50 MG/SENNA 8.6 MG TAB PO SCH ×2 (10:35→19:55)
--- NOTE | 2017-05-08 10:55 | HHI.PR ---
Subjective Remarks Pt states that he feels a bit nauseous but no vomiting. Sx did advance his diet to full liquids and he ate some but he does have some right lower quadrant pain after eating. Objective Vitals Vital Signs Date Time Temp Pulse Resp B/P (MAP) Pulse Ox O2 Delivery O2 Flow Rate FiO2 05/08/17 04:00 98.2 76 17 126/65 (85) 95 05/08/17 01:53 93 05/08/17 00:00 97.2 81 17 120/62 (81) 95 05/07/17 20:00 96.7 86 17 114/60 (78) 94 05/07/17 16:00 96.2 88 20 115/58 (77) 91 05/07/17 12:00 96.3 79 18 132/63 (86) 92 I/O 05/07/17 05/07/17 05/07/17 05/08/17 05/08/17 05/08/17 07:00 15:00 23:00 07:00 15:00 23:00 Intake Total 100 ml 2290 ml 340 ml Output Total 250 ml 400 ml 600 ml Balance -150 ml 1890 ml -260 ml Intake Oral 1440 ml 240 ml IV Total 100 ml 850 ml 100 ml Output Urine Total 250 ml 400 ml 600 ml # Voids 0 # Bowel Movements 2 1 2 Result Diagram: 05/08/17 0455 05/08/17 0455 Imaging Last Impressions Chest X-Ray 05/06/17 0000 Signed Impressions: Service Date/Time: Saturday, May 06, 2017 14:08 - CONCLUSION: 1. Improved right lung aeration with residual moderate right pleural effusion and associated right lower lung zone airspace disease. 2. Interval progression of small left pleural effusion and associated left lower lobe airspace disease. Titus Young MD Abdomen/Pelvis CT 05/03/17 1509 Signed Impressions: Service Date/Time: Wednesday, May 03, 2017 16:40 - CONCLUSION: 1. Abnormal inflamed sigmoid colon with severe diverticulosis and pericolonic stranding with 2 foci air/fluid collections measuring up to 2.9 cm consistent with perforation and abscess formation. There are a few tiny locules of free air seen anterior to this, moderate ascites and peritoneal enhancement which can be seen with peritonitis. 2. 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 3. Body wall edema, bilateral pleural effusions right greater than left, and right lower lobe partial atelectasis and consolidation Thai Leung MD Objective Remarks GENERAL: Elderly male, laying in bed. pleasant EYES: EOMI NECK: Trachea midline. CARDIOVASCULAR: irregularly irregular, 2/6 systolic murmur at apex. RESPIRATORY: No accessory muscle use. Diminished by basilar. No wheeze GASTROINTESTINAL: Abd soft, some discomfort to deep palpation mainly in the right lower quadrant, no guarding or rebound, hernia noted. MUSCULOSKELETAL: Extremities with 2+ pitting edema bilateral lower extremities below the knee. NEUROLOGICAL: Awake and alert. No obvious cranial nerve deficits. Motor grossly within normal limits. Normal speech. follows commands. A/P Assessment and Plan 71yM with perforated diverticulitis, intra-abdominal sepsis, septic shock. unfortunately, IR not able to find drainable fluid collection. given medical comorbidities, prohibitively high risk for exploratory laparotomy. will manage conservatively, improving shock. remains on vasopressors. decrease ivf dose given cardiomyopathy. close monitoring: CHF and depressed EF may compete with septic shock and may develop respiratory or cardiac failure. highly complex. NEURO: Prior stroke Abdominal Pain Tylenol as needed for mild pain or fever pain meds adjusted to po norco prn w Dilaudid 0.5 mg IV every 4 hours as needed for breakthrough pain RESP: Right pleural effusion Hypoxemia NC to maintain sats greater than 92%. Repeat CXR shows improved aeration of the right lung but progression of small left pleural effusion. continue Incentive spirometry every hour awake Has previously had right thoracentesis 03/25/17 with 1800 removed, pleural fluid studies c/w transudative. Cytology negative for malignant cells Will likely need R thoracentesis at some point but it is not currently necessary. o2 requirement improving. No indication for thoracentesis at this time Patient known to Dr. Frank Burch. CV: Dilated cardiomyopathy Moderate mitral regurgitation Paroxysmal atrial fibrillation, RVR Hypertension Hyperlipidemia Coronary artery disease with prior stents Septic shock-resolved Lactic acidemia s/p Levophed Hold home Coreg 3.125 mill grams by mouth twice a day due to hypotension. Hold lisinopril 5 mill grams by mouth daily due to hypotension. on Plavix GI: Diverticulitis with perforation and abscess x2 Intra-abdominal sepsis full liquids. monitor closely General surgery following. No surgical intervention planned at this time FEN/RENAL: Hyponatremia BPH Continue Jackson to monitor intake and output as marker of organ perfusion in the setting of septic shock. DC after initiating tamsulosin Monitor electrolytes and replace as clinically indicated. Slowly resuming Lasix, will start 10mg po BID and slowly increase dose. supplemental potassium added. Kphos added as well. monitor electrolytes ID: Septic shock Perforated diverticulitis with abscess Immunocompromised state Rheumatoid arthritis (on disease modifying therapy with Leflunomide) MSSA UTI f/u culture data Zosyn 4.5 g IV every 6 hours due to complicated diverticulitis. Continue Diflucan Hold leflunomide due to sepsis. (Long elimination half life of 19 days) He reports intolerance to statin, azithromycin and Levaquin which have severely exacerbated his RA in the past requiring admission. No surgical intervention planned at this time consider getting ID input. HEME: Monitor CBC ENDO: Diabetes mellitus Monitor bedside glucose every 6 hours and administer low-dose insulin sliding scale as indicated. SKIN: Melanoma, removed from left face MSK: Avascular necrosis bilateral hips Osteoarthritis bilateral hips Status post right hip replacement PROPH: SCDs/heparin for DVT prophylaxis. Discharge Planning on full liquid diet per GS. continue aggressive PT IS q1hr while awake. slowly adding lasix Adriane Egan MD May 08, 2017 10:55
[2017-05-08] MEDS ORDERED: PILL SPLITTER OTHER PRN (11:00)
[2017-05-08] MEDS: DIGOXIN 0.5 MG/2 ML VIAL IV PUSH SCH (11:59)
[2017-05-08] MEDS: FUROSEMIDE 20 MG TAB PO SCH (16:39)
[2017-05-08] MEDS: FLUCONAZOLE 100 MG PREMIX BAG 50 ML IV SCH (16:39)
[2017-05-08] MEDS: DEXT 5%-NACL 0.45% 1000 ML INJ 1,000 ML IV SCH (16:41)
[2017-05-08] MEDS: POTASSIUM PHOSPHATE MONOBASIC 500 MG TAB PO SCH (19:54)
[2017-05-09] VITALS (9 sets, daily range): BP systolic 125–141; BP diastolic 59–77; PULSE 82–101; RESP 18–22; TEMP 95.7–96.8; O2SAT 92–100
[2017-05-09] MEDS: PIPERACIL-TAZO 4.5 GM PREMIX 100 ML IV SCH ×4 (02:54→19:43)
[2017-05-09] MEDS: INSULIN ASPART SUPPLEMENTAL SCALE SQ SCH ×4 (02:58→21:25)
[2017-05-09] MEDS: CHLORHEXIDINE GLUCONATE 2 % 1 PACK (2 CLOTHS) TOP SCH (02:59)
[2017-05-09 05:10] LABS: HEMATOCRIT 34.4 % (39.0-51.0); MEAN CELL VOLUME 83.5 FL (80.0-100.0); MEAN CORPUSCULAR HEMOGLOBIN 27.9 PG (27.0-34.0); MEAN CORPUSCULAR HGB CONC 33.4 % (32.0-36.0); PLATELET COUNT 143 TH/MM3 (150-450); RED BLOOD COUNT 4.12 MIL/MM3 (4.50-5.90); RED CELL DISTRIBUTION WIDTH 18.7 % (11.6-17.2); REVIEW FLAG FINAL; WHITE BLOOD COUNT 5.7 TH/MM3 (4.0-11.0)
[2017-05-09 05:29] LABS: BICARBONATE 27.7 MEQ/L (21.0-32.0); MAGNESIUM 1.9 MG/DL (1.5-2.5); POTASSIUM 3.1 MEQ/L (3.5-5.1)
[2017-05-09] MEDS: HEPARIN SODIUM - SQ 10,000 UNITS/ML VIAL SQ SCH ×3 (06:07→21:25)
[2017-05-09] MEDS ORDERED: POTASSIUM CHLORIDE 20 MEQ CONTROLLED RELEASE TAB PO ONE (09:00)
[2017-05-09] MEDS: POTASSIUM CHLORIDE 10 MEQ CAP PO SCH (09:04)
[2017-05-09] MEDS: DOCUSATE SODIUM 50 MG/SENNA 8.6 MG TAB PO SCH ×2 (09:05→19:42)
[2017-05-09] MEDS: CLOPIDOGREL 75 MG TAB PO SCH (09:05)
[2017-05-09] MEDS: TAMSULOSIN HCL 0.4 MG CAP PO SCH ×2 (09:05→19:42)
[2017-05-09] MEDS: POTASSIUM PHOSPHATE MONOBASIC 500 MG TAB PO SCH ×2 (09:05→19:42)
[2017-05-09] MEDS: FUROSEMIDE 20 MG TAB PO SCH ×2 (09:05→17:47)
[2017-05-09] MEDS: DIGOXIN 0.5 MG/2 ML VIAL IV PUSH SCH (09:06)
[2017-05-09] MEDS: FAMOTIDINE 20 MG/2 ML VIAL IV PUSH SCH ×2 (09:06→19:42)
[2017-05-09] MEDS: SODIUM CHLORIDE 0.9% FLUSH 10 ML FLUSH IV FLUSH SCH ×2 (09:10→19:42)
--- NOTE | 2017-05-09 10:29 | HHI.PR ---
Subjective Remarks Pt denies any pain at this time, denies any CP/SOB/N/V drank his juice and is currently drinking his ensure, per RN didn't want the rest of his breakfast Objective Vitals Vital Signs Date Time Temp Pulse Resp B/P (MAP) Pulse Ox O2 Delivery O2 Flow Rate FiO2 05/09/17 08:00 96.0 90 18 131/77 (95) 92 05/09/17 05:01 88 05/09/17 04:39 96.8 101 18 125/71 (89) 92 05/09/17 00:58 96.1 82 18 128/59 (82) 92 05/08/17 23:26 93 05/08/17 20:57 96.3 84 18 120/58 (78) 92 05/08/17 16:00 97.0 85 17 120/91 (101) 93 05/08/17 11:55 97.1 96 18 130/67 (88) 92 I/O 05/08/17 05/08/17 05/08/17 05/09/17 05/09/17 05/09/17 07:00 15:00 23:00 07:00 15:00 23:00 Intake Total 340 ml 100 ml 270 ml 100 ml Output Total 600 ml 370 ml Balance -260 ml 100 ml -100 ml 100 ml Intake Oral 240 ml 120 ml IV Total 100 ml 100 ml 150 ml 100 ml Output Urine Total 600 ml 370 ml # Voids 3 # Bowel Movements 2 2 3 Result Diagram: 05/09/17 0435 05/09/17 0435 Imaging Last Impressions Chest X-Ray 05/06/17 0000 Signed Impressions: Service Date/Time: Saturday, May 06, 2017 14:08 - CONCLUSION: 1. Improved right lung aeration with residual moderate right pleural effusion and associated right lower lung zone airspace disease. 2. Interval progression of small left pleural effusion and associated left lower lobe airspace disease. Titus Young MD Abdomen/Pelvis CT 05/03/17 1509 Signed Impressions: Service Date/Time: Wednesday, May 03, 2017 16:40 - CONCLUSION: 1. Abnormal inflamed sigmoid colon with severe diverticulosis and pericolonic stranding with 2 foci air/fluid collections measuring up to 2.9 cm consistent with perforation and abscess formation. There are a few tiny locules of free air seen anterior to this, moderate ascites and peritoneal enhancement which can be seen with peritonitis. 2. 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 3. Body wall edema, bilateral pleural effusions right greater than left, and right lower lobe partial atelectasis and consolidation Thai Leung MD Objective Remarks GENERAL: Elderly male, laying in bed. pleasant EYES: EOMI NECK: Trachea midline. CARDIOVASCULAR: irregularly irregular, 2/6 systolic murmur at apex. RESPIRATORY: No accessory muscle use. Diminished by basilar. No wheeze GASTROINTESTINAL: Abd soft, non tender this morning, no guarding or rebound, hernia noted. MUSCULOSKELETAL: Extremities with 2+ pitting edema bilateral lower extremities below the knee. NEUROLOGICAL: Awake and alert. No obvious cranial nerve deficits. Motor grossly within normal limits. Normal speech. follows commands. A/P Assessment and Plan 71yM with perforated diverticulitis, intra-abdominal sepsis, septic shock. unfortunately, IR not able to find drainable fluid collection. given medical comorbidities, prohibitively high risk for exploratory laparotomy. will manage conservatively, improving shock. remains on vasopressors. decrease ivf dose given cardiomyopathy. close monitoring: CHF and depressed EF may compete with septic shock and may develop respiratory or cardiac failure. highly complex. NEURO: Prior stroke Abdominal Pain Tylenol as needed for mild pain or fever pain meds adjusted to po norco prn w Dilaudid 0.5 mg IV every 4 hours as needed for breakthrough pain RESP: Right pleural effusion Hypoxemia NC to maintain sats greater than 92%. Repeat CXR shows improved aeration of the right lung but progression of small left pleural effusion. continue Incentive spirometry every hour awake Has previously had right thoracentesis 03/25/17 with 1800 removed, pleural fluid studies c/w transudative. Cytology negative for malignant cells Will likely need R thoracentesis at some point but it is not currently necessary. o2 requirement improving. No indication for thoracentesis at this time Patient known to Dr. Frank Burch. CV: Dilated cardiomyopathy Moderate mitral regurgitation Paroxysmal atrial fibrillation, RVR Hypertension Hyperlipidemia Coronary artery disease with prior stents Septic shock-resolved Lactic acidemia s/p Levophed Hold home Coreg 3.125 mill grams by mouth twice a day due to hypotension. Hold lisinopril 5 mill grams by mouth daily due to hypotension. on Plavix GI: Diverticulitis with perforation and abscess x2 Intra-abdominal sepsis full liquids. monitor closely General surgery following. No surgical intervention planned at this time FEN/RENAL: Hyponatremia BPH on tamsulosin Monitor electrolytes and replace as clinically indicated. Slowly resuming Lasix, will start 10mg po BID and slowly increase dose. supplemental potassium added. Kphos added as well. monitor electrolytes ID: Septic shock Perforated diverticulitis with abscess Immunocompromised state Rheumatoid arthritis (on disease modifying therapy with Leflunomide) MSSA UTI f/u culture data Zosyn 4.5 g IV every 6 hours due to complicated diverticulitis. Continue Diflucan Hold leflunomide due to sepsis. (Long elimination half life of 19 days) He reports intolerance to statin, azithromycin and Levaquin which have severely exacerbated his RA in the past requiring admission. No surgical intervention planned at this time consider getting ID input. HEME: Monitor CBC ENDO: Diabetes mellitus Monitor bedside glucose every 6 hours and administer low-dose insulin sliding scale as indicated. SKIN: Melanoma, removed from left face MSK: Avascular necrosis bilateral hips Osteoarthritis bilateral hips Status post right hip replacement PROPH: SCDs/heparin for DVT prophylaxis. Discharge Planning on full liquid diet per GS. Awaiting final recs from GS continue aggressive PT IS q1hr while awake. slowly adding lasix will need rehab upon d/c Adriane Egan MD May 09, 2017 10:29
--- NOTE | 2017-05-09 14:10 | HHI.PR ---
Subjective Subjective Notes no pain, tolerating PO, +BM Objective Vitals/I&O Vital Signs Date Time Temp Pulse Resp B/P (MAP) Pulse Ox O2 Delivery O2 Flow Rate FiO2 05/09/17 12:00 96.3 87 20 127/60 (82) 100 05/09/17 08:51 21 05/07/17 08:15 Room Air 05/06/17 20:10 3.00 Labs Laboratory Tests Test 05/09/17 04:35 White Blood Count 5.7 Red Blood Count 4.12 Hemoglobin 11.5 Hematocrit 34.4 Mean Corpuscular Volume 83.5 Mean Corpuscular Hemoglobin 27.9 Mean Corpuscular Hemoglobin Concent 33.4 Red Cell Distribution Width 18.7 Platelet Count 143 Mean Platelet Volume 7.8 Blood Urea Nitrogen 7 Creatinine 0.57 Random Glucose 106 Calcium Level 7.7 Phosphorus Level 2.0 Magnesium Level 1.9 Sodium Level 139 Potassium Level 3.1 Chloride Level 104 Carbon Dioxide Level 27.7 Anion Gap 7 Estimat Glomerular Filtration Rate 141 Date/Time Source Procedure Growth Status 05/03/17 18:45 Blood Peripheral Aerobic Blood Culture - Final NO GROWTH IN 5 DAYS Complete 05/03/17 18:45 Blood Peripheral Anaerobic Blood Culture - Final NO GROWTH IN 5 DAYS Complete 05/03/17 18:30 Urine Catheterized Urine Urine Culture - Final Staphylococcus Aureus Complete Abdomen: Non-distended, Non-tender A/P Assessment and Plan 71yo male with diverticulitis, stable. ok to DC home with oral antibiotics, fu with me in 1-2 weeks Jareth Landry MD May 09, 2017 14:10
[2017-05-09] MEDS: FLUCONAZOLE 100 MG PREMIX BAG 50 ML IV SCH (17:47)
[2017-05-09] MEDS: DEXT 5%-NACL 0.45% 1000 ML INJ 1,000 ML IV SCH (23:07)
[2017-05-10] MEDS: PIPERACIL-TAZO 4.5 GM PREMIX 100 ML IV SCH ×3 (02:26→13:20)
[2017-05-10] MEDS: INSULIN ASPART SUPPLEMENTAL SCALE SQ SCH ×2 (02:30→09:15)
[2017-05-10 04:00] VITALS: BP 128/76; PULSE 77; RESP 22; TEMP 96.2; O2SAT 95
[2017-05-10] MEDS: CHLORHEXIDINE GLUCONATE 2 % 1 PACK (2 CLOTHS) TOP SCH (04:00)
[2017-05-10] MEDS: HEPARIN SODIUM - SQ 10,000 UNITS/ML VIAL SQ SCH ×2 (05:38→13:22)
[2017-05-10 06:23] VITALS: O2SAT 95
[2017-05-10 06:54] LABS: HEMATOCRIT 32.2 % (39.0-51.0); MEAN CELL VOLUME 84.2 FL (80.0-100.0); MEAN CORPUSCULAR HEMOGLOBIN 28.2 PG (27.0-34.0); MEAN CORPUSCULAR HGB CONC 33.4 % (32.0-36.0); PLATELET COUNT 141 TH/MM3 (150-450); RED BLOOD COUNT 3.82 MIL/MM3 (4.50-5.90); RED CELL DISTRIBUTION WIDTH 18.3 % (11.6-17.2); REVIEW FLAG FINAL; WHITE BLOOD COUNT 6.9 TH/MM3 (4.0-11.0)
[2017-05-10 07:03] LABS: BICARBONATE 24.5 MEQ/L (21.0-32.0); MAGNESIUM 1.7 MG/DL (1.5-2.5)
[2017-05-10 07:24] LABS: CALCIUM-PROTEIN CORRECTED 8.5 MG/DL (8.5-10.1)
[2017-05-10 08:00] VITALS: BP 124/88; PULSE 87; RESP 18; TEMP 97; O2SAT 95
[2017-05-10] MEDS: DOCUSATE SODIUM 50 MG/SENNA 8.6 MG TAB PO SCH (09:00)
[2017-05-10] MEDS: DIGOXIN 0.5 MG/2 ML VIAL IV PUSH SCH (09:13)
[2017-05-10] MEDS: TAMSULOSIN HCL 0.4 MG CAP PO SCH (09:13)
[2017-05-10] MEDS: FAMOTIDINE 20 MG/2 ML VIAL IV PUSH SCH (09:14)
[2017-05-10] MEDS: CLOPIDOGREL 75 MG TAB PO SCH (09:14)
[2017-05-10] MEDS: POTASSIUM PHOSPHATE MONOBASIC 500 MG TAB PO SCH (09:14)
[2017-05-10] MEDS: POTASSIUM CHLORIDE 10 MEQ CAP PO SCH (09:14)
[2017-05-10] MEDS: FUROSEMIDE 20 MG TAB PO SCH (09:15)
[2017-05-10] MEDS: SODIUM CHLORIDE 0.9% FLUSH 10 ML FLUSH IV FLUSH SCH (09:27)
--- NOTE | 2017-05-10 09:40 | HHI.FF ---
Face to Face Verification Diagnosis: (1) Diverticulitis (2) Weakness Physical Therapy Order: Evaluate and Treat Home Health Nursing Order: Nursing assessment with vital signs I have seen patient Diomedes Hines on 05/10/17. My clinical findings support the need for the requested home health care services because: PT evaluated the pt and recommended rehab but pt and declined and would rather to PT at home Deconditioned w/ increased weakness Limited ability to care for self I certify that my clinical findings support that this patient is homebound because: PT evaluated the pt and recommended rehab but pt and declined and would rather to PT at home Unsteady gait/balance Adriane Egan MD May 10, 2017 09:40
[2017-05-10] MEDS ORDERED: INFLUENZA VIRUS VACCINE (QUADRIVALENT) 0.5 ML SYR IM ONE (10:00)
[2017-05-10] MEDS ORDERED: METR-1 PO (11:40)
[2017-05-10] MEDS ORDERED: AUGM875T3 PO (11:40)
[2017-05-10] MEDS ORDERED: HYDR-3580 PO (11:40)
[2017-05-10] MEDS ORDERED: FURO20TA PO (11:41)
--- NOTE | 2017-05-10 11:51 | HHI.DS ---
Discharge Summary Admission Date May 03, 2017 at 18:20 Discharge Date: May 10, 2017 Admitting Diagnosis Bowel perf (1) Weakness ICD Code: R53.1 - Weakness (2) Diverticulitis ICD Code: K57.92 - Diverticulitis of intestine, part unspecified, without perforation or abscess without bleeding (3) Perforation of sigmoid colon ICD Code: K63.1 - Perforation of intestine (nontraumatic) Status: Acute (4) Afib ICD Code: I48.91 - Unspecified atrial fibrillation Status: Acute Procedures none Brief History - From Admission 71-year-old male with past medical history of dilated cardiomyopathy with ejection fraction 20%, paroxysmal atrial fibrillation, hypercholesterolemia , coronary artery disease with KIKE 06/2016, prior stroke, hypertension, diabetes with diabetic foot ulcers, rheumatoid arthritis on disease modifying therapy with leflunomide, BPH who presented to [facility] with 2 days of abdominal pain. He states when he awoke from a nap this afternoon the pain was much more severe, 10/10 primary in right lower abdomen but also LLQ. Worse with cough or movement. No nausea or vomiting. No fever. He has been having chronic diarrhea and fecal incontinence. No BRBPR or melena. CT abd/ pelvis demonstrates inflamed sigmoid colon with diverticulitis. There are 2 foci of air fluid collections consistent with perforation and abscess formation. There is moderate ascites, peritoneal enhancement, bilateral pleural effusions right greater than left. WBC is 5. The ED physician consulted general surgery, Dr. Fox, who recommended transfer to [facility] and therefore flask handler consult was placed. He is in septic shock with lactic acid 5.5. He is in A fib RVR in the 130s and initially normotensive with blood pressure 95/73 with map of 80. He received NS 500 bolus , Zofran 4 g IV, Dilaudid 0.2 mg IV in the emergency department. He became hypotensive with blood pressure 66/39 with mean arterial pressure of 48. I administered additional 1500 and 0.9 NaCL bolus and initiated Jayden-Synephrine to maintain MAP >65. I obtained blood and urine cultures and initiated Zosyn. CBC/BMP: 05/10/17 0604 05/10/17 0604 Significant Findings Last Impressions Chest X-Ray 05/06/17 0000 Signed Impressions: Service Date/Time: Saturday, May 06, 2017 14:08 - CONCLUSION: 1. Improved right lung aeration with residual moderate right pleural effusion and associated right lower lung zone airspace disease. 2. Interval progression of small left pleural effusion and associated left lower lobe airspace disease. Titus Young MD Abdomen/Pelvis CT 05/03/17 1509 Signed Impressions: Service Date/Time: Wednesday, May 03, 2017 16:40 - CONCLUSION: 1. Abnormal inflamed sigmoid colon with severe diverticulosis and pericolonic stranding with 2 foci air/fluid collections measuring up to 2.9 cm consistent with perforation and abscess formation. There are a few tiny locules of free air seen anterior to this, moderate ascites and peritoneal enhancement which can be seen with peritonitis. 2. 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 3. Body wall edema, bilateral pleural effusions right greater than left, and right lower lobe partial atelectasis and consolidation Thai Leung MD Laboratory Tests Test 05/08/17 04:55 05/09/17 04:35 05/10/17 06:04 Red Blood Count 4.35 MIL/MM3 (4.50-5.90) 4.12 MIL/MM3 (4.50-5.90) 3.82 MIL/MM3 (4.50-5.90) Hemoglobin 12.1 GM/DL (13.0-17.0) 11.5 GM/DL (13.0-17.0) 10.8 GM/DL (13.0-17.0) Hematocrit 36.6 % (39.0-51.0) 34.4 % (39.0-51.0) 32.2 % (39.0-51.0) Red Cell Distribution Width 18.5 % (11.6-17.2) 18.7 % (11.6-17.2) 18.3 % (11.6-17.2) Platelet Count 132 TH/MM3 (150-450) 143 TH/MM3 (150-450) 141 TH/MM3 (150-450) Neutrophils (%) (Auto) 82.1 % (16.0-70.0) Lymphocytes # (Auto) 0.6 TH/MM3 (1.0-4.8) Band Neutrophils % 14 % (0-6) Toxic Vacuolation PRESENT (NONE SEEN) Platelet Estimate LOW (NORMAL) Ovalocytes 1+ (NORMAL) Acanthocytes 1+ (NORMAL) Random Glucose 110 MG/DL (74-106) 110 MG/DL (74-106) Calcium Level 7.8 MG/DL (8.5-10.1) 7.7 MG/DL (8.5-10.1) 7.4 MG/DL (8.5-10.1) Potassium Level 3.2 MEQ/L (3.5-5.1) 3.1 MEQ/L (3.5-5.1) 3.0 MEQ/L (3.5-5.1) Creatinine 0.57 MG/DL (0.60-1.30) 0.44 MG/DL (0.60-1.30) Phosphorus Level 2.0 MG/DL (2.5-4.9) Blood Urea Nitrogen 6 MG/DL (7-18) Total Protein 5.1 GM/DL (6.4-8.2) PE at Discharge GENERAL: Elderly male, laying in bed. pleasant EYES: EOMI NECK: Trachea midline. CARDIOVASCULAR: irregularly irregular, 2/6 systolic murmur at apex. RESPIRATORY: No accessory muscle use. Diminished by basilar. No wheeze GASTROINTESTINAL: Abd soft, non tender this morning, no guarding or rebound, hernia noted. MUSCULOSKELETAL: Extremities with 2+ pitting edema bilateral lower extremities below the knee. NEUROLOGICAL: Awake and alert. No obvious cranial nerve deficits. Motor grossly within normal limits. Normal speech. follows commands. Pt update on day of discharge Pt feeling well. wants to go home today and states "I will go today". has some discomfort but tolerating his full liquid diet. no nausea or vomiting at bedside. states that pt will not go to rehab and pt states the same. she is comfortable taking him home today w home health PT. Hospital Course 71yM with perforated diverticulitis, intra-abdominal sepsis, septic shock. unfortunately, IR not able to find drainable fluid collection. given medical comorbidities, prohibitively high risk for exploratory laparotomy. Pt was managed conservatively, shock resolved. s/p vasopressors. Diverticulitis with perforation and abscess x2 Intra-abdominal sepsis full liquids. doing well. General surgery has cleared pt for discharge. f/u w them in 2 weeks. No surgical intervention planned at this time continue pain control. Discussed w Dr. Samuel and recommends a total of 14 days of abx. Because pt is allergic to levaquin (makes him extremely weak per and trawl net maker recommended staying away from it) will give augmentin and flagyl per Dr. Samuel' s recs. Right pleural effusion Hypoxemia- resolved. pt now on Room Air and doing well. Repeat CXR shows improved aeration of the right lung but progression of small left pleural effusion. continue Incentive spirometry every hour awake Has previously had right thoracentesis 03/25/17 with 1800 removed, pleural fluid studies c/w transudative. Cytology negative for malignant cells Patient known to Dr. Frank Burch and will f/u w him as an outpatient. Dilated cardiomyopathy Moderate mitral regurgitation Paroxysmal atrial fibrillation, RVR Hypertension Hyperlipidemia Coronary artery disease with prior stents Septic shock-resolved Lactic acidemia s/p Levophed resume Coreg and lisinopril. decrease dose of lasix on Plavix Pt Condition on Discharge: Stable Discharge Disposition: Disch w/ Home Health Serv Discharge Time: > 30 minutes Discharge Instructions DIET: Follow Instructions for: Full Liquid Diet Activities you can perform: Regular-No Restrictions Follow up Referrals: SNF/[facility]/ with [facility] New Orders: BASIC METABOLIC PROF - 3-5 Days New Medications: Amoxicillin-Clavulanate (Augmentin) 875-125 Mg Tab 1 TAB PO BID for Infection, #14 TAB 0 Refills Metronidazole (Flagyl) 500 Mg Tab 500 MG PO TID for Infection, #21 TAB 0 Refills Furosemide (Furosemide) 20 Mg Tab 20 MG PO BID@, #60 TAB Hydrocodone/Acetaminophen (Hydrocodone-Acetamin 7.5-325) 7.5 Mg-325 Mg Tablet 1 TAB PO Q6HR PRN for PAIN SCALE 6 TO 10, #40 Continued Medications: Carvedilol (Coreg) 3.125 Mg Tab 3.125 MG PO BID, #60 TAB 0 Refills Clopidogrel (Plavix) 75 Mg Tab 75 MG PO DAILY for Blood Clot Prevention, #30 TAB 0 Refills Lisinopril (Lisinopril) 5 Mg Tab 5 MG PO DAILY for Blood Pressure Management, #30 TAB 0 Refills Potassium Chloride ER (Potassium Chloride ER) 20 Meq Tab 20 MEQ PO BID for Electrolyte Replacement, #60 TAB 0 Refills Tamsulosin (Tamsulosin) 0.4 Mg Cap 0.4 MG PO BID for Manage Prostate Problems, #30 CAP 0 Refills Discontinued Medications: Furosemide (Furosemide) 40 Mg Tab 40 MG PO BID for heart, #60 TAB 0 Refills Leflunomide (Leflunomide) 20 Mg Tab 20 MG PO DAILY, TAB Adriane Egan MD May 10, 2017 11:51
[2017-05-10 12:00] VITALS: BP 125/72; PULSE 83; RESP 17; TEMP 96.2; O2SAT 94
[2017-05-10] MEDS ORDERED: WALKER WHEELS/F1 MIS (12:21)
[2017-05-10] MEDS ORDERED: BEDSIDE COMMODE1 MI1 (12:21)
--- NOTE | 2017-05-10 14:40 | HHI.PR ---
cc: Bryce Samuel MD Subjective Subjective Notes Loose bowel movements, no pain Tolerating diet, advanced to low residue Objective Vitals/I&O Vital Signs Date Time Temp Pulse Resp B/P (MAP) Pulse Ox O2 Delivery O2 Flow Rate FiO2 05/10/17 12:00 96.2 83 17 125/72 (89) 94 05/09/17 08:51 21 05/07/17 08:15 Room Air 05/06/17 20:10 3.00 Labs Laboratory Tests Test 05/10/17 06:04 White Blood Count 6.9 Red Blood Count 3.82 Hemoglobin 10.8 Hematocrit 32.2 Mean Corpuscular Volume 84.2 Mean Corpuscular Hemoglobin 28.2 Mean Corpuscular Hemoglobin Concent 33.4 Red Cell Distribution Width 18.3 Platelet Count 141 Mean Platelet Volume 7.8 Blood Urea Nitrogen 6 Creatinine 0.44 Random Glucose 110 Total Protein 5.1 Calcium Level 7.4 Phosphorus Level 2.5 Magnesium Level 1.7 Sodium Level 138 Potassium Level 3.0 Chloride Level 106 Carbon Dioxide Level 24.5 Anion Gap 8 Estimat Glomerular Filtration Rate 189 Protein Corrected Calcium 8.5 Date/Time Source Procedure Growth Status 05/03/17 18:45 Blood Peripheral Aerobic Blood Culture - Final NO GROWTH IN 5 DAYS Complete 05/03/17 18:45 Blood Peripheral Anaerobic Blood Culture - Final NO GROWTH IN 5 DAYS Complete 05/03/17 18:30 Urine Catheterized Urine Urine Culture - Final Staphylococcus Aureus Complete Abdomen: Non-distended, Non-tender A/P Problem List: (1) Primary localized osteoarthrosis, lower leg ICD Codes: M17.10 - Primary localized osteoarthrosis, lower leg Status: Acute (2) Chest pain ICD Codes: R07.9 - Chest pain, unspecified Status: Acute (3) Supraventricular tachycardia ICD Codes: I47.1 - Supraventricular tachycardia Status: Acute (4) HBP (high blood pressure) ICD Codes: I10 - Hypertension Status: Acute (5) Congestive heart failure ICD Codes: I50.9 - Heart failure, unspecified Status: Acute (6) DM type 2 (diabetes mellitus, type 2) ICD Codes: E11.9 - Type 2 diabetes mellitus without complications Status: Acute (7) Myalgia ICD Codes: M79.1 - Myalgia Status: Acute (8) ischemic CMP Status: Acute (9) Rheumatoid arthritis ICD Codes: M06.9 - Rheumatoid arthritis, unspecified Status: Chronic (10) CAD (coronary artery disease) ICD Codes: I25.10 - Atherosclerotic heart disease of [place] coronary artery without angina pectoris Status: Chronic (11) DM (diabetes mellitus) ICD Codes: E11.9 - Type 2 diabetes mellitus without complications Status: Chronic (12) Hypertension ICD Codes: I10 - Essential (primary) hypertension Status: Acute (13) Hammertoe of right foot ICD Codes: M20.41 - Other hammer toe(s) (acquired), right foot Status: Chronic (14) Diabetes mellitus with peripheral autonomic neuropathy ICD Codes: E11.43 - Type 2 diabetes mellitus with diabetic autonomic (poly) neuropathy Status: Chronic (15) Perforation of sigmoid colon ICD Codes: K63.1 - Perforation of intestine (nontraumatic) Status: Acute (16) Diverticulitis ICD Codes: K57.92 - Diverticulitis of intestine, part unspecified, without perforation or abscess without bleeding Assessment and Plan Acute diverticulitis, improved. Plan: Advance diet D/C home F/U Dr. Landry 1-2 weeks Bryce Samuel MD May 10, 2017 14:40
[2017-05-10] MEDS ORDERED: CARVEDILOL 3.125 MG TAB PO SCH (21:00)
[2017-05-11] MEDS ORDERED: LISINOPRIL 5 MG TAB PO SCH (09:00)
[2017-05-11 12:30] LABS: STAT YES
[2017-05-12 09:53] LABS: STAT NO
== END 2017-05-10 14:54 | disposition home health service (06) | DRG 871 ==
LOC: PHED 14:13 → PHEDA 18:20 → N03A 20:55 → N07A 05-06 18:21
PROVIDERS: ADMIT Hospitalist; ATTEND Hospitalist
PROC: 02HV33Z Insertion of Infusion Device into Superior Vena Cava, Percutaneous Approach (ICD-10-PCS; principal; 2017-05-03)
PROC: B548ZZA Ultrasonography of Superior Vena Cava, Guidance (ICD-10-PCS; 2017-05-03)
DX: A41.9 Sepsis, unspecified organism (principal); R65.21 Severe sepsis with septic shock; K57.20 Diverticulitis of large intestine with perforation and abscess without bleeding; I42.0 Dilated cardiomyopathy; E11.621 Type 2 diabetes mellitus with foot ulcer; I11.0 Hypertensive heart disease with heart failure; I50.9 Heart failure, unspecified; E87.1 Hypo-osmolality and hyponatremia; M87.9 Osteonecrosis, unspecified; N39.0 Urinary tract infection, site not specified; B95.61 Methicillin susceptible Staphylococcus aureus infection as the cause of diseases classified elsewhere; I47.1 Supraventricular tachycardia; I48.0 Paroxysmal atrial fibrillation; M06.9 Rheumatoid arthritis, unspecified; N40.0 Benign prostatic hyperplasia without lower urinary tract symptoms; I25.10 Atherosclerotic heart disease of native coronary artery without angina pectoris; Z95.5 Presence of coronary angioplasty implant and graft; Z86.73 Personal history of transient ischemic attack (TIA), and cerebral infarction without residual deficits; I34.0 Nonrheumatic mitral (valve) insufficiency; E78.5 Hyperlipidemia, unspecified; R09.02 Hypoxemia; F17.290 Nicotine dependence, other tobacco product, uncomplicated; M16.0 Bilateral primary osteoarthritis of hip; Z85.820 Personal history of malignant melanoma of skin; Z96.651 Presence of right artificial knee joint
CPT/HCPCS: 36556; 71010; 74177; 76937; 80048; 80053; 80162; 81001; 82140; 82805; 82948; 83605; 83690; 83735; 84100; 84132; 84155; 84484; 85007; 85025; 85027; 85610; 85730; 86403; 87040; 87077; 87086; 87186; 87641; 93005; 93308; 94150; 96361; 96374; 96375; J1170; J1160; J1450; J1644; J1815; J2370; J2405; J2543; J3480; J7030; J7040; J7060; Q9963; Q9967